=== PATIENT | female | born 1975 | race African-American/Black ===

== ENCOUNTER 2020-07-03 05:45 | Emergency (ER) | payer SELFPAY ==
[2020-07-03] MEDS ORDERED: NA CHLORIDE 0.9% 1,000 ML ONE (06:39)
[2020-07-03] MEDS ORDERED: ONDANSETRON 4 MG/2 ML VIAL ONE (06:39)
[2020-07-03] MEDS ORDERED: MORPHINE 4 MG/ML SYR ONE (06:39)
[2020-07-03] MEDS ORDERED: FAMOTIDINE 20 MG/2 ML VIAL IV ONE (06:39)
[2020-07-03 06:41] LABS: Absolute Lymphocytes (CBC) 1.5 K/uL (0.7-4.9); Basophils % 0.5 % (0-1.3); Hematocrit 40.9 % (36.0-45.0); Lymphocytes % 9.9 % (15.3-44.8); MPV 9.3 fL (7.6-11.3); RBC Red Blood Cell Count 4.63 M/uL (3.86-4.86)
[2020-07-03 06:56] LABS: Albumin 4.8 g/dL (3.4-5.0); Bilirubin Direct 0.2 mg/dL (0-0.2); Bilirubin Total 0.7 mg/dL (0.2-1.0); Protein, Total 9.6 g/dL (6.4-8.2)
[2020-07-03 06:58] LABS: Potassium 2.7 mmol/L (3.5-5.1)
[2020-07-03] MEDS ORDERED: POTASSIUM 25 MEQ EFFERV TAB ONE (07:27)
--- NOTE | 2020-07-03 09:02 | RAD REPORT ---
EXAM DESCRIPTION: CT - Abdomen Pelvis W Contrast - 07/03/2020 7:58 am CLINICAL HISTORY: ABD PAIN COMPARISON: <Comparisons> TECHNIQUE: Biphasic, helical CT imaging of the abdomen and pelvis was performed following 100 ml non -ionic IV contrast. No oral contrast administered. All CT scans are performed using dose optimization technique as appropriate and may include automated exposure control or mA/KV adjustment according to patient size. FINDINGS: No acute pleural or parenchymal lung base abnormality. No pericardial effusion. Trevino of t he distal esophagus are mildly prominent. There is motion which limits assessment. The liver, spleen, and pancreas show no suspicious findings. Small cysts are present in the liver. No gallbladder or biliary tree abnormality. Symmetric renal function is seen with no hydronephrosis or suspicious renal mass. No pyelonephritis o r acute parenchymal process. No bladder abnormalities. No adrenal abnormalities. Enlarged multi fibro id uterus is present some of which are calcified. Largest fibroid is along the right lower uterine se gment cervix region measuring 4 cm in size. No ovarian abnormality. No gastric dilatation or wall thickening. Multiple prominent small bowel loops are present in the lef t-side of the abdomen. Appendix is normal. No acute colon finding. No free air, free fluid or inflam matory stranding. No mass or bulky lymphadenopathy. Small fat only umbilical hernia present. No suspicious bony findings. IMPRESSION: No bowel obstruction, free air or surgically emergent finding. Multiple nonspecific prominent small bowel loops. Findings would be consistent with enteritis. Additional nonacute findings detailed in the body of the report.
--- NOTE | 2020-07-03 09:26 | EDPHYS ---
Physician Documentation [facility] Name: Sangita Sorenson Age: 44 yrs Sex: Female : 1975 Arrival Date: 07/03/2020 Time: 05:48 Bed 4 Private MD: ED Physician Amado Everett HPI: 07/03 06:45 This 44 yrs old Black Female presents to ER via Ambulatory with complaints of mh7 Nausea/Vomiting, General Weakness. 06:45 The patient presents with abdominal pain that is diffuse. Onset: The symptoms/episode mh7 began/occurred 2 day(s) ago. The symptoms radiate to the right flank. Associated signs and symptoms: Pertinent positives: nausea, vomiting, Pertinent negatives: anorexia, blood in stools, chest pain, constipation, diarrhea, dysuria, fever, headache, hematuria, palpitations, shortness of breath, vaginal discharge, vomiting blood. The symptoms are described as intermittent, vague, waxing/waning. Modifying factors: The symptoms are alleviated by nothing, the symptoms are aggravated by nothing. Severity of pain: At its worst the pain was moderate yesterday, in the emergency department the pain is unchanged. 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 - Social history:: Smoking status: Patient reports the use of cigarette tobacco products, smokes one-half pack cigarettes per day. ROS: 06:45 Constitutional: Negative for fever, chills, and weight loss, Eyes: Negative for injury, mh7 pain, redness, and discharge, ENT: Negative for injury, pain, and discharge, Neck: Negative for injury, pain, and swelling, Cardiovascular: Negative for chest pain, palpitations, and edema, Respiratory: Negative for shortness of breath, cough, wheezing, and pleuritic chest pain, : Negative for injury, bleeding, discharge, and swelling, MS/Extremity: Negative for injury and deformity, Skin: Negative for injury, rash, and discoloration, Neuro: Negative for headache, weakness, numbness, tingling, and seizure, Psych: Negative for depression, anxiety, suicide ideation, homicidal ideation, and hallucinations, Allergy/Immunology: Negative for hives, rash, and allergies, Endocrine: Negative for neck swelling, polydipsia, polyuria, polyphagia, and marked weight changes, Hematologic/Lymphatic: Negative for swollen nodes, abnormal bleeding, and unusual bruising. Exam: 06:45 Head/Face: Normocephalic, atraumatic. Eyes: Pupils equal round and reactive to light, mh7 extra-ocular motions intact. Lids and lashes normal. Conjunctiva and sclera are non-icteric and not injected. Cornea within normal limits. Periorbital areas with no swelling, redness, or edema. ENT: Nares patent. No nasal discharge, no septal abnormalities noted. Tympanic membranes are normal and external auditory canals are clear. Oropharynx with no redness, swelling, or masses, exudates, or evidence of obstruction, uvula midline. Mucous membranes moist. Neck: Trachea midline, no thyromegaly or masses palpated, and no cervical lymphadenopathy. Supple, full range of motion without nuchal rigidity, or vertebral point tenderness. No Meningismus. Chest/axilla: Normal chest wall appearance and motion. Nontender with no deformity. No lesions are appreciated. Cardiovascular: Regular rate and rhythm with a normal S1 and S2. No gallops, murmurs, or rubs. Normal PMI, no JVD. No pulse deficits. Respiratory: Lungs have equal breath sounds bilaterally, clear to auscultation and percussion. No rales, rhonchi or wheezes noted. No increased work of breathing, no retractions or nasal flaring. 06:45 Skin: Warm, dry with normal turgor. Normal color with no rashes, no lesions, and no evidence of cellulitis. MS/ Extremity: Pulses equal, no cyanosis. Neurovascular intact. Full, normal range of motion. Neuro: Awake and alert, GCS 15, oriented to person, place, time, and situation. Cranial nerves II-XII grossly intact. Motor strength 5/5 in all extremities. Sensory grossly intact. Cerebellar exam normal. Normal gait. Psych: Awake, alert, with orientation to person, place and time. Behavior, mood, and affect are within normal limits. 06:45 Constitutional: The patient appears in no acute distress, alert, awake, uncomfortable. 06:45 Abdomen/GI: Inspection: abdomen appears normal, Bowel sounds: normal, in all quadrants, Palpation: mild abdominal tenderness, in all quadrants, Rectal exam: the exam is deferred, because of patient request, Indicators: McBurney's point is not tender, Waters's sign is negative, Rovsing's sign is negative, Obturator sign is negative, Psoas sign is negative, Liver: no appreciated palpable abnormalities, Hernia: not appreciated. 06:45 Back: CVA tenderness, that is mild, is noted on the right. Vital Signs: 06:02 BP 132 / 82; Pulse 56; Resp 18; Temp 97.8; Pulse Ox 97% ; Weight 61.23 kg; Height 4 ft. ea 11 in. (149.86 cm); 07:30 BP 101 / 63; Pulse 52; Resp 17; Pulse Ox 97% ; jl7 08:29 BP 103 / 58; Pulse 54; Resp 18; Pulse Ox 96% on R/A; tw2 09:40 BP 100 / 60; Pulse 65; Resp 17; Pulse Ox 96% on R/A; tw2 06:02 Body Mass Index 27.27 (61.23 kg, 149.86 cm) ea MDM: 07:24 Transition of care: After a detail discussion of the patient's case, care is 7 transferred to Amado Everett MD. 09:19 Patient medically screened. rn 09:24 Differential diagnosis: diverticulitis, gastritis, non-specific abd pain, pancreatitis, rn enteritis, colitis. Data reviewed: vital signs, nurses notes, lab test result(s), radiologic studies, CT scan, and as a result, I will discharge patient. Counseling: I had a detailed discussion with the patient and/or guardian regarding: the historical points, exam findings, and any diagnostic results supporting the discharge/admit diagnosis, lab results, radiology results, the need for outpatient follow up, to return to the emergency department if symptoms worsen or persist or if there are any questions or concerns that arise at home. Response to treatment: the patient's symptoms have markedly improved after treatment, patient is well hydrated. and as a result, I will discharge patient. Special discussion: Based on the patient's Hx, exam, and Dx evaluation, there is no indication for emergent surgery or inpatient Tx. It is understood by the patient/guardian that if the Sx's persist or worsen they need to return immediately for re-evaluation. I discussed with the patient/guardian in detail that at this point there is no indication for admission to the hospital. It is understood, however, that if the symptoms persist or worsen the patient needs to return immediately for re-evaluation. ED course: CT shows enteritis, is consistent with symptoms, stable vitals, potassium replaced, fluids given, feels better, will dc home as viral enteritis with prn zofran and return precautions. . 07/03 06:15 Order name: Basic Metabolic Panel; Complete Time: 07:04 [facility] 07/03 06:15 Order name: CBC with Diff; Complete Time: 06:58 [facility] 07/03 06:15 Order name: Hepatic Function; Complete Time: 07:04 [facility] 07/03 06:15 Order name: Lipase; Complete Time: 07:04 [facility] 07/03 06:22 Order name: CT Abd/Pelvis - IV Contrast Only; Complete Time: 09:19 [facility] 07/03 07:05 Order name: Magnesium; Complete Time: 09:19 [facility] 07/03 06:15 Order name: IV Saline Lock; Complete Time: 06:35 [facility] 07/03 06:15 Order name: Labs collected and sent; Complete Time: 06:35 [facility] 07/03 06:22 Order name: EKG - Nurse/Tech; Complete Time: 07:17 mh7 Administered Medications: 06:30 Drug: Zofran (Ondansetron) 4 mg Route: IVP; Site: right forearm; ea 07:20 Follow up: Response: No adverse reaction rr5 06:32 Drug: NS 0.9% 1000 ml Route: IV; Rate: 1000 ml; Site: right forearm; ea 09:41 Follow up: Response: No adverse reaction; IV Status: Completed infusion; IV Intake: tw2 1000ml 06:33 Drug: morphine 4 mg {Note: rass 1.} Route: IVP; Site: right forearm; ea 07:20 Follow up: Response: No adverse reaction; Pain is decreased; RASS: Alert and Calm (0) rr5 06:34 Drug: Pepcid 20 mg Route: IVP; Site: right forearm; ea 07:20 Follow up: Response: No adverse reaction rr5 07:25 Drug: Potassium Effervescent Tablet 50 mEq Route: PO; jl7 09:41 Follow up: Response: No adverse reaction tw2 Disposition: 07/03/20 09:25 Discharged to Home. Impression: Enteritis, Vomiting, unspecified. - Condition is Stable. - Discharge Instructions: Nausea and Vomiting, Adult, Viral Gastroenteritis, Adult. - Prescriptions for Zofran ODT 4 mg Oral tablet,disintegrating - place 1 tablet by TRANSLINGUAL route every 8 hours; 20 tablet. - Medication Reconciliation Form, Thank You Letter, Antibiotic Education, Prescription Opioid Use form. - Follow up: Private Physician; When: As needed; Reason: Recheck today's complaints, Re-evaluation by your physician. - Problem is new. - Symptoms have improved. Signatures: Dispatcher [employer] EDMS Amado Everett MD MD rn Wise, Tara RN RN tw2 Peg Grey RN RN jl7 Sarai Dumont RN RN Jordan Sepulveda RN RN rr5 Dani Freire MD MD mh7 Corrections: (The following items were deleted from the chart) 09:45 09:25 07/03/2020 09:25 Discharged to Home. Impression: Enteritis; Vomiting, tw2 unspecified. Condition is Stable. Forms are Medication Reconciliation Form, Thank You Letter, Antibiotic Education, Prescription Opioid Use. Follow up: Private Physician; When: As needed; Reason: Recheck today's complaints, Re-evaluation by your physician. Problem is new. Symptoms have improved. rn
--- NOTE | 2020-07-03 09:26 | ER ---
Nurse's Notes [facility] Name: Sangita Sorenson Age: 44 yrs Sex: Female : 1975 Arrival Date: 07/03/2020 Time: 05:48 Bed 4 Private MD: Diagnosis: Enteritis;Vomiting, unspecified Presentation: 07/03 05:52 Care prior to arrival: None. Transition of care: patient was not received from another setting of care. 05:52 Acuity: IBRAHIMA 3 sg 06:02 Chief complaint: Patient states: Reports abdominal pain and vomiting that started ea Saturday, pt reports the cramping has worsened and she has not been able to keep anything down. Coronavirus screen: At this time, the client does not indicate any symptoms associated with coronavirus-19. Ebola Screen: No symptoms or risks identified at this time. Initial Sepsis Screen: Does the patient meet any 2 criteria? No. Patient's initial sepsis screen is negative. Does the patient have a suspected source of infection? No. Patient's initial sepsis screen is negative. Risk Assessment: Do you want to hurt yourself or someone else? Patient reports no desire to harm self or others. Onset of symptoms was July 03, 2020. 06:02 Method Of Arrival: Ambulatory ea Triage Assessment: 06:04 General: Appears uncomfortable, Behavior is appropriate for age. Pain: Complains of ea pain in abdomen. Pain: Quality of pain is described as crampy. Neuro: Level of Consciousness is awake, alert, obeys commands, Oriented to person, place, time, situation. Cardiovascular: Patient's skin is warm and dry. Respiratory: Airway is patent Respiratory effort is even, unlabored, Respiratory pattern is regular, symmetrical. GI: Reports nausea, vomiting. Derm: Skin is pink, warm \T\ dry. [place]: 06:05 LMP 06/26/2020 ea Historical: - Allergies: 06:04 No Known Allergies; rr5 - PMHx: 06:04 None; rr5 - PSHx: 06:04 ; rr5 - Immunization history:: Adult Immunizations up to date. - Social history:: Smoking status: Patient reports the use of cigarette tobacco products, smokes one-half pack cigarettes per day. Screenin:03 Abuse screen: Denies threats or abuse. Nutritional screening: No deficits noted. ea Tuberculosis screening: No symptoms or risk factors identified. Fall Risk None identified. Assessment: 06:00 General: Appears in no apparent distress. uncomfortable, Behavior is calm, cooperative, rr5 appropriate for age, Reports feeling ill for. 06:00 Pain: Complains of pain in abdomen. Neuro: Level of Consciousness is awake, alert, rr5 obeys commands, Oriented to person, place, time, situation, Reports weakness. Cardiovascular: Capillary refill < 3 seconds Patient's skin is warm and dry. Respiratory: Airway is patent Respiratory effort is even, unlabored, Respiratory pattern is regular, symmetrical. GI: Abdomen is round non-distended, Reports lower abdominal pain, upper abdominal pain, nausea, vomiting. : No signs and/or symptoms were reported regarding the genitourinary system. EENT: No signs and/or symptoms were reported regarding the EENT system. Derm: Skin is intact, is healthy with good turgor, Skin temperature is warm. Musculoskeletal: Capillary refill < 3 seconds. 06:40 Reassessment: Patient appears in no apparent distress at this time. Patient is alert, rr5 oriented x 3, equal unlabored respirations, skin warm/dry/pink. Patient states symptoms have improved. 08:29 Reassessment: Patient appears in no apparent distress at this time. Patient and/or tw2 family updated on plan of care and expected duration. Pain level reassessed. Patient is alert, oriented x 3, equal unlabored respirations, skin warm/dry/pink. 09:40 Reassessment: Patient appears in no apparent distress at this time. Patient and/or tw2 family updated on plan of care and expected duration. Pain level reassessed. Patient is alert, oriented x 3, equal unlabored respirations, skin warm/dry/pink. Vital Signs: 06:02 BP 132 / 82; Pulse 56; Resp 18; Temp 97.8; Pulse Ox 97% ; Weight 61.23 kg; Height 4 ft. ea 11 in. (149.86 cm); 07:30 BP 101 / 63; Pulse 52; Resp 17; Pulse Ox 97% ; jl7 08:29 BP 103 / 58; Pulse 54; Resp 18; Pulse Ox 96% on R/A; tw2 09:40 BP 100 / 60; Pulse 65; Resp 17; Pulse Ox 96% on R/A; tw2 06:02 Body Mass Index 27.27 (61.23 kg, 149.86 cm) ea ED Course: 05:48 Patient arrived in ED. am2 05:52 Triage completed. sg 05:52 Arm band placed on. sg 05:53 Dani Freire MD is Attending Physician. 7 06:04 Patient has correct armband on for positive identification. Placed in gown. Bed in low ea position. Call light in reach. Side rails up X 1. Pulse ox on. NIBP on. 06:15 Jordan Solis, RN is Primary Nurse. rr5 06:15 Inserted saline lock: 20 gauge in right forearm, using aseptic technique. Blood rr5 collected. 07:07 Primary Nurse role handed off by Jordan Solis RN jl7 07:07 Peg Grey RN is Primary Nurse. jl7 07:16 EKG done, by ED staff, reviewed by Dani Freire MD. rr5 07:23 No provider procedures requiring assistance completed. rr5 07:30 sent to lab. mag. jl7 07:58 CT Abd/Pelvis - IV Contrast Only In Process Unspecified. EDMS 09:19 Attending Physician role handed off by Dani Freire MD rn 09:19 Amado Everett MD is Attending Physician. rn 09:44 IV discontinued, intact, bleeding controlled, No redness/swelling at site. Pressure tw2 dressing applied. Administered Medications: 06:30 Drug: Zofran (Ondansetron) 4 mg Route: IVP; Site: right forearm; ea 07:20 Follow up: Response: No adverse reaction rr5 06:32 Drug: NS 0.9% 1000 ml Route: IV; Rate: 1000 ml; Site: right forearm; ea 09:41 Follow up: Response: No adverse reaction; IV Status: Completed infusion; IV Intake: tw2 1000ml 06:33 Drug: morphine 4 mg {Note: rass 1.} Route: IVP; Site: right forearm; ea 07:20 Follow up: Response: No adverse reaction; Pain is decreased; RASS: Alert and Calm (0) rr5 06:34 Drug: Pepcid 20 mg Route: IVP; Site: right forearm; ea 07:20 Follow up: Response: No adverse reaction rr5 07:25 Drug: Potassium Effervescent Tablet 50 mEq Route: PO; jl7 09:41 Follow up: Response: No adverse reaction tw2 Intake: 09:41 IV: 1000ml; Total: 1000ml. tw2 Outcome: :25 Discharge ordered by . rn :44 Discharged to home ambulatory. tw2 :44 Condition: stable :44 Discharge instructions given to patient, Instructed on discharge instructions, follow up and referral plans. medication usage, Demonstrated understanding of instructions, follow-up care, medications, Prescriptions given X 1. 09:45 Patient left the ED. tw2 Signatures: Dispatcher [employer] EDMS Darrius Aj RN RN sg Amado Everett MD MD rn Wise, Tara, RN RN tw2 Peg Grey RN RN jl7 Nettie Leon Elena, RN RN ea Roque, Raymond RN RN rr5 Dani Freire MD MD 7
[2020-07-03 12:13] VITALS: TEMP 97.8
[2020-07-03 12:17] VITALS: O2SAT 96
[2020-07-03 12:18] VITALS: BP 100/60
== END 2020-07-03 09:45 | disposition home or self-care (01) ==
LOC: ER 05:45
DX: K52.9 Noninfective gastroenteritis and colitis, unspecified (principal); F17.210 Nicotine dependence, cigarettes, uncomplicated
CPT/HCPCS: 36415; 74177; 80048; 80076; 83690; 83735; 85025; 93005; 96361; 96374; 96375; 99284; J2405; J7030; Q9967

== ENCOUNTER 2020-11-23 11:34 | Emergency (ER) | payer SELFPAY ==
--- OUTSIDE RECORDS SUMMARY | 2020-11-23 13:32 | XMS REPORT | Continuity of Care Document ---
:1975 Author Organization [facility] t Address [address] [place] [address] Care Team Providers Name Role Phone Pcp Primary Care Physician Unavailable Zheng Bradshaw Attending Clinician JAMES FRANKLIN Attending Clinician Unavailable LANDON HILL Attending Clinician Unavailable ERVIN LAO Attending Clinician Unavailable RAFAEL TURPIN Attending Clinician Unavailable Problems This patient has no known problems. Allergies, Adverse Reactions, Alerts This patient has no known allergies or adverse reactions. Social History Social Habit Start Date Stop Date Quantity Comments Source History [facility] Std Drinks [facility] - Alcohol Binge Medical Sage ter Sex Assigned At [facility] Tobacco use and 2019-09-17 2019-09-17 Never used [facility] - exposure 00:00:00 00:00:00 [facility] Alcohol intake 2019-09-17 2019-09-17 Current [facility] es - 00:00:00 00:00:00 non-drinker of Medical Ce nter alcohol (finding) History [facility] 2019-06-27 2019-06-27 [address] [facility] - Alcohol Frequency 00:00:00 00:00:00 [facility] Smoking Status Start Date Stop Date Source Never smoker [facility] Medications Ordered Filled Start Stop Current Ordering Indication Dosage Frequency Signature Comments Components Source Medication Medication Date Date Medication? Clinician (SIG) Name Name ondansetron Yes 4mg Take [address] [facility] [address] (ZOFRAN-ODT 2-13 tablet (4 [facility] - ) 4 MG 00:00: mg total) Medica l disintegrat 00 by mouth Cent er ing tablet every 8 (eight) hours as needed. Procedures This patient has no known procedures. Plan of Care Planned Activity Planned Date Details Comments Source Future Scheduled 2020-10-[address] [facility] [facility] - Test 00:00:00 malignant neoplasm Medical C enter of cervix (procedure) [code = 293759338] Future Scheduled 2020-04-[address] [facility] - Test 00:00:00 (#1) [code = Medical Center INFLUENZA VACCINE (#1)] Encounters Start End Encounter Admission Attending Care Care Encounter Source Date/Time Date/Time Type Type Clinicians Facility Department ID 2020-10-04 2020-10-04 [facility] [id number] 13:39:10 23:59:00 Encounter Oksana C SPECIALTY [id number] [facility] [id number] CENTER AT [id number] [address] 2020-10-04 2020-10-04 [facility] [id number] 13:37:38 13:38:00 Encounter Oksana C SPECIALTY [id number] [facility] [id number] CENTER AT [id number] [address] 2020-09-01 2020-09-01 [facility] [id number] 00:00:00 00:00:00 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 [id number] [facility] [id number] MATERNAL [id number] & CHILD [address] [place] [address] Results Test Description Test Time Test Comments Results Result [facility] e Comments CT, ABDOMEN 2019-09-17 Reason for FINAL REPORT PATIENT 14:16:00 exam:->NAUSEARe ID: [id number] CT ason for ABDOMEN AND PELVIS exam:->EMESISRe WITH IV CONTRAST ason for Comparison exam: exam:->ABDOMINA 08/16/2019 History L PAINIs the provided: Nausea, patient vomiting, abdominal ?->NoWh pain TECHNIQUE: at is the Spiral CT cuts were patient's performed through the sedation abdomen and pelvis requirement?->N with IV contrast o Sedation administered. FINDINGS: Lung bases unremarkable. Normal-appearing liver, spleen, and pancreas. Gallbladder normal in size. Normal appearing adrenals and kidneys. Normal caliber abdominal aorta. No dilated bowel loops. Normal-appearing appendix. No signs of diverticular disease. Calcified uterine fibroids. No pelvic fluid or pelvic inflammation. Regional osseous structures unremarkable. IMPRESSION: No acute findings evident. COMMENT: This exam was performed according to our departmental dose-optimization program, which includes automated exposure control, adjustment of the mA and/or kV according to patient size and/or use of iterative reconstruction technique. Signed: Beatris Cohen MDReport Verified Date/Time: 09/17/2019 14:16:48 Reading Location: [facility] Radiology Reading Room SE 2019-09-17 13:00:00 Test Item Value Reference Range Interpretation Comme nts LIPASE (BEAKER) (test code = 749) 4 U/L 6-51 L Automotive Refinisher ID - [id number] FUNCTION [id number] 12:56:00 Test Item Value Reference Range Interpretation Comments TOTAL PROTEIN (BEAKER) 7.5 gm/dL 6.0-8.5 Speci men slightly (test code = 770) hemolyzed ALBUMIN (BEAKER) (test 4.4 g/dL 3.5-5.0 Speci men slightly code = 1145) hemolyzed BILIRUBIN TOTAL 0.2 mg/dL 0.1-1.2 Specimen sli ghtly (BEAKER) (test code = hemoly zed 377) BILIRUBIN DIRECT 0.1 mg/dL 0.0-0.4 Specimen sl ightly (BEAKER) (test code = hemoly zed 706) ALKALINE PHOSPHATASE 60 U/L 30-115 (BEAKER) (test code = 346) AST (SGOT) (BEAKER) 13 U/L 5-40 Specimen slightly (test code = 353) hemolyzed ALT (SGPT) (BEAKER) 9 U/L 5-50 Specimen slightly (test code = 347) hemolyzed Automotive Refinisher ID - [id number] DRUG SCREEN, [id number] 12:54:00 Test Item Value Reference Range Interpretation Comments BARBITURATE URINE (BEAKER) (test Negative Negative code = 725) BENZODIAZEPINE SCREEN URINE (BEAKER) Negative Negative (test code = 726) COCAINE (METAB.) SCREEN (BEAKER) Negative Negative (test code = 1164) METHADONE SCREEN (BEAKER) (test code Negative Negative = 1436) OPIATE SCREEN URINE (BEAKER) (test Positive Negative A code = 734) CANNABINOID SCREEN URINE (BEAKER) Positive Negative A (test code = 727) AMPH/METHAMPH SCREEN (BEAKER) (test Negative Negative code = 1438) PHENCYCLIDINE SCREEN URINE (BEAKER) Negative Negative (test code = 608) PH UA (BEAKER) (test code = 467) 7.5 5.0-8.0 DRUG CUTOFF CONC.Cocaine 300 ng/mL Cannabinoid 50 ng/mLBenzodiazepine 200 ng/mLBarbiturate 200 ng/mLPhencyclidine 25 ng/mLOpiate 300 ng/mLMethadone 300 ng/mLAmphetamine/ 1000 ng/mL MethamphetamineThis assay provides an unconfirmed qualitative test result for the clinical management of patients in emergency situations. Chain of custody not maintained. Some wtjt-jjn-thocvgn medications, as well as adulterants, may cause inaccurate results. Clinical correlation should be applied. A more comprehensivedrug screen or confirmation of a detected drug may be performed upon request.Automotive Refinisher ID - [id number] ID - [id number] ID - [id number] ID - [id number] ID - [id number] ID - [id number] ID - [id number] ID - [id number] METABOLIC [id number] 12:54:00 Test Item Value Reference Range Interpretation Comments SODIUM (BEAKER) 140 meq/L 135-148 (test code = 381) POTASSIUM (BEAKER) 3.5 meq/L 3.6-5.5 L Specimen slightly (test code = 379) hemolyzed CHLORIDE (BEAKER) 106 meq/L 98-106 (test code = 382) CO2 (BEAKER) (test 22 meq/L 20-29 code = 355) BLOOD UREA NITROGEN 7 mg/dL 10-26 L (BEAKER) (test code = 354) CREATININE (BEAKER) 0.68 mg/dL 0.50-1.20 Specimen slightly (test code = 358) hemolyzed GLUCOSE RANDOM 119 mg/dL 70-110 H (BEAKER) (test code = 652) CALCIUM (BEAKER) 8.9 mg/dL 8.5-10.5 (test code = 697) EGFR (BEAKER) (test 116 mL/min/1.73 ESTIM ATED GFR IS code = 1092) sq m NOT ACCURATE CREATININE CLEARANCE IN PREDICTING GLOMERULAR FILTRATION RATE . ESTIMATED GFR I S NOT APPLICABLE FOR DIALYSIS PATIEN TS. Automotive Refinisher ID - [id number] W/ [id number] 12:47:00 Test Item Value Reference Range Interpretation Comments COLOR (BEAKER) (test code = Yellow 470) CLARITY (BEAKER) (test code = Cloudy 469) SPECIFIC GRAVITY UA (BEAKER) 1.020 1.001-1.035 (test code = 468) PH UA (BEAKER) (test code = 7.5 5.0-8.0 467) PROTEIN UA (BEAKER) (test code Negative Negative = 464) GLUCOSE UA (BEAKER) (test code Negative Negative = 365) KETONES UA (BEAKER) (test code 15 mg/dL Negative A = 371) BILIRUBIN UA (BEAKER) (test Negative Negative code = 462) BLOOD UA (BEAKER) (test code = Negative Negative 461) NITRITE UA (BEAKER) (test code Negative Negative = 465) LEUKOCYTE ESTERASE UA (BEAKER) Negative Negative (test code = 466) UROBILINOGEN UA (BEAKER) (test 1.0 mg/dL 0.2-1.0 code = 463) BACTERIA (BEAKER) (test code = Few 517) AMORPHOUS CRYSTALS (BEAKER) Many (test code = 1584) RBC UA-MANUAL (BEAKER) (test None Seen /HPF code = 1659) WBC UA-MANUAL (BEAKER) (test <5 /HPF code = 1661) SQUAMOUS EPITHELIAL MANUAL 5-10 /HPF (BEAKER) (test code = 1663) SOURCE(BEAKER) (test code = 4725) SCREEN, [id number] 12:40:00 Test Item Value Reference Range Interpretation Comments TEST URINE (BEAKER) (test Negative code = 583) CBC W/PLT COUNT & AUTO [id number] 12:38:00 Test Item Value Reference Range Interpretation Comments WHITE BLOOD CELL COUNT (BEAKER) 13.4 K/ L 4.0-10.0 H (test code = 775) RED BLOOD CELL COUNT (BEAKER) 3.81 M/ L 4.00-5.00 L (test code = 761) HEMOGLOBIN (BEAKER) (test code = 11.8 GM/DL 12.0-15.5 L 410) HEMATOCRIT (BEAKER) (test code = 35.0 % 36.0-46.0 L 411) MEAN CORPUSCULAR VOLUME (BEAKER) 91.9 fL 82.0-99.0 (test code = 753) MEAN CORPUSCULAR HEMOGLOBIN 31.0 pg 27.0-33.0 (BEAKER) (test code = 751) MEAN CORPUSCULAR HEMOGLOBIN CONC 33.7 GM/DL 32.0-36.0 (BEAKER) (test code = 752) RED CELL DISTRIBUTION WIDTH 14.5 % 12.0-15.0 (BEAKER) (test code = 412) PLATELET COUNT (BEAKER) (test 368 K/CU MM 150-430 code = 756) MEAN PLATELET VOLUME (BEAKER) 10.1 fL 6.0-11.5 (test code = 754) NUCLEATED RED BLOOD CELLS 0 /100 WBC 0-0 (BEAKER) (test code = 413) NEUTROPHILS RELATIVE PERCENT 77 % (BEAKER) (test code = 429) LYMPHOCYTES RELATIVE PERCENT 16 % (BEAKER) (test code = 430) MONOCYTES RELATIVE PERCENT 6 % (BEAKER) (test code = 431) EOSINOPHILS RELATIVE PERCENT 0 % (BEAKER) (test code = 432) BASOPHILS RELATIVE PERCENT 0 % (BEAKER) (test code = 437) NEUTROPHILS ABSOLUTE COUNT 10.31 K/ L 1.80-8.00 H (BEAKER) (test code = 670) LYMPHOCYTES ABSOLUTE COUNT 2.18 K/ L 1.48-4.50 (BEAKER) (test code = 414) MONOCYTES ABSOLUTE COUNT (BEAKER) 0.78 K/ L 0.00-1.30 (test code = 415) EOSINOPHILS ABSOLUTE COUNT 0.01 K/ L 0.00-0.50 (BEAKER) (test code = 416) BASOPHILS ABSOLUTE COUNT (BEAKER) 0.02 K/ L 0.00-0.20 (test code = 417) IMMATURE GRANULOCYTES-RELATIVE 0 % 0-0 PERCENT (BEAKER) (test code = 2801) POCT-GLUCOSE [id number] 12:28:00 Test Item Value Reference Range Interpretation Comments POC-GLUCOSE METER 117 mg/dL 70-110 H : TESTED A T [address] 1317 (BEAKER) (test code [address], = 1538) [facility] 77 478: Automotive Refinisher/Techni brayden ID = [id number] for Tolo , Chisa CT, [id number] 16:50:00Reason for exam:->EMESISIs the patient ?->NoWhat is the patient's sedation requirement?->No SedationFINAL REPORT CT scan of the abdomen and pelvis. MEDICAL HISTORY: Epigastric pain, emesis. COMPARISON STUDY: July 07, 2019. TECHNIQUE: Contiguous helical slices were acquired through the abdomen and pelvis post administration of intravenous contrast. No oral contrast was administered. This exam was performed according to our department dose optimization program which includesautomated exposure control, adjustment of the mA and/or kV according to the patient's size and/or use of iterative reconstruction technique. FINDINGS: The lung bases are clear. The liver demonstrates scattered tiny low-attenuation lesions, too small to characterize. The gallbladder and biliary tree are unremarkable. The spleen, pancreas, adrenal glands and kidneys are unremarkable. No dilated loops of bowel are seen suggest obstruction. A portion of what is likely a normal appendix is seen. The gastric antrum appears collapsed but there is questionable thickening with adjacent fluid. There is no significant free fluid or free air. Some calcified uterine fibroids are seen measuring up to 1.6 x 1.5 cm in size. The aorta is normal in caliber. No suspicious adenopathy is seen. Bone windows are unremarkable. IMPRESSION:1. Uterine fibroids.2. Tiny low- attenuation hepatic lesions, too small to characterize but statistically most likely cysts.3. Normal partially visualized appendix seen.4. Collapsed gastric antrum but questionable thickening of this region. A gastritis cannot be excluded. Signed: Troy Galarza MDReport Verified Date/Time: 08/16/2019 16:50:10 Reading Location: [place] [id number] Ortho Consult Reading Room LIPASE 2019-08-16 14:40:00 Test Item Value Reference Range Interpretation Comments LIPASE (BEAKER) (test code = 749) 5 U/L 6-51 L Automotive Refinisher ID - KARINABASIC METABOLIC [id number] 14:38:00 Test Item Value Reference Range Interpretation Comments SODIUM (BEAKER) 142 meq/L 135-148 (test code = 381) POTASSIUM (BEAKER) 3.2 meq/L 3.6-5.5 L Specimen slightly (test code = 379) hemolyzed CHLORIDE (BEAKER) 108 meq/L 98-106 H (test code = 382) CO2 (BEAKER) (test 23 meq/L 20-29 code = 355) BLOOD UREA NITROGEN 11 mg/dL 10-26 (BEAKER) (test code = 354) CREATININE (BEAKER) 0.76 mg/dL 0.50-1.20 Specimen slightly (test code = 358) hemolyzed GLUCOSE RANDOM 124 mg/dL 70-110 H (BEAKER) (test code = 652) CALCIUM (BEAKER) 9.7 mg/dL 8.5-10.5 (test code = 697) EGFR (BEAKER) (test 102 mL/min/1.73 ESTIM ATED GFR IS code = 1092) sq m NOT ACCURATE CREATININE CLEARANCE IN PREDICTING GLOMERULAR FILTRATION RATE . ESTIMATED GFR I S NOT APPLICABLE FOR DIALYSIS PATIEN TS. Automotive Refinisher ID - KARINAHEPATIC FUNCTION [id number] 14:38:00 Test Item Value Reference Range Interpretation Comments TOTAL PROTEIN (BEAKER) 7.5 gm/dL 6.0-8.5 Speci men slightly (test code = 770) hemolyzed ALBUMIN (BEAKER) (test 4.3 g/dL 3.5-5.0 Speci men slightly code = 1145) hemolyzed BILIRUBIN TOTAL 0.3 mg/dL 0.1-1.2 Specimen sli ghtly (BEAKER) (test code = hemoly zed 377) BILIRUBIN DIRECT 0.1 mg/dL 0.0-0.4 Specimen sl ightly (BEAKER) (test code = hemoly zed 706) ALKALINE PHOSPHATASE 57 U/L 30-115 (BEAKER) (test code = 346) AST (SGOT) (BEAKER) 16 U/L 5-40 Specimen slightly (test code = 353) hemolyzed ALT (SGPT) (BEAKER) 10 U/L 5-50 Specimen slightly (test code = 347) hemolyzed Automotive Refinisher ID - KARADIHCG, SERUM, [id number] 14:34:00 Test Item Value Reference Range Interpretation Comments TEST SERUM (BEAKER) (test Negative code = 584) RAPID INFLUENZA A&B [id number] 14:34:00 Test Item Value Reference Range Interpretation Comments RAPID INFLUENZA A AG (BEAKER) Negative Negative, Inconclusive (test code = 1622) RAPID INFLUENZA B AG (BEAKER) Negative Negative, Inconclusive (test code = 1623) CBC W/PLT COUNT & AUTO [id number] 14:20:00 Test Item Value Reference Range Interpretation Comments WHITE BLOOD CELL COUNT (BEAKER) 19.8 K/ L 4.0-10.0 H (test code = 775) RED BLOOD CELL COUNT (BEAKER) 3.92 M/ L 4.00-5.00 L (test code = 761) HEMOGLOBIN (BEAKER) (test code = 12.1 GM/DL 12.0-15.5 410) HEMATOCRIT (BEAKER) (test code = 36.0 % 36.0-46.0 411) MEAN CORPUSCULAR VOLUME (BEAKER) 91.8 fL 82.0-99.0 (test code = 753) MEAN CORPUSCULAR HEMOGLOBIN 30.9 pg 27.0-33.0 (BEAKER) (test code = 751) MEAN CORPUSCULAR HEMOGLOBIN CONC 33.6 GM/DL 32.0-36.0 (BEAKER) (test code = 752) RED CELL DISTRIBUTION WIDTH 14.5 % 12.0-15.0 (BEAKER) (test code = 412) PLATELET COUNT (BEAKER) (test 318 K/CU MM 150-430 code = 756) MEAN PLATELET VOLUME (BEAKER) 10.8 fL 6.0-11.5 (test code = 754) NUCLEATED RED BLOOD CELLS 0 /100 WBC 0-0 (BEAKER) (test code = 413) NEUTROPHILS RELATIVE PERCENT 78 % (BEAKER) (test code = 429) LYMPHOCYTES RELATIVE PERCENT 14 % (BEAKER) (test code = 430) MONOCYTES RELATIVE PERCENT 7 % (BEAKER) (test code = 431) EOSINOPHILS RELATIVE PERCENT 0 % (BEAKER) (test code = 432) BASOPHILS RELATIVE PERCENT 0 % (BEAKER) (test code = 437) NEUTROPHILS ABSOLUTE COUNT 15.53 K/ L 1.80-8.00 H (BEAKER) (test code = 670) LYMPHOCYTES ABSOLUTE COUNT 2.80 K/ L 1.48-4.50 (BEAKER) (test code = 414) MONOCYTES ABSOLUTE COUNT (BEAKER) 1.39 K/ L 0.00-1.30 H (test code = 415) EOSINOPHILS ABSOLUTE COUNT 0.00 K/ L 0.00-0.50 (BEAKER) (test code = 416) BASOPHILS ABSOLUTE COUNT (BEAKER) 0.03 K/ L 0.00-0.20 (test code = 417) IMMATURE GRANULOCYTES-RELATIVE 1 % 0-0 H PERCENT (BEAKER) (test code = 2801) COMPREHENSIVE METABOLIC [id number] 12:48:00 Test Item Value Reference Range Interpretation Comments TOTAL PROTEIN 8.7 gm/dL 6.0-8.5 H (BEAKER) (test code = 770) ALBUMIN (BEAKER) 4.8 g/dL 3.5-5.0 (test code = 1145) ALKALINE PHOSPHATASE 68 U/L 30-115 (BEAKER) (test code = 346) BILIRUBIN TOTAL 0.4 mg/dL 0.1-1.2 (BEAKER) (test code = 377) SODIUM (BEAKER) (test 134 meq/L 135-148 L code = 381) POTASSIUM (BEAKER) 2.9 meq/L 3.6-5.5 L (test code = 379) CHLORIDE (BEAKER) 94 meq/L 98-106 L (test code = 382) CO2 (BEAKER) (test 27 meq/L 20-29 code = 355) BLOOD UREA NITROGEN 14 mg/dL 10-26 (BEAKER) (test code = 354) CREATININE (BEAKER) 0.76 mg/dL 0.50-1.20 (test code = 358) GLUCOSE RANDOM 92 mg/dL 70-110 (BEAKER) (test code = 652) CALCIUM (BEAKER) 10.8 mg/dL 8.5-10.5 H (test code = 697) AST (SGOT) (BEAKER) 15 U/L 5-40 (test code = 353) ALT (SGPT) (BEAKER) 16 U/L 5-50 (test code = 347) EGFR (BEAKER) (test 102 ESTIMATE D GFR IS code = 1092) mL/min/1.73 sq NOT ACCURA TE m CREATININE CLEARANCE IN PREDICTING GLOMERULAR FILTRATION RATE . ESTIMATED GFR I S NOT APPLICABLE FOR DIALYSIS PATIEN TS. [id number] 12:48:00 Test Item Value Reference Range Interpretation Comments LIPASE (BEAKER) (test code = 749) 9 U/L 6-51 HCG, SERUM, [id number] 12:27:00 Test Item Value Reference Range Interpretation Comments TEST SERUM (BEAKER) (test Negative code = 584) CBC W/PLT COUNT & AUTO [id number] 12:21:00 Test Item Value Reference Range Interpretation Comments WHITE BLOOD CELL COUNT (BEAKER) 14.7 K/ L 4.0-10.0 H (test code = 775) RED BLOOD CELL COUNT (BEAKER) 4.53 M/ L 4.00-5.00 (test code = 761) HEMOGLOBIN (BEAKER) (test code = 14.0 GM/DL 12.0-15.5 410) HEMATOCRIT (BEAKER) (test code = 40.6 % 36.0-46.0 411) MEAN CORPUSCULAR VOLUME (BEAKER) 89.6 fL 82.0-99.0 (test code = 753) MEAN CORPUSCULAR HEMOGLOBIN 30.9 pg 27.0-33.0 (BEAKER) (test code = 751) MEAN CORPUSCULAR HEMOGLOBIN CONC 34.5 GM/DL 32.0-36.0 (BEAKER) (test code = 752) RED CELL DISTRIBUTION WIDTH 14.2 % 12.0-15.0 (BEAKER) (test code = 412) PLATELET COUNT (BEAKER) (test 418 K/CU MM 150-430 code = 756) MEAN PLATELET VOLUME (BEAKER) 10.1 fL 6.0-11.5 (test code = 754) NEUTROPHILS RELATIVE PERCENT 76 % (BEAKER) (test code = 429) LYMPHOCYTES RELATIVE PERCENT 15 % (BEAKER) (test code = 430) MONOCYTES RELATIVE PERCENT 9 % (BEAKER) (test code = 431) EOSINOPHILS RELATIVE PERCENT 0 % (BEAKER) (test code = 432) BASOPHILS RELATIVE PERCENT 0 % (BEAKER) (test code = 437) NEUTROPHILS ABSOLUTE COUNT 11.14 K/ L 1.80-8.00 H (BEAKER) (test code = 670) LYMPHOCYTES ABSOLUTE COUNT 2.18 K/ L 1.48-4.50 (BEAKER) (test code = 414) MONOCYTES ABSOLUTE COUNT (BEAKER) 1.27 K/ L 0.00-1.30 (test code = 415) EOSINOPHILS ABSOLUTE COUNT 0.02 K/ L 0.00-0.50 (BEAKER) (test code = 416) BASOPHILS ABSOLUTE COUNT (BEAKER) 0.03 K/ L 0.00-0.20 (test code = 417) CT, [id number] 11:01:00Reason for exam:->EMESISIs the patient ?->NoWhat is the patient's sedation requirement?->No SedationFINAL REPORT ABDOMINAL AND PELVIS CT DATED 07/07/2019 CLINICAL INFORMATION: EMESISvomiting and abdominal pain TECHNIQUE: Axial images of the abdomen and pelvis were obtained from diaphragm to the pubic symphysis without GI or intravenous contrast. This exam was performed according to our departmental dose-optimization program, which includes automated exposure control, adjustment of the mA and/or kV according to patient size and/or use of interactive reconstruction technique. COMMENT: Liver and spleen are normal in size. A 6 x 11 mm cyst is seen in the segment 3 of the liver. A 6 mm cyst is seen in the segment 4 of the liver. Gallbladder is contracted. No gallstone or biliary dilatation is noted. Pancreas and adrenals are unremarkable. Both kidneys are normal in size. No hydronephrosis, hydroureter, urolithiasis is seen. The small and large bowel are suboptimally evaluated secondary to lack of GI and intravenous contrast. No small or large bowel dilatation is seen.Appendix is normal in caliber. Uterus is enlarged. Several calcified degenerating uterine fibroids are seen. Both ovaries are not visualized. The urinary bladder is distended. No mass, adenopathy or ascites is present. IMPRESSION: 1. Limited examination secondary to lack of GI and intravenous contrast.2. No small or large dilatation to suggest mechanical obstruction or ileus.3. Enlarged uterus with degenerating calcified uterine leiomyomata. Signed: Hugo Aragon MDReport Verified Date/Time: 07/07/2019 11:01:48 Reading Location: [facility] B1 [id number] CT Body Reading Room COMPREHENSIVE METABOLIC [id number] 10:26:00 Test Item Value Reference Range Interpretation Comments TOTAL PROTEIN 8.1 gm/dL 6.0-8.5 Specimen sligh tly (BEAKER) (test code = hemoly zed 770) ALBUMIN (BEAKER) 4.5 g/dL 3.5-5.0 Specimen sl ightly (test code = 1145) hemolyzed ALKALINE PHOSPHATASE 58 U/L 30-115 (BEAKER) (test code = 346) BILIRUBIN TOTAL 0.2 mg/dL 0.1-1.2 Specimen sli ghtly (BEAKER) (test code = hemoly zed 377) SODIUM (BEAKER) (test 139 meq/L 135-148 code = 381) POTASSIUM (BEAKER) 4.0 meq/L 3.6-5.5 Specimen slightly (test code = 379) hemolyzed CHLORIDE (BEAKER) 108 meq/L 98-106 H (test code = 382) CO2 (BEAKER) (test 21 meq/L 20-29 code = 355) BLOOD UREA NITROGEN 8 mg/dL 10-26 L (BEAKER) (test code = 354) CREATININE (BEAKER) 0.78 mg/dL 0.50-1.20 Specimen slightly (test code = 358) hemolyzed GLUCOSE RANDOM 110 mg/dL 70-110 (BEAKER) (test code = 652) CALCIUM (BEAKER) 10.0 mg/dL 8.5-10.5 (test code = 697) AST (SGOT) (BEAKER) 21 U/L 5-40 Specimen slightly (test code = 353) hemolyzed ALT (SGPT) (BEAKER) 16 U/L 5-50 Specimen slightly (test code = 347) hemolyzed EGFR (BEAKER) (test 99 mL/min/1.73 ESTIMA JASMIN GFR IS code = 1092) sq m NOT ACCURATE CREATININE CLEARANCE IN PREDICTING GLOMERULAR FILTRATION RATE . ESTIMATED GFR I S NOT APPLICABLE FOR DIALYSIS PATIEN TS. [id number] 10:26:00 Test Item Value Reference Range Interpretation Comments LIPASE (BEAKER) (test code = 749) 8 U/L 6-51 HCG, SERUM, [id number] 10:21:00 Test Item Value Reference Range Interpretation Comments TEST SERUM (BEAKER) (test Negative code = 584) CBC W/PLT COUNT & AUTO [id number] 10:08:00 Test Item Value Reference Range Interpretation Comments WHITE BLOOD CELL COUNT (BEAKER) 13.9 K/ L 4.0-10.0 H (test code = 775) RED BLOOD CELL COUNT (BEAKER) 4.36 M/ L 4.00-5.00 (test code = 761) HEMOGLOBIN (BEAKER) (test code = 13.5 GM/DL 12.0-15.5 410) HEMATOCRIT (BEAKER) (test code = 40.6 % 36.0-46.0 411) MEAN CORPUSCULAR VOLUME (BEAKER) 93.1 fL 82.0-99.0 (test code = 753) MEAN CORPUSCULAR HEMOGLOBIN 31.0 pg 27.0-33.0 (BEAKER) (test code = 751) MEAN CORPUSCULAR HEMOGLOBIN CONC 33.3 GM/DL 32.0-36.0 (BEAKER) (test code = 752) RED CELL DISTRIBUTION WIDTH 14.5 % 12.0-15.0 (BEAKER) (test code = 412) PLATELET COUNT (BEAKER) (test 381 K/CU MM 150-430 code = 756) MEAN PLATELET VOLUME (BEAKER) 10.6 fL 6.0-11.5 (test code = 754) NUCLEATED RED BLOOD CELLS 0 /100 WBC 0-0 (BEAKER) (test code = 413) NEUTROPHILS RELATIVE PERCENT 79 % (BEAKER) (test code = 429) LYMPHOCYTES RELATIVE PERCENT 16 % (BEAKER) (test code = 430) MONOCYTES RELATIVE PERCENT 4 % (BEAKER) (test code = 431) EOSINOPHILS RELATIVE PERCENT 0 % (BEAKER) (test code = 432) BASOPHILS RELATIVE PERCENT 0 % (BEAKER) (test code = 437) NEUTROPHILS ABSOLUTE COUNT 10.99 K/ L 1.80-8.00 H (BEAKER) (test code = 670) LYMPHOCYTES ABSOLUTE COUNT 2.17 K/ L 1.48-4.50 (BEAKER) (test code = 414) MONOCYTES ABSOLUTE COUNT (BEAKER) 0.55 K/ L 0.00-1.30 (test code = 415) EOSINOPHILS ABSOLUTE COUNT 0.05 K/ L 0.00-0.50 (BEAKER) (test code = 416) BASOPHILS ABSOLUTE COUNT (BEAKER) 0.03 K/ L 0.00-0.20 (test code = 417) IMMATURE GRANULOCYTES-RELATIVE 0 % 0-0 PERCENT (BEAKER) (test code = 2801)
[2020-11-23] MEDS ORDERED: ONDANSETRON 4 MG/2 ML VIAL ONE ×2 (13:50→15:16)
[2020-11-23] MEDS ORDERED: NA CHLORIDE 0.9% 1,000 ML ONE (13:50)
[2020-11-23 14:11] LABS: ALT/SGPT 19 U/L (12-78); AST/SGOT 15 U/L (15-37); Albumin 4.9 g/dL (3.4-5.0); Alkaline Phosphatase 82 U/L (45-117); BUN Blood Urea Nitrogen 16 mg/dL (7-18); Bicarbonate 27 mmol/L (21-32); Bilirubin Direct 0.1 mg/dL (0-0.2); Bilirubin Total 0.6 mg/dL (0.2-1.0); Glucose Level 105 mg/dL (74-106); Lipase 76 U/L (73-393); Protein, Total 9.5 g/dL (6.4-8.2); Sodium Level 137 mmol/L (136-145)
[2020-11-23 14:15] LABS: Absolute Lymphocytes (CBC) 1.4 K/uL (0.7-4.9); Basophils % 0.4 % (0-1.3); Hematocrit 41.3 % (36.0-45.0); Lymphocytes % 8.9 % (15.3-44.8); MPV 9.8 fL (7.6-11.3)
[2020-11-23] MEDS ORDERED: POTASSIUM 25 MEQ EFFERV TAB ONE (14:50)
[2020-11-23] MEDS ORDERED: KETOROLAC 30 MG/ML INJ ONE (15:16)
--- NOTE | 2020-11-23 15:35 | RAD REPORT ---
EXAM DESCRIPTION: CT - Abdomen Pelvis W Contrast - 11/23/2020 3:22 pm CLINICAL HISTORY: ABD PAIN COMPARISON: Abdomen Pelvis W Contrast dated 07/03/2020 TECHNIQUE: Biphasic, helical CT imaging of the abdomen and pelvis was performed following 100 ml non -ionic IV contrast. No oral contrast given. All CT scans are performed using dose optimization technique as appropriate and may include automated exposure control or mA/KV adjustment according to patient size. FINDINGS: No suspicious findings in the lung bases. The liver, spleen, and pancreas show no suspicious findings. Small cysts in the liver have not change d from prior imaging. No gallbladder or biliary tree abnormality identifiable. Symmetric renal function is seen with no hydronephrosis or suspicious renal mass. No pyelonephritis o r acute parenchymal process. No bladder abnormalities. No adrenal abnormalities. No ovarian or adnexal abnormality seen. Patient has a large lobulated multi fibroid uterus. Largest u terus mass is 4 cm. Overall uterine findings are not clearly different since June 2020 but could be a source for pain. Fluid filled, nondilated stomach present. No gastric wall thickening or edema. No dilated large or sm all bowel. The appendix is normal. No active bowel process identified. No free air, free fluid or inflammatory stranding. No mass or bulky lymphadenopathy. Patient has a small fat only umbilical hernia with no active component. No suspicious bony findings. IMPRESSION: Contrast enhanced CT abdomen and pelvis showing no acute or emergent finding. Patient has a large lobulated multi fibroid uterus. This is not clearly different from June 2020 but could be a source for chronic pain.
--- NOTE | 2020-11-23 16:06 | ER ---
Nurse's Notes [facility] Name: Sangita Sorenson Age: 45 yrs Sex: Female : 1975 Arrival Date: 11/23/2020 Time: 11:41 Bed 14 Private MD: Diagnosis: Nausea and vomiting;Hypokalemia Presentation: 11/23 11:49 Chief complaint: Patient states: abd pain, N/V that began 2 days ago. Pt reports this ss has been off and on for years, but has never been able to see a specialist. Coronavirus screen: Client denies travel out of the [place] in the last 14 days. Ebola Screen: Patient denies exposure to infectious person. Patient denies travel to an Ebola-affected area in the 21 days before illness onset. Initial Sepsis Screen: Does the patient meet any 2 criteria? No. Patient's initial sepsis screen is negative. Does the patient have a suspected source of infection? No. Patient's initial sepsis screen is negative. Risk Assessment: Do you want to hurt yourself or someone else? Patient reports no desire to harm self or others. Onset of symptoms was November 21, 2020. 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 - Social history:: Smoking status: Patient reports the use of cigarette tobacco products, smokes one-half pack cigarettes per day. Screenin:44 Abuse screen: Denies threats or abuse. Denies injuries from another. Nutritional zb screening: No deficits noted. Tuberculosis screening: No symptoms or risk factors identified. Fall Risk None identified. Assessment: 13:45 General: Appears in no apparent distress. comfortable, Behavior is calm, cooperative, zb appropriate for age, Reports feeling ill for > 3 days. Pain: Complains of pain in abdomen Pain currently is 5 out of 10 on a pain scale. Quality of pain is described as crampy. Neuro: Level of Consciousness is awake, alert, obeys commands, Oriented to person, place, time. Cardiovascular: No deficits noted. Respiratory: No deficits noted. GI: Abdomen is flat, Reports cramping, nausea, vomiting, Patient currently denies diarrhea. : No deficits noted. Derm: Skin is intact, is healthy with good turgor, Skin is dry, Skin is pink, warm \T\ dry. normal. Musculoskeletal: Range of motion: intact in all extremities. 14:30 Reassessment: ecp at bedside. zb 15:00 Reassessment: Patient appears in no apparent distress at this time. Patient and/or zb family updated on plan of care and expected duration. Pain level reassessed. Patient is alert, oriented x 3, equal unlabored respirations, skin warm/dry/pink. iv infusing noted ECP about patient n/v and abd pain. 16:00 Reassessment: patient states she is feeling better. zb 16:30 Reassessment: Patient appears in no apparent distress at this time. Patient and/or zb family updated on plan of care and expected duration. Pain level reassessed. Patient is alert, oriented x 3, equal unlabored respirations, skin warm/dry/pink. d/c instructions given. patient ambulated out. no issues at this time. Vital Signs: 11:49 BP 120 / 90; Pulse 62; Resp 18; Temp 97.2(TE); Pulse Ox 99% on R/A; Weight 63.5 kg; ss Height 4 ft. 11 in. (149.86 cm); Pain 8/10; 13:52 BP 112 / 80; Pulse 53; Resp 16; Pulse Ox 99% ; zb 15:00 BP 104 / 76; Pulse 62; Resp 16; Pulse Ox 98% on R/A; zb 16:31 BP 138 / 82; Pulse 58; Resp 16; Pulse Ox 100% on R/A; zb 11:49 Body Mass Index 28.28 (63.50 kg, 149.86 cm) ED Course: 11:41 Patient arrived in ED. am2 11:50 Triage completed. ss 11:50 Arm band placed on right wrist. ss 13:20 Jessica Vaughn FNP-C is [facility]. kb 13:20 Amado Everett MD is Attending Physician. kb 13:30 Brown, Shonda, RN is Primary Nurse. zb 13:44 Inserted saline lock: 20 gauge in right antecubital area, using aseptic technique. zb Blood collected. 15:00 Patient has correct armband on for positive identification. Bed in low position. Call zb light in reach. Side rails up X 1. Pulse ox on. NIBP on. Door closed. Noise minimized. 15:22 CT Abd/Pelvis - IV Contrast Only In Process Unspecified. EDMS 16:30 No provider procedures requiring assistance completed. IV discontinued, intact, zb bleeding controlled, No redness/swelling at site. Pressure dressing applied. Administered Medications: 13:43 Drug: NS 0.9% 1000 ml Route: IV; Rate: 1000 ml; Site: right antecubital; zb 13:43 Drug: Zofran (Ondansetron) 4 mg Route: IVP; Site: right antecubital; zb 14:36 Follow up: Response: No adverse reaction; Marked relief of symptoms; Nausea is decreasedzb 14:35 Drug: Potassium Effervescent Tablet 50 mEq Route: PO; zb 15:40 Follow up: Response: No adverse reaction zb 14:57 CANCELLED (Physician Discretion): fentaNYL (PF) 25 mcg IVP once; RASS on ADMIN: kb Combtv4, Very Agttd3, Agttd2, Rstlss1, AlertClm0, Drwsy-1, Lt Sdtn-2, Mod Sdtn-3, Dp Sdtn-4, UnArsble-5 15:04 Drug: Zofran (Ondansetron) 4 mg Route: IVP; Site: right antecubital; zb 15:57 Follow up: Response: No adverse reaction; Marked relief of symptoms; Nausea is decreasedzb 15:04 Drug: TORadol (ketorolac) 30 mg Route: IVP; Site: right antecubital; zb 15:57 Follow up: Response: No adverse reaction; Pain is decreased zb 16:31 Drug: Bentyl (dicyclomine) 20 mg Route: PO; zb 16:31 Follow up: Response: Medication administered at discharge. zb Outcome: 16:05 Discharge ordered by . kvng 16:34 Discharged to home ambulatory. zb 16:34 Condition: stable 16:34 Discharge instructions given to patient, Instructed on discharge instructions, follow up and referral plans. medication usage, Demonstrated understanding of instructions, follow-up care, medications, Prescriptions given X 2. 16:36 Patient left the ED. kadie Signatures: Dispatcher [employer] EDJessica Foote, ТАТЬЯНА BONILLA-Quita Peterson, RN Nettie Banks Zipporah, RN RN zb
--- NOTE | 2020-11-23 16:06 | EDPHYS ---
Physician Documentation [facility] Name: Sangita Sorenson Age: 45 yrs Sex: Female : 1975 Arrival Date: 11/23/2020 Time: 11:41 Bed 14 Private MD: ED Physician Amado Everett HPI: 11/23 13:35 This 45 yrs old Black Female presents to ER via Wheelchair with complaints of Vomiting, kb General Weakness. 13:35 The patient presents to the emergency department with nausea, vomiting. Onset: The kb symptoms/episode began/occurred 2 day(s) ago. Possible causes: unknown. The symptoms are aggravated by ingestion of anything The symptoms are alleviated by nothing. Associated signs and symptoms: Pertinent positives: nausea, vomiting, abd cramps. Severity of symptoms: At their worst the symptoms were moderate in the emergency department the symptoms are unchanged. The patient has not experienced similar symptoms in the past. The patient has not recently seen a physician. Pt reports nausea and vomiting for 2 days that has caused abd cramps. Denies abd pain, fever, diarrhea, constipation. States she believes it is food poisoning. Came in today because she cannot hold anything down, including water. 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 - Social history:: Smoking status: Patient reports the use of cigarette tobacco products, smokes one-half pack cigarettes per day. ROS: 13:35 Constitutional: Negative for fever, chills, and weight loss, Respiratory: Negative for kb shortness of breath, cough, wheezing, and pleuritic chest pain, : Negative for injury, bleeding, discharge, and swelling, MS/Extremity: Negative for injury and deformity, Skin: Negative for injury, rash, and discoloration, Neuro: Negative for headache, weakness, numbness, tingling, and seizure. 13:35 Abdomen/GI: Positive for nausea and vomiting, abdominal cramps. Exam: 13:35 Constitutional: This is a well developed, well nourished patient who is awake, alert, kb and in no acute distress. Head/Face: Normocephalic, atraumatic. Respiratory: Respirations even and unlabored. No increased work of breathing, no retractions or nasal flaring. Abdomen/GI: Soft, non-tender. No distention Skin: Warm, dry with normal turgor. Normal color. MS/ Extremity: Pulses equal, no cyanosis. Neurovascular intact. Full, normal range of motion. Neuro: Awake and alert, GCS 15, oriented to person, place, time, and situation. Moves all extremities. Normal gait. Vital Signs: 11:49 BP 120 / 90; Pulse 62; Resp 18; Temp 97.2(TE); Pulse Ox 99% on R/A; Weight 63.5 kg; ss Height 4 ft. 11 in. (149.86 cm); Pain 8/10; 13:52 BP 112 / 80; Pulse 53; Resp 16; Pulse Ox 99% ; zb 15:00 BP 104 / 76; Pulse 62; Resp 16; Pulse Ox 98% on R/A; zb 16:31 BP 138 / 82; Pulse 58; Resp 16; Pulse Ox 100% on R/A; zb 11:49 Body Mass Index 28.28 (63.50 kg, 149.86 cm) ss MDM: 13:20 Patient medically screened. kb 13:35 Data reviewed: vital signs, nurses notes. Data interpreted: Pulse oximetry: on room air kb is 99 %. Interpretation: normal. 15:53 Counseling: I had a detailed discussion with the patient and/or guardian regarding: the kb historical points, exam findings, and any diagnostic results supporting the discharge/admit diagnosis, lab results, radiology results, the need for outpatient follow up, a family practitioner, to return to the emergency department if symptoms worsen or persist or if there are any questions or concerns that arise at home. 11/23 13:22 Order name: Basic Metabolic Panel; Complete Time: 14:26 kb 11/23 13:22 Order name: CBC with Diff; Complete Time: 14:29 kb 11/23 13:22 Order name: Hepatic Function; Complete Time: 14:26 kb 11/23 13:22 Order name: Lipase; Complete Time: 14:26 kb 11/23 14:29 Order name: CT Abd/Pelvis - IV Contrast Only; Complete Time: 15:53 kb 11/23 13:22 Order name: IV Saline Lock; Complete Time: 13:43 kb 11/23 13:22 Order name: Labs collected and sent; Complete Time: 13:43 kb Administered Medications: 13:43 Drug: NS 0.9% 1000 ml Route: IV; Rate: 1000 ml; Site: right antecubital; zb 13:43 Drug: Zofran (Ondansetron) 4 mg Route: IVP; Site: right antecubital; zb 14:36 Follow up: Response: No adverse reaction; Marked relief of symptoms; Nausea is decreasedzb 14:35 Drug: Potassium Effervescent Tablet 50 mEq Route: PO; zb 15:40 Follow up: Response: No adverse reaction zb 14:57 CANCELLED (Physician Discretion): fentaNYL (PF) 25 mcg IVP once; RASS on ADMIN: kb Combtv4, Very Agttd3, Agttd2, Rstlss1, AlertClm0, Drwsy-1, Lt Sdtn-2, Mod Sdtn-3, Dp Sdtn-4, UnArsble-5 15:04 Drug: Zofran (Ondansetron) 4 mg Route: IVP; Site: right antecubital; zb 15:57 Follow up: Response: No adverse reaction; Marked relief of symptoms; Nausea is decreasedzb 15:04 Drug: TORadol (ketorolac) 30 mg Route: IVP; Site: right antecubital; zb 15:57 Follow up: Response: No adverse reaction; Pain is decreased zb 16:31 Drug: Bentyl (dicyclomine) 20 mg Route: PO; zb 16:31 Follow up: Response: Medication administered at discharge. zb Disposition: 19:05 Co-signature as Attending Physician, Amado Everett MD. rn Disposition: 11/23/20 16:05 Discharged to Home. Impression: Nausea and vomiting, Hypokalemia. - Condition is Stable. - Discharge Instructions: Nausea and Vomiting, Adult, [id number]. - Prescriptions for Bentyl 20 mg Oral Tablet - take 1 tablet by ORAL route every 6 hours As needed; 20 tablet. Zofran 4 mg Oral Tablet - take 1 tablet by ORAL route every 6 hours As needed; 20 tablet. - Medication Reconciliation Form, Thank You Letter, Antibiotic Education, Prescription Opioid Use form. - Follow up: Emergency Department; When: As needed; Reason: Worsening of condition. Follow up: Private Physician; When: 2 - 3 days; Reason: Recheck today's complaints, Continuance of care, Re-evaluation by your physician. Signatures: Dispatcher [employer] EDJessica Foote, IRENE-C VISOR INSTALLER-Amado Conrad MD MD rn Smirch, Shelby, RN RN ss Brown, Zipporah, RN RN zb Corrections: (The following items were deleted from the chart) 14:57 14:57 fentaNYL (PF) 25 mcg IVP once; RASS on ADMIN: Combtv4, Very Agttd3, Agttd2, kb Rstlss1, AlertClm0, Drwsy-1, Lt Sdtn-2, Mod Sdtn-3, Dp Sdtn-4, UnArsble-5 ordered. kb 16:36 16:05 11/23/2020 16:05 Discharged to Home. Impression: Nausea and vomiting; zb Hypokalemia. Condition is Stable. Forms are Medication Reconciliation Form, Thank You Letter, Antibiotic Education, Prescription Opioid Use. Follow up: Emergency Department; When: As needed; Reason: Worsening of condition. Follow up: Private Physician; When: 2 - 3 days; Reason: Recheck today's complaints, Continuance of care, Re-evaluation by your physician. kb
[2020-11-23] MEDS ORDERED: DICYCLOMINE HCL 10 MG CAP ONE (16:39)
[2020-11-23 16:52] VITALS: TEMP 97.2
[2020-11-23 17:22] VITALS: BP 138/82; O2SAT 100
== END 2020-11-23 16:36 | disposition home or self-care (01) ==
LOC: ER 11:34
DX: E87.6 Hypokalemia (principal); F17.210 Nicotine dependence, cigarettes, uncomplicated
CPT/HCPCS: 36415; 74177; 80048; 80076; 83690; 85025; 96374; 96375; 99284; J2405; J7030; Q9967

== ENCOUNTER 2021-02-01 09:20 | Emergency (ER) | payer SELFPAY ==
--- OUTSIDE RECORDS SUMMARY | 2021-02-01 09:23 | XMS REPORT | Continuity of Care Document ---
:1975 Author Organization [facility] t Address [address] [place] [address] Care Team Providers Name Role Phone Pcp [...] Date Stop Date Quantity Comments Source History [facility]d [facility] - Alcohol Binge [facility] Sex Assigned At [facility] Tobacco use and 2019-09-17 2019-09-17 Never used [facility] - exposure 00:00:00 00:00:00 [facility] Alcohol intake 2019-09-17 2019-09-17 Current [facility] es - 00:00:00 00:00:00 non-drinker of Medical Ce nter alcohol (finding) History [facility] 2019-06-27 2019-06-27 [address] [facility] - Alcohol Frequency 00:00:00 00:00:00 [facility] Smoking Status Start Date Stop Date Source Never smoker [facility] Medications Ordered Filled Start Stop Current [...] C enter of cervix (procedure) [code = 122251902] Future Scheduled 2020-04-[address] [facility] - Test 00:00:00 (#1) [code = Medical Center INFLUENZA VACCINE (#1)] Encounters Start End Encounter Admission Attending Care Care Encounter Source Date/Time Date/Time Type Type Clinicians Facility Department ID 2020-10-04 2020-10-04 [facility] [id number] 13:39:10 23:59:00 Encounter Oksana C SPECIALTY [id number] [facility] [id number] CENTER AT [id number] [address] 2020-10-04 2020-10-04 [facility] [id number] 13:37:38 13:38:00 Encounter Oksana C SPECIALTY [id number] [facility] [id number] CENTER AT [id number] [address] 2020-09-01 2020-09-01 [facility] [id number] 00:00:00 00:00:00 Oksana C SUPERINTENDENT TRANSMISSION [id number] [facility] [id number] MATERNAL [id number] & CHILD [address] [place] [address] Results Test Description Test Time Test Comments Results Result [facility] e Comments CT, ABDOMEN 2019-09-17 Reason for FINAL REPORT PATIENT 14:16:00 exam:->NAUSEARe ID: [id number] CT ason for ABDOMEN AND PELVIS exam:->EMESISRe [...] MDReport Verified Date/Time: 09/17/2019 14:16:48 Reading Location: [facility] Radiology Reading Room SE 2019-09-17 13:00:00 Test Item Value Reference Range Interpretation Comme nts LIPASE (BEAKER) (test code = 749) 4 U/L 6-51 L Pals Nurse ID - [id number] FUNCTION [id number] 12:56:00 Test Item Value Reference Range Interpretation [...] Specimen slightly (test code = 347) hemolyzed Pals Nurse ID - [id number] DRUG SCREEN, [id number] 12:54:00 Test Item Value Reference Range Interpretation [...] situations. Chain of custody not maintained. Some lejh-pky-hvvqsng medications, as well as adulterants, may cause inaccurate results. Clinical correlation should be applied. A more comprehensivedrug screen or confirmation of a detected drug may be performed upon request.Pals Nurse ID - [id number] ID - [id number] ID - [id number] ID - [id number] ID - [id number] ID - [id number] ID - [id number] ID - [id number] METABOLIC [id number] 12:54:00 Test Item Value Reference Range Interpretation [...] S NOT APPLICABLE FOR DIALYSIS PATIEN TS. Pals Nurse ID - [id number] W/ [id number] 12:47:00 Test Item Value Reference Range Interpretation [...] code = 1663) SOURCE(BEAKER) (test code = 0015) SCREEN, [id number] 12:40:00 Test Item Value Reference Range Interpretation Comments TEST URINE (BEAKER) (test Negative code = 583) CBC W/PLT COUNT & AUTO [id number] 12:38:00 Test Item Value Reference Range Interpretation [...] PERCENT (BEAKER) (test code = 2801) POCT-GLUCOSE [id number] 12:28:00 Test Item Value Reference Range Interpretation Comments POC-GLUCOSE METER 117 mg/dL 70-110 H : TESTED A T SLSL 1317 (BEAKER) (test code [address], = 1538) [facility] 77 478: Pals Nurse/Techni brayden ID = [id number] for Tolo , Chisa CT, [id number] 16:50:00Reason for exam:->EMESISIs the patient ?->NoWhat is [...] MDReport Verified Date/Time: 08/16/2019 16:50:10 Reading Location: [place] [id number] Ortho Consult Reading Room LIPASE 2019-08-16 14:40:00 Test Item Value Reference Range Interpretation Comments LIPASE (BEAKER) (test code = 749) 5 U/L 6-51 L Pals Nurse ID - KARINABASIC METABOLIC [id number] 14:38:00 Test Item Value Reference Range Interpretation [...] S NOT APPLICABLE FOR DIALYSIS PATIEN TS. Pals Nurse ID - KARINAHEPATIC FUNCTION [id number] 14:38:00 Test Item Value Reference Range Interpretation [...] Specimen slightly (test code = 347) hemolyzed Pals Nurse ID - KARADIHCG, SERUM, [id number] 14:34:00 Test Item Value Reference Range Interpretation Comments TEST SERUM (BEAKER) (test Negative code = 584) RAPID INFLUENZA A&B [id number] 14:34:00 Test Item Value Reference Range Interpretation Comments RAPID INFLUENZA A AG (BEAKER) Negative Negative, Inconclusive (test code = 1622) RAPID INFLUENZA B AG (BEAKER) Negative Negative, Inconclusive (test code = 1623) CBC W/PLT COUNT & AUTO [id number] 14:20:00 Test Item Value Reference Range Interpretation [...] (BEAKER) (test code = 2801) COMPREHENSIVE METABOLIC [id number] 12:48:00 Test Item Value Reference Range Interpretation [...] S NOT APPLICABLE FOR DIALYSIS PATIEN TS. [id number] 12:48:00 Test Item Value Reference Range Interpretation Comments LIPASE (BEAKER) (test code = 749) 9 U/L 6-51 HCG, SERUM, [id number] 12:27:00 Test Item Value Reference Range Interpretation Comments TEST SERUM (BEAKER) (test Negative code = 584) CBC W/PLT COUNT & AUTO [id number] 12:21:00 Test Item Value Reference Range Interpretation [...] L 0.00-0.20 (test code = 417) CT, [id number] 11:01:00Reason for exam:->EMESISIs the patient ?->NoWhat is [...] MDReport Verified Date/Time: 07/07/2019 11:01:48 Reading Location: [facility] B1 C013Y CT Body Reading Room COMPREHENSIVE METABOLIC [id number] 10:26:00 Test Item Value Reference Range Interpretation [...] S NOT APPLICABLE FOR DIALYSIS PATIEN TS. [id number] 10:26:00 Test Item Value Reference Range Interpretation Comments LIPASE (BEAKER) (test code = 749) 8 U/L 6-51 HCG, SERUM, [id number] 10:21:00 Test Item Value Reference Range Interpretation Comments TEST SERUM (BEAKER) (test Negative code = 584) CBC W/PLT COUNT & AUTO [id number] 10:08:00 Test Item Value Reference Range Interpretation [...]
[2021-02-01 10:01] LABS: Absolute Lymphocytes (CBC) 1.1 K/uL (0.7-4.9); Basophils % 0.3 % (0-1.3); Hematocrit 35.2 % (36.0-45.0); Lymphocytes % 7.4 % (15.3-44.8); MPV 8.4 fL (7.6-11.3); RBC Red Blood Cell Count 3.91 M/uL (3.86-4.86)
[2021-02-01] MEDS ORDERED: ONDANSETRON 4 MG/2 ML VIAL ONE (10:18)
[2021-02-01] MEDS ORDERED: NA CHLORIDE 0.9% 1,000 ML ONE (10:18)
[2021-02-01] MEDS ORDERED: MORPHINE 2 MG/ML SYR ONE ×2 (10:18→12:36)
[2021-02-01 10:39] LABS: ALT/SGPT 17 U/L (12-78); AST/SGOT 11 U/L (15-37); Albumin 4.3 g/dL (3.4-5.0); Alkaline Phosphatase 77 U/L (45-117); BUN Blood Urea Nitrogen 8 mg/dL (7-18); Bicarbonate 27 mmol/L (21-32); Bilirubin Direct < 0.1 mg/dL (0-0.2); Bilirubin Total 0.3 mg/dL (0.2-1.0); Glucose Level 125 mg/dL (74-106); Lipase 27 U/L (73-393); Protein, Total 8.4 g/dL (6.4-8.2); Sodium Level 140 mmol/L (136-145)
[2021-02-01 12:12] LABS: Urine Blood Negative (Negative); Urine Glucose Negative (Negative); Urine Protein Negative (Negative); Urine Specific Gravity 1.015 (1.005-1.030); Urine pH 8.5 (5.0-7.0)
--- NOTE | 2021-02-01 12:20 | RAD REPORT ---
EXAM DESCRIPTION: CT - Abdomen Pelvis W Contrast - 02/01/2021 11:30 am CLINICAL HISTORY: Abdominal pain COMPARISON: November 2020 TECHNIQUE: Computed axial tomography of the abdomen pelvis was obtained. 100 cc Isovue-300 was admin istered intravenously. Oral contrast was given All CT scans are performed using dose optimization technique as appropriate and may include automated exposure control or mA/KV adjustment according to patient size. FINDINGS: Several small hepatic cysts. The spleen, pancreas, adrenals and kidneys unremarkable Multiple uterine masses are present. Since the prior exam a 3.9 centimeter right uterine subserosal m ass has developed more low-density areas compatible with degeneration. An additional 3 centimeter sub serosal mass extends off of the anterior aspect of the uterus also containing low-density areas consi stent with degeneration. Additional calcified uterine and noncalcified uterine masses are present. The appendix is normal. The wall of the transverse colon appears mildly thickened. No evidence of diverticulitis 12 millimeter irregularly-shaped left ovarian follicle likely has recently ruptured. Significant amou nt of free fluid is not present. Small umbilical hernia IMPRESSION: The wall of the transverse colon appears mildly thickened. This may represent a mild col itis or be secondary to incomplete distention. Multiple uterine fibroids. Several contain degeneration. As a leiomyosarcoma can have a similar appea alex close followup is recommended.
[2021-02-01 12:46] LABS: Urine Bacteria <20 /HPF (<20); Urine Mucus LIGHT /HPF (NONE SEEN); Urine RBC <5 /HPF (NONE SEEN)
--- NOTE | 2021-02-01 13:03 | ER ---
Nurse's Notes [facility] Name: Sangita Sorenson Age: 45 yrs Sex: Female : 1975 Arrival Date: 02/01/2021 Time: 09:21 Bed 19 Private MD: Diagnosis: Colitis;Leiomyoma of uterus, unspecified Presentation: 02/01 09:39 Chief complaint: Patient states: abd pain and vomiting that began last night night/ ss early this morning. PT reports that this has happened before and was unable to follow up with specialist. Coronavirus screen: Client denies travel out of the [place] in the last 14 days. Ebola Screen: Patient denies exposure to infectious person. Patient denies travel to an Ebola-affected area in the 21 days before illness onset. Initial Sepsis Screen: Does the patient meet any 2 criteria? No. Patient's initial sepsis screen is negative. Does the patient have a suspected source of infection? No. Patient's initial sepsis screen is negative. Risk Assessment: Do you want to hurt yourself or someone else? Patient reports no desire to harm self or others. Onset of symptoms was February 01, 2021. 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 - Social history:: Smoking status: Patient reports the use of cigarette tobacco products, smokes one-half pack cigarettes per day. Screenin:40 Abuse screen: Denies threats or abuse. Denies injuries from another. Nutritional jl7 screening: No deficits noted. Tuberculosis screening: No symptoms or risk factors identified. Fall Risk IV access (20 points). Total Gonzales Fall Scale indicates No Risk (0-24 pts). Assessment: 09:50 General: Appears in no apparent distress. uncomfortable, ill, Behavior is cooperative, jl7 crying, restless. Pain: Complains of pain in abdomen diffusely Pain currently is 10 out of 10 on a pain scale. Pain began 1 day ago. Is continuous, Noted to be crying, grimacing, guarding, moaning, resistant to movement. Neuro: Level of Consciousness is awake, alert, obeys commands, Oriented to person, place, time, situation. Cardiovascular: Patient's skin is warm and dry. Respiratory: Airway is patent Respiratory effort is even, unlabored, Respiratory pattern is regular, symmetrical. GI: Abdomen is non-distended, Stools are reported to be constipated. Last BM was January 31, 2021. Last meal was January 31, 2021. Derm: Skin is dry, Skin is normal, Skin temperature is warm. 11:00 Reassessment: Patient appears in no apparent distress at this time. Patient and/or jl7 family updated on plan of care and expected duration. Pain level reassessed. Pt laying in bed no longer crying and moaning, respirations even and unlabored no signs of distress noted. 11:25 Reassessment: Pt returned from CT. jl7 12:30 GI: Bowel sounds present X 4 quads. Abd is soft Abdomen is tender to palpation X 4 ld1 quads. 12:55 Reassessment: Patient appears in no apparent distress at this time. Patient and/or ld1 family updated on plan of care and expected duration. Pain level reassessed. Vital Signs: 09:39 BP 143 / 89; Pulse 66; Resp 24; Temp 98.0(O); Pulse Ox 100% ; Weight 58.51 kg; Height 4 ss ft. 11 in. (149.86 cm); Pain 10/10; 10:00 BP 126 / 76; Pulse 58; Resp 15 S; Pulse Ox 100% on R/A; jl7 11:30 BP 139 / 85; Pulse 57; Resp 15; Pulse Ox 100% ; jl7 12:55 BP 139 / 99; Pulse 56; Resp 18; Pulse Ox 99% on R/A; ld1 09:39 Body Mass Index 26.05 (58.51 kg, 149.86 cm) ED Course: 09:21 Patient arrived in ED. am2 09:26 Jessica Vaughn FNP-C [facility] kb 09:26 Krzysztof Boo MD is Attending Physician. kb 09:41 Triage completed. ss 09:42 Arm band placed on right wrist. ss 09:45 Patient has correct armband on for positive identification. Bed in low position. Call jl7 light in reach. Side rails up X 1. Pulse ox on. NIBP on. Warm blanket given. 09:48 Peg Grey, RN is Primary Nurse. jl7 09:55 Initial lab(s) drawn, by or, sent to lab. Inserted saline lock: 20 gauge in right jl7 antecubital area, using aseptic technique. Blood collected. 10:21 Basic Metabolic Panel Sent. jl7 10:21 Hepatic Function Sent. jl7 11:30 CT Abd/Pelvis - PO and IV Contrast In Process Unspecified. EDMS 12:05 Report given to Natalie Mortensen RN. jl7 13:07 No provider procedures requiring assistance completed. ld1 13:19 IV discontinued, intact, bleeding controlled, No redness/swelling at site. ld1 Administered Medications: 10:00 Drug: NS 0.9% 1000 ml Route: IV; Rate: 1000 ml; Site: right antecubital; jl7 11:00 Follow up: Response: No adverse reaction; IV Status: Completed infusion; IV Intake: jl7 1000ml 10:00 Drug: Zofran (Ondansetron) 4 mg Route: IVP; Site: right antecubital; jl7 10:30 Follow up: Response: No adverse reaction; Nausea is decreased jl7 10:02 Drug: morphine 2 mg Route: IVP; Site: right antecubital; jl7 10:30 Follow up: Response: No adverse reaction; Pain is decreased jl7 12:16 Drug: morphine 2 mg Route: IVP; Site: left antecubital; ld1 13:18 Drug: Cipro (ciprofloxacin) 500 mg Route: PO; ld1 13:19 Follow up: Response: No adverse reaction ld1 13:18 Drug: metroNIDAZOLE 500 mg Route: PO; ld1 13:19 Follow up: Response: No adverse reaction ld1 Intake: 11:00 IV: 1000ml; Total: 1000ml. jl7 Outcome: 13:03 Discharge ordered by . kvng 13:19 Discharged to home ambulatory, with family. ld1 13:19 Condition: stable 13:19 Discharge instructions given to patient, Instructed on discharge instructions, follow up and referral plans. medication usage, Demonstrated understanding of instructions, follow-up care, medications. 13:19 Patient left the ED. ld1 Signatures: Dispatcher [employer] EDMS Jessica Vaughn, SASKIAC TURNER OFF-Qiuta Peterson RN RN ss Peg Grey RN RN jl7 Nettie Leon Lauren, RN RN ld1
--- NOTE | 2021-02-01 13:04 | EDPHYS ---
Physician Documentation [facility] Name: Sangita Sorenson Age: 45 yrs Sex: Female : 1975 Arrival Date: 02/01/2021 Time: 09:21 Bed 19 Private MD: ED Physician Krzysztof Boo HPI: 02/01 09:49 This 45 yrs old Black Female presents to ER via Wheelchair with complaints of Abdominal kb Pain, Nausea/Vomiting. 09:49 The patient presents with abdominal pain. Onset: The symptoms/episode began/occurred kb this morning, at 01:00. The symptoms do not radiate. Associated signs and symptoms: Pertinent positives: nausea and vomiting, Pertinent negatives: diarrhea, fever. The symptoms are described as constant. Modifying factors: The symptoms are alleviated by nothing, the symptoms are aggravated by nothing. Severity of pain: At its worst the pain was moderate in the emergency department the pain is unchanged. The patient has not experienced similar symptoms in the past. The patient has not recently seen a physician. Pt reports abd pain, nausea and vomiting that started at 0100 this morning. Denies fever, diarrhea or any other symptoms.. 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 - Social history:: Smoking status: Patient reports the use of cigarette tobacco products, smokes one-half pack cigarettes per day. ROS: 09:49 Constitutional: Negative for fever, chills, and weight loss. kb 09:49 Abdomen/GI: Positive for abdominal pain, nausea and vomiting, Negative for diarrhea. 09:49 All other systems are negative. Exam: 12:47 Constitutional: This is a well developed, well nourished patient who is awake, alert, kb and in no acute distress. Head/Face: Normocephalic, atraumatic. ENT: Moist Mucous membranes Cardiovascular: Regular rate and rhythm with a normal S1 and S2. No gallops, murmurs, or rubs. No pulse deficits. Respiratory: Respirations even and unlabored. No increased work of breathing, no retractions or nasal flaring. Skin: Warm, dry with normal turgor. Normal color. MS/ Extremity: Pulses equal, no cyanosis. Neurovascular intact. Full, normal range of motion. Neuro: Awake and alert, GCS 15, oriented to person, place, time, and situation. Moves all extremities. Normal gait. Psych: Awake, alert, with orientation to person, place and time. Behavior, mood, and affect are within normal limits. 12:47 Abdomen/GI: Inspection: abdomen appears normal, Bowel sounds: normal, in all quadrants, Palpation: soft, in all quadrants, mild abdominal tenderness, moderate abdominal tenderness, in the right lower quadrant and left lower quadrant. Vital Signs: 09:39 BP 143 / 89; Pulse 66; Resp 24; Temp 98.0(O); Pulse Ox 100% ; Weight 58.51 kg; Height 4 ss ft. 11 in. (149.86 cm); Pain 10/10; 10:00 BP 126 / 76; Pulse 58; Resp 15 S; Pulse Ox 100% on R/A; jl7 11:30 BP 139 / 85; Pulse 57; Resp 15; Pulse Ox 100% ; jl7 12:55 BP 139 / 99; Pulse 56; Resp 18; Pulse Ox 99% on R/A; ld1 09:39 Body Mass Index 26.05 (58.51 kg, 149.86 cm) ss MDM: 09:43 Patient medically screened. 09:49 Data reviewed: vital signs, nurses notes. Data interpreted: Pulse oximetry: on room air kb is 100 %. Interpretation: normal. 12:48 Counseling: I had a detailed discussion with the patient and/or guardian regarding: the kb historical points, exam findings, and any diagnostic results supporting the discharge/admit diagnosis, lab results, radiology results, the need for outpatient follow up, a family practitioner, to return to the emergency department if symptoms worsen or persist or if there are any questions or concerns that arise at home. 02/01 09:49 Order name: Basic Metabolic Panel 02/01 09:49 Order name: CBC with Diff; Complete Time: 10:05 kb 02/01 09:49 Order name: Hepatic Function kb 02/01 09:49 Order name: Lipase; Complete Time: 10:39 kb 02/01 09:49 Order name: Basic Metabolic Panel; Complete Time: 10:39 EDMS 02/01 09:49 Order name: Liver (Hepatic) Function; Complete Time: 10:39 EDMS 02/01 10:40 Order name: CT Abd/Pelvis - PO and IV Contrast; Complete Time: 12:21 kb 02/01 10:41 Order name: Urine Microscopic Only; Complete Time: 12:47 kb 02/01 12:12 Order name: Urine Dipstick-Ancillary; Complete Time: 12:17 EDMS 02/01 12:18 Order name: Urine --Ancillary (enter results) ss 02/01 09:49 Order name: IV Saline Lock; Complete Time: 09:56 kb 02/01 09:49 Order name: Labs collected and sent; Complete Time: 09:56 kb 02/01 10:41 Order name: Urine Dipstick-Ancillary (obtain specimen); Complete Time: 12:17 kb 02/01 10:41 Order name: Urine Test (obtain specimen); Complete Time: 12:17 kb Administered Medications: 10:00 Drug: NS 0.9% 1000 ml Route: IV; Rate: 1000 ml; Site: right antecubital; jl7 11:00 Follow up: Response: No adverse reaction; IV Status: Completed infusion; IV Intake: jl7 1000ml 10:00 Drug: Zofran (Ondansetron) 4 mg Route: IVP; Site: right antecubital; jl7 10:30 Follow up: Response: No adverse reaction; Nausea is decreased jl7 10:02 Drug: morphine 2 mg Route: IVP; Site: right antecubital; jl7 10:30 Follow up: Response: No adverse reaction; Pain is decreased jl7 12:16 Drug: morphine 2 mg Route: IVP; Site: left antecubital; ld1 13:18 Drug: Cipro (ciprofloxacin) 500 mg Route: PO; ld1 13:19 Follow up: Response: No adverse reaction ld1 13:18 Drug: metroNIDAZOLE 500 mg Route: PO; ld1 13:19 Follow up: Response: No adverse reaction ld1 Disposition: 02/02 08:40 Co-signature as Attending Physician, Krzysztof Boo MD I agree with the assessment and kdr plan of care. Disposition Summary: 02/01/21 13:03 Discharge Ordered Location: Home kb Condition: Stable kb Diagnosis - Colitis kb - Leiomyoma of uterus, unspecified kb Followup: kb - With: Emergency Department - When: As needed - Reason: Worsening of condition Followup: kb - With: Private Physician - When: 2 - 3 days - Reason: Recheck today's complaints, Continuance of care, Re-evaluation by your physician Discharge Instructions: - Discharge Summary Sheet kb - Uterine Fibroids kb - Colitis kb Forms: - Medication Reconciliation Form kb - Thank You Letter kb - Antibiotic Education kb - Prescription Opioid Use kb Prescriptions: - dicyclomine 20 mg Oral tablet - take 1 tablet by ORAL route 3 times per day As needed; 20 tablet; Refills: 0, kb Product Selection Permitted - Cipro 500 mg Oral Tablet - take 1 tablet by ORAL route every 12 hours for 10 days; 20 tablet; Refills: 0, kb Product Selection Permitted - ondansetron 4 mg Oral tablet,disintegrating - place 1 tablet by TRANSLINGUAL route every 6 hours As needed; 20 tablet; kb Refills: 0, Product Selection Permitted - Flagyl 500 mg Oral Tablet - take 1 tablet by ORAL route every 8 hours for 10 days; 30 tablet; Refills: 0, kb Product Selection Permitted Signatures: Dispatcher [employer] EDMS Jessica Vaughn, RIVER PILOT-C RIVER PILOT-Ckb Krzysztof Boo MD MD kdr Quita Ragsdale RN RN ss Peg Grey RN RN jl7 Natalie Mortensen RN RN ld1
[2021-02-01] MEDS ORDERED: metroNIDAZOLE 500 MG TABLET ONE (13:32)
[2021-02-01] MEDS ORDERED: CIPROFLOXACIN HCL 500 MG TAB ONE (13:33)
[2021-02-01 13:34] VITALS: TEMP 98
[2021-02-01 13:49] VITALS: BP 139/99; O2SAT 99
[2021-02-01 14:23] LABS: Urine Specific Gravity/Preg 1.015 (1.005-1.030)
== END 2021-02-01 13:19 | disposition home or self-care (01) ==
LOC: ER 09:20
DX: K52.9 Noninfective gastroenteritis and colitis, unspecified (principal); D25.9 Leiomyoma of uterus, unspecified; F17.210 Nicotine dependence, cigarettes, uncomplicated
CPT/HCPCS: 36415; 74177; 80048; 80076; 81003; 81015; 81025; 83690; 85025; J2270; J2405; J7030; Q9967

== ENCOUNTER 2021-04-16 09:47 | Emergency (ER) | payer SELFPAY ==
--- OUTSIDE RECORDS SUMMARY | 2021-04-16 09:49 | XMS REPORT | Continuity of Care Document ---
:1975 Author Organization [facility] t Address [address] [place] [address] Care Team Providers Name Role Phone Pcp [...] Date Stop Date Quantity Comments Source History [facility] - Alcohol Std Drinks Medica l Center History [facility] - Alcohol Binge Medical Sage ter History [facility] - Alcohol Comment Medical C enter Alcohol intake 2019-09-17 2019-09-[address] [facility] - 00:00:00 00:00:00 non-drinker of Medical Ce nter alcohol (finding) Tobacco use and 2019-06-27 2019-06-[address] [facility] - exposure 00:00:00 00:00:00 Medical Center History [facility] 2019-06-27 2019-06-[address] [facility] - Alcohol Frequency 00:00:00 00:00:00 Medical Center Sex Assigned At [address] [facility] - 00[facility]00[facility]00 [facility]:00 Medical Center Smoking Status Start Date Stop Date Source Never smoker [facility] edical Center Medications Ordered Filled Start Stop Current [...] Comments Source Future Scheduled 2020-10-[address] [facility] - Test 00:00:00 malignant neoplasm Medical C enter of cervix (procedure) [code = 142753639] Future Scheduled 2020-04-05 INFLUENZA VACCINE [facility] - Test 00:00:00 (#1) [code = [facility] INFLUENZA VACCINE (#1)] Encounters Start End Encounter Admission Attending Care Care Encounter Source Date/Time Date/Time Type Type Clinicians Facility Department ID 2020-10-04 2020-10-04 [facility] [id number] 13:39:10 23:59:00 Encounter Oksana C SPECIALTY [id number] [facility] [id number] CENTER AT [id number] [address] 2020-10-04 2020-10-04 [facility] [id number] 13:37:38 13:38:00 Encounter Oksana C SPECIALTY [id number] [facility] [id number] CENTER AT [id number] [address] 2020-09-01 2020-09-01 [facility] [id number] 00:00:00 00:00:00 Oksana C 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 [id number] [facility] [id number] MATERNAL [id number] & CHILD [address] [place] [address] Results Test Description Test Time Test Comments Results Result [facility] e Comments CT, ABDOMEN 2019-09-17 Reason for FINAL REPORT PATIENT 14:16:00 exam:->NAUSEARe ID: [id number] CT ason for ABDOMEN AND PELVIS exam:->EMESISRe [...] MDReport Verified Date/Time: 09/17/2019 14:16:48 Reading Location: [facility] Radiology Reading Room SE 2019-09-17 13:00:00 Test Item Value Reference Range Interpretation Comme nts LIPASE (BEAKER) (test code = 749) 4 U/L 6-51 L Lithograph Operator ID - [id number] FUNCTION [id number] 12:56:00 Test Item Value Reference Range Interpretation [...] Specimen slightly (test code = 347) hemolyzed Lithograph Operator ID - [id number] DRUG SCREEN, [id number] 12:54:00 Test Item Value Reference Range Interpretation [...] situations. Chain of custody not maintained. Some orur-fhn-awsjvfa medications, as well as adulterants, may cause inaccurate results. Clinical correlation should be applied. A more comprehensivedrug screen or confirmation of a detected drug may be performed upon request.Lithograph Operator ID - [id number] ID - [id number] ID - [id number] ID - [id number] ID - [id number] ID - [id number] ID - [id number] ID - [id number] METABOLIC [id number] 12:54:00 Test Item Value Reference Range Interpretation [...] S NOT APPLICABLE FOR DIALYSIS PATIEN TS. Lithograph Operator ID - [id number] W/ [id number] 12:47:00 Test Item Value Reference Range Interpretation [...] code = 1663) SOURCE(BEAKER) (test code = 7111) SCREEN, [id number] 12:40:00 Test Item Value Reference Range Interpretation Comments TEST URINE (BEAKER) (test Negative code = 583) CBC W/PLT COUNT & AUTO [id number] 12:38:00 Test Item Value Reference Range Interpretation [...] PERCENT (BEAKER) (test code = 2801) POCT-GLUCOSE [id number] 12:28:00 Test Item Value Reference Range Interpretation Comments POC-GLUCOSE METER 117 mg/dL 70-110 H : TESTED A T SLSL 1317 (BEAKER) (test code [address], = 1538) [facility] 77 478: Lithograph Operator/Techni brayden ID = [id number] for Carla Mathis CT, [id number] 16:50:00Reason for exam:->EMESISIs the patient ?->NoWhat is [...] MDReport Verified Date/Time: 08/16/2019 16:50:10 Reading Location: [facility] C013X Ortho Consult Reading Room LIPASE 2019-08-16 14:40:00 Test Item Value Reference Range Interpretation Comments LIPASE (BEAKER) (test code = 749) 5 U/L 6-51 L Lithograph Operator ID - KARINABASIC METABOLIC [id number] 14:38:00 Test Item Value Reference Range Interpretation [...] S NOT APPLICABLE FOR DIALYSIS PATIEN TS. Lithograph Operator ID - KARINAHEPATIC FUNCTION [id number] 14:38:00 Test Item Value Reference Range Interpretation [...] Specimen slightly (test code = 347) hemolyzed Lithograph Operator ID - KARINAHCG, SERUM, [id number] 14:34:00 Test Item Value Reference Range Interpretation Comments TEST SERUM (BEAKER) (test Negative code = 584) RAPID INFLUENZA A&B [id number] 14:34:00 Test Item Value Reference Range Interpretation Comments RAPID INFLUENZA A AG (BEAKER) Negative Negative, Inconclusive (test code = 1622) RAPID INFLUENZA B AG (BEAKER) Negative Negative, Inconclusive (test code = 1623) CBC W/PLT COUNT & AUTO [id number] 14:20:00 Test Item Value Reference Range Interpretation [...] (BEAKER) (test code = 2801) COMPREHENSIVE METABOLIC [id number] 12:48:00 Test Item Value Reference Range Interpretation [...] S NOT APPLICABLE FOR DIALYSIS PATIEN TS. [id number] 12:48:00 Test Item Value Reference Range Interpretation Comments LIPASE (BEAKER) (test code = 749) 9 U/L 6-51 HCG, SERUM, [id number] 12:27:00 Test Item Value Reference Range Interpretation Comments TEST SERUM (BEAKER) (test Negative code = 584) CBC W/PLT COUNT & AUTO [id number] 12:21:00 Test Item Value Reference Range Interpretation [...] L 0.00-0.20 (test code = 417) CT, [id number] 11:01:00Reason for exam:->EMESISIs the patient ?->NoWhat is [...] with degenerating calcified uterine leiomyomata. Signed: Hugo Aragonort Verified Date/Time: 07/07/2019 11:01:48 Reading Location: [facility] C013Y CT Body Reading Room COMPREHENSIVE METABOLIC [id number] 10:26:00 Test Item Value Reference Range Interpretation [...] S NOT APPLICABLE FOR DIALYSIS PATIEN TS. [id number] 10:26:00 Test Item Value Reference Range Interpretation Comments LIPASE (BEAKER) (test code = 749) 8 U/L 6-51 HCG, SERUM, [id number] 10:21:00 Test Item Value Reference Range Interpretation Comments TEST SERUM (BEAKER) (test Negative code = 584) CBC W/PLT COUNT & AUTO [id number] 10:08:00 Test Item Value Reference Range Interpretation [...]
[2021-04-16 10:30] LABS: Urine Blood Trace-intact (Negative); Urine Glucose Negative (Negative); Urine Protein 3+ (Negative); Urine Specific Gravity 1.025 (1.005-1.030)
[2021-04-16 10:35] LABS: Urine Bacteria <20 /HPF (<20); Urine RBC <5 /HPF (NONE SEEN)
[2021-04-16 10:37] LABS: Urine Mucus 2+ /HPF (NONE SEEN)
[2021-04-16] MEDS ORDERED: ONDANSETRON 4 MG/2 ML VIAL ONE (10:51)
[2021-04-16] MEDS ORDERED: NA CHLORIDE 0.9% 1,000 ML ONE (10:51)
[2021-04-16 11:09] LABS: Albumin 4.6 g/dL (3.4-5.0); Bilirubin Direct 0.2 mg/dL (0-0.2); Bilirubin Total 0.6 mg/dL (0.2-1.0); Protein, Total 9.4 g/dL (6.4-8.2)
--- NOTE | 2021-04-16 11:23 | RAD REPORT ---
EXAM DESCRIPTION: CTAbdomen Pelvis W Contrast - 04/16/2021 10:45 am CLINICAL HISTORY: Abdominal pain. vomiting, abd pain COMPARISON: Abdomen Pelvis W Contrast dated 02/01/2021; Abdomen Pelvis W Contrast dated 11/23/2020 ; Abdomen Pelvis W Contrast dated 07/03/2020 TECHNIQUE: Biphasic CT imaging of the abdomen and pelvis was performed with 100 ml non-ionic IV cont rast. All CT scans are performed using dose optimization technique as appropriate and may include automated exposure control or mA/KV adjustment according to patient size. FINDINGS: The lung bases are clear.Small hiatal hernia. Small liver cysts are present. No aggressive liver lesion or biliary dilatation. The spleen, pancreas , adrenal glands and kidneys are within normal limits. No bowel obstruction, free air, free fluid or abscess. The appendix is normal. No evidence of signi ficant lymphadenopathy. Significant abnormal appearance to the uterus with multiple masses evident. No suspicious bony findings. IMPRESSION: Significantly abnormal uterus with multiple masses present. These may represent multiple fibroids. A leiomyosarcoma cannot be ruled out. Elsewhere, no acute abnormality seen.
[2021-04-16 11:43] LABS: Potassium 2.2 mmol/L (3.5-5.1)
[2021-04-16 12:06] LABS: Absolute Lymphocytes (CBC) 1.7 K/uL (0.7-4.9); Basophils % 0.3 % (0-1.3); Hematocrit 38.6 % (36.0-45.0); Lymphocytes % 14.2 % (15.3-44.8); MPV 8.9 fL (7.6-11.3)
--- NOTE | 2021-04-16 12:07 | EDPHYS ---
Physician Documentation [facility] Name: Sangita Sorenson Age: 45 yrs Sex: Female : 1975 Arrival Date: 04/16/2021 Time: 09:47 Bed 19 Private MD: ED Physician Amado Everett HPI: 04/16 10:25 This 45 yrs old Black Female presents to ER via Ambulatory with complaints of Vomiting. rn 10:25 The patient presents to the emergency department with nausea, vomiting. Onset: The rn symptoms/episode began/occurred 3 day(s) ago. Possible causes: unknown. The symptoms are aggravated by nothing. The symptoms are alleviated by nothing. Associated signs and symptoms: Pertinent positives: nausea, vomiting, Pertinent negatives: diarrhea, fever, GI bleeding. Severity of symptoms: At their worst the symptoms were moderate in the emergency department the symptoms are unchanged. The patient has experienced similar episodes in the past. The patient has not recently seen a physician. Patient reports nausea and vomiting for 3 days. No fever. Reports abdominal cramping but not focal pain. States has happened multiple times in the past without clear diagnosis. Does smoke marijuana frequently. States this has been going on and off for about a year now. No blood in emesis. Denies diarrhea or fever.. 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 - Social history:: Smoking status: Patient reports the use of cigarette tobacco products, smokes one-half pack cigarettes per day. - Family history:: not pertinent. - Hospitalizations: : No recent hospitalization is reported. ROS: 10:25 Constitutional: Negative for fever, chills, and weight loss, Eyes: Negative for injury, rn pain, redness, and discharge, Neck: Negative for injury, pain, and swelling, Cardiovascular: Negative for chest pain, palpitations, and edema, Respiratory: Negative for shortness of breath, cough, wheezing, and pleuritic chest pain, Abdomen/GI: Positive for nausea/vomiting. Back: Negative for injury and pain, : Negative for injury, bleeding, discharge, and swelling, MS/Extremity: Negative for injury and deformity, Skin: Negative for injury, rash, and discoloration, Neuro: Negative for headache, numbness, tingling, and seizure. 10:25 All other systems are negative. Exam: 10:25 Constitutional: This is a well developed, well nourished patient who is awake, alert, rn and in no acute distress. Head/Face: Normocephalic, atraumatic. Eyes: Periorbital areas with no swelling, redness, or edema. ENT: Dry mucous membranes Cardiovascular: Regular rate and rhythm. No pulse deficits. Respiratory: No increased work of breathing, no retractions or nasal flaring. Abdomen/GI: Soft, non-tender Skin: Warm, dry MS/ Extremity: Pulses equal, no cyanosis. Neuro: Awake and alert, GCS 15 Vital Signs: 11:00 BP 100 / 81; Pulse 57; Resp 15; Temp 98.7; Pulse Ox 100% on R/A; mh5 13:29 BP 98 / 62; Pulse 60; Resp 16; Temp 97.2; Pulse Ox 98% ; Pain 0/10; ll1 MDM: 09:58 Patient medically screened. rn 12:01 Differential diagnosis: Nonspecific abd pain, gastritis, cholecystitis, pancreatitis, rn appendicitis, diverticulitis, viral gastroenteritis, gastroenteritis, Cyclical vomiting syndrome. Data reviewed: vital signs, nurses notes, lab test result(s), radiologic studies, CT scan, and as a result, I will discharge patient. 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 Interpretation: normal. Counseling: I had a detailed discussion with the patient and/or guardian regarding: the historical points, exam findings, and any diagnostic results supporting the discharge/admit diagnosis, lab results, radiology results, the need for outpatient follow up, to return to the emergency department if symptoms worsen or persist or if there are any questions or concerns that arise at home. Response to treatment: the patient's symptoms have markedly improved after treatment, and as a result, I will discharge patient. Special discussion: I discussed with the patient/guardian in detail that at this point there is no indication for admission to the hospital. It is understood, however, that if the symptoms persist or worsen the patient needs to return immediately for re-evaluation. ED course: Patient improved. Patient sleeping and no longer vomiting. Potassium repleted IV and p.o. CT abdomen and pelvis negative for acute pathology. Will DC home with as needed Zofran. Recommend cessation of marijuana due to possible cyclical vomiting syndrome. 04/16 10:09 Order name: Basic Metabolic Panel; Complete Time: 11:51 rn 04/16 10:09 Order name: CBC with Diff rn 04/16 10:09 Order name: Hepatic Function; Complete Time: 11:51 rn 04/16 10:09 Order name: Lipase; Complete Time: 11:51 rn 04/16 10:09 Order name: Urine Microscopic Only; Complete Time: 11:27 rn 04/16 10:30 Order name: Urine Dipstick-Ancillary; Complete Time: 11:27 EDMS 04/16 10:09 Order name: IV Saline Lock; Complete Time: 10: rn 04/16 10:09 Order name: CT Abd/Pelvis - IV Contrast Only; Complete Time: 11:27 rn 04/16 10:34 Order name: Urine --Ancillary (enter results) eb 04/16 10:35 Order name: Urine --Ancillary EDND 04/16 10:09 Order name: Labs collected and sent; Complete Time: 10: rn 04/16 10:09 Order name: Urine Dipstick-Ancillary (obtain specimen); Complete Time: 10: rn 04/16 10:09 Order name: Urine Test (obtain specimen); Complete Time: 10:09 rn Administered Medications: 10:15 Drug: NS 0.9% 1000 ml Route: IV; Rate: 1000 ml; Site: right antecubital; ll1 12:14 Follow up: Response: No adverse reaction; IV Status: Completed infusion; IV Intake: ll1 1000ml 10:15 Drug: Zofran (Ondansetron) 4 mg Route: IVP; Site: right antecubital; ll1 12:13 Follow up: Response: No adverse reaction ll1 12:13 Drug: Potassium Chloride 10 mEq Route: IV; Rate: calculated rate; Site: right ll1 antecubital; 13:18 Follow up: Response: No adverse reaction; IV Status: Completed infusion; IV Intake: [id number] 12:13 Drug: Potassium Chloride 40 mEq Route: PO; ll1 13:34 Follow up: Response: No adverse reaction ll1 Disposition Summary: 04/16/21 12:07 Discharge Ordered Location: Home rn Problem: new rn Symptoms: have improved rn Condition: Stable rn Diagnosis - Vomiting rn - Cyclical vomiting, not intractable rn - Dehydration rn - Hypokalemia rn Followup: rn - With: Private Physician - When: As needed - Reason: Recheck today's complaints, Re-evaluation by your physician Discharge Instructions: - Discharge Summary Sheet rn - Dehydration, Adult rn - Nausea and Vomiting, Adult rn - Hypokalemia rn - Cyclic Vomiting Syndrome, Adult rn Forms: - Medication Reconciliation Form rn - Thank You Letter rn - Antibiotic manager internet - Prescription Opioid Use rn - Work release form ll1 Prescriptions: - ondansetron 4 mg Oral tablet,disintegrating - place 1 tablet by TRANSLINGUAL route every 8 hours As needed; 15 tablet; rn Refills: 0, Product Selection Permitted Signatures: Dispatcher [employer] Amado Queen MD MD rn Smirch, Shelby RN RN James Nichols, RN RN 1
--- NOTE | 2021-04-16 12:07 | ER ---
Nurse's Notes [facility] Name: Sangita Sorenson Age: 45 yrs Sex: Female : 1975 Arrival Date: 04/16/2021 Time: 09:47 Bed 19 Private MD: Diagnosis: Vomiting;Cyclical vomiting, not intractable;Dehydration;Hypokalemia Presentation: 04/16 09:57 Ebola Screen: Patient denies travel to an Ebola-affected area in the 21 days before ll1 illness onset. Risk Assessment: Do you want to hurt yourself or someone else? Patient reports no desire to harm self or others. 09:57 Acuity: IBRAHIMA 3 ll1 10:01 Chief complaint: Patient states: vomiting x 3 days. Pt reports that this happens often, ss she just does not have the resources to see a specialist yet. Previous diagnosis was gastritis. Coronavirus screen: Client denies travel out of the [place] in the last 14 days. Initial Sepsis Screen: Does the patient meet any 2 criteria? No. Patient's initial sepsis screen is negative. Does the patient have a suspected source of infection? No. Patient's initial sepsis screen is negative. 10:01 Method Of Arrival: Ambulatory ss 13:34 Onset of symptoms is unknown. 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 - Social history:: Smoking status: Patient reports the use of cigarette tobacco products, smokes one-half pack cigarettes per day. - Family history:: not pertinent. - Hospitalizations: : No recent hospitalization is reported. Screenin:38 Abuse screen: Denies threats or abuse. Nutritional screening: No deficits noted. ll1 Tuberculosis screening: No symptoms or risk factors identified. Fall Risk IV access (20 points). Total Gonzales Fall Scale indicates No Risk (0-24 pts). Assessment: 10:10 General: Appears ill, Behavior is calm, cooperative, appropriate for age. Pain: Denies ll1 pain. Neuro: No deficits noted. Cardiovascular: No deficits noted. Respiratory: No deficits noted. GI: Abdomen is flat, Bowel sounds present X 4 quads. Abd is soft and non tender X 4 quads. Reports nausea, vomiting. 11:10 Reassessment: No changes from previously documented assessment. Patient and/or family ll1 updated on plan of care and expected duration. Pain level reassessed. Patient is alert, oriented x 3, equal unlabored respirations, skin warm/dry/pink. 12:10 Reassessment: No changes from previously documented assessment. Patient and/or family ll1 updated on plan of care and expected duration. Pain level reassessed. Patient is alert, oriented x 3, equal unlabored respirations, skin warm/dry/pink. 13:10 Reassessment: No changes from previously documented assessment. Patient and/or family ll1 updated on plan of care and expected duration. Pain level reassessed. Patient is alert, oriented x 3, equal unlabored respirations, skin warm/dry/pink. Patient states feeling better. Patient states symptoms have improved. Vital Signs: 11:00 BP 100 / 81; Pulse 57; Resp 15; Temp 98.7; Pulse Ox 100% on R/A; mh5 13:29 BP 98 / 62; Pulse 60; Resp 16; Temp 97.2; Pulse Ox 98% ; Pain 0/10; ll1 ED Course: 09:47 Patient arrived in ED. ds1 09:56 James Reese, RN is Primary Nurse. ll1 09:56 Arm band placed on Patient placed in an exam room, on a stretcher. ll1 09:57 Triage completed. ll1 09:58 Amado Everett MD is Attending Physician. rn 10:05 Inserted saline lock: 22 gauge in right forearm, using aseptic technique. Blood ll1 collected. 10:30 Patient has correct armband on for positive identification. Bed in low position. Side 5 rails up X 1. Warm blanket given. Pillow given. Pulse ox on. NIBP on. 10:30 Urine Microscopic Only Sent. 5 10:30 Urine collected: clean catch specimen, cloudy. 5 10:45 CT Abd/Pelvis - IV Contrast Only In Process Unspecified. EDMS 11:02 Urine --Ancillary (enter results) Sent. 5 13:30 No provider procedures requiring assistance completed. IV discontinued, intact, ll1 bleeding controlled, No redness/swelling at site. Pressure dressing applied. Administered Medications: 10:15 Drug: NS 0.9% 1000 ml Route: IV; Rate: 1000 ml; Site: right antecubital; ll1 12:14 Follow up: Response: No adverse reaction; IV Status: Completed infusion; IV Intake: ll1 1000ml 10:15 Drug: Zofran (Ondansetron) 4 mg Route: IVP; Site: right antecubital; ll1 12:13 Follow up: Response: No adverse reaction ll1 12:13 Drug: Potassium Chloride 10 mEq Route: IV; Rate: calculated rate; Site: right ll1 antecubital; 13:18 Follow up: Response: No adverse reaction; IV Status: Completed infusion; IV Intake: 50vmhi2 12:13 Drug: Potassium Chloride 40 mEq Route: PO; ll1 13:34 Follow up: Response: No adverse reaction ll1 Intake: 12:14 IV: 1000ml; Total: 1000ml. ll1 13:18 IV: 50ml; Total: 1050ml. ll1 Outcome: 12:07 Discharge ordered by . rn 13:30 Discharged to home via wheelchair. ll1 13:30 Condition: stable 13:30 Discharge instructions given to patient, Instructed on discharge instructions, follow up and referral plans. medication usage, Demonstrated understanding of instructions, follow-up care, medications, Prescriptions given X 1. 13:35 Patient left the ED. 1 Signatures: Dispatcher [employer] EDGA Marily Boyd ds1 Amado Everett MD MD rn Smirch, Shelby, RN RN ss Martinez, [facility] James Reese RN RN 1
[2021-04-16] MEDS ORDERED: POTASSIUM CL SA 10 MEQ TAB PO ONE (12:25)
[2021-04-16] MEDS ORDERED: KCL 20 MEQ/100 mL IVPB 20 MEQ/100 ML BAG IV ONE (12:25)
[2021-04-16] MEDS ORDERED: NA CHLORIDE 0.9% 500 ML ONE (13:13)
[2021-04-16 13:39] LABS: Urine Specific Gravity/Preg 1.025 (1.005-1.030)
[2021-04-16 13:51] VITALS: BP 98/62; TEMP 97.2; O2SAT 98
== END 2021-04-16 13:35 | disposition home or self-care (01) ==
LOC: ER 09:47
DX: E86.0 Dehydration (principal); E87.6 Hypokalemia; F17.210 Nicotine dependence, cigarettes, uncomplicated
CPT/HCPCS: 36415; 74177; 80048; 80076; 81003; 81015; 81025; 82565; 83690; 85025; 96361; 96365; 96375; 99284; J2405; J3480; J7030; J7040; Q9967

== ENCOUNTER 2021-06-08 03:23 | Emergency (ER) | payer SELFPAY ==
[2021-06-08] MEDS ORDERED: ONDANSETRON 4 MG/2 ML VIAL ONE (04:07)
[2021-06-08] MEDS ORDERED: MORPHINE 4 MG/ML SYR ONE (04:07)
[2021-06-08] MEDS ORDERED: NA CHLORIDE 0.9% 1,000 ML ONE (04:07)
[2021-06-08 04:38] LABS: Urine Blood Negative (Negative); Urine Glucose Negative (Negative); Urine Protein Negative (Negative); Urine Specific Gravity 1.025 (1.005-1.030)
[2021-06-08 04:48] LABS: Absolute Lymphocytes (CBC) 1.6 K/uL (0.7-4.9); Basophils % 0.3 % (0-1.3); Hematocrit 33.2 % (36.0-45.0); Lymphocytes % 8.4 % (15.3-44.8); MPV 9.2 fL (7.6-11.3); RBC Red Blood Cell Count 3.73 M/uL (3.86-4.86)
[2021-06-08 05:21] LABS: ALT/SGPT 12 U/L (12-78); AST/SGOT 7 U/L (15-37); Albumin 3.5 g/dL (3.4-5.0); Alkaline Phosphatase 63 U/L (45-117); BUN Blood Urea Nitrogen 6 mg/dL (7-18); Bicarbonate 25 mmol/L (21-32); Bilirubin Direct < 0.1 mg/dL (0-0.2); Bilirubin Total 0.2 mg/dL (0.2-1.0); Glucose Level 131 mg/dL (74-106); Lipase 64 U/L (73-393); Protein, Total 7.4 g/dL (6.4-8.2); Sodium Level 141 mmol/L (136-145)
[2021-06-08 05:28] LABS: Potassium 2.9 mmol/L (3.5-5.1)
[2021-06-08] MEDS ORDERED: POTASSIUM 25 MEQ EFFERV TAB ONE (05:31)
[2021-06-08] MEDS ORDERED: KCL 20 MEQ/100 mL IVPB 20 MEQ/100 ML BAG IV ONE (05:32)
[2021-06-08] MEDS ORDERED: CIPROFLOXACIN 400mg IV 400 MG/200 ML BAG IV ONE (05:37)
[2021-06-08 05:38] LABS: Blood Morphology Comment NOT SEEN (NOT SEEN); Platelet Estimate ADEQ; Toxic Granulation 1+
--- NOTE | 2021-06-08 05:43 | EDPHYS ---
Physician Documentation [facility] Name: Sangita Sorenson Age: 45 yrs Sex: Female : 1975 Arrival Date: 06/08/2021 Time: 03:25 Bed 3 Private MD: ED Physician Piotr Perez HPI: 06/08 05:24 This 45 yrs old Black Female presents to ER via Ambulatory with complaints of Vomiting. pkl 05:24 The patient presents with abdominal pain that is diffuse. Onset: The symptoms/episode pkl began/occurred just prior to arrival, 3 hour(s) ago. The symptoms do not radiate. Associated signs and symptoms: Pertinent positives: nausea, vomiting, and diarrhea. The patient has experienced similar episodes in the past, a few times. 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 Flu vaccine is not up to date. - Social history:: Smoking status: Patient denies any tobacco usage or history of. ROS: 05:24 Eyes: Negative for injury, pain, redness, and discharge, ENT: Negative for injury, pkl pain, and discharge, Neck: Negative for injury, pain, and swelling, Cardiovascular: Negative for chest pain, palpitations, and edema, Respiratory: Negative for shortness of breath, cough, wheezing, and pleuritic chest pain. 05:24 Abdomen/GI: Positive for abdominal pain, nausea, vomiting, and diarrhea, of the right upper quadrant, left upper quadrant, right lower quadrant and left lower quadrant. 05:24 Back: Negative for acute changes. 05:24 : Negative for urinary symptoms. 05:24 MS/extremity: Negative for acute changes. 05:24 Skin: Negative for rash. 05:24 Neuro: Negative for altered mental status, loss of consciousness. Exam: 05:24 Head/Face: Normocephalic, atraumatic. Eyes: Pupils equal round and reactive to light, pkl extra-ocular motions intact. Lids and lashes normal. Conjunctiva and sclera are non-icteric and not injected. Cornea within normal limits. Periorbital areas with no swelling, redness, or edema. ENT: Nares patent. No nasal discharge, no septal abnormalities noted. Tympanic membranes are normal and external auditory canals are clear. Oropharynx with no redness, swelling, or masses, exudates, or evidence of obstruction, uvula midline. Mucous membranes moist. Neck: Trachea midline, no thyromegaly or masses palpated, and no cervical lymphadenopathy. Supple, full range of motion without nuchal rigidity, or vertebral point tenderness. No Meningismus. Chest/axilla: Normal chest wall appearance and motion. Nontender with no deformity. No lesions are appreciated. Cardiovascular: Regular rate and rhythm with a normal S1 and S2. No gallops, murmurs, or rubs. Normal PMI, no JVD. No pulse deficits. Respiratory: Lungs have equal breath sounds bilaterally, clear to auscultation and percussion. No rales, rhonchi or wheezes noted. No increased work of breathing, no retractions or nasal flaring. 05:24 Abdomen/GI: Bowel sounds: active, Palpation: soft, mild abdominal tenderness, in all quadrants. 05:24 Back: Exam negative for acute changes. 05:24 : Exam negative for acute changes. 05:24 Musculoskeletal/extremity: Exam is negative for acute changes. 05:24 Skin: Exam negative for rash. 05:24 Neuro: Orientation: is normal, Mentation: is normal, Cranial nerves: grossly normal, Motor: is normal. Vital Signs: 04:14 BP 150 / 112; Pulse 58; Resp 18; Pulse Ox 100% on R/A; df1 05:24 BP 148 / 85; Pulse 58; Resp 18; Pulse Ox 100% on R/A; df1 06:15 BP 145 / 99; Pulse 57; Resp 16; Pulse Ox 100% on R/A; lc1 07:05 BP 146 / 99; Pulse 65; Resp 22; Pulse Ox 100% ; bp 07:44 BP 148 / 94; Pulse 64; Resp 22; Pulse Ox 100% on R/A; ll1 07:46 Temp 97.2; ll1 MDM: 03:49 Patient medically screened. pkl 05:38 Data reviewed: vital signs, nurses notes, lab test result(s), radiologic studies, CT pkl scan. ED course: Patient feeling better. Discussed lab and CT Scan result with patient. Advised to follow up with PCP in 2 to 3 days. To return if necessary. Patient understood instructions. 08:09 ED course: Received report from Dr. Perez. Plan of care in the ER is completion of IV pm1 fluids and potassium, then discharge home . 06/08 04:12 Order name: Basic Metabolic Panel; Complete Time: 05:30 pkl 06/08 04:12 Order name: CBC with Diff; Complete Time: 05:43 pkl 06/08 04:12 Order name: Hepatic Function; Complete Time: 05:30 pkl 06/08 04:12 Order name: Lipase; Complete Time: 05:30 pkl 06/08 04:24 Order name: Urine Microscopic Only df1 06/08 04:13 Order name: CT Abd/Pelvis - IV Contrast Only; Complete Time: 19:03 pkl 06/08 04:25 Order name: Urine Microscopic Only; Complete Time: 06:06 EDMS 06/08 04:38 Order name: Urine Dipstick-Ancillary; Complete Time: 05:07 EDMS 06/08 04:48 Order name: Urine --Ancillary (enter results); Complete Time: 06:06 ds4 06/08 04:58 Order name: Manual Differential; Complete Time: 05:43 EDMS 06/08 06:42 Order name: CREATININE WHOLE BLOOD; Complete Time: 19:03 EDMS 06/08 04:12 Order name: IV Saline Lock; Complete Time: 04:18 pkl 06/08 04:12 Order name: Labs collected and sent; Complete Time: 04:18 pkl 06/08 04:24 Order name: Urine Test (obtain specimen); Complete Time: 04:47 df1 06/08 04:24 Order name: Urine Dipstick-Ancillary (obtain specimen); Complete Time: 04:47 df1 Administered Medications: 04:17 Drug: Zofran (Ondansetron) 4 mg Route: IVP; Site: left antecubital; df1 06:52 Follow up: Response: No adverse reaction lc1 04:18 Drug: NS 0.9% 1000 ml Route: IV; Rate: 1000 ml; Site: left antecubital; df1 07:28 Follow up: Response: No adverse reaction; IV Status: Completed infusion; IV Intake: ll1 1000ml 04:18 Drug: morphine 4 mg Route: IVP; Site: left antecubital; df1 06:53 Follow up: Response: No adverse reaction lc1 05:55 Drug: Potassium Chloride 10 mEq Route: IV; Rate: calculated rate; Site: left df1 antecubital; 07:28 Follow up: Response: No adverse reaction; IV Status: Completed infusion; IV Intake: ll1 100ml 05:55 Drug: K-Lyte (potassium) Effervescent Tablet 50 mEq Route: PO; df1 07:29 Follow up: Response: No adverse reaction ll1 05:56 Drug: Cipro (ciprofloxacin) 400 mg Volume: 200 ml; Route: IVPB; Infused Over: 60 mins; df1 Site: right antecubital; 06:51 Follow up: IV Status: Completed infusion lc1 06:23 Drug: Phenergan (promethazine) 25 mg Route: IVP; Site: left antecubital; lc1 06:52 Follow up: Response: Nausea is decreased lc1 07:29 Not Given (Duplicate Order): NS 0.9% 1000 ml IV at 125 ml/hr continuous ll1 Disposition Summary: 06/08/21 08:14 Discharge Ordered Location: Home(06/08/21 08:14) pm1 Problem: new(06/08/21 08:14) pm1 Symptoms: have improved(06/08/21 08:14) pm1 Condition: Stable(06/08/21 08:14) pm1 Diagnosis - Abdominal pain, unspecified pm1 - Gastroenteritis pm1 - Leukocytosis pm1 - Hypokalemia pm1 Followup: pm1 - With: Emergency Department - When: As needed - Reason: Worsening of condition Followup: pm1 - With: Private Physician - When: 2 - 3 days - Reason: Recheck today's complaints, Continuance of care, Re-evaluation by your physician Discharge Instructions: - Abdominal Pain, Adult pm1 - Potassium Content of Foods pm1 - Discharge Summary Sheet ll1 - Nausea and Vomiting, Adult pm1 - Hypokalemia pm1 Forms: - Medication Reconciliation Form pm1 - Thank You Letter pm1 - Work release form ll1 - Antibiotic Education pm1 - Prescription Opioid Use pm1 Prescriptions: - Zofran 4 mg Oral Tablet - take 1 tablet by ORAL route every 12 hours As needed; 10 tablet; Refills: 0, pm1 Product Selection Permitted - Cipro 500 mg Oral Tablet - take 1 tablet by ORAL route every 12 hours for 7 days; 14 tablet; Refills: 0, pm1 Product Selection Permitted Addendum: 06/10/2021 19:03 Co-signature as Attending Physician, Piotr Perez MD. omid laguerre Signatures: Dispatcher [employer] EDMS Piotr Perez MD MD pkl [place] lc1 Wesley Avalos, PLASTER MOLD MAKER PLASTER MOLD MAKER pm1 Edy Sheridan RN RN mr2 Barbara Vyas df1 James Reese RN ll1 Corrections: (The following items were deleted from the chart) 06/08 04:05 04:04 PSHx: tubal ligation; mr2 mr2 04:14 04:13 CREATININE, SERUM+C.LAB.BRZ ordered. EDMS EDMS 04:49 04:49 URINE --ANCILLARY+UC.LAB.BRZ ordered. EDMS EDMS 06:07 05:42 Home pkl pkl 06:07 05:42 new pkl pkl 06:07 05:42 have improved pkl pkl 06:07 05:42 Stable pkl pkl 06:07 05:42 Abdominal pain. Gastroenteritis. Leukocytosis pkl pkl 06:07 05:45 Abdominal pain. Gastroenteritis. Leukocytosis. Hypokalemia pkl pkl
--- NOTE | 2021-06-08 05:43 | ER ---
Nurse's Notes [facility] Name: Sangita Sorenson Age: 45 yrs Sex: Female : 1975 Arrival Date: 06/08/2021 Time: 03:25 Bed 3 Private MD: Diagnosis: Abdominal pain, unspecified;Gastroenteritis;Leukocytosis;Hypokalemia Presentation: 06/08 03:59 Chief complaint: Patient states: pt states she went to bed feeling normal and woke up w mr2 abdominal pain nausea and vomiting denies sick contacts. Coronavirus screen: Vaccine status: Patient reports being unvaccinated. Ebola Screen: Patient negative for fever greater than or equal to 101.5 degrees Fahrenheit, and additional compatible Ebola Virus Disease symptoms Patient denies exposure to infectious person. Patient denies travel to an Ebola-affected area in the 21 days before illness onset. Initial Sepsis Screen: Does the patient meet any 2 criteria? No. Patient's initial sepsis screen is negative. Does the patient have a suspected source of infection? No. Patient's initial sepsis screen is negative. Risk Assessment: Do you want to hurt yourself or someone else? Patient reports no desire to harm self or others. Onset of symptoms was June 08, 2021 at 03:00. 03:59 Method Of Arrival: Ambulatory mr2 03:59 Acuity: IBRAHIMA 3 mr2 Triage Assessment: 04:05 General: Appears distressed, uncomfortable, Behavior is anxious, inappropriate for age, mr2 restless, uncooperative. Pain: Complains of pain in abdomen. GI: Reports lower abdominal pain, diarrhea, vomiting. 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 Flu vaccine is not up to date. - Social history:: Smoking status: Patient denies any tobacco usage or history of. Screenin:16 Abuse screen: Denies threats or abuse. Nutritional screening: No deficits noted. df1 Tuberculosis screening: No symptoms or risk factors identified. Fall Risk None identified. Assessment: 04:17 GI: Abdomen is flat, non-distended, Bowel sounds present X 4 quads. df1 06:24 Reassessment: No changes from previously documented assessment. Patient and/or family lc1 updated on plan of care and expected duration. Pain level reassessed. Patient is alert, oriented x 3, equal unlabored respirations, skin warm/dry/pink. patient requesting ice chips, currently nauseated and vomiting, vomited about 50 ml of green bile, informed that she couldn't have any at this time, order received for Phenergan. . 07:05 Reassessment: RECD REPORT FROM FAM FORD. 45YO BF P/W VOMITING. PT TBDC AFTER ABX AND bp POTASSIUM REPLETION. 07:33 Reassessment: No changes from previously documented assessment. Patient and/or family ll1 updated on plan of care and expected duration. Pain level reassessed. Vital Signs: 04:14 BP 150 / 112; Pulse 58; Resp 18; Pulse Ox 100% on R/A; df1 05:24 BP 148 / 85; Pulse 58; Resp 18; Pulse Ox 100% on R/A; df1 06:15 BP 145 / 99; Pulse 57; Resp 16; Pulse Ox 100% on R/A; lc1 07:05 BP 146 / 99; Pulse 65; Resp 22; Pulse Ox 100% ; bp 07:44 BP 148 / 94; Pulse 64; Resp 22; Pulse Ox 100% on R/A; ll1 07:46 Temp 97.2; ll1 ED Course: 03:25 Patient arrived in ED. bp1 03:49 Piotr Perez MD is Attending Physician. pkl 03:55 Lilia Lake is Primary Nurse. lc1 04:04 Triage completed. mr2 04:05 Arm band placed on. mr2 04:16 No provider procedures requiring assistance completed. Inserted saline lock: 20 gauge df1 in left antecubital area, using aseptic technique. 04:17 Patient has correct armband on for positive identification. Placed in gown. Bed in low df1 position. Call light in reach. Side rails up X 1. 04:18 Basic Metabolic Panel Sent. df1 04:18 CBC with Diff Sent. df1 04:18 Hepatic Function Sent. df1 04:18 Lipase Sent. df1 04:47 Urine Microscopic Only Sent. df1 04:47 Urine Microscopic Only Sent. df1 05:08 CT Abd/Pelvis - IV Contrast Only In Process Unspecified. EDMS 05:23 Manual Differential Sent. df1 05:56 Inserted saline lock: 20 gauge in left antecubital area, using aseptic technique. df1 08:31 IV discontinued, intact, bleeding controlled, No redness/swelling at site. Pressure iw dressing applied. Administered Medications: 04:17 Drug: Zofran (Ondansetron) 4 mg Route: IVP; Site: left antecubital; df1 06:52 Follow up: Response: No adverse reaction lc1 04:18 Drug: NS 0.9% 1000 ml Route: IV; Rate: 1000 ml; Site: left antecubital; df1 07:28 Follow up: Response: No adverse reaction; IV Status: Completed infusion; IV Intake: ll1 1000ml 04:18 Drug: morphine 4 mg Route: IVP; Site: left antecubital; df1 06:53 Follow up: Response: No adverse reaction lc1 05:55 Drug: Potassium Chloride 10 mEq Route: IV; Rate: calculated rate; Site: left df1 antecubital; 07:28 Follow up: Response: No adverse reaction; IV Status: Completed infusion; IV Intake: ll1 100ml 05:55 Drug: K-Lyte (potassium) Effervescent Tablet 50 mEq Route: PO; df1 07:29 Follow up: Response: No adverse reaction ll1 05:56 Drug: Cipro (ciprofloxacin) 400 mg Volume: 200 ml; Route: IVPB; Infused Over: 60 mins; df1 Site: right antecubital; 06:51 Follow up: IV Status: Completed infusion lc1 06:23 Drug: Phenergan (promethazine) 25 mg Route: IVP; Site: left antecubital; lc1 06:52 Follow up: Response: Nausea is decreased lc1 07:29 Not Given (Duplicate Order): NS 0.9% 1000 ml IV at 125 ml/hr continuous ll1 Intake: 07:28 IV: 100ml; Total: 100ml. ll1 07:28 IV: 1000ml; Total: 1100ml. ll1 Outcome: 05:42 Discharge ordered by . pkl 08:14 Discharge ordered by MD. pm1 08:31 Discharged to home via wheelchair, with family. iw 08:31 Condition: good 08:31 Discharge instructions given to patient, Instructed on discharge instructions, follow up and referral plans. medication usage, Demonstrated understanding of instructions, follow-up care, medications, Prescriptions given X 2. 08:31 Patient left the ED. iw Signatures: Dispatcher [employer] EDMS Piotr Perez MD MD pkErica Bernal, RN RN iw Lilia Lake lc1 Wesley Avalos, KENO ATTENDANT KENO ATTENDANT pm1 Jules Holley RN RN bp James Reese RN RN ll1 Trini Jiménez [facility] Edy Sheridan RN RN mr2 AsaelBarbara df1 Corrections: (The following items were deleted from the chart) 04:05 04:04 PSHx: tubal ligation; mr2 mr2 04:26 03:59 BP 153 / 99; Pulse 62bpm; Resp 100bpm; Pulse Ox 100%; Temp 98.4F; 68.04 kg; mr2 Height 5 ft. 0 in.; BMI: 29.2; Pain 10/10; mr2 06:28 06:24 Reassessment: No changes from previously documented assessment. Patient and/or lc1 family updated on plan of care and expected duration. Pain level reassessed. Patient is alert, oriented x 3, equal unlabored respirations, skin warm/dry/pink. patient requesting ice chips, currently nauseated and dry heaving, informed that she couldn't have any at this time, order received for phenergan. . lc1
[2021-06-08 05:50] LABS: Urine Bacteria <20 /HPF (<20); Urine RBC <5 /HPF (NONE SEEN)
[2021-06-08 05:57] LABS: Urine Specific Gravity/Preg 1.025 (1.005-1.030)
[2021-06-08] MEDS ORDERED: PROMETHAZINE INJ 25 MG/ML AMP ONE (06:13)
[2021-06-08 08:48] VITALS: O2SAT 100
[2021-06-08 09:01] VITALS: BP 148/94
[2021-06-08 09:02] VITALS: TEMP 97.2
--- NOTE | 2021-06-08 11:48 | RAD REPORT ---
EXAM DESCRIPTION: CT - Abdomen Pelvis W Contrast - 06/08/2021 6:51 am CLINICAL HISTORY: The patient is 45 years old and is Female; Abd pain;Nausea / vomiting TECHNIQUE: Axial computed tomography images of the abdomen and pelvis with intravenous contrast. S agittal and coronal reformatted images were created and reviewed. This CT exam was performed using one or more of the following dose reduction techniques: automated exposure control, adjustment of t he mA and/or kV according to patient size, and/or use of iterative reconstruction technique. COMPARISON: CT abdomen pelvis May 25, 2021. FINDINGS: Lung bases: Unremarkable. No mass. No consolidation. ABDOMEN: Liver: Hepatic cysts, largest measuring 11 mm. No follow-up imaging recommended. Gallbladder and bile ducts: Unremarkable. No calcified stones. No ductal dilation. Pancreas: No findings to suggest acute pancreatitis. No mass visualized. No ductal dilation. Spleen: Unremarkable. No splenomegaly. Adrenals: Unremarkable. No mass. Kidneys and ureters: Unremarkable. No solid mass. No hydronephrosis. Stomach and bowel: No bowel dilatation or obstruction. No bowel wall thickening. PELVIS: Appendix: The visualized appendix is normal. No pericecal inflammation to suggest acute appendici tis. Bladder: Unremarkable. No mass. Reproductive: Lobulated multi fibroid uterus. No definite adnexal mass. ABDOMEN and PELVIS: Intraperitoneal space: Small amount of free fluid in the cul-de-sac, likely physiologic. No free air. Bones/joints: No acute fracture visualized. No dislocation. Soft tissues: Unremarkable. Vasculature: Unremarkable. No abdominal aortic aneurysm. Lymph nodes: No pathologically enlarged lymph nodes. IMPRESSION: 1. No acute obstructive or inflammatory process identified. Normal appendix. 2. Lobulated multi-fibroid uterus. Electronically signed by: Amarilys De Anda MD 06/08/2021 5:25 AM CDT Due to temporary technical issues with the PACS/Fluency reporting system, reports are being signed by the in house radiologists without review as a courtesy to insure prompt reporting. The interpreting radiologist is fully responsible for the content of the report.
== END 2021-06-08 08:31 | disposition home or self-care (01) ==
LOC: ER 03:23
DX: K52.9 Noninfective gastroenteritis and colitis, unspecified (principal); E87.6 Hypokalemia; D72.829 Elevated white blood cell count, unspecified
CPT/HCPCS: 36415; 74177; 80048; 80076; 81003; 81015; 81025; 82565; 83690; 85025; 99284; J0744; J2405; J2550; J3480; J7030; Q9967

== ENCOUNTER 2021-10-19 04:59 | Inpatient (IN) | payer SELFPAY ==
--- OUTSIDE RECORDS SUMMARY | 2021-10-19 05:03 | XMS REPORT | Continuity of Care Document ---
:1975 Author Organization [facility] t Address [address] [place] [address] Care Team Providers Name Role Phone Zheng REYNA Primary Care Physician Unavailable Zheng REYNA Attending Clinician Unavailable Zheng Bradshaw Attending Clinician JAMES FRANKLIN Attending Clinician Unavailable LANDON HILL Attending Clinician Unavailable ERVIN LAO Attending Clinician Unavailable RAFAEL TURPIN Attending Clinician Unavailable Payers Payer Name Policy Type Policy Number Effective Date Expiration Date S ource [employer] [place] [id number] 2021 00:00:00 WOMEN Problems Condition Condition Condition Status Onset Resolution Last Treating Co mments Source Name Details Category Date Date Treatment Clinician Date Situationa Situationa Disease Active 2021-0 U nivers l l 2-02 [place] [facility] Amenorrhea Amenorrhea Disease Active 2020-0 U nivers 1-27 ity of 00:00: [place] 00 [facility] Other Other Disease Active 2019-1 Univers general general 2-04 ity of counseling [place] and advice and advice 00 Me dical for for Branch contracept contracept lenny lenny management management Over Over Disease Active 2019-08 Univers weight weight 2-04 ity of 00:00: [place] 00 [facility] History of History of Disease Active 2019-08 U nivers bilateral bilateral 2-04 ity of tubal tubal 00:00: [place] ligation ligation 00 Medica l Branch Warts, Warts, Disease Active 2019-08 Univers genital genital 2-04 ity of 00:00: [place] 00 [facility] Allergies, Adverse Reactions, Alerts Allergy Allergy Status Severity Reaction(s) Onset Inactive Treating Comm ents Source Name Type Date Date Clinician NO KNOWN Drug Active Univers ALLERGIE Class ity of S [facility] Social History Social Habit Start Date Stop Date Quantity Comments Source History SDOH [facility] SDWA University o f Alcohol Std Drinks [facility] History SDWA University o f Alcohol Binge [facility] Branch History of tobacco Smoker Univer sity of use [facility] Exposure to Not sure University of SARS-CoV-2 (event) [facility] Alcohol intake 2021-10-02 2021-10-02 Current drinker Unive rsity of 00:00:00 00:00:[address] [facility] (finding) Jerome Cigarettes smoked 2021-09-06 2021-09-06 Univers ity of current (pack per 00:00:00 00:00:00 [facility] ) - Reported Branch Tobacco Comment 2021-09-06 2021-09-06 Smokes 5 ciggs a Uni versity of 00:00:00 00:00:00 day [facility] Tobacco use and 2021-09-06 2021-09-06 Never used Universit y of exposure 00:00:00 00:00:00 [facility] Alcohol Comment 2020-07-08 2020-07-08 special Universit y of 00:00:00 00:00:00 occasions [facility] Sex Assigned At [birth year] Universit y of 00:00:00 00:00:00 [facility] Smoking Status Start Date Stop Date Source Current every day smoker 2021-09-06 00:00:00 Uni versity of [facility] Never smoker [facility] Medications Ordered Filled Start Stop Current Ordering Indication Dosage Frequency Signature Comments Components Source Medication Medication Date Date Medication? Clinician (SIG) Name Name No known No Univers medications - ity of 09:34: [address] No known No Univers medications - ity of 09:34: [address] ondansetron Yes 4mg Take [address] (ZOFRAN-ODT 2-13 tablet (4 Eriberto es - ) 4 MG 00:00: mg total) Medica l disintegrat 00 by mouth Cent er ing tablet every 8 (eight) hours as needed. Vital Signs Vital Name Observation Time Observation Value Comments Source Systolic blood 2021-10-02 14:44:00 122 mm[facility]Hg[facility] Diastolic blood 2021-10-02 14:44:00 75 mm[Hg] [facility] Heart rate 2021-10-02 14:44:00 67 /min [facility] Body temperature 2021-10-02 14:44:00 35.83 [facility] Respiratory rate 2021-10-02 14:44:00 20 /min [facility] Body height 2021-10-02 14:44:00 149.9 cm [facility] Body weight 2021-10-02 14:44:00 63.163 kg [facility] BMI 2021-10-02 14:44:00 28.13 kg/m2 [facility] Procedures This patient has no known procedures. Plan of Care Planned Activity Planned Date Details Comments Source Future Scheduled 2020-10-[address] [facility] - Test 00:00:00 malignant neoplasm Medical C enter of cervix (procedure) [code = 082974375] Future Scheduled 2020-04-[address] [facility] - Test 00:00:00 (#1) [code = Medical Center INFLUENZA VACCINE (#1)] Encounters Start End Encounter Admission Attending Care Care Encounter Source Date/Time Date/Time Type Type Clinicians Facility Department ID 2021-10-10 2021-10-10 Outpatient R AXEL, [facility] [id number] Univers 00:00:00 00:00:00 [place] [facility] 2021-10-02 2021-10-02 Outpatient R [facility] [id number] Univers 08:45:00 09:13:38 [place] low campbell [facility] 2021-10-02 2021-10-[address] [facility] [id number] Univers 08:45:00 09:13:38 Visit Oksana C INSTRUCTOR [employer] [id number] [facility] [id number] Patrick as MATERNAL [phone] Med ical & CHILD [address] [place] [address] 2020-10-04 2020-10-04 [facility] [id number] 13:39:10 23:59:00 Encounter Oksana C SPECIALTY [id number] [facility] [id number] CENTER AT [id number] HEND[place]Allegra [address] [place] [address] 2020-10-04 2020-10-04 [facility] [id number] 13:37:38 13:38:00 Encounter Oksana C SPECIALTY [id number] [facility] [id number] CENTER AT [id number] [place]legra [address] [place] [address] 2020-09-01 2020-09-01 [facility] [id number] 00:00:00 00:00:00 Oksana C IN[employer]CTOR [employer] [id number] [facility] [id number] MATERNAL [id number] & CHILD [address] [place] [address] Results Test Description Test Time Test Comments Results Result [facility] e Comments CT, ABDOMEN 2019-09-17 Reason for FINAL REPORT PATIENT 14:16:00 exam:->NAUSEARe ID: [id number] CT ason for ABDOMEN AND PELVIS exam:->EMESISRe [...] MDReport Verified Date/Time: 09/17/2019 14:16:48 Reading Location: [facility] Radiology Reading Room SE 2019-09-17 13:00:00 Test Item Value Reference Range Interpretation Comme nts LIPASE (BEAKER) (test code = 749) 4 U/L 6-51 L Raw Material Planner ID - [id number] FUNCTION [id number] 12:56:00 Test Item Value Reference Range Interpretation [...] Specimen slightly (test code = 347) hemolyzed Raw Material Planner ID - [id number] DRUG SCREEN, [id number] 12:54:00 Test Item Value Reference Range Interpretation [...] situations. Chain of custody not maintained. Some bsfw-vmw-xvvhzxl medications, as well as adulterants, may cause inaccurate results. Clinical correlation should be applied. A more comprehensivedrug screen or confirmation of a detected drug may be performed upon request.Raw Material Planner ID - [id number] ID - [id number] ID - [id number] ID - [id number] ID - woak51Zyjdaumb ID - [id number] ID - vnfp98Peoorwhm ID - [id number] METABOLIC [id number] 12:54:00 Test Item Value Reference Range Interpretation [...] S NOT APPLICABLE FOR DIALYSIS PATIEN TS. Raw Material Planner ID - [id number] W/ [id number] 12:47:00 Test Item Value Reference Range Interpretation [...] code = 1663) SOURCE(BEAKER) (test code = 2795) SCREEN, [id number] 12:40:00 Test Item Value Reference Range Interpretation Comments TEST URINE (BEAKER) (test Negative code = 583) CBC W/PLT COUNT & AUTO [id number] 12:38:00 Test Item Value Reference Range Interpretation [...] PERCENT (BEAKER) (test code = 2801) POCT-GLUCOSE [id number] 12:28:00 Test Item Value Reference Range Interpretation Comments POC-GLUCOSE METER 117 mg/dL 70-110 H : TESTED A T SLSL 1317 (BEAKER) (test code [address], = 1538) [facility] 77 478: Raw Material Planner/Techni brayedn ID = [id number] for Tolo , Chisa CT, [id number] 16:50:00Reason for exam:->EMESISIs the patient ?->NoWhat is [...] MDReport Verified Date/Time: 08/16/2019 16:50:10 Reading Location: [facility] C013X [facility] Consult Reading Room LIPASE 2019-08-16 14:40:00 Test Item Value Reference Range Interpretation Comments LIPASE (BEAKER) (test code = 749) 5 U/L 6-51 L Raw Material Planner ID - KARINABASIC METABOLIC [id number] 14:38:00 Test Item Value Reference Range Interpretation [...] S NOT APPLICABLE FOR DIALYSIS PATIEN TS. Raw Material Planner ID - JONATHANHEPATIC FUNCTION [id number] 14:38:00 Test Item Value Reference Range Interpretation [...] Specimen slightly (test code = 347) hemolyzed Raw Material Planner ID - JONATHANHCG, SERUM, [id number] 14:34:00 Test Item Value Reference Range Interpretation Comments TEST SERUM (BEAKER) (test Negative code = 584) RAPID INFLUENZA A&B [id number] 14:34:00 Test Item Value Reference Range Interpretation Comments RAPID INFLUENZA A AG (BEAKER) Negative Negative, Inconclusive (test code = 1622) RAPID INFLUENZA B AG (BEAKER) Negative Negative, Inconclusive (test code = 1623) CBC W/PLT COUNT & AUTO [id number] 14:20:00 Test Item Value Reference Range Interpretation [...] (BEAKER) (test code = 2801) COMPREHENSIVE METABOLIC [id number] 12:48:00 Test Item Value Reference Range Interpretation [...] S NOT APPLICABLE FOR DIALYSIS PATIEN TS. [id number] 12:48:00 Test Item Value Reference Range Interpretation Comments LIPASE (BEAKER) (test code = 749) 9 U/L 6-51 HCG, SERUM, [id number] 12:27:00 Test Item Value Reference Range Interpretation Comments TEST SERUM (BEAKER) (test Negative code = 584) CBC W/PLT COUNT & AUTO [id number] 12:21:00 Test Item Value Reference Range Interpretation [...] L 0.00-0.20 (test code = 417) CT, [id number] 11:01:00Reason for exam:->EMESISIs the patient ?->NoWhat is [...] MDReport Verified Date/Time: 07/07/2019 11:01:48 Reading Location: [facility] B1 C013Y CT Body Reading Room COMPREHENSIVE METABOLIC [id number] 10:26:00 Test Item Value Reference Range Interpretation [...] S NOT APPLICABLE FOR DIALYSIS PATIEN TS. [id number] 10:26:00 Test Item Value Reference Range Interpretation Comments LIPASE (BEAKER) (test code = 749) 8 U/L 6-51 HCG, SERUM, [id number] 10:21:00 Test Item Value Reference Range Interpretation Comments TEST SERUM (BEAKER) (test Negative code = 584) CBC W/PLT COUNT & AUTO [id number] 10:08:00 Test Item Value Reference Range Interpretation [...]
[2021-10-19] MEDS ORDERED: MORPHINE 4 MG/ML SYR ONE (05:52)
[2021-10-19] MEDS ORDERED: ONDANSETRON 4 MG/2 ML VIAL ONE (05:53)
[2021-10-19] MEDS ORDERED: FAMOTIDINE 20 MG/2 ML VIAL IV ONE (06:00)
[2021-10-19] MEDS ORDERED: NA CHLORIDE 0.9% 1,000 ML ONE ×2 (06:01→11:23)
[2021-10-19 06:02] LABS: Absolute Lymphocytes (CBC) 1.4 K/uL (0.7-4.9); Hematocrit 32.2 % (36.0-45.0); Lymphocytes % 12.6 % (15.3-44.8); MPV 8.2 fL (7.6-11.3); RBC Red Blood Cell Count 3.71 M/uL (3.86-4.86)
[2021-10-19 06:44] LABS: ALT/SGPT 27 U/L (12-78); AST/SGOT 25 U/L (15-37); Alkaline Phosphatase 63 U/L (45-117); BUN Blood Urea Nitrogen 10 mg/dL (7-18); Bicarbonate 29 mmol/L (21-32); Bilirubin Total 0.6 mg/dL (0.2-1.0); Glucose Level 129 mg/dL (74-106); Lipase 53 U/L (73-393); Protein, Total 8.2 g/dL (6.4-8.2); Sodium Level 137 mmol/L (136-145)
[2021-10-19 06:54] LABS: Potassium 2.8 mmol/L (3.5-5.1)
[2021-10-19] MEDS ORDERED: KCL 20 MEQ/100 mL IVPB 100 ML IV ONE (07:12)
[2021-10-19] MEDS ORDERED: NA CHLORIDE 0.9% 100 ML IV ONE (07:12)
[2021-10-19 07:48] LABS: Urine Blood Trace-intact (Negative); Urine Glucose Negative (Negative); Urine Protein 2+ (Negative); Urine Specific Gravity 1.015 (1.005-1.030)
--- NOTE | 2021-10-19 07:58 | RAD REPORT ---
EXAM DESCRIPTION: CT - Abdomen Pelvis W Contrast - 10/19/2021 7:20 am CLINICAL HISTORY: Abdominal pain COMPARISON: 2020 TECHNIQUE: Computed axial tomography of the abdomen pelvis was obtained. 100 cc Isovue-300 was admin istered intravenously. Oral contrast was not requested which limits evaluation of bowel. All CT scans are performed using dose optimization technique as appropriate and may include automated exposure control or mA/KV adjustment according to patient size. FINDINGS: Small hepatic cysts. Spleen, pancreas, adrenal and kidneys appear unremarkable. There is no evidence of diverticulitis. Normal appendix. Fibroid uterus IMPRESSION: No acute abnormality is displayed.
--- NOTE | 2021-10-19 08:18 | ER ---
Nurse's Notes [facility] Name: Sangita Sorenson Age: 45 yrs Sex: Female : 1975 Arrival Date: 10/19/2021 Time: 05:03 Bed 13 Private MD: Diagnosis: Abdominal pain, Generalized;Hypotension, unspecified;Hypokalemia Presentation: 10/19 05:22 Chief complaint: Patient states: "I've been throwing up since yesterday around 4 or 5 as6 in the morning. I keep trying to stay hydrated but keep throwing everything up". Coronavirus screen: At this time, the client does not indicate any symptoms associated with coronavirus-19. Ebola Screen: No symptoms or risks identified at this time. Initial Sepsis Screen: Does the patient meet any 2 criteria? No. Patient's initial sepsis screen is negative. Does the patient have a suspected source of infection? No. Patient's initial sepsis screen is negative. Risk Assessment: Do you want to hurt yourself or someone else? Patient reports no desire to harm self or others. Onset of symptoms was October 18, 2021. 05:22 Method Of Arrival: Ambulatory as6 05:22 Acuity: IBRAHIMA 3 as6 Triage Assessment: 05:26 General: Appears uncomfortable, Behavior is cooperative, restless. Pain: Complains of as6 pain in chest and abdomen. GI: Reports lower abdominal pain, upper abdominal pain, diarrhea, nausea, vomiting. 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 - Social history:: Smoking status: Patient reports the use of cigarette tobacco products, smokes one-half pack cigarettes per day. Screenin:14 Abuse screen: Denies threats or abuse. Nutritional screening: No deficits noted. ke1 Tuberculosis screening: No symptoms or risk factors identified. Fall Risk No fall in past 12 months (0 pts). No secondary diagnosis (0 pts). IV access (20 points). Ambulatory Aid- None/Bed Rest/Nurse Assist (0 pts). Gait- Normal/Bed Rest/Wheelchair (0 pts) Mental Status- Oriented to own ability (0 pts). Total Gonzales Fall Scale indicates No Risk (0-24 pts). Assessment: 06:00 General: Appears uncomfortable, Behavior is crying. Pain: Complains of pain in abdomen ke1 Pain currently is 10 out of 10 on a pain scale. Neuro: Level of Consciousness is awake, alert, Oriented to person, place, time, situation. GI: Abdomen is flat, Bowel sounds present X 4 quads. Abd is soft Abdomen is tender to palpation X 4 quads. : No deficits noted. EENT: No deficits noted. Derm: No deficits noted. Musculoskeletal: No deficits noted. 06:37 Reassessment: Patient denies pain at this time. Patient states feeling better. Patient ke1 states symptoms have improved. 07:18 Reassessment: Patient appears in no apparent distress at this time. No changes from jg9 previously documented assessment. 14:30 Reassessment: Report called to Martha Shaw RN. jg9 Vital Signs: 05:22 BP 152 / 82; Pulse 61; Resp 22 S; Temp 98.4(TE); Pulse Ox 100% on R/A; Weight 61.23 kg as6 (R); Height 4 ft. (121.92 cm) (R); Pain 8/10; 06:15 BP 96 / 65; Pulse 51; Resp 17; Pulse Ox 99% on R/A; ke1 06:37 BP 87 / 60; Pulse 50; Resp 16; Pulse Ox 99% on R/A; ke1 07:00 BP 86 / 58; Pulse 57; Resp 17 S; Pulse Ox 99% on R/A; jg9 07:20 BP 128 / 88; Pulse 67; Resp 16 S; Pulse Ox 98% on R/A; jg9 08:18 BP 116 / 83; Pulse 52; Resp 16 S; Pulse Ox 100% on R/A; jg9 09:15 BP 117 / 63; Pulse 55; Resp 17 S; Pulse Ox 100% on R/A; jg9 14:17 BP 96 / 62; Pulse 52; Resp 16 S; Pulse Ox 98% on R/A; jg9 05:22 Body Mass Index 41.20 (61.23 kg, 121.92 cm) as6 ED Course: 05:03 Patient arrived in ED. wm 05:25 Triage completed. as6 05:26 Arm band placed on. as6 05:27 Amy Singletary, LOGAN is Primary Nurse. ke1 05:29 Krzysztof Boo MD is Attending Physician. kdr 05:41 Inserted saline lock: 20 gauge in right antecubital area, using aseptic technique. ke1 06:14 Bed in low position. Call light in reach. Side rails up X 1. ke1 06:55 Notified ED physician of a critical lab result(s). Potassium of 2.8 Dr Boo notified.bb 07:19 Attending Physician role handed off by Krzysztof Boo MD ms3 07:19 Ezra Han DO is Attending Physician. ms3 07:20 CT Abd/Pelvis - IV Contrast Only In Process Unspecified. EDMS 07:50 No apparent distress. Resting quietly. Awaiting radiology results. jg9 08:17 Jordan Everett MD is Hospitalizing Provider. ms3 11:17 No provider procedures requiring assistance completed. jg9 11:17 Patient admitted, IV remains in place. jg9 Administered Medications: 05:54 Drug: morphine 4 mg Route: IVP; Site: right antecubital; ke1 06:11 Follow up: Response: Pain is decreased ke1 05:54 Drug: Zofran (Ondansetron) 4 mg Route: IVP; Site: right antecubital; ke1 06:12 Follow up: Response: Nausea is decreased ke1 06:11 Drug: NS 0.9% 1000 ml Route: IV; Rate: 1 bolus; Site: right antecubital; ke1 07:30 Follow up: IV Status: Completed infusion; IV Intake: 1000ml jg9 06:11 Drug: Pepcid (famotidine) 20 mg Route: IVP; Site: right antecubital; ke1 08:23 Follow up: Response: No adverse reaction jg9 07:33 Drug: Potassium Chloride 20 mEq Route: IV; Rate: calculated rate; Site: right jg9 antecubital; 09:46 Follow up: IV Status: Completed infusion; IV Intake: 100ml jg9 Intake: 07:30 IV: 1000ml; Total: 1000ml. jg9 09:46 IV: 100ml; Total: 1100ml. jg9 Outcome: 08:17 Decision to Hospitalize by Provider. ms3 11:17 Admitted to ER Hold. Please see [facility] for further documentation. jg9 11:17 Condition: stable 14:45 Patient left the ED. jg9 Signatures: Dispatcher [employer] EDMS Krzysztof Boo MD MD kdr Ballard, Brenda, RN RN Ezra Summers DO DO ms3 Adriana Asif García Sterling RN RN as6 Ngozi Lipscomb RN RN jg9 Amy Singletary, RN RN ke1
--- NOTE | 2021-10-19 08:18 | EDPHYS ---
Physician Documentation [facility] Name: Sangita Sorenson Age: 45 yrs Sex: Female : 1975 Arrival Date: 10/19/2021 Time: 05:03 Bed 13 Private MD: ED Physician Ezra Han HPI: 10/19 06:26 This 45 yrs old Black Female presents to ER via Ambulatory with complaints of Vomiting. kdr 06:26 The patient presents to the emergency department with nausea, that is mild, vomiting, kdr that is intermittent, diarrhea, that is intermittent, abdominal pain, of the abdomen diffusely, described as achy, crampy, intermittent, vague,\E\ waxing and waning. Onset: The symptoms/episode began/occurred gradually, 24 hour(s) ago. Possible causes: unknown, Patient states that she has this issue periodically. She believes that the last time was about 2 months ago. The symptoms are aggravated by food , The symptoms are alleviated by nothing. Associated signs and symptoms: Pertinent positives: abdominal pain, diarrhea, nausea, vomiting. Severity of symptoms: At their worst the symptoms were mild moderate just prior to arrival, in the emergency department the symptoms are unchanged. The patient has experienced similar episodes in the past, multiple times. The patient has not recently seen a physician. 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 - Social history:: Smoking status: Patient reports the use of cigarette tobacco products, smokes one-half pack cigarettes per day. ROS: 06:26 Constitutional: Negative for fever, chills, and weight loss, Eyes: Negative for injury, kdr pain, redness, and discharge, ENT: Negative for injury, pain, and discharge, Neck: Negative for injury, pain, and swelling, Cardiovascular: Negative for chest pain, palpitations, and edema, Respiratory: Negative for shortness of breath, cough, wheezing, and pleuritic chest pain, Back: Negative for injury and pain, : Negative for injury, bleeding, discharge, and swelling, MS/Extremity: Negative for injury and deformity, Skin: Negative for injury, rash, and discoloration, Neuro: Negative for headache, weakness, numbness, tingling, and seizure activity. Psych: Negative for depression, anxiety, suicide ideation, homicidal ideation, and hallucinations, Allergy/Immunology: Negative for hives, rash, and allergies, Endocrine: Negative for neck swelling, polydipsia, polyuria, polyphagia, and marked weight changes, Hematologic/Lymphatic: Negative for swollen nodes, abnormal bleeding, and unusual bruising. 06:26 Abdomen/GI: Positive for abdominal pain, nausea, vomiting, and diarrhea, Negative for abdominal distension, anorexia, black/tarry stool, rectal pain, rectal bleeding, bowel incontinence. Exam: 06:26 Constitutional: This is a well developed, well nourished patient who is awake, alert, kdr and in no acute distress. Head/Face: Normocephalic, atraumatic. Eyes: Pupils equal round and reactive to light, extra-ocular motions intact. Lids and lashes normal. Conjunctiva and sclera are non-icteric and not injected. Cornea within normal limits. Periorbital areas with no swelling, redness, or edema. Neck: Trachea midline, no thyromegaly or masses palpated, and no cervical lymphadenopathy. Supple, full range of motion without nuchal rigidity, or vertebral point tenderness. No Meningismus. Chest/axilla: Normal chest wall appearance and motion. Nontender with no deformity. No lesions are appreciated. Cardiovascular: Regular rate and rhythm with a normal S1 and S2. No gallops, murmurs, or rubs. Normal PMI, no JVD. No pulse deficits. Respiratory: Lungs have equal breath sounds bilaterally, clear to auscultation and percussion. No rales, rhonchi or wheezes noted. No increased work of breathing, no retractions or nasal flaring. Back: No spinal tenderness. No costovertebral tenderness. Full range of motion. Skin: Warm, dry with normal turgor. Normal color with no rashes, no lesions, and no evidence of cellulitis. MS/ Extremity: Pulses equal, no cyanosis. Neurovascular intact. Full, normal range of motion. Neuro: Awake and alert, GCS 15, oriented to person, place, time, and situation. Cranial nerves II-XII grossly intact. Motor strength 5/5 in all extremities. Sensory grossly intact. Cerebellar exam normal. Normal gait. Psych: Awake, alert, with orientation to person, place and time. Behavior, mood, and affect are within normal limits. 06:26 Abdomen/GI: Inspection: abdomen appears normal, Bowel sounds: diminished, Palpation: soft, mild abdominal tenderness, in all quadrants. Vital Signs: 05:22 BP 152 / 82; Pulse 61; Resp 22 S; Temp 98.4(TE); Pulse Ox 100% on R/A; Weight 61.23 kg as6 (R); Height 4 ft. (121.92 cm) (R); Pain 8/10; 06:15 BP 96 / 65; Pulse 51; Resp 17; Pulse Ox 99% on R/A; ke1 06:37 BP 87 / 60; Pulse 50; Resp 16; Pulse Ox 99% on R/A; ke1 07:00 BP 86 / 58; Pulse 57; Resp 17 S; Pulse Ox 99% on R/A; jg9 07:20 BP 128 / 88; Pulse 67; Resp 16 S; Pulse Ox 98% on R/A; jg9 08:18 BP 116 / 83; Pulse 52; Resp 16 S; Pulse Ox 100% on R/A; jg9 09:15 BP 117 / 63; Pulse 55; Resp 17 S; Pulse Ox 100% on R/A; jg9 14:17 BP 96 / 62; Pulse 52; Resp 16 S; Pulse Ox 98% on R/A; jg9 05:22 Body Mass Index 41.20 (61.23 kg, 121.92 cm) as6 MDM: 06:26 Data reviewed: vital signs, nurses notes, lab test result(s), radiologic studies. kdr Counseling: I had a detailed discussion with the patient and/or guardian regarding: the historical points, exam findings, and any diagnostic results supporting the discharge/admit diagnosis, lab results, radiology results. 07:19 Transition of care: Care assumed from Krzysztof Boo MD. ms3 07:19 Patient medically screened. ms3 08:15 Differential diagnosis: Nonspecific abd pain, pancreatitis, appendicitis, ms3 diverticulitis. ED course: Discussed case with Dr. Everett and accepts patient as observation. All questions were answered. Discussed plan with patient patient understands agrees with plan. Patient's blood pressure is improved at this time to 128/88.. 10/19 05:29 Order name: CBC with Diff; Complete Time: 07:19 kdr 10/19 05:29 Order name: CMP; Complete Time: 07:19 kdr 10/19 05:29 Order name: Lipase; Complete Time: 07:19 kdr 10/19 07:48 Order name: Urine Dipstick-Ancillary EDMS 10/19 07:55 Order name: Urine --Ancillary (enter results) bd 10/19 05:50 Order name: CT Abd/Pelvis - IV Contrast Only; Complete Time: 08:07 kdr 10/19 08:27 Order name: C-Reactive Protein EDMS 10/19 08:27 Order name: Magnesium EDMS 10/19 08:27 Order name: Procalcitonin EDMT 10/19 09:43 Order name: SARS-COV-2 RT PCR EDMS 10/19 09:51 Order name: Basic Metabolic Panel EDMT 10/19 09:52 Order name: Magnesium EDMT 10/19 05:29 Order name: IV Saline Lock; Complete Time: 05:40 kdr 10/19 05:29 Order name: Labs collected and sent; Complete Time: 05:54 kdr 10/19 05:50 Order name: Urine Test (obtain specimen); Complete Time: 07:50 kdr 10/19 05:58 Order name: Labs - recollect needed: chemistry; Complete Time: 06:07 mw2 10/19 09:51 Order name: Regular EDMS Administered Medications: 05:54 Drug: morphine 4 mg Route: IVP; Site: right antecubital; ke1 06:11 Follow up: Response: Pain is decreased ke1 05:54 Drug: Zofran (Ondansetron) 4 mg Route: IVP; Site: right antecubital; ke1 06:12 Follow up: Response: Nausea is decreased ke1 06:11 Drug: NS 0.9% 1000 ml Route: IV; Rate: 1 bolus; Site: right antecubital; ke1 07:30 Follow up: IV Status: Completed infusion; IV Intake: 1000ml jg9 06:11 Drug: Pepcid (famotidine) 20 mg Route: IVP; Site: right antecubital; ke1 08:23 Follow up: Response: No adverse reaction jg9 07:33 Drug: Potassium Chloride 20 mEq Route: IV; Rate: calculated rate; Site: right jg9 antecubital; 09:46 Follow up: IV Status: Completed infusion; IV Intake: 100ml jg9 Disposition Summary: 10/19/21 08:17 Hospitalization Ordered Hospitalization Status: Observation ms3 Provider: Jordan Everett ms3 Location: Telemetry/MedSurg (observation) ms3 Condition: Stable ms3 Problem: new ms3 Symptoms: have improved ms3 Bed/Room Type: Standard ms3 Room Assignment: 431(10/19/21 14:37) ds1 Diagnosis - Abdominal pain, Generalized ms3 - Hypotension, unspecified ms3 - Hypokalemia ms3 Forms: - Medication Reconciliation Form ms3 - SBAR form ms3 Signatures: Dispatcher [employer] EDMarizol Hoff Kevin, MD MD kdr Sanford, Demi ds1 Eddy, Malika mw2 Ezra Han, DO ms3 García Sterling RN RN as6 Ngozi Lipscomb RN RN jg9 Amy Singletary RN RN ke1 Corrections: (The following items were deleted from the chart) 09:43 08:19 COVID 19 CPL+[id number] ordered. EDMS EDMS 14:18 08:17 ms3 bd 14:37 14:18 409 bd ds1
[2021-10-19 08:23] LABS: Urine Specific Gravity/Preg 1.015 (1.005-1.030)
[2021-10-19 09:37] LABS: C-Reactive Protein < 2.90 mg/L (<3.00)
[2021-10-19] MEDS ORDERED: ACETAMINOPHEN 500 MG TAB PO PRN (09:49)
[2021-10-19] MEDS ORDERED: ONDANSETRON 4 MG/2 ML VIAL IV PRN (09:49)
[2021-10-19] MEDS: POTASSIUM 25 MEQ EFFERV TAB PO ONE ×2 (09:51→10:55)
--- NOTE | 2021-10-19 09:53 | P.HP ---
Patient History Date of Service: 10/19/21 Physical Examination - Studies Laboratory Data (last 24 hrs) 10/19/21 06:08: Magnesium 2.0 10/19/21 06:08: Sodium 137, Potassium 2.8 L*, BUN 10, Creatinine 0.63, Glucose 129 H, Total Bilirubin 0.6, AST 25, ALT 27, Alkaline Phosphatase 63, Lipase 53 L 10/19/21 05:43: WBC 11.50 H, Hgb 11.0 L, Hct 32.2 L, Plt Count 392 Assessment and Plan - Advance Directives Does patient have a Living Will: No Does patient have a Durable POA for Healthcare: No
[2021-10-19] MEDS ORDERED: NA CHLORIDE 0.9% 1,000 ML IV SCH (10:00)
[2021-10-19 10:44] VITALS: BMI 27.2
[2021-10-19] MEDS ORDERED: POTASSIUM 25 MEQ EFFERV TAB ONE (11:23)
[2021-10-19] MEDS ORDERED: INFLUENZA VACCINE (for 6+ mo) 0.5 ML DOSE IMVAC ONE (12:00)
[2021-10-19 12:38] LABS: Magnesium 2.1 mg/dL (1.8-2.4); Potassium 3.8 mmol/L (3.5-5.1)
[2021-10-19 15:12] VITALS: O2SAT 98
[2021-10-19] MEDS ORDERED: POTASSIUM CL SA 10 MEQ TAB PO ONE (16:00)
[2021-10-19 16:30] VITALS: BP 128/89; TEMP 98.2
--- NOTE | 2021-10-19 16:47 | P.SSS ---
Patient History Date of Service: 10/19/21 Reason for admission: Hypotension, hypokalemia, intractable vomiting History of Present Illness: 45-year-old female, PMH: Intermittent intractable nausea/vomiting Presented to the ED due to 1 day of persistent nausea and vomiting, reported unable to keep anything down. Denied fever/chills, associated with some slight abdominal soreness/discomfort from vomiting. One episode of loose stool. Reported emesis was nonbloody, nonbilious. States she gets these episodes every other month, last anywhere from 1 to a few days. This has been ongoing for over a decade. Does not take any medications, but does smoke marijuana on a daily basis to help with her appetite. In the ED, noted to have mild leukocytosis, hypokalemia. She was given morphine, and later noted to have hypotension. She denied any dizziness/lightheadedness. She was given nausea medication and IV fluids. ER physician requested to bring patient in under observation for further management/evaluation. At the time of my evaluation, blood pressure improved, patient reported to be fe eling better and hungry. Allergies No Known Allergies Allergy (Verified 10/19/21 09:54) Home Medications: NK [No Home Meds] 10/19/21 - Past Medical/Surgical History Has patient received pneumonia vaccine in the past: No Past Medical History: Patient denies medical history -: section - Family History Family History: Reviewed- Non-Contributory - Social History Smoking Status: Current every day smoker Alcohol use: Yes CD- Drugs: Yes Place of Residence: Home Review of Systems 10-point ROS is otherwise unremarkable Physical Examination - Vital Signs Temperature: 98.2 F Blood Pressure: 128/89 Pulse: 52 Respirations: 18 Pulse Ox (%): 100 - Physical Exam General: Alert, In no apparent distress, Oriented x3 HEENT: Sclerae nonicteric Neck: Supple, No LAD Cardiovascular: No edema, No murmurs Gastrointestinal: Soft and benign, Non-distended, No tenderness Musculoskeletal: No erythema, No tenderness Integumentary: No rashes, No significant lesion Neurological: Normal speech, Normal strength at 5/5 x4 extr, Normal affect - Studies Laboratory Data (last 24 hrs) 10/19/21 12:06: Sodium 139, Potassium 3.8, BUN 9, Creatinine 0.86, Glucose 113 H, Magnesium 2.1 10/19/21 12:04: Potassium Cancelled 10/19/21 06:08: Magnesium 2.0 10/19/21 06:08: Sodium 137, Potassium 2.8 L*, BUN 10, Creatinine 0.63, Glucose 129 H, Total Bilirubin 0.6, AST 25, ALT 27, Alkaline Phosphatase 63, Lipase 53 L 10/19/21 05:43: WBC 11.50 H, Hgb 11.0 L, Hct 32.2 L, Plt Count 392 Treatment Summary: Patient was treated with IV fluids and antiemetics. Her diet was advanced, and she tolerated lunch and dinner without any further nausea/vomiting. No further diarrhea. She was given potassium replacement and repeat levels were within normal limits. Her blood pressure improved and stable in the [id number]. She reported feeling much better to be discharged home. Given her improvement of her blood pressure, and able to tolerate diet, patient was deemed stable for discharge home. CT abdomen/pelvis without any acute findings. Possible acute gastroenteritis. Discussed with the patient that given the chronicity of the symptoms, she may be experiencing cannabinoid hyperemesis syndrome Advised to follow-up with her PCP - Disposition Condition: GOOD Diet: Regular Activity: Ad maria luisa Time Spent Managing Pts Care (In Minutes): 60
== END 2021-10-19 18:05 | disposition home or self-care (01) | DRG 392 ==
LOC: ER 04:59 → ERHOLD 09:55 → OBSVTOIN 13:53 → 4TH 14:37
PROVIDERS: ADMIT Hospitalist; ATTEND Hospitalist
DX: K52.9 Noninfective gastroenteritis and colitis, unspecified (principal); E87.6 Hypokalemia; I95.9 Hypotension, unspecified; F12.90 Cannabis use, unspecified, uncomplicated; F17.210 Nicotine dependence, cigarettes, uncomplicated; Z20.822 Contact with and (suspected) exposure to COVID-19
CPT/HCPCS: 36415; 74177; 80048; 80053; 81003; 81025; 83690; 83735; 84145; 85025; 86140; 96361; 96365; 96366; 96375; 99285; J2405; J3480; J7030; Q9967; U0003

== ENCOUNTER 2022-01-11 06:01 | Emergency (ER) | payer BC, SELFPAY ==
--- OUTSIDE RECORDS SUMMARY | 2022-01-11 06:05 | XMS REPORT | Continuity of Care Document ---
:1975 Author Organization [facility] t Address [address] [place] [address] Care Team Providers Name Role Phone Zheng REYNA Primary Care Physician Unavailable Zheng REYNA Attending Clinician Unavailable Zheng Bradshaw Attending Clinician JAMES FRANKLIN Attending Clinician Unavailable LANDON HILL Attending Clinician Unavailable ERVIN LAO Attending Clinician Unavailable RAFAEL TURPIN Attending Clinician Unavailable Payers Payer Name Policy Type Policy Number Effective Date Expiration Date S [place] [place] [id number] 2021 00:00:00 WOMEN Problems Condition Condition Condition Status Onset Resolution Last Treating Co mments Source Name Details Category Date Date Treatment Clinician Date Situationa Situationa Disease Active 2021-0 U nivers l l 2-02 [place] [facility] Amenorrhea Amenorrhea Disease Active 2020-0 U nivers 1-27 ity of 00:00: [place] 00 [facility] Other Other Disease Active 2019- Univers general general 2-04 it[place] of counseling [place] advice and advice 00 Me dical for for Branch contracept contracept lenny lenny management management Over Over Disease Active 2019-08 Univers weight weight 2-04 ity of 00:00: [place] 00 [facility] History of History of Disease Active 2019-08 U nivers bilateral bilateral 2-04 ity of tubal tubal 00:00: [place] ligation ligation 00 Medica l Branch Warts, Warts, Disease Active 2019-08 Univers genital genital 2-04 ity of 00:00: [place] 00 [facility] Allergies, Adverse Reactions, Alerts Allergy Allergy Status Severity Reaction(s) Onset Inactive Treating Comm ents Source Name Type Date Date Clinician NO KNOWN Drug Active Univers ALLERGIE Class ity of S [facility] Social History Social Habit Start Date Stop Date Quantity Comments Source History SDOH University o f Alcohol Frequency [facility] History SDPA University o f Alcohol Std Drinks [facility] History SDPA University o f Alcohol Binge [facility] Branch History of tobacco Smoker Univer sity of use [facility] Exposure to Not sure University of SARS-CoV-2 (event) [facility] Alcohol intake 2021-10-02 2021-10-02 Current drinker Unive rsity of 00:00:00 00:00:00 of alcohol [facility] (finding) [place] Cigarettes smoked 2021-09-06 2021-09-06 Univers ity of current (pack per 00:00:00 00:00:00 [facility] ) - Reported Branch Tobacco Comment 2021-09-06 2021-09-06 Smokes 5 ciggs a Uni versity of 00:00:00 00:00:00 day [facility] Tobacco use and 2021-09-06 2021-09-06 Never used Universit y of exposure 00:00:00 00:00:00 [facility] Alcohol Comment 2020-07-08 2020-07-08 special Universit y of 00:00:00 00:00:00 occasions [facility] Sex Ass[birth year] At [birth year] Universit y of 00:00:00 00:00:00 [facility] Smoking Status Start Date Stop Date Source Current every day smoker 2021-09-06 00:00:00 Uni versity of [facility] Never smoker [facility] Medications Ordered Filled Start Stop Current Ordering Indication Dosage Frequency Signature Comments Components Source Medication Medication Date Date Medication? Clinician (SIG) Name Name No known No Univers medications - ity of 09:34: [address] No known No Univers medications - ity of 09:34: [address] ondansetron Yes 4mg Take [address] [facility] (ZOFRAN-ODT 2-13 tablet (4 Eriberto es ) 4 MG 00:00: mg total) Medica l disintegrat 00 by mouth Cent er ing tablet every 8 (eight) hours as needed. Vital Signs Vital Name Observation Time Observation Value Comments Source Systolic blood 2021-10-02 14:44:00 122 mm[Hg] [facility] Diastolic blood 2021-10-02 14:44:00 75 mm[Hg] [facility] Heart rate 2021-10-02 14:44:00 67 /min [facility] Body temperature 2021-10-02 14:44:00 35.83 [facility] Respiratory rate 2021-10-02 14:44:00 20 /min [facility] Body height 2021-10-02 14:44:00 149.9 cm [facility] Body weight 2021-10-02 14:44:00 63.163 kg [facility] BMI 2021-10-02 14:44:00 28.13 kg/m2 [facility] Procedures This patient has no known procedures. Plan of Care Planned Activity Planned Date Details Comments Source Future Scheduled 2020-10-[address] [facility] Test 00:00:00 malignant neoplasm Medical C enter of cervix (procedure) [code = 924458751] Future Scheduled 2020-04-[address] [facility] Test 00:00:00 (#1) [code = [facility] INFLUENZA VACCINE (#1)] Encounters Start End Encounter Admission Attending Care Care Encounter Source Date/Time Date/Time Type Type Clinicians Facility Department ID 2021-10-10 2021-10-10 Outpatient R AXEL, [facility] [id number] Univers 00:00:00 00:00:00 [place] o f [facility] 2021-10-02 2021-10-02 Office [facility] [id number] Univers 08:45:00 09:13:38 Visit Oksana Calzada 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 [id number] [facility] [id number] Patrick as MATERNAL [id number] Med [facility] & CHILD [address] [place] [address] 2021-10-02 2021-10-02 Outpatient R [facility] [id number] [facility] 08:45:00 09:13:38 [place] ity o f [facility] 2020-10-04 2020-10-04 [facility] [id number] 13:39:10 23:59:00 Encounter Oksana C SPECIALTY [id number] [facility] [id number] CENTER AT [id number] LARRY Ryan [facility] 2020-10-04 2020-10-04 [facility] [id number] 13:37:38 13:38:00 Encounter Oksana C SPECIALTY [id number] [facility] [id number] CENTER AT [id number] LARRY Ryan [facility] 2020-09-01 2020-09-01 Telephone [facility] [id number] 00:00:00 00:00:00 Oksana Calzada 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 [id number] [facility] [id number] MATERNAL [id number] & CHILD [address] [place] [address] Results Test Description Test Time Test Comments Results Result [facility] e Comments CT, ABDOMEN 2019-09-17 Reason for FINAL REPORT PATIENT 14:16:00 exam:->NAUSEARe ID: [id number] CT ason for ABDOMEN AND PELVIS exam:->EMESISRe [...] MDReport Verified Date/Time: 09/17/2019 14:16:48 Reading Location: [facility] Radiology Reading Room SE 2019-09-17 13:00:00 Test Item Value Reference Range Interpretation Comme nts LIPASE (BEAKER) (test code = 749) 4 U/L 6-51 L [employer] Machine Operator ID - [id number] FUNCTION [id number] 12:56:00 Test Item Value Reference Range Interpretation [...] Specimen slightly (test code = 347) hemolyzed [employer] Operator ID - [id number] DRUG SCREEN, [id number] 12:54:00 Test Item Value Reference Range Interpretation [...] situations. Chain of custody not maintained. Some qgua-brz-lhfvwfg medications, as well as adulterants, may cause inaccurate results. Clinical correlation should be applied. A more comprehensivedrug screen or confirmation of a detected drug may be performed upon request.[employer] Hole Dig[employer] Machine Operator ID - [id number] ID - [id number] ID - [id number] ID - [id number] ID - [id number] ID - [id number] ID - [id number] ID - [id number] METABOLIC [id number] 12:54:00 Test Item Value Reference Range Interpretation [...] S NOT APPLICABLE FOR DIALYSIS PATIEN TS. [employer] Dig[employer] Machine Operator ID - [id number] W/ [id number] 12:47:00 Test Item Value Reference Range Interpretation [...] code = 1663) SOURCE(BEAKER) (test code = 4671) SCREEN, [id number] 12:40:00 Test Item Value Reference Range Interpretation Comments TEST URINE (BEAKER) (test Negative code = 583) CBC W/PLT COUNT & AUTO [id number] 12:38:00 Test Item Value Reference Range Interpretation [...] PERCENT (BEAKER) (test code = 2801) POCT-GLUCOSE [id number] 12:28:00 Test Item Value Reference Range Interpretation Comments POC-GLUCOSE METER 117 mg/dL 70-110 H : TESTED A T SLSL 1317 (BEAKER) (test code [address], = 1538) [facility] 77 478: Post Hole Digging Machine Operator/Techni brayden ID = [id number] for Tolo , Chisa CT, [id number] 16:50:00Reason for exam:->EMESISIs the patient ?->NoWhat is [...] MDReport Verified Date/Time: 08/16/2019 16:50:10 Reading Location: [facility] C013X [facility] Consult Reading Room LIPASE 2019-08-16 14:40:00 Test Item Value Reference Range Interpretation Comments LIPASE (BEAKER) (test code = 749) 5 U/L 6-51 L [employer] Machine Operator ID - KARINABASIC METABOLIC [id number] 14:38:00 Test Item Value Reference Range Interpretation [...] S NOT APPLICABLE FOR DIALYSIS PATIEN TS. [employer] Digging Machine Operator ID - KARINAHEPATIC FUNCTION [id number] 14:38:00 Test Item Value Reference Range Interpretation [...] Specimen slightly (test code = 347) hemolyzed [employer] Machine Operator ID - KARADIHCG, SERUM, [id number] 14:34:00 Test Item Value Reference Range Interpretation Comments TEST SERUM (BEAKER) (test Negative code = 584) RAPID INFLUENZA A&B [id number] 14:34:00 Test Item Value Reference Range Interpretation Comments RAPID INFLUENZA A AG (BEAKER) Negative Negative, Inconclusive (test code = 1622) RAPID INFLUENZA B AG (BEAKER) Negative Negative, Inconclusive (test code = 1623) CBC W/PLT COUNT & AUTO [id number] 14:20:00 Test Item Value Reference Range Interpretation [...] (BEAKER) (test code = 2801) COMPREHENSIVE METABOLIC [id number] 12:48:00 Test Item Value Reference Range Interpretation [...] S NOT APPLICABLE FOR DIALYSIS PATIEN TS. [id number] 12:48:00 Test Item Value Reference Range Interpretation Comments LIPASE (BEAKER) (test code = 749) 9 U/L 6-51 HCG, SERUM, [id number] 12:27:00 Test Item Value Reference Range Interpretation Comments TEST SERUM (BEAKER) (test Negative code = 584) CBC W/PLT COUNT & AUTO [id number] 12:21:00 Test Item Value Reference Range Interpretation [...] L 0.00-0.20 (test code = 417) CT, [id number] 11:01:00Reason for exam:->EMESISIs the patient ?->NoWhat is [...] MDReport Verified Date/Time: 07/07/2019 11:01:48 Reading Location: [facility] C013Y CT Body Reading Room COMPREHENSIVE METABOLIC [id number] 10:26:00 Test Item Value Reference Range Interpretation [...] S NOT APPLICABLE FOR DIALYSIS PATIEN TS. [id number] 10:26:00 Test Item Value Reference Range Interpretation Comments LIPASE (BEAKER) (test code = 749) 8 U/L 6-51 HCG, SERUM, [id number] 10:21:00 Test Item Value Reference Range Interpretation Comments TEST SERUM (BEAKER) (test Negative code = 584) CBC W/PLT COUNT & AUTO [id number] 10:08:00 Test Item Value Reference Range Interpretation [...]
[2022-01-11] MEDS ORDERED: NA CHLORIDE 0.9% 1,000 ML ONE (06:21)
[2022-01-11] MEDS ORDERED: ONDANSETRON 4 MG/2 ML VIAL ONE (06:21)
[2022-01-11] MEDS ORDERED: PANTOPRAZOLE 40 MG INJ ONE (06:22)
[2022-01-11] MEDS ORDERED: PROMETHAZINE INJ 25 MG/ML AMP ONE (06:30)
[2022-01-11 06:38] LABS: Absolute Lymphocytes (CBC) 3.1 K/uL (0.7-4.9); Hematocrit 33.8 % (36.0-45.0); MPV 8.1 fL (7.6-11.3); RBC Red Blood Cell Count 3.91 M/uL (3.86-4.86)
[2022-01-11 06:52] LABS: Albumin 3.8 g/dL (3.4-5.0); Bilirubin Total 0.3 mg/dL (0.2-1.0); Potassium 3.4 mmol/L (3.5-5.1); Protein, Total 7.8 g/dL (6.4-8.2)
[2022-01-11] MEDS ORDERED: HALOPERIDOL LACT 5 MG/ML INJ ONE (07:54)
--- NOTE | 2022-01-11 09:22 | RAD REPORT ---
EXAM DESCRIPTION: CT - Abdomen Pelvis W Contrast - 01/11/2022 8:37 am CLINICAL HISTORY: Abdominal pain, acute, nonlocalized COMPARISON: Abdomen Pelvis W Contrast dated 10/19/2021 TECHNIQUE: Biphasic, helical CT imaging of the abdomen and pelvis was performed following 100 ml non -ionic IV contrast. No oral contrast administered. All CT scans are performed using dose optimization technique as appropriate and may include automated exposure control or mA/KV adjustment according to patient size. FINDINGS: No suspicious findings in the lung bases. The liver, spleen, and pancreas show no suspicious findings. Several small liver cysts are present si milar to the October study. Gallbladder is contracted. Gallstones can be occult on CT imaging. No acute gallbladder or biliary tree finding suspected. Symmetric renal function is seen with no hydronephrosis or suspicious renal mass. No pyelonephritis o r acute parenchymal process. No bladder abnormalities. No adrenal abnormalities. An enlarged multi fibroid uterus is again identified. Uterus is not clearly different from the October examination. A 2.4 centimeter left adnexal cyst is present. This is believed to be incidental ovarian cyst. Right ovary is not clearly distinguishable probably abutting the lateral margin of the fibroid uterus. No gastric dilatation or gastric wall thickening. Minimal hiatal hernia present. Moderate stool volum e is seen in the nondilated colon. The appendix is normal. No acute small bowel finding identifiable. No free air, free fluid or inflammatory stranding. No hernia, mass or bulky lymphadenopathy. No suspicious bony findings. IMPRESSION: Contrast enhanced CT abdomen and pelvis showing no acute or emergent finding. Nonacute findings detailed in the body of the report.
--- NOTE | 2022-01-11 09:31 | EDPHYS ---
Physician Documentation [facility] [place] Name: Sangita Sorenson Age: 46 yrs Sex: Female : 1975 Arrival Date: 01/11/2022 Time: 06:03 Bed 4 Private MD: ED Physician Chandrakant Smiley HPI: 01/11 06:13 This 46 yrs old Black Female presents to ER via Unassigned with complaints of Vomiting. rn 06:13 The patient presents to the emergency department with nausea, vomiting, abdominal pain, rn of the suprapubic area. Onset: The symptoms/episode began/occurred this morning. Possible causes: unknown, flare up of bowel problem. The symptoms are aggravated by nothing. The symptoms are alleviated by nothing. Associated signs and symptoms: Pertinent positives: abdominal pain, nausea, vomiting, Pertinent negatives: diarrhea, fever, GI bleeding. Severity of symptoms: At their worst the symptoms were moderate in the emergency department the symptoms are unchanged. The patient has experienced similar episodes in the past. The patient has not recently seen a physician. Pt reports began throwing up this morning, woke up throwing up, no fever, hasn't felt ill recently, no diarrhea, no blood in stool or emesis. Patient reports also having lower abd pain. . 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 - Family history:: not pertinent. - Social history:: Smoking status: unknown. - Hospitalizations: : No recent hospitalization is reported. ROS: 06:13 Constitutional: Negative for fever, chills, and weight loss, Eyes: Negative for injury, rn pain, redness, and discharge, Cardiovascular: Negative for chest pain, palpitations, and edema, Respiratory: Negative for shortness of breath, cough, wheezing, and pleuritic chest pain, Abdomen/GI: + lower abd pain and vomiting. : Negative for injury, bleeding, discharge, and swelling, MS/Extremity: Negative for injury and deformity, Skin: Negative for injury, rash, and discoloration, Neuro: Negative for headache, numbness, tingling, and seizure. Exam: 06:13 Constitutional: This is a well developed, well nourished patient who is awake, alert, rn holding emesis bag with emesis in it, approx 100cc. Head/Face: Normocephalic, atraumatic. Eyes: Periorbital areas with no swelling, redness, or edema. Cardiovascular: Regular rate and rhythm. No pulse deficits. Respiratory: Mild tachypnea, no retractions, crying Abdomen/GI: soft, mild lower abd tenderness without peritoneal signs. Skin: Warm, dry MS/ Extremity: Pulses equal, no cyanosis Neuro: Awake and alert, GCS 15 Vital Signs: 06:20 BP 110 / 82; Pulse 65; Resp 15; Temp 98.2(O); Pulse Ox 100% on R/A; Weight 61.23 kg; vc1 Height 4 ft. 11 in. (149.86 cm); 06:50 BP 140 / 96; Pulse 76; Resp 18 S; Pulse Ox 98% on R/A; as6 07:00 BP 135 / 85; Pulse 80; Resp 12 S; Pulse Ox 97% ; jg9 08:55 BP 131 / 83; Pulse 56; Resp 12 S; Temp 97.7(TE); Pulse Ox 100% on R/A; jg9 09:30 BP 129 / 86; Pulse 60; Resp 10 S; Pulse Ox 95% on R/A; jg9 06:20 Body Mass Index 27.27 (61.23 kg, 149.86 cm) vc1 MDM: 06:04 Patient medically screened. rn 09:29 Differential diagnosis: Nonspecific abd pain, cyclic vomiting. Data reviewed: vital jr11 signs, nurses notes. ED course: pt reassessed, abd soft, non tender, ct normal, pt resting comfortably, comfortable going home. ER warnings givem. 01/11 06:08 Order name: CBC with Diff; Complete Time: 06:58 rn 01/11 06:08 Order name: CMP; Complete Time: 06:58 rn 01/11 06:08 Order name: Lipase; Complete Time: 06:58 rn 01/11 07:00 Order name: CT Abd/Pelvis - IV Contrast Only; Complete Time: 09:28 rn 01/11 06:08 Order name: IV Saline Lock; Complete Time: 06:19 rn 01/11 06:08 Order name: Labs collected and sent; Complete Time: 06:19 rn Administered Medications: 06:21 Drug: NS 0.9% 1000 ml Route: IV; Rate: 1 bolus; Site: right antecubital; as6 10:00 Follow up: IV Status: Completed infusion; IV Intake: 1000ml jg9 06:22 Not Given (Other Intervention Used): Pepcid (famotidine) 20 mg IVP once; dilute with 10 as6 mL 0.9% NaCl; give over 2 minutes 06:22 Drug: Zofran (Ondansetron) 4 mg Route: IVP; Site: right antecubital; as6 07:42 Follow up: Response: No adverse reaction; Nausea unchanged jg9 06:22 Drug: ProTONIX (pantoprazole) 40 mg Route: IVP; Site: right antecubital; as6 07:42 Follow up: Response: No adverse reaction jg9 06:28 Drug: Phenergan (promethazine) 12.5 mg Route: IVP; Site: right antecubital; as6 07:42 Follow up: Response: No adverse reaction; Nausea unchanged jg9 07:50 Drug: HALdol (as decanoate) 5 mg Route: IM; Site: right deltoid; jg9 09:47 Follow up: Response: No adverse reaction; Marked relief of symptoms jg9 Disposition Summary: 01/11/22 09:31 Discharge Ordered Location: Home [facility] Condition: Stable jr11 Diagnosis - Cyclical vomiting, not intractable jr11 - Abdominal pain, Generalized jr11 Discharge Instructions: - Discharge Summary Sheet jr11 - Abdominal Pain, Adult jr11 - Cyclic Vomiting Syndrome, Adult jr11 Forms: - Medication Reconciliation Form jr11 - Thank You Letter jr11 - Antibiotic Education jr11 - Prescription Opioid Use jr11 Prescriptions: - Zofran 4 mg Oral Tablet - take 1 tablet by ORAL route every 12 hours As needed; 20 tablet; Refills: 0, jr11 Product Selection Permitted Signatures: Dispatcher [employer] EDAmado Patrick MD MD rn Slawson, Ashby, RN RN as6 Ngozi Lipscomb RN RN jg9 Jasmine Hammond RN RN vc1 Chandrakant Smiley MD MD jr11 Corrections: (The following items were deleted from the chart) 09:48 06:08 Urine Dipstick-Ancillary ordered. rn jg9
--- NOTE | 2022-01-11 09:31 | ER ---
Nurse's Notes [facility] Name: Sangita Sorenson Age: 46 yrs Sex: Female : 1975 Arrival Date: 01/11/2022 Time: 06:03 Bed 4 Private MD: Diagnosis: Cyclical vomiting, not intractable;Abdominal pain, Generalized Presentation: 01/11 06:20 Chief complaint: Patient states: "I woke up vomiting and I have the chills and I am vc1 just so cold.". Coronavirus screen: chills, shaking with chills, vomiting. Client presents with at least one sign or symptom that may indicate coronavirus-19. Standard/surgical mask placed on the client. Provider contacted for isolation considerations. Ebola Screen: No symptoms or risks identified at this time. Initial Sepsis Screen: Does the patient meet any 2 criteria? No. Patient's initial sepsis screen is negative. Does the patient have a suspected source of infection? No. Patient's initial sepsis screen is negative. Risk Assessment: Do you want to hurt yourself or someone else? Patient reports no desire to harm self or others. Onset of symptoms was January 11, 2022. 06:20 Method Of Arrival: Wheelchair vc1 06:20 Acuity: IBRAHIMA 3 vc1 Triage Assessment: 06:23 General: Appears uncomfortable, ill, Behavior is restless. Pain: Complains of pain in vc1 suprapubic area EENT: No deficits noted. Neuro: Level of Consciousness is awake, lethargic, Oriented to person, place, time, situation, Appropriate for age. Cardiovascular: Reports diaphoresis. Respiratory: Airway is patent Respiratory effort is even, unlabored, Respiratory pattern is regular, symmetrical. GI: Abdomen is flat, non-distended, Pt is actively vomiting Reports lower abdominal pain, intolerance of fluids, intolerance of food, vomiting. : No deficits noted. Derm: Skin is diaphoretic, Skin temperature is warm. Musculoskeletal: No deficits noted. 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 - Family history:: not pertinent. - Social history:: Smoking status: unknown. - Hospitalizations: : No recent hospitalization is reported. Screenin:22 Abuse screen: Denies threats or abuse. Nutritional screening: No deficits noted. vc1 Tuberculosis screening: No symptoms or risk factors identified. Fall Risk None identified. Assessment: 06:28 General: Appears uncomfortable, ill, Behavior is restless. Pain: Complains of pain in as6 suprapubic area. Neuro: Lan Agitation-Sedation Scale (RASS): +1 Restless Level of Consciousness is awake, alert, obeys commands, Oriented to person, place, time, situation. Cardiovascular: JVD is absent Patient's skin is warm and dry. Respiratory: Respiratory effort is even, unlabored, Respiratory pattern is regular, symmetrical. GI: Pt is actively vomiting bile, Reports lower abdominal pain, nausea, vomiting. Derm: Skin is diaphoretic. 06:49 General: pt dry heaving . as6 07:18 Reassessment: Patient and/or family updated on plan of care and expected duration. Pain jg9 level reassessed. Patient is alert, oriented x 3, equal unlabored respirations, skin warm/dry/pink. Patient in bed, head under covers, when asked if her stomach has settled pt moaned "NO', no active dry heaves or vomiting noted, patient resting at this time. 08:55 Reassessment: Patient and/or family updated on plan of care and expected duration. Pain jg9 level reassessed. Patient is alert, oriented x 3, equal unlabored respirations, skin warm/dry/pink. Patient remains in bed with head under covers, when removed to place patient back on IV fluids and monitoring equipment patient is complaing that she is cold, patient bed is soaked with perspiration . 09:46 Reassessment: patient will be discharged once fluids are complete. jg9 Vital Signs: 06:20 BP 110 / 82; Pulse 65; Resp 15; Temp 98.2(O); Pulse Ox 100% on R/A; Weight 61.23 kg; vc1 Height 4 ft. 11 in. (149.86 cm); 06:50 BP 140 / 96; Pulse 76; Resp 18 S; Pulse Ox 98% on R/A; as6 07:00 BP 135 / 85; Pulse 80; Resp 12 S; Pulse Ox 97% ; jg9 08:55 BP 131 / 83; Pulse 56; Resp 12 S; Temp 97.7(TE); Pulse Ox 100% on R/A; jg9 09:30 BP 129 / 86; Pulse 60; Resp 10 S; Pulse Ox 95% on R/A; jg9 06:20 Body Mass Index 27.27 (61.23 kg, 149.86 cm) vc1 ED Course: 06:03 Patient arrived in ED. ja2 06:04 Amado Everett MD is Attending Physician. rn 06:12 García Sterling RN is Primary Nurse. as6 06:18 Inserted saline lock: 20 gauge in right antecubital area, using aseptic technique. lp1 Blood collected. 06:22 Triage completed. vc1 06:22 Arm band placed on right wrist. vc1 06:25 Patient has correct armband on for positive identification. Bed in low position. Client vc1 placed on continuous cardiac and pulse oximetry monitoring. NIBP monitoring applied. 07:06 Attending Physician role handed off by Amado Everett MD jr11 07:06 Chandrakant Smiley MD is Attending Physician. jr11 08:25 Inserted saline lock: 22 gauge in right antecubital area, using aseptic technique. dh3 08:38 CT Abd/Pelvis - IV Contrast Only In Process Unspecified. EDMS 09:47 No provider procedures requiring assistance completed. jg9 10:10 IV discontinued. jg9 Administered Medications: 06:21 Drug: NS 0.9% 1000 ml Route: IV; Rate: 1 bolus; Site: right antecubital; as6 10:00 Follow up: IV Status: Completed infusion; IV Intake: 1000ml jg9 06:22 Not Given (Other Intervention Used): Pepcid (famotidine) 20 mg IVP once; dilute with 10 as6 mL 0.9% NaCl; give over 2 minutes 06:22 Drug: Zofran (Ondansetron) 4 mg Route: IVP; Site: right antecubital; as6 07:42 Follow up: Response: No adverse reaction; Nausea unchanged jg9 06:22 Drug: ProTONIX (pantoprazole) 40 mg Route: IVP; Site: right antecubital; as6 07:42 Follow up: Response: No adverse reaction jg9 06:28 Drug: Phenergan (promethazine) 12.5 mg Route: IVP; Site: right antecubital; as6 07:42 Follow up: Response: No adverse reaction; Nausea unchanged jg9 07:50 Drug: HALdol (as decanoate) 5 mg Route: IM; Site: right deltoid; jg9 09:47 Follow up: Response: No adverse reaction; Marked relief of symptoms jg9 Medication: 07:20 VIS not applicable for this client. jg9 Intake: 10:00 IV: 1000ml; Total: 1000ml. jg9 Outcome: 09:31 Discharge ordered by . jr11 10:10 Discharged to home via ambulance. jg9 10:10 Condition: stable 10:10 Discharge instructions given to patient, Instructed on discharge instructions, follow up and referral plans. Demonstrated understanding of instructions, follow-up care, Prescriptions given X 1. 10:11 Patient left the ED. jg9 Signatures: Dispatcher [employer] EDMS Amado Everett MD MD rn Pena, Laura RN RN lp1 Margaret Norris 3 Tri Mora García Ugalde RN RN as6 Ngozi Lipscomb RN RN jg9 Jasmine Hammond RN RN 1 Chandrakant Smiley MD MD jr11
[2022-01-11 10:30] VITALS: TEMP 97.7
[2022-01-11 10:32] VITALS: BP 129/86; O2SAT 95
== END 2022-01-11 10:11 | disposition home or self-care (01) ==
LOC: ER 06:01
DX: R11.2 Nausea with vomiting, unspecified (principal); R10.84 Generalized abdominal pain
CPT/HCPCS: 96361; 85025; 36415; 83690; 80053; 74177; 96375; 96372; 96374; 99284; Q9967; J1630; J2550; C9113; J7030; J2405

== ENCOUNTER 2022-03-30 08:40 | Emergency (ER) | payer BC, SELFPAY ==
--- OUTSIDE RECORDS SUMMARY | 2022-03-30 08:44 | XMS REPORT | Continuity of Care Document ---
:1975 Author Organization [facility] t Address [address] [place] [address] Care Team Providers Name Role Phone OKSANA REYNA Primary Care Physician Unavailable OKSANA REYNA Attending Clinician Unavailable Oksana Bradshaw Attending Clinician [phone] ALIX FRANKLIN Attending Clinician Unavailable ANKIT HILL Attending Clinician Unavailable RICHARDSON LAO Attending Clinician Unavailable SUSANA TURPIN Attending Clinician Unavailable Payers Payer Name Policy Type Policy Number Effective Date Expiration Date S tania [employer] [place] [id number] 2021 00:00:00 WOMEN Problems Condition Condition Condition Status Onset Resolution Last Treating Co mments Source Name Details Category Date Date Treatment Clinician Date Situationa Situationa Disease Active 2021-0 U n[place] l [place] 2[place] [facility] Amenorrhea Amenorrhea Disease Active 2021-0 U nivers 1-27 ity of 00:00: [place] 00 [facility] Other Other Disease Active 2019-08 Univers general general 2-04 it[place] of [place] and advice and advice 00 Me dical for for Branch contracept contracept lenny lenny management management Over Over Disease Active 2019-08 Univers weight weight 2-04 ity of 00:00: [place] 00 [facility] History of History of Disease Active 2019-08 U nivers bilateral bilateral 2-04 ity of tubal tubal 00:00: [place] ligation ligation 00 Medica l Branch Warts, Warts, Disease Active 2019-08 Univers genital genital 2-04 ity of 00:00: [place] 00 [facility] [place] Allergies, Adverse Reactions, Alerts Allergy Allergy Status Severity Reaction(s) Onset Inactive Treating Comm ents Source Name Type Date Date Clinician NO KNOWN Drug Active [facility] ALLERGIE Class ity of S [facility] Social History Social Habit Start Date Stop Date Quantity Comments Source History of tobacco Smoker Univer sity of use [facility] Exposure to Not sure University of SARS-CoV-2 (event) [facility] History SDOH [facility] Alcohol Std Drinks Medica l Center History SDOH [facility] Alcohol [facility]inge [facility] History SDOH [facility] Alcohol Comment Medical C enter Cigarettes smoked 2021-09-06 2021-09-06 Univers ity of current (pack per 00:00:00 00:00:00 [place] ) - Reported Branch Tobacco Comment 2021-09-06 2021-09-06 Smokes 5 ciggs a Uni versity of 00:00:00 00:00:00 day [facility] Alcohol intake 2019-09-17 2019-09-[address] [facility] 00:[facility]:00 00:00:00 non-drinker of Medical Ce nter alcohol (finding) Tobacco use and 2019-06-27 2019-06-[address] [facility] [facility] exposure 00:00:00 00:00:00 Medical Center History SDOH 2019-06-27 2019-06-[address] [facility] Alcohol Frequency 00:00:00 00:00:00 Medical Center Sex Assigned At [address] [facility] 00:[facility]00 [facility] Smoking Status Start Date Stop Date Source Current every day smoker 2021-09[facility]06 [facility] Center Medications Ordered Filled Start Stop Current Ordering Indication Dosage Frequency Signature Comments Components Source Medication Medication Date Date Medication? Clinician (SIG) Name Name No known No Univers medications 10-02 ity of 09:34: [address] No known No Univers medications 10-02 ity of 09:34: [address] ondansetron Yes 4mg Take [address] [facility] (ZOFRAN-ODT 2-13 tablet (4 [facility] ) 4 MG 00:00: mg total) Medica l disintegrat 00 by mouth Cent er ing tablet every 8 (eight) hours as needed. ondansetron Yes 4mg Take [address] [facility] [facility] (ZOFRAN-ODT 2-13 tablet (4 [facility] ) 4 MG 00:00: mg total) Medica l disintegrat 00 by mouth Cent er ing tablet every 8 (eight) hours as needed. Vital Signs Vital Name Observation Time Observation Value Comments Source Systolic blood 2021-10-02 14:44:00 122 mm[Hg] [facility] Di[facility] 2021-10-02 14:44:00 75 mm[Hg] [facility] Heart rate 2021-10-02 14:44:00 67 /min [facility] Body temperature 2021-10-02 14:44:00 35.83 [facility] Respiratory rate 2021-10-02 14:44:00 20 /min [facility] Body height 2021-10-02 14:44:00 149.9 cm [facility] Body weight 2021-10-02 14:44:00 63.163 kg [facility] BMI 2021-10-02 14:44:00 28.13 kg/m2 [facility] Procedures This patient has no known procedures. Plan of Care Planned Activity Planned Date Details Comments Source Future Scheduled 2022-04-[address] [facility] Test 00:00:00 (#1) [code = [facility] INFLUENZA VACCINE (#1)] Future Scheduled 2021-08-[address] [facility] Test 00:00:00 (12+) [code = Medical Center DEPRESSION SCREENING (12+)] Future Scheduled 2020-10-[address] [facility] Test 00:00:00 malignant neoplasm of Medica l Center cervix (procedure) [code = 131098562] Future Scheduled 2020-10-[address] [facility] Test 00:00:00 [facility] [code = 395525037] Future Scheduled 2020-04-[address] [facility] Test 00:00:00 (#1) [code = Medical Center INFLUENZA VACCINE (#1)] Future Scheduled 1996 DTAP/TDAP/TD VACCINES [facility] Test 00:00:00 (1 - Tdap) [code = Medical C enter DTAP/TDAP/TD VACCINES (1 - Tdap)] Future Scheduled 1995-11-06 HEPATITIS C SCREENING [facility] Test 00:00:00 [code = HEPATITIS C Medical Center SCREENING] Future Scheduled 1982 COVID-19 VACCINE (#1) [facility] Test 00:00:00 [code = COVID-[address] VACCINE (#1)] Encounters Start End Encounter Admission Attending Care Care Encounter Source Date/Time Date/Time Type Type Clinicians Facility Department ID 2021-10-10 2021-10-10 [id number] Univers 00:00:00 00:00:00 OKSANA hightower [facility] 2021-10-02 2021-10-02 Outpatient R [facility] [id number] Univers 08:45:00 09:13:38 OKSANA hightower [facility] 2021-10-02 2021-10-02 [facility] [id number] Univers 08:45:00 09:13:38 Visit Oksana Calzada MEDICAL COORDINATOR PESTICIDE USE [id number] ity [facility] [id number] Patrick as MATERNAL [id number] [facility] & CHILD [address] [place] [address] 2020-10-04 2020-10-04 [facility] [id number] 13:39:10 23:59:00 Encounter Oksana C SPECIALTY [id number] [facility] [id number] CENTER AT [id number] LARRY Ryan [facility] [place] 2020-10-04 2020-10-04 [facility] [id number] 13:37:38 13:38:00 Encounter Oksana C SPECIALTY [id number] CENTER AT [id number] LARRY Ryan [facility] [place] 2020-09-01 2020-09-01 [facility] [id number] 00:00:00 00:00:00 Oksana C MEDICAL COORDINATOR PESTICIDE USE [id number] [facility] [id number] MATERNAL [id number] & CHILD [address] [place] [address] Results Test Description Test Time Test Comments Results Result [facility] e Comments CT, ABDOMEN 2019-09-17 Reason for FINAL REPORT PATIENT 14:16:00 exam:->NAUSEARe ID: [id number] CT ason for ABDOMEN AND PELVIS exam:->EMESISRe [...] MDReport Verified Date/Time: 09/17/2019 14:16:48 Reading Location: [facility] Radiology Reading Room SE 2019-09-17 13:00:00 Test Item Value Reference Range Interpretation Comme nts LIPASE (BEAKER) (test code = 749) 4 U/L 6-51 L Production Machine Operator ID - [id number] FUNCTION [id number] 12:56:00 Test Item Value Reference Range Interpretation [...] Specimen slightly (test code = 347) hemolyzed Production Machine Operator ID - [id number] DRUG SCREEN, [id number] 12:54:00 Test Item Value Reference Range Interpretation [...] ng/mLOpiate 300 ng/mLMethadone 300 ng/mLAmphetamine/ 1000 ng/mL MethamphetamineThisassay provides an unconfirmed qualitative test result for the clinical management of patients in emergency situations. Chain of custody not maintained. Some dquy-fod-jddpnkr medications, as well as adulterants, may cause inaccurate results. Clinical correlation should be applied. A more comprehensive drug screen or confirmation of a detected drug may be performed upon request.Production Machine Operator ID - [id number] ID - [id number] ID - [id number] ID - [id number] ID - [id number] ID - [id number] ID - [id number] ID - [id number] METABOLIC [id number] 12:54:00 Test Item Value Reference Range Interpretation [...] S NOT APPLICABLE FOR DIALYSIS PATIEN TS. Production Machine Operator ID - [id number] W/ [id number] 12:47:00 Test Item Value Reference Range Interpretation [...] 1663) SOURCE(BEAKER) (test code = 2795) SCREEN, [id number] 12:40:00 Test Item Value Reference Range Interpretation Comments TEST URINE (BEAKER) (test Negative code = 583) CBC W/PLT COUNT & AUTO [id number] 12:38:00 Test Item Value Reference Range Interpretation [...] PERCENT (BEAKER) (test code = 2801) POCT-GLUCOSE [id number] 12:28:00 Test Item Value Reference Range Interpretation Comments POC-GLUCOSE METER 117 mg/dL 70-110 H : TESTED A T SLSL 1317 (BEAKER) (test code [facility] [address], = 1538) [facility] 77 478: Production Machine Operator/Techni brayden ID = [id number] for Tolo , Chisa CT, [id number] 16:50:00Reason for exam:->EMESISIs the patient ?->NoWhat is the patient's sedation requirement?->No SedationFINAL REPORT CT scan of the abdomen and pelvis. MEDICAL HISTORY: Epigastric pain, emesis. COMPARISON STUDY: July 07, 2019. TECHNIQUE: Contiguous helical slices were acquired through the abdomen and pelvis post administration of intravenous contrast. No oral contrast was administered. This exam was performed according to our department dose optimization program which includes automated exposure control, adjustment of the mA and/or kV according to the patient's size and/or use of iterative reconstruction technique. FINDINGS: The lung bases are clear. The liver demonstrates scattered tiny low-attenuation lesions, too small to characterize. The gallbladder and biliary tree are u nremarkable. The spleen, pancreas, adrenal glands and kidneys are unremarkable. No dilated loops of bowel are seen suggest obstruction. A portion of what is likely a normal appendix is seen. The gastric antrum appears collapsed but there is questionable thickening with adjacent fluid. There is no significant free fluid or free air. Some calcified uterine fibroids are seen measuring up to 1.6 x 1.5 cmin size. The aorta is normal in caliber. No suspicious adenopathy is seen. Bone windows are unremarkable. IMPRESSION:1. Uterine fibroids.2. Tiny low- attenuation hepatic lesions, too small to characterize but statistically most likely cysts.3. Normal partially visualized appendix seen.4. Collapsed gastric antrum but questionable thickening of this region. A gastritis cannot be excluded. Signed: Troy Galarza MDReport Verified Date/Time: 08/16/2019 16:50:10 Reading Location: [address] Consult Reading Room LIPASE 2019-08-16 14:40:00 Test Item Value Reference Range Interpretation Comments LIPASE (BEAKER) (test code = 749) 5 U/L 6-51 L Production Machine Operator ID - KARINABASIC METABOLIC [id number] 14:38:00 Test Item Value Reference Range Interpretation [...] S NOT APPLICABLE FOR DIALYSIS PATIEN TS. Production Machine Operator ID - JONATHANHEPATIC FUNCTION [id number] 14:38:00 Test Item Value Reference Range Interpretation [...] Specimen slightly (test code = 347) hemolyzed Production Machine Operator ID - FRANCISCOINAHCG, SERUM, [id number] 14:34:00 Test Item Value Reference Range Interpretation Comments TEST SERUM (BEAKER) (test Negative code = 584) RAPID INFLUENZA A&B [id number] 14:34:00 Test Item Value Reference Range Interpretation Comments RAPID INFLUENZA A AG (BEAKER) Negative Negative, Inconclusive (test code = 1622) RAPID INFLUENZA B AG (BEAKER) Negative Negative, Inconclusive (test code = 1623) CBC W/PLT COUNT & AUTO [id number] 14:20:00 Test Item Value Reference Range Interpretation [...] (BEAKER) (test code = 2801) COMPREHENSIVE METABOLIC [id number] 12:48:00 Test Item Value Reference Range Interpretation [...] S NOT APPLICABLE FOR DIALYSIS PATIEN TS. [id number] 12:48:00 Test Item Value Reference Range Interpretation Comments LIPASE (BEAKER) (test code = 749) 9 U/L 6-51 HCG, SERUM, [id number] 12:27:00 Test Item Value Reference Range Interpretation Comments TEST SERUM (BEAKER) (test Negative code = 584) CBC W/PLT COUNT & AUTO [id number] 12:21:00 Test Item Value Reference Range Interpretation [...] L 0.00-0.20 (test code = 417) CT, [id number] 11:01:00Reason for exam:->EMESISIs the patient ?->NoWhat is [...] No small or large bowel dilatation is seen. Appendix is normal in caliber. Uterus is enlarged. Several calcified degenerating uterine fibroids are seen. Both ovaries are not visualized. The urinary bladder is distended. No mass, adenopathy or ascites is present. IMPRESSION: 1. Limited examination secondary to lack of GI and intravenous contrast.2. No small or large dilatation to suggest mechanical obstruction or ileus.3. Enlarged uterus with degenerating calcified uterine leiomyomata. Signed: Guanakito Aragon MDReport Verified Date/Time: 07/07/2019 11:01:48Reading Location: [address] Body Reading Room COMPREHENSIVE METABOLIC [id number] 10:26:00 Test Item Value Reference Range Interpretation [...] S NOT APPLICABLE FOR DIALYSIS PATIEN TS. [id number] 10:26:00 Test Item Value Reference Range Interpretation Comments LIPASE (BEAKER) (test code = 749) 8 U/L 6-51 HCG, SERUM, [id number] 10:21:00 Test Item Value Reference Range Interpretation Comments TEST SERUM (BEAKER) (test Negative code = 584) CBC W/PLT COUNT & AUTO [id number] 10:08:00 Test Item Value Reference Range Interpretation [...] % 0-0 PERCENT (BEAKER) (test code = 7418)
[2022-03-30] MEDS ORDERED: DICYCLOMINE HCL 20 MG/2 ML AMP IM ONE ×2 (09:30→09:32)
[2022-03-30] MEDS ORDERED: NA CHLORIDE 0.9% 1,000 ML ONE (09:30)
[2022-03-30] MEDS ORDERED: ONDANSETRON 4 MG/2 ML VIAL ONE (09:30)
[2022-03-30] MEDS ORDERED: DIPHENHYDRAMINE 12.5MG/5ML LIQ ONE (09:31)
[2022-03-30] MEDS ORDERED: FAMOTIDINE 20 MG/2 ML VIAL IV ONE (09:31)
[2022-03-30] MEDS ORDERED: DIPHENHYDRAMINE 50 MG/ML VIAL ONE (09:33)
[2022-03-30 10:06] LABS: Absolute Lymphocytes (CBC) 1.3 K/uL (0.7-4.9); Hematocrit 31.6 % (36.0-45.0); Lymphocytes % 11.7 % (15.3-44.8); MCV 85.9 fL (80-100); MPV 8.7 fL (7.6-11.3); RBC Red Blood Cell Count 3.68 M/uL (3.86-4.86)
[2022-03-30] MEDS ORDERED: KETOROLAC 30 MG/ML INJ ONE (12:00)
[2022-03-30 12:22] LABS: Bilirubin Total 0.5 mg/dL (0.2-1.0); Potassium 3.1 mmol/L (3.5-5.1); Protein, Total 8.1 g/dL (6.4-8.2)
--- NOTE | 2022-03-30 13:20 | RAD REPORT ---
EXAM DESCRIPTION: CT - Abdomen Pelvis W Contrast - 03/30/2022 1:05 pm CLINICAL HISTORY: lower abdomen pain COMPARISON: Abdomen Pelvis W Contrast dated 01/11/2022; Abdomen Pelvis W Contrast dated 10/19/2021; Abdomen Pelvis W Contrast dated 07/03/2020 TECHNIQUE: Biphasic, helical CT imaging of the abdomen and pelvis was performed following 100 ml non -ionic IV contrast. No oral contrast administered. All CT scans are performed using dose optimization technique as appropriate and may include automated exposure control or mA/KV adjustment according to patient size. FINDINGS: No suspicious findings in the lung bases. The liver, spleen, and pancreas show no suspicious findings. Several small hepatic cysts are stable f rom prior imaging. Gallbladder and biliary tree are also without suspicious finding. Symmetric renal function is seen with no hydronephrosis or suspicious renal mass. No pyelonephritis o r acute parenchymal process. No bladder abnormalities. No adrenal abnormalities. Enlarged lobulated multi fibroid uterus is again noted. Endometrial canal is distorted by the multipl e fibroids. Multiple uterine masses are not clearly different from prior imaging. These are most like ly to be benign leiomyomas. No progressive mass to elevate concern for leiomyosarcoma. No ovarian luis id or cystic mass identified. No dilated bowel loops or bowel wall thickening. Appendix is normal. No acute GI process seen. No cecy e air, free fluid or inflammatory stranding. No hernia, mass or bulky lymphadenopathy. No suspicious bony findings. IMPRESSION: Contrast enhanced CT abdomen and pelvis showing no acute or emergent finding. No cystitis or pyelonephritis findings. No acute finding seen. Enlarged lobulated multi fibroid uterus is present. Several of the fibroids have shown a slight incre ase in size compared to 2020 imaging. No recent size change appreciated. No gross or worrisome change to a mass that would suggest degeneration to a leiomyosarcoma.
--- NOTE | 2022-03-30 14:03 | ER ---
Nurse's Notes [facility] Name: Sangita Sorenson Age: 46 yrs Sex: Female : 1975 Arrival Date: 03/30/2022 Time: 09:01 Bed 20 Private MD: Diagnosis: Nausea with vomiting, unspecified;Lower abdominal pain, unspecified Presentation: 03/30 08:55 Chief complaint: EMS states: "states abdomen pain the pubic area of a crmp like pain. em6 she has stated having episodes similar to this and has Hx of gastritis. N/v no blood and states not being able to keep anything. 20 G left wrist. gave 300 mL of NS, 4 mg of Zofran, and 15 mg of Toradol. NKA. 08:55 Method Of Arrival: EMS: [facility] em6 08:55 Coronavirus screen: Client denies travel out of the [place] in the last 14 days. Ebola em6 Screen: Patient negative for fever greater than or equal to 101.5 degrees Fahrenheit, and additional compatible Ebola Virus Disease symptoms. Initial Sepsis Screen: Does the patient meet any 2 criteria? No. Patient's initial sepsis screen is negative. Does the patient have a suspected source of infection? No. Patient's initial sepsis screen is negative. Risk Assessment: Do you want to hurt yourself or someone else? Patient reports no desire to harm self or others. Onset of symptoms was March 28, 2022. 08:55 Acuity: IBRAHIMA 3 em6 Triage Assessment: 09:07 Pain: Complains of pain in suprapubic area Pain does not radiate. Pain currently is 7 em6 out of 10 on a pain scale. Neuro: Lan Agitation-Sedation Scale (RASS): 0 - Alert and Calm. 09:08 General: Appears comfortable, Behavior is calm, cooperative. 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 - Social history:: Smoking status: unknown. Screenin:06 Abuse screen: Denies threats or abuse. Nutritional screening: No deficits noted. em6 Tuberculosis screening: No symptoms or risk factors identified. 09:08 Fall Risk IV access (20 points). em6 Assessment: 08:55 General: Appears in no apparent distress. comfortable, Behavior is cooperative, em6 appropriate for age. Pain: Complains of pain in suprapubic area Pain does not radiate. Pain currently is 7 out of 10 on a pain scale. Quality of pain is described as crampy, Pain began 2-3 days ago. Is intermittent. Neuro: Lan Agitation-Sedation Scale (RASS): 0 - Alert and Calm Level of Consciousness is awake, alert, obeys commands, Oriented to person, place, time, situation. Cardiovascular: Heart tones present Patient's skin is warm and dry. Rhythm is sinus bradycardia. Respiratory: Airway is patent Respiratory effort is even, unlabored, Respiratory pattern is regular, symmetrical. GI: Abdomen is non-distended, Bowel sounds present X 4 quads. Abd is soft and non tender Reports lower abdominal pain, cramping, nausea, vomiting, Patient currently denies. : No signs and/or symptoms were reported regarding the genitourinary system. EENT: No signs and/or symptoms were reported regarding the EENT system. Derm: No signs and/or symptoms reported regarding the dermatologic system. Musculoskeletal: Circulation, motion, and sensation intact. Range of motion: intact in all extremities. 10:00 Reassessment: No changes from previously documented assessment. Patient is alert, em6 oriented x 3, equal unlabored respirations, skin warm/dry/pink. 11:00 Reassessment: No changes from previously documented assessment. Patient and/or family em6 updated on plan of care and expected duration. Pain level reassessed. Patient is alert, oriented x 3, equal unlabored respirations, skin warm/dry/pink. 12:00 Reassessment: Patient and/or family updated on plan of care and expected duration. Pain em6 level reassessed. Patient is alert, oriented x 3, equal unlabored respirations, skin warm/dry/pink. patient states abdomen/back pain of 5 out of 10. provider notified . 13:00 Reassessment: Patient and/or family updated on plan of care and expected duration. Pain em6 level reassessed. Patient is alert, oriented x 3, equal unlabored respirations, skin warm/dry/pink. 14:00 Reassessment: Patient and/or family updated on plan of care and expected duration. Pain em6 level reassessed. Patient is alert, oriented x 3, equal unlabored respirations, skin warm/dry/pink. Patient states feeling better. Vital Signs: 08:55 BP 116 / 68; Pulse 62; Resp 14; Temp 99.1; Pulse Ox 99% ; em6 10:00 BP 111 / 70; Pulse 50; Resp 16; Pulse Ox 99% on R/A; em6 11:00 BP 134 / 87; Pulse 55; Resp 16; Pulse Ox 100% on R/A; em6 12:19 BP 118 / 70; Pulse 49; Resp 14; Pulse Ox 98% on R/A; em6 14:23 BP 170 / 95; Pulse 57; Resp 18; Pulse Ox 99% on R/A; em6 ED Course: 09:01 Patient arrived in ED. em6 09:05 Kali Hill PA is PHCP. cp 09:05 Krzysztof Boo MD is Attending Physician. cp 09:06 Triage completed. em6 09:07 Arm band placed on. em6 09:09 Patient has correct armband on for positive identification. Bed in low position. Call em6 light in reach. Side rails up X2. residential monitor on. Pulse ox on. NIBP on. Warm blanket given. 10:53 Inserted saline lock: 22 gauge in left forearm, using aseptic technique. zm 13:07 CT Abd/Pelvis - IV Contrast Only In Process Unspecified. EDMS 14:01 Stephenie Deleon MD is Referral Physician. cp 14:35 No provider procedures requiring assistance completed. IV discontinued, intact, em6 bleeding controlled, No redness/swelling at site. Pressure dressing applied. Administered Medications: 09:30 Drug: NS 0.9% 1000 ml Route: IV; Rate: 1 bolus; Site: right wrist; em6 14:22 Follow up: Response: No adverse reaction; IV Status: Completed infusion; IV Intake: em6 1000ml 09:30 Drug: Pepcid (famotidine) 20 mg Route: IVP; Site: right wrist; em6 10:00 Follow up: Response: No adverse reaction em6 09:30 Drug: Zofran (Ondansetron) 4 mg Route: IVP; Site: right wrist; em6 10:00 Follow up: Response: No adverse reaction em6 09:30 Drug: Bentyl (dicyclomine) 20 mg Route: IM; Site: right deltoid; em6 10:00 Follow up: Response: No adverse reaction em6 09:30 Drug: Benadryl (diphenhydrAMINE) 12.5 mg Route: IVP; Site: right wrist; em6 10:00 Follow up: Response: No adverse reaction em6 12:01 Drug: Ketorolac 15 mg Route: IVP; Site: right wrist; em6 12:18 Follow up: Response: No adverse reaction em6 14:15 Drug: Potassium Effervescent Tablet 50 mEq Route: PO; em6 14:22 Follow up: Response: No adverse reaction em6 Medication: 09:07 VIS not applicable for this client. em6 Intake: 14:22 IV: 1000ml; Total: 1000ml. em6 Outcome: 14:02 Discharge ordered by MD. cp 14:36 Discharged to home ambulatory. em6 14:36 Condition: stable 14:36 Discharge instructions given to patient, Instructed on discharge instructions, follow up and referral plans. medication usage, Demonstrated understanding of instructions, follow-up care, medications, Prescriptions given X 3. 14:36 Patient left the ED. em6 Signatures: Dispatcher [employer] EDMS Kali Hill PA PA cp Martinez, Zaina zm Martinez, Erika, RN RN em6 Corrections: (The following items were deleted from the chart) 10:16 09:30 NS 0.9% 1000 ml IV at 1 bolus in right antecubital em6 em6 10:17 09:30 Pepcid (famotidine) 20 mg IVP in right antecubital em6 em6
--- NOTE | 2022-03-30 14:03 | EDPHYS ---
Physician Documentation [facility] Name: Sangita Sorenson Age: 46 yrs Sex: Female : 1975 Arrival Date: 03/30/2022 Time: 09:01 Bed 20 Private MD: ED Physician Krzysztof Boo HPI: 03/30 09:15 This 46 yrs old Black Female presents to ER via EMS with complaints of Abdominal Pain. cp 09:15 The patient presents with abdominal pain in the lower abdomen. Onset: The cp symptoms/episode began/occurred 2 day(s) ago. Associated signs and symptoms: Pertinent positives: nausea and vomiting, Pertinent negatives: blood in stools, chest pain, constipation, diarrhea, fever, vaginal bleeding. 09:15 The symptoms are described as crampy. cp 09:15 Severity of pain: in the emergency department the pain has improved moderately. The cp patient has experienced similar episodes in the past, several times, today's symptoms are similar, to when the patient was apparently diagnosed with gastritis. 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 - Social history:: Smoking status: unknown. ROS: 09:20 Constitutional: Negative for body aches, chills, fever. cp 09:20 Eyes: Negative for injury, pain, redness, and discharge. cp 09:20 ENT: Negative for drainage from ear(s), ear pain, sore throat, difficulty swallowing, difficulty handling secretions. 09:20 Cardiovascular: Negative for chest pain, edema, palpitations. 09:20 Respiratory: Negative for cough, shortness of breath, wheezing. 09:20 Abdomen/GI: Positive for nausea and vomiting, abdominal cramps, Negative for diarrhea, constipation, hematemesis, rectal bleeding. 09:20 : Negative for urinary symptoms, vaginal bleeding. 09:20 Neuro: Negative for altered mental status, dizziness, headache, weakness. 09:20 All other systems are negative. Exam: 09:25 Constitutional: The patient appears in no acute distress, alert, awake, non-toxic, well cp developed, well nourished. 09:25 Head/Face: Normocephalic, atraumatic. cp 09:25 Eyes: Periorbital structures: appear normal, Conjunctiva: normal, no exudate, no injection, Sclera: no appreciated abnormality, Lids and lashes: appear normal, bilaterally. 09:25 ENT: External ear(s): are unremarkable, Nose: is normal, Mouth: Lips: moist, Oral mucosa: pink and intact, moist, Posterior pharynx: Airway: no evidence of obstruction, patent. 09:25 Chest/axilla: Inspection: normal. 09:25 Cardiovascular: Rate: normal, Rhythm: regular. 09:25 Respiratory: the patient does not display signs of respiratory distress, Respirations: normal, no use of accessory muscles, no retractions, labored breathing, is not present, Breath sounds: are clear throughout, no decreased breath sounds, no stridor, no wheezing. 09:25 Abdomen/GI: Inspection: abdomen appears normal, Bowel sounds: active, all quadrants, Palpation: soft, in all quadrants, moderate abdominal tenderness, in the right lower quadrant and left lower quadrant, rebound tenderness, is not appreciated, voluntary guarding, is elicited in the right lower quadrant and left lower quadrant. 09:25 Back: pain, is absent, ROM is normal. 09:25 Neuro: Orientation: to person, place \T\ time. Mentation: is normal, Motor: moves all fours, strength is normal, Sensation: is normal. Vital Signs: 08:55 BP 116 / 68; Pulse 62; Resp 14; Temp 99.1; Pulse Ox 99% ; em6 10:00 BP 111 / 70; Pulse 50; Resp 16; Pulse Ox 99% on R/A; em6 11:00 BP 134 / 87; Pulse 55; Resp 16; Pulse Ox 100% on R/A; em6 12:19 BP 118 / 70; Pulse 49; Resp 14; Pulse Ox 98% on R/A; em6 14:23 BP 170 / 95; Pulse 57; Resp 18; Pulse Ox 99% on R/A; em6 MDM: 09:07 Patient medically screened. cp 10:00 Differential diagnosis: appendicitis, diverticulitis, gastritis, pancreatitis, Peptic cp Ulcer Disease, Perf. Duodenal Ulcer, Perf. Gastric Ulcer, Pyelonephritis, Ureterolithiasis, urinary tract infection. 14:02 Data reviewed: vital signs, nurses notes, lab test result(s), radiologic studies, CT cp scan. 03/30 09:10 Order name: CBC with Diff; Complete Time: 10:23 cp 03/30 10:23 Interpretation: Normal except: RBC 3.68; HGB 11.0; HCT 31.6; RDW 17.1; FRANKLIN% 79.1; LYM% cp 11.7; NEUT A 8.6. 03/30 09:10 Order name: CMP; Complete Time: 13:24 cp 03/30 09:10 Order name: Lipase; Complete Time: 13:24 cp 03/30 09:10 Order name: CT Abd/Pelvis - IV Contrast Only; Complete Time: 13:24 cp 03/30 09:10 Order name: IV Saline Lock; Complete Time: 09:13 cp 03/30 09:10 Order name: Labs collected and sent; Complete Time: 12:49 cp 03/30 10:11 Order name: Labs - recollect needed: recollect green and lavender tubes. hemolyzed; eb Complete Time: 12:27 Administered Medications: 09:30 Drug: NS 0.9% 1000 ml Route: IV; Rate: 1 bolus; Site: right wrist; em6 14:22 Follow up: Response: No adverse reaction; IV Status: Completed infusion; IV Intake: em6 1000ml 09:30 Drug: Pepcid (famotidine) 20 mg Route: IVP; Site: right wrist; em6 10:00 Follow up: Response: No adverse reaction em6 09:30 Drug: Zofran (Ondansetron) 4 mg Route: IVP; Site: right wrist; em6 10:00 Follow up: Response: No adverse reaction em6 09:30 Drug: Bentyl (dicyclomine) 20 mg Route: IM; Site: right deltoid; em6 10:00 Follow up: Response: No adverse reaction em6 09:30 Drug: Benadryl (diphenhydrAMINE) 12.5 mg Route: IVP; Site: right wrist; em6 10:00 Follow up: Response: No adverse reaction em6 12:01 Drug: Ketorolac 15 mg Route: IVP; Site: right wrist; em6 12:18 Follow up: Response: No adverse reaction em6 14:15 Drug: Potassium Effervescent Tablet 50 mEq Route: PO; em6 14:22 Follow up: Response: No adverse reaction em6 Disposition Summary: 03/30/22 14:02 Discharge Ordered Location: Home cp Problem: an acute exacerbation cp Symptoms: have improved cp Condition: Stable cp Diagnosis - Nausea with vomiting, unspecified cp - Lower abdominal pain, unspecified cp Followup: cp - With: Stephenie Deleon MD - When: 2 - 3 days - Reason: Recheck today's complaints Discharge Instructions: - Discharge Summary Sheet cp - Abdominal Pain, Adult cp - Uterine Fibroids cp - Nausea and Vomiting, Adult cp Forms: - Medication Reconciliation Form cp - Thank You Letter cp - Antibiotic Education cp - Prescription Opioid Use cp Prescriptions: - Ibuprofen 800 mg Oral Tablet - take 1 tablet by ORAL route every 8 hours As needed take with food; 30 tablet; cp Refills: 0, Product Selection Permitted - Zofran 4 mg Oral Tablet - take 1 tablet by ORAL route every 12 hours As needed; 20 tablet; Refills: 0, cp Product Selection Permitted - Tramadol 50 mg Oral Tablet - take 1 tablet by ORAL route every 8 hours as needed; 12 tablet; Refills: 0, cp Product Selection Permitted Signatures: Dispatcher [employer] EDMS Kali Hill PA PA cp Botello, Elizabeth eb Martinez, Erika, RN RN em6
[2022-03-30] MEDS ORDERED: POTASSIUM CL SA 10 MEQ TAB PO ONE (14:12)
[2022-03-30] MEDS ORDERED: POTASSIUM 25 MEQ EFFERV TAB ONE (14:13)
[2022-03-30 15:48] VITALS: TEMP 99.1
[2022-03-30 16:18] VITALS: BP 170/95; O2SAT 99
== END 2022-03-30 14:36 | disposition home or self-care (01) ==
LOC: ER 08:40
DX: R10.30 Lower abdominal pain, unspecified (principal); R11.2 Nausea with vomiting, unspecified
CPT/HCPCS: 36415; 74177; 80053; 83690; 85025; 96361; 96372; 96374; 96375; 99284; J0500; J1200; J2405; J7030; Q0163; Q9967

== ENCOUNTER 2022-06-20 08:12 | Emergency (ER) | payer SELFPAY ==
--- OUTSIDE RECORDS SUMMARY | 2022-06-20 08:16 | XMS REPORT | Continuity of Care Document ---
:1975 Author Organization [facility] t Address [address] [place] [address] Care Team Providers Name Role Phone No MD, Pcp [facility] Primary Care Physician Unavailable OKSANA RAMIREZ Attending Clinician Unavailable Ashley Oksana AGUILAR Attending Clinician [phone] Doctor Unassigned, [place] Attending Clinician Unavailable Visit, [facility] Nurse Attending Clinician Unavailable GUILLERMINA DENNY Attending Clinician Unavailable Radiology Attending Clinician Unavailable RADIOLOGY Attending Clinician Unavailable ALIX FRANKLIN Attending Clinician Unavailable ANKIT HILL Attending Clinician Unavailable RICHARDSON LAO Attending Clinician Unavailable SUSANA TURPIN Attending Clinician Unavailable Payers Payer Name Policy Type Policy Number Effective Date Expiration Date Nora marin [facility] [id number] 2020 00:00:00 Problems Condition Condition Condition Status Onset Resolution Last Treating Co mments Source Name Details Category Date Date Treatment Clinician Date Situationa Situationa Disease Active 2021- [place] [facility] Amenorrhea Amenorrhea Disease Active U nivers 1-27 ity of 00[place]: [place] [...] genital 2-04 ity of 00:00: [place] 00 [facility] Allergies, Adverse Reactions, Alerts Allergy Allergy Status Severity Reaction(s) Onset Inactive Treating Comm ents Source Name Type Date Date Clinician NO KNOWN Drug Active Univers ALLERGIE Class ity of S [facility] Social History Social Habit Start Date Stop Date Quantity Comments Source History of tobacco Cigarette Smoker University of use [facility] Exposure to Not sure University of SARS-CoV-2 (event) [facility] History SDOH [facility] Alcohol Std Drinks Medica l Center History SDOH [facility] Alcohol Binge [facility] History SDOH [facility] Alcohol Comment Medical C enter Cigarettes smoked 2021-09-06 2021-09-06 Univers ity of current (pack per 00:00:00 00:00:00 ) - Reported Branch Tobacco Comment 2021-09-06 2021-09-06 Smokes 5 ciggs a Uni versity of 00:00:00 00:00:00 day [facility] Alcohol intake 2019-09-17 2019-09-[address] [facility] [facility] 00:[facility]:00 00:00:00 non-drinker of Medical Ce nter alcohol (finding) Tobacco use and 2019-06-27 2019-06-[address] [facility] exposure 00:00:00 00:00:00 Medical Center History SDOH 2019-06-27 2019-06-[address] [facility] Alcohol Frequency 00:00:00 00:00:00 Medical Center Sex Assigned At [birth year] RACHEL Gilberts 00:00:00 00:00:00 [facility] Center Smoking Status Start Date Stop Date Source Smokes tobacco daily 2021-09-06 00:00:[address] [facility] Never smoker [facility] Medications Ordered Filled Start Stop Current Ordering Indication Dosage Frequency Signature Comments Components Source Medication Medication Date Date Medication? Clinician (SIG) Name Name No known No Univers medications 2- ity of 09:34: [address] No known No Univers medications 2-28 ity of 09:34: [address] No known No No known Unive rs medications 2- medication it y of 09:34: s [address] ondansetron 2020-0 Yes 4mg Take [address] (ZOFRAN-ODT 2-13 tablet (4 Eriberto es ) 4 MG 00:00: mg total) Medica l disintegrat 00 by mouth Cent er ing tablet every 8 (eight) hours as needed. ondansetron 2020-0 Yes 4mg Take [address] (ZOFRAN-ODT 2-13 tablet (4 Eriberto es ) 4 MG 00:00: mg total) Medica l disintegrat 00 by mouth Cent er ing tablet every 8 (eight) hours as needed. ondansetron 2020-0 Yes 4mg Take [address] [facility] (ZOFRAN-ODT 2-13 tablet (4 Eriberto es ) 4 MG 00:00: mg total) Medica l disintegrat 00 by mouth Cent er ing tablet every 8 (eight) hours as needed. Vital Signs Vital Name Observation Time Observation Value Comments Source Systolic blood 2021-10-02 14:44:00 122 mm[Hg] Univer sity of [facility] Diastolic blood 2021-10-02 14:44:00 75 mm[Hg] Unive rsity [facility] Heart rate 2021-10-02 14:44:00 67 /min [facility] Body temperature 2021-10-02 14:44:00 35.83 [facility] Respiratory rate 2021-10-02 14:44:00 20 /min [facility] Body height 2021-10-02 14:44:00 149.9 cm [facility] Body weight 2021-10-02 14:44:00 63.163 kg [facility] BMI 2021-10-02 14:44:00 28.13 kg/m2 [facility] Procedures This patient has no known procedures. Plan of Care Planned Activity Planned Date Details Comments Source Future Scheduled 2022-04-[address] [facility] Test 00:00:00 (#1) [code = [facility] INFLUENZA VACCINE (#1)] Future Scheduled 2022-04-[address] [facility] Test 00:00:00 (#1) [code = [facility] INFLUENZA VACCINE (#1)] Future Scheduled 2021-08-[address] [facility] Test 00:00:00 (12+) [code = [facility] DEPRESSION SCREENING (12+)] Future Scheduled 2021-08-[address] [facility] Test 00:00:00 (12+) [code = [facility] DEPRESSION SCREENING (12+)] Future Scheduled 2020-10-[address] [facility] [facility] Test 00:00:00 malignant neoplasm of Medica l Center cervix (procedure) [code = 714511291] Future Scheduled 2020-10-[address] [facility] Test 00:00:00 malignant neoplasm of Medica l Center cervix (procedure) [code = 427236181] Future Scheduled 2020-10-[address] [facility] Test 00:00:00 malignant neoplasm of Medica l Center cervix (procedure) [code = 609363470] Future Scheduled 2020-04-[address] [facility] Test 00:00:00 (#1) [code = [facility] INFLUENZA VACCINE (#1)] Future Scheduled 1996 DTAP/TDAP/TD VACCINES [facility] Test 00:00:00 (1 - Tdap) [code = Medical C enter DTAP/TDAP/TD VACCINES (1 - Tdap)] Future Scheduled 1996 DTAP/TDAP/TD VACCINES [facility] Test 00:00:00 (1 - Tdap) [code = Medical C enter DTAP/TDAP/TD VACCINES (1 - Tdap)] Future Scheduled 1995-11-06 HEPATITIS C SCREENING [facility] Test 00:00:00 [code = HEPATITIS C Medical Center SCREENING] Future Scheduled 1995-11-06 HEPATITIS C [facility]CREENING [facility] Test 00:00:00 [code = HEPATITIS C Medical Center SCREENING] Future Scheduled 1982 COVID-19 VACCINE (#1) [facility] Test 00:00:00 [code = COVID-[address] VACCINE (#1)] Future Scheduled 1978-05-07 COVID-19 VACCINE (#1) [facility] Test 00:00:00 [code = COVID-[address] VACCINE (#1)] Encounters Start End Encounter Admission Attending Care Care Encounter Source Date/Time Date/Time Type Type Clinicians Facility Department ID 2022-04-26 2022-04-26 Outpatient R ASHLEY, [facility] [id number] Univers 13:45:00 13:45:00 OKSANA alcantary o [facility] 2022-04-18 2022-04-[address] [facility] [id number] Univers 00:00:00 00:00:00 Oksana Calzada COMPUTER SYSTEMS INFORMATION DIRECTOR [id number] ity of [facility] [id number] Patrick as MATERNAL [phone] Med ical & CHILD [address] [place] [address] 2021-10-10 2021-10-10 Outpatient R AKINSIPE, [facility] [id number] Univers 00:00:00 00:00:00 OKSANA kathariney o [facility] 2021-10-10 2021-10-10 Outpatient R AKINSIPE, [facility] [id number] Univers 00:00:00 00:00:00 OKSANA ity o [facility] 2021-10-10 2021-10-10 Outpatient R AKINSIPE, [facility] [id number] Univers 00:00:00 00:00:00 OKSANA ity o [facility] 2021-10-02 2021-10-[address] [facility] [id number] Univers 08:45:00 09:13:38 Visit Oksana Calzada COMPUTER SYSTEMS INFORMATION DIRECTOR [id number] ity of [facility] [id number] Patrick as MATERNAL [id number] Med ical & CHILD [address] [place] [address] 2021-10-02 2021-10-02 Outpatient R AKINSIPE, [facility] [id number] Univers 08:45:00 09:13:38 OKSANA alcantary o [facility] 2021-10-02 2021-10-02 Outpatient R AKINSIPE, [facility] [id number] Univers 08:45:00 08:45:00 OKSANA ity o [facility] 2021-09-21 2021-09-21 Outpatient R AKINSIPE, [facility] [id number] Univers 08:30:00 08:30:00 OKSANA ity o [facility] 2021-09-14 2021-09-14 Outpatient R AKINSIPE, [facility] [id number] Univers 12:45:00 13:45:38 OKSANA ity o [facility] 2021-09-14 2021-09-14 Office Ashley, [facility] [id number] Univers 12:45:00 13:45:38 Visit Oksana Calzada COMPUTER SYSTEMS INFORMATION DIRECTOR [id number] ity of [facility] [id number] Patrick as MATERNAL [phone] [facility] & CHILD [address] [place] [address] 2021-09-14 2021-09-14 Orders Doctor TINO [id number] Univers 00:00:00 00:00:00 Only Unassigned, DAINA [id number] ity of [place] [facility] 4.2.7.2.686 Patrick as [phone] [address] 2021-09-13 2021-09-13 Outpatient R AKINSIPE, [facility] [id number] Univers 10:00:00 10:00:00 OKSANA alcantary o [facility] 2021-09-06 2021-09-06 Outpatient R AKINSIPE, [facility] [id number] Univers 09:45:00 10:57:26 OKSANA alcantary o [facility] 2021-09-06 2021-09-06 Office Ashley [facility] [id number] Univers 09:45:00 10:57:26 Visit Oksana C COMPUTER SYSTEMS INFORMATION DIRECTOR [id number] ity of [facility] [id number] Patrick as MATERNAL [phone] Med ical & CHILD [address] [place] [address] 2021-09-06 2021-09-06 Orders Doctor TINO 1.2.840.114 [id number] Univers 00:00:00 00:00:00 Only Unassigned, DAINA [id number] ity of [place] [facility] 4.2.7.2.686 Patrick as [id number] [address] 2020-12-07 2020-12-[address] [facility] [id number] Univers 09:30:00 09:30:00 OKSANA [facility] 2020-11-29 2020-11-[address] [facility] [id number] Univers 09:30:00 09:30:00 OKSANA groves o [facility] 2020-10-04 2020-10-04 [facility] [id number] 13:39:10 23:59:00 Encounter Oksana C SPECIALTY [id number] CARE 4.2.7.2.686 CENTER AT [id number] [address] 2020-10-04 2020-10-04 [facility] [id number] Univers 13:39:10 23:59:00 Encounter Oksana C SPECIALTY [id number] ity of [facility] 4.2.7.2.686 [place] AT [id number] Pa dical [address] 2020-10-04 2020-10-04 [facility] 1.2.840.114 [id number] 13:37:38 13:38:00 Encounter Oskana C SPECIALTY [id number] CARE 4.2.7.2.686 CENTER AT [id number] [address] 2020-10-04 2020-10-04 [facility] [id number] Univers 13:37:38 13:38:00 Encounter Oksana C SPECIALTY [id number] ity of CARE 4.2.7.2.686 [place] [facility] AT [phone] Pa luc JUAREZ [address] [place] [address] 2020-10-04 2020-10-04 Outpatient R ASHLEY, [facility] [id number] Univers 00:00:00 00:00:00 OKSANA alcantary o f [facility] 2020-09-20 2020-09-20 Outpatient R ASHLEY, [facility] [id number] Univers 00:00:00 00:00:00 OKSANA groves o f [facility] 2020-09-01 2020-09-01 [facility] 1.2.840.114 [id number] 00:00:00 00:00:00 Oksana Calzada COMPUTER SYSTEMS INFORMATION DIRECTOR [id number] REGIONAL 4.2.7.2.686 MATERNAL [id number] & CHILD [address] [place] [address] 2020-09-01 2020-09-01 Telephone Ashley [facility] 1.2.840.114 [id number] Univers 00:00:00 00:00:00 Oksana C COMPUTER SYSTEMS INFORMATION DIRECTOR [id number] ity of REGIONAL 4.2.7.2.686 Patrick as MATERNAL [phone] [facility] & [address] 2020-08-31 2020-08-31 Office Ashley [facility] [id number] Univers 10:11:31 11:17:14 Visit Oksana C COMPUTER SYSTEMS INFORMATION DIRECTOR [id number] ity of REGIONAL 4.2.7.2.686 Patrick as MATERNAL [id number] [facility] & CHILD [address] [place] [address] 2020-08-31 2020-08-31 Outpatient R ASHLEY [facility] [id number] Univers 10:15:00 10:15:00 OKSANA alcantary o f [facility] 2020-08-29 2020-08-29 Nurse Visit, [facility] Nurse [facility] 1.2 .840.114 [id number] Univers 09:44:02 10:27:17 Visit Bria Ramirezerickson Calzada COMPUTER SYSTEMS INFORMATION DIRECTOR 350.1.13. 10 ity of [facility] 4.2.7.2.686 Patrick as MATERNAL [id number] [facility] & [address] 2020-08-29 2020-08-29 Outpatient R AKINEYAD, [facility] [id number] Univers 10:00:00 10:00:00 OKSANA ity o f [facility] 2020-08-29 2020-08-29 Outpatient R AKINSHUNPE, [facility] [id number] Univers 09:00:00 09:00:00 OKSANA ity o [facility] 2020-08-29 2020-08-29 Orders Doctor TINO 1.2.840.114 [id number] Univers 00:00:00 00:00:00 Only Unassigned, DAINA 350.1.13.10 ity of [place] [facility] 4.2.7.2.686 Patrick as [id number] [address] 2020-07-11 2020-07-11 Outpatient R [facility] [id number] Univers 12:45:00 12:45:[address] [facility] 2020-07-08 2020-07-08 [facility] [id number] Univers 13:59:41 15:25:43 Visit Oksana Calzada COMPUTER SYSTEMS INFORMATION DIRECTOR [id number] ity of [facility] 4.2.7.2.686 Patrick as MATERNAL [id number] [facility] & [address] 2020-07-08 2020-07-08 Outpatient R AKINSIPE, [facility] [id number] Univers 13:30:00 13:30:00 OKSANA ity o f [facility] 2020-07-06 2020-07-06 [facility] [id number] Univers 09:00:00 09:00:00 TRACENDA ity o f [facility] 2020-06-08 2020-06-08 Outpatient R [facility] [id number] Univers 09:15:00 09:15:[address] [facility] 2020-05-26 2020-05-26 Hospital Radiology [facility] 1.2.840.114 [id number] Univers 12:40:00 23:59:00 Encounter Duane 350.1.13.10 ity of [place] 4.2.7.2.686 [facility] [id number] [facility] [address] 2020-05-26 2020-05-26 Outpatient R RADIOLOGY [facility] [id number] Univers 00:00:00 00:00:00 ity of [facility] 2020-05-26 2020-05-26 Letter Doctor TINO 1.2.840.114 [id number] Univers 00:00:00 00:00:00 (Out) Unassigned, DAINA 350.1.13.10 ity of [place] [facility] 4.2.7.2.686 [facility] [id number] [facility] [address] Results Test Description Test Time Test Comments Results Result [facility] e Comments CT, ABDOMEN 2019-09-17 Reason for FINAL REPORT PATIENT 14:16:00 exam:->NAUSEARe ID: [id number] CT ason for ABDOMEN AND PELVIS exam:->EMESISRe [...] MDReport Verified Date/Time: 09/17/2019 14:16:48 Reading Location: [facility] Radiology Reading Room SE 2019-09-17 13:00:00 Test Item Value Reference Range Interpretation Comme nts LIPASE (BEAKER) (test code = 749) 4 U/L 6-51 L Induction Furnace Operator ID - [id number] FUNCTION [id number] 12:56:00 Test Item Value Reference Range Interpretation [...] Specimen slightly (test code = 347) hemolyzed Induction Furnace Operator ID - [id number] DRUG SCREEN, [id number] 12:54:00 Test Item Value Reference Range Interpretation [...] situations. Chain of custody not maintained. Some hyiz-iyf-wfkgdrn medications, as well as adulterants, may cause inaccurate results. Clinical correlation should be applied. A more comprehensive drug screen or confirmation of a detected drug may be performed upon request.Induction Furnace Operator ID - [id number] ID - [id number] ID - fmva14Xaulasrh ID - uykf55Lnnhdxvd ID - [id number] ID - yqkq35Xizfeeyf ID - nocp65Vueiwqlb ID - [id number] METABOLIC [id number] 12:54:00 Test Item Value Reference Range Interpretation [...] S NOT APPLICABLE FOR DIALYSIS PATIEN TS. Induction Furnace Operator ID - [id number] W/ [id number] 12:47:00 Test Item Value Reference Range Interpretation [...] 1663) SOURCE(BEAKER) (test code = 2795) SCREEN, [id number] 12:40:00 Test Item Value Reference Range Interpretation Comments TEST URINE (BEAKER) (test Negative code = 583) CBC W/PLT COUNT & AUTO [id number] 12:38:00 Test Item Value Reference Range Interpretation [...] PERCENT (BEAKER) (test code = 2801) POCT-GLUCOSE [id number] 12:28:00 Test Item Value Reference Range Interpretation Comments POC-GLUCOSE METER 117 mg/dL 70-110 H : TESTED A T [facility] 1317 (BEAKER) (test code [facility] [address], = 1538) [facility] 77 478: Induction Furnace Operator/Techni brayden ID = [id number] for Tolo , Chisa CT, [id number] 16:50:00Reason for exam:->EMESISIs the patient ?->NoWhat is [...] Verified Date/Time: 08/16/2019 16:50:10 Reading Location: [address] Consult Reading Room LIPASE 2019-08-16 14:40:00 Test Item Value Reference Range Interpretation Comments LIPASE (BEAKER) (test code = 749) 5 U/L 6-51 L Induction Furnace Operator ID - KARINABASIC METABOLIC [id number] 14:38:00 Test Item Value Reference Range Interpretation [...] S NOT APPLICABLE FOR DIALYSIS PATIEN TS. Induction Furnace Operator ID - FRANCISCOINAHEPATIC FUNCTION [id number] 14:38:00 Test Item Value Reference Range Interpretation [...] Specimen slightly (test code = 347) hemolyzed Induction Furnace Operator ID - FRANCISCOINAHCG, SERUM, [id number] 14:34:00 Test Item Value Reference Range Interpretation Comments TEST SERUM (BEAKER) (test Negative code = 584) RAPID INFLUENZA A&B [id number] 14:34:00 Test Item Value Reference Range Interpretation Comments RAPID INFLUENZA A AG (BEAKER) Negative Negative, Inconclusive (test code = 1622) RAPID INFLUENZA B AG (BEAKER) Negative Negative, Inconclusive (test code = 1623) CBC W/PLT COUNT & AUTO [id number] 14:20:00 Test Item Value Reference Range Interpretation [...] (BEAKER) (test code = 2801) COMPREHENSIVE METABOLIC [id number] 12:48:00 Test Item Value Reference Range Interpretation [...] S NOT APPLICABLE FOR DIALYSIS PATIEN TS. [id number] 12:48:00 Test Item Value Reference Range Interpretation Comments LIPASE (BEAKER) (test code = 749) 9 U/L 6-51 HCG, SERUM, [id number] 12:27:00 Test Item Value Reference Range Interpretation Comments TEST SERUM (BEAKER) (test Negative code = 584) CBC W/PLT COUNT & AUTO [id number] 12:21:00 Test Item Value Reference Range Interpretation [...] L 0.00-0.20 (test code = 417) CT, [id number] 11:01:00Reason for exam:->EMESISIs the patient ?->NoWhat is [...] Aragon MDReport Verified Date/Time: 07/07/2019 11:01:48Reading Location: [facility] C013Y CT Body Reading Room COMPREHENSIVE METABOLIC [id number] 10:26:00 Test Item Value Reference Range Interpretation [...] S NOT APPLICABLE FOR DIALYSIS PATIEN TS. [id number] 10:26:00 Test Item Value Reference Range Interpretation Comments LIPASE (BEAKER) (test code = 749) 8 U/L 6-51 HCG, SERUM, [id number] 10:21:00 Test Item Value Reference Range Interpretation Comments TEST SERUM (BEAKER) (test Negative code = 584) CBC W/PLT COUNT & AUTO [id number] 10:08:00 Test Item Value Reference Range Interpretation [...] % 0-0 PERCENT (BEAKER) (test code = 3971)
[2022-06-20] MEDS ORDERED: PROMETHAZINE INJ 25 MG/ML AMP ONE (09:43)
[2022-06-20] MEDS ORDERED: ONDANSETRON 4 MG/2 ML VIAL ONE (09:44)
[2022-06-20] MEDS ORDERED: FAMOTIDINE 20 MG/2 ML VIAL IV ONE (09:44)
[2022-06-20] MEDS ORDERED: NA CHLORIDE 0.9% 1,000 ML ONE (09:44)
[2022-06-20] MEDS ORDERED: MORPHINE 2 MG/ML SYR ONE (09:44)
--- NOTE | 2022-06-20 09:45 | RAD REPORT ---
EXAM DESCRIPTION: US - Abdomen Exam Limited - 06/20/2022 9:29 am CLINICAL HISTORY: Abdominal pain. COMPARISON: None. FINDINGS: The gallbladder wall is not thickened. A gallstone is not seen. The biliary tree is normal caliber. IMPRESSION: Unremarkable gallbladder ultrasound.
[2022-06-20 09:52] LABS: Absolute Lymphocytes (CBC) 1.6 K/uL (0.7-4.9); Lymphocytes % 11.7 % (15.3-44.8); MPV 8.2 fL (7.6-11.3)
[2022-06-20 10:09] LABS: Albumin 3.8 g/dL (3.4-5.0); Bilirubin Total 0.5 mg/dL (0.2-1.0); Potassium 3.2 mmol/L (3.5-5.1); Protein, Total 7.7 g/dL (6.4-8.2)
[2022-06-20 10:41] LABS: SARS-COV-2 RT PCR NEGATIVE (NEGATIVE)
[2022-06-20 13:23] LABS: Urine Blood Negative (Negative); Urine Glucose Negative (Negative); Urine Protein 1+ (Negative); Urine pH >=9.0 (5.0-7.0)
[2022-06-20 13:35] LABS: Urine Bacteria <20 /HPF (<20); Urine Mucus Slight /HPF (None Seen); Urine RBC <5 /HPF (None Seen)
[2022-06-20] MEDS ORDERED: LORazepam 2 MG/ML VIAL ONE (13:48)
[2022-06-20 14:05] LABS: Barbiturates NEGATIVE (NEGATIVE); Benzodiazepines NEGATIVE (NEGATIVE); Cocaine NEGATIVE (NEGATIVE); METHAMPHETAM NEGATIVE (NEGATIVE); Methadone NEGATIVE (NEGATIVE); Opiates POSITIVE (NEGATIVE); Phencyclidine NEGATIVE (NEGATIVE); THC Cannibis POSITIVE (NEGATIVE)
--- NOTE | 2022-06-20 15:42 | EDPHYS ---
Physician Documentation [facility] Name: Sangita Sorenson Age: 46 yrs Sex: Female : 1975 Arrival Date: 06/20/2022 Time: 08:13 Bed 24 Private MD: ED Physician Kali Mauro HPI: 06/20 09:15 This 46 yrs old Black Female presents to ER via Ambulatory with complaints of Vomiting. cp 09:15 The patient presents to the emergency department with nausea, that is severe, vomiting, cp abdominal pain. 09:15 Onset: The symptoms/episode began/occurred this morning. cp 09:15 Possible causes: flare up of bowel problem. Associated signs and symptoms: Pertinent cp positives: abdominal pain, anorexia, Pertinent negatives: constipation, diarrhea, fever, GI bleeding. Severity of symptoms: in the emergency department the symptoms are unchanged despite home interventions. 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 - Social history:: Smoking status: Patient reports the use of cigarette tobacco products, Patient uses street drugs, marijuana. ROS: 09:20 Constitutional: Positive for poor PO intake, Negative for body aches, chills, fever. cp 09:20 Eyes: Negative for injury, pain, redness, and discharge. cp 09:20 ENT: Negative for drainage from ear(s), ear pain. 09:20 Cardiovascular: Negative for chest pain, edema, palpitations. 09:20 Respiratory: Negative for cough, shortness of breath, wheezing. 09:20 Abdomen/GI: Positive for abdominal pain, nausea and vomiting, anorexia, Negative for diarrhea, constipation, hematemesis. 09:20 : Negative for urinary symptoms. 09:20 Neuro: Negative for altered mental status. 09:20 All other systems are negative. Exam: 09:25 Constitutional: The patient appears in no acute distress, alert, awake, cp non-diaphoretic, non-toxic, well developed, well nourished, uncomfortable. 09:25 Head/Face: Normocephalic, atraumatic. cp 09:25 Eyes: Periorbital structures: appear normal, Conjunctiva: normal, no exudate, no injection, Sclera: no appreciated abnormality, Lids and lashes: appear normal, bilaterally. 09:25 ENT: External ear(s): are unremarkable, Nose: is normal, Mouth: Lips: moist, Oral mucosa: pink and intact, moist, Posterior pharynx: Airway: no evidence of obstruction, patent. 09:25 Neck: ROM/movement: is normal, is supple, without pain, no range of motions limitations, no meningismus. 09:25 Chest/axilla: Inspection: normal. 09:25 Cardiovascular: Rate: bradycardic, Rhythm: regular. 09:25 Respiratory: the patient does not display signs of respiratory distress, Respirations: normal, no use of accessory muscles, no retractions, labored breathing, is not present, Breath sounds: are clear throughout, no decreased breath sounds, no stridor, no wheezing. 09:25 Abdomen/GI: Inspection: abdomen appears normal, Bowel sounds: active, all quadrants, Palpation: soft, in all quadrants, severe abdominal tenderness, in all quadrants, rebound tenderness, is not appreciated, voluntary guarding, is elicited in all quadrants. 09:25 Back: CVA tenderness, is absent. 09:25 Neuro: Orientation: to person, place \T\ time. Mentation: is normal. Vital Signs: 09:04 BP 97 / 84; Pulse 52; Resp 19; Temp 97.7; Pulse Ox 100% ; Weight 61.23 kg; Height 4 ft. jl7 11 in. (149.86 cm); Pain 10/10; 11:10 BP 113 / 68; Pulse 51; Resp 16; Pulse Ox 100% ; jl7 17:00 BP 111 / 65; Pulse 71; Resp 18; Pulse Ox 100% ; kb3 09:04 Body Mass Index 27.27 (61.23 kg, 149.86 cm) jl7 Procedures: 09:45 Peripheral line: by aseptic technique a peripheral line was placed in the left external cp jugular vein. MDM: 08:57 Patient medically screened. silas 15:30 Refusal of service: The patient/guardian displays adequate decision making capability and despite a detailed discussion of alternatives, benefits, risks, and consequences refuses: CT Scan. 15:40 Data reviewed: vital signs, nurses notes, lab test result(s), radiologic studies, CT cp scan. 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 Response to treatment: the patient's symptoms have markedly improved after treatment, VSS. Nausea and pain improved. Vomiting resolved.Will discharge to home for continued monitoring. 06/20 08:58 Order name: CBC with Diff; Complete Time: 10:01 [facility] 06/20 10:01 Interpretation: Normal except: WBC 13.90; RBC 3.70; HGB 11.1; HCT 33.0; RDW 18.0; FRANKLIN% cp 81.9; LYM% 11.7; NEUT A 11.4. 06/20 08:58 Order name: CMP; Complete Time: 11:47 [facility] 06/20 11:47 Interpretation: Normal except: K 3.2; CL 109; GLUC 141; AST 11; GLOB 3.9; A/G 1.0. 06/20 08:58 Order name: Lipase; Complete Time: 11:47 [facility] 06/20 11:47 Interpretation: LIP 62; Reviewed. 06/20 08:58 Order name: Urine Microscopic Only; Complete Time: 15:24 [facility] 06/20 09:01 Order name: UDS; Complete Time: 15:24 06/20 15:24 Interpretation: Normal except: THC POSITIVE; OPI POSITIVE. 06/20 09:05 Order name: Magnesium; Complete Time: 11:47 06/20 11:47 Interpretation: Abnormal: MG 1.7. 06/20 08:58 Order name: US Abdomen Limited; Complete Time: 09:50 [facility] 06/20 09:50 Interpretation: Report reviewed. 06/20 09:05 Order name: COVID-19/FLU A+B; Complete Time: 11:47 06/20 13:23 Order name: Urine Dipstick-Ancillary; Complete Time: 15:24 EDMS 06/20 15:25 Interpretation: Normal except: UKET 3+; UPROT 1+. 06/20 13:54 Order name: Urine --Ancillary (enter results) bd 06/20 13:57 Order name: Urine --Ancillary; Complete Time: 15:24 EDMS 06/20 08:58 Order name: IV Saline Lock; Complete Time: 09:47 silas 06/20 08:58 Order name: Labs collected and sent; Complete Time: 09:47 silas Administered Medications: 09:56 Drug: morphine 2 mg Route: IVP; Infused Over: 4 mins; Site: left jugular; ap3 12:00 Follow up: Response: No adverse reaction; Pain is decreased kb3 10:01 Drug: NS 0.9% 1000 ml Route: IV; Rate: 1 bolus; Site: left jugular; ap3 16:30 Follow up: Response: No adverse reaction; IV Status: Completed infusion; IV Intake: kb3 1000ml 10:01 Drug: Pepcid (famotidine) 20 mg Route: IVP; Site: left jugular; ap3 12:00 Follow up: Response: No adverse reaction kb3 10:01 Drug: Zofran (Ondansetron) 4 mg Route: IVP; Site: left jugular; ap3 12:00 Follow up: Response: No adverse reaction kb3 10:02 Drug: Phenergan (promethazine) 25 mg Route: IM; Site: right gluteus; ap3 13:50 Drug: Ativan (LORazepam) 0.5 mg Route: IVP; Site: right forearm; kb3 14:30 Follow up: Response: No adverse reaction; Nausea is decreased kb3 16:09 Drug: Potassium Effervescent Tablet 50 mEq Route: PO; em6 17:00 Follow up: Response: No adverse reaction kb3 16:09 Drug: Magnesium 400 mg Route: PO; em6 17:00 Follow up: Response: No adverse reaction kb3 16:09 Drug: Magnesium 400 mg Route: PO; em6 17:00 Follow up: Response: No adverse reaction kb3 17:00 Drug: Phenergan (promethazine) 25 mg Route: PO; kb3 Disposition: 06/21 09:32 Co-signature as Attending Physician, Kali Mauro MD I agree with the assessment and [facility] plan of care. Disposition Summary: 06/20/22 15:41 Discharge Ordered Location: Home cp Problem: an acute exacerbation cp Symptoms: have improved cp Condition: Stable cp Diagnosis - Cyclical vomiting, not intractable cp - Abdominal pain, unspecified cp Followup: cp - With: Private Physician - When: 1 - 2 days - Reason: Recheck today's complaints Discharge Instructions: - Discharge Summary Sheet cp - Abdominal Pain, Adult cp - Cyclic Vomiting Syndrome, Adult cp Forms: - Medication Reconciliation Form cp - Thank You Letter cp - Antibiotic Education cp - Prescription Opioid Use cp Prescriptions: - promethazine 25 mg Rectal suppository - insert 1 suppository by RECTAL route every 6 hours; 12 suppository; Refills: 0, cp Product Selection Permitted - promethazine 25 mg Oral Tablet - take 1 tablet by ORAL route every 6 hours As needed; 20 tablet; Refills: 0, cp Product Selection Permitted Signatures: Dispatcher [employer] EDMS Kali Mauro MD MD cha Page, Corey, PA PA cp Peg Grey RN RN jl7 Nettie Rebolledo RN RN ap3 Eulalia Cid RN RN em6 Poly Cueto RN RN kb3 Corrections: (The following items were deleted from the chart) 06/20 10:21 10:20 Peripheral line: by aseptic technique a peripheral line was placed in the left cp external jugular vein, cp 13:46 10:03 Abdomen Pelvis W Con+CT.RAD.BRZ ordered. EDMS EDMS
--- NOTE | 2022-06-20 15:42 | ER ---
Nurse's Notes [facility] Name: Sangita Sorenson Age: 46 yrs Sex: Female : 1975 Arrival Date: 06/20/2022 Time: 08:13 Bed 24 Private MD: Diagnosis: Cyclical vomiting, not intractable;Abdominal pain, unspecified Presentation: 06/20 09:04 Chief complaint: Patient states: N/V abd pain. Coronavirus screen: Vaccine status: jl7 Patient reports receiving the 2nd dose of the covid vaccine. At this time, the client does not indicate any symptoms associated with coronavirus-19. Ebola Screen: No symptoms or risks identified at this time. Initial Sepsis Screen: Does the patient meet any 2 criteria? No. Patient's initial sepsis screen is negative. Does the patient have a suspected source of infection? No. Patient's initial sepsis screen is negative. Risk Assessment: Do you want to hurt yourself or someone else? Patient reports no desire to harm self or others. Onset of symptoms is unknown. 09:04 Method Of Arrival: Ambulatory [facility] 09:04 Acuity: IBRAHIMA 3 jl7 Triage Assessment: 09:05 General: Appears in no apparent distress. uncomfortable, Behavior is calm, cooperative, jl7 appropriate for age. Pain: Complains of pain in abdomen Pain currently is 10 out of 10 on a pain scale. GI: Reports nausea, vomiting. 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 - Social history:: Smoking status: Patient reports the use of cigarette tobacco products, Patient uses street drugs, marijuana. Screenin:59 Abuse screen: Denies threats or abuse. Nutritional screening: No deficits noted. ap3 Tuberculosis screening: No symptoms or risk factors identified. 17:00 Fall Risk None identified. kb3 Assessment: 09:40 GI: Abdomen is flat, Pt is actively vomiting. ap3 12:00 General: Appears distressed, uncomfortable, Behavior is cooperative, anxious, restless, kb3 Received care of pt with no IV access. Per off-going RN, pt had accidentally pulled EJ IV out and she was unable to place another IV. Awaiting PA to place new IV. 12:00 GI: Abdomen is flat, Bowel sounds present X 4 quads. Abd is soft and non tender Reports kb3 lower abdominal pain, upper abdominal pain, cramping, nausea, vomiting. 13:41 General: Pt refusing CT at this time. States she gets one every time she comes to ED kb3 and it never shows anything. Kali LANGSTON notified. 16:00 General: Pt resting comfortably. . kb3 Vital Signs: 09:04 BP 97 / 84; Pulse 52; Resp 19; Temp 97.7; Pulse Ox 100% ; Weight 61.23 kg; Height 4 ft. jl7 11 in. (149.86 cm); Pain 10/10; 11:10 BP 113 / 68; Pulse 51; Resp 16; Pulse Ox 100% ; jl7 17:00 BP 111 / 65; Pulse 71; Resp 18; Pulse Ox 100% ; kb3 09:04 Body Mass Index 27.27 (61.23 kg, 149.86 cm) jl7 ED Course: 08:13 Patient arrived in ED. am2 08:57 Kali Mauro MD is Attending Physician. silas 09:00 Kali Hill [facility]. cp 09:05 Triage completed. jl7 09:05 Arm band placed on right wrist. jl7 09:31 US Abdomen Limited In Process Unspecified. EDMS 09:36 Nettie Rebolledo, RN is Primary Nurse. ap3 09:45 Patient has correct armband on for positive identification. Placed in gown. Bed in low ap3 position. Call light in reach. Side rails up X2. vehicle monitor technician on. Pulse ox on. NIBP on. 09:47 Magnesium Sent. em1 09:47 CBC with Diff Sent. em1 09:47 CMP Sent. em1 09:47 Lipase Sent. em1 10:00 COVID-19/FLU A+B Sent. em1 11:00 No provider procedures requiring assistance completed. patient removed IV, bleeding ap3 controlled. provider notified. 13:38 Inserted saline lock: 22 gauge in right forearm, using aseptic technique. kb3 Administered Medications: 09:56 Drug: morphine 2 mg Route: IVP; Infused Over: 4 mins; Site: left jugular; ap3 12:00 Follow up: Response: No adverse reaction; Pain is decreased kb3 10:01 Drug: NS 0.9% 1000 ml Route: IV; Rate: 1 bolus; Site: left jugular; ap3 16:30 Follow up: Response: No adverse reaction; IV Status: Completed infusion; IV Intake: kb3 1000ml 10:01 Drug: Pepcid (famotidine) 20 mg Route: IVP; Site: left jugular; ap3 12:00 Follow up: Response: No adverse reaction kb3 10:01 Drug: Zofran (Ondansetron) 4 mg Route: IVP; Site: left jugular; ap3 12:00 Follow up: Response: No adverse reaction kb3 10:02 Drug: Phenergan (promethazine) 25 mg Route: IM; Site: right gluteus; ap3 13:50 Drug: Ativan (LORazepam) 0.5 mg Route: IVP; Site: right forearm; kb3 14:30 Follow up: Response: No adverse reaction; Nausea is decreased kb3 16:09 Drug: Potassium Effervescent Tablet 50 mEq Route: PO; em6 17:00 Follow up: Response: No adverse reaction kb3 16:09 Drug: Magnesium 400 mg Route: PO; em6 17:00 Follow up: Response: No adverse reaction kb3 16:09 Drug: Magnesium 400 mg Route: PO; em6 17:00 Follow up: Response: No adverse reaction kb3 17:00 Drug: Phenergan (promethazine) 25 mg Route: PO; kb3 Medication: 11:01 VIS not applicable for this client. ap3 Intake: 16:30 IV: 1000ml; Total: 1000ml. kb3 Outcome: 15:41 Discharge ordered by . talha 17:29 Discharged to home ambulatory, with family. kb3 17:29 Condition: stable 17:29 Discharge instructions given to patient, Instructed on discharge instructions, follow up and referral plans. medication usage, Demonstrated understanding of instructions, follow-up care, medications, Prescriptions given X 2. 17:29 Patient left the ED. kb3 Signatures: Dispatcher [employer] EDMS Kali Mauro MD MD cha Martinez, Eric em1 Kali Hill PA PA Peg Hays RN RN jl7 Nettie Leon am2 Nettie Rebolledo RN RN ap3 Eulalia Cid RN RN em6 Poly Cueto RN RN kb3 Corrections: (The following items were deleted from the chart) 17:28 17:27 General: kb3 kb3
[2022-06-20] MEDS ORDERED: MAGNESIUM OXIDE 400 MG TAB ONE (16:03)
[2022-06-20] MEDS ORDERED: POTASSIUM 25 MEQ EFFERV TAB ONE (16:04)
[2022-06-20] MEDS ORDERED: PROMETHAZINE 25 MG TABLET ONE (16:54)
[2022-06-20 17:46] VITALS: TEMP 97.7; O2SAT 100
[2022-06-20 17:57] VITALS: BP 113/68
[2022-06-20] MEDS ORDERED: IBUPROFEN 400 MG TAB ONE (19:00)
[2022-06-20] MEDS ORDERED: HYDROCODONE/APAP 10/325 TAB ONE (19:01)
[2022-06-20] MEDS ORDERED: IBUPROFEN 200 MG TAB PO ONE (19:01)
== END 2022-06-20 17:29 | disposition home or self-care (01) ==
LOC: ER 08:12
DX: R11.15 Cyclical vomiting syndrome unrelated to migraine (principal); R10.9 Unspecified abdominal pain; Z72.0 Tobacco use; Z20.822 Contact with and (suspected) exposure to COVID-19
CPT/HCPCS: 0240U; 36415; 76705; 80053; 80307; 81003; 81015; 81025; 83690; 83735; 85025; 96372; 99284; J2270; J2405; J2550; J7030; Q0169

== ENCOUNTER 2022-06-22 13:21 | Emergency (ER) | payer SELFPAY ==
--- OUTSIDE RECORDS SUMMARY | 2022-06-22 13:25 | XMS REPORT | Continuity of Care Document ---
:[address] [facility] t Address [address] [place] [address] Care Team Providers Name Role Phone OKSANA RAMIREZ Primary Care Physician Unavailable OKSANA RAMIREZ Attending Clinician Unavailable Ashley Oksana AGUILAR Attending Clinician [phone] Doctor Unassigned, [place] Attending Clinician Unavailable Visit, [facility] Nurse Attending Clinician Unavailable GUILLERMINA DENNY Attending Clinician Unavailable Radiology Attending Clinician Unavailable RADIOLOGY Attending Clinician Unavailable ALIX FRANKLIN Attending Clinician Unavailable ANKIT HILL Attending Clinician Unavailable RICHARDSON LAO Attending Clinician Unavailable SUSANA TURPIN Attending Clinician Unavailable Payers Payer Name Policy Type Policy Number Effective Date Expiration Date S [facility] [id number] 2020 00:00:00 Problems Condition Condition Condition Status [...] genital 2-04 ity of 00:00: [place] 00 [facility] Allergies, Adverse Reactions, Alerts Allergy Allergy Status Severity Reaction(s) Onset Inactive Treating Comm ents Source Name Type Date Date Clinician NO KNOWN Drug Active Univers ALLERGIE Class ity of S [facility] Social History Social Habit Start Date Stop Date Quantity Comments Source History of tobacco Cigarette Smoker University of use [facility] Exposure to Not sure University SARS-CoV-2 (event) [facility] History SDOH [facility] Alcohol Std Drinks [facility] History SDOH [facility] Alcohol Binge Medical S[facility] History SDOH [facility] Alcohol Comment Medical C enter Cigarettes smoked 2021-09-06 2021-09-06 Univers ity of current (pack per 00:00:00 00:00:00 ) - Reported Branch Tobacco Comment 2021-09-06 2021-09-06 Smokes 5 ciggs a Uni versity of 00:00:00 00:00:00 day [facility] Alcohol intake 2019-09-17 2019-09-[address] [...] Date Source Smokes tobacco daily 2021-09-06 00:00:00 [facility] Medications Ordered Filled Start Stop Current Ordering Indication Dosage Frequency Signature Comments Components Source Medication Medication Date Date Medication? Clinician (SIG) Name Name No known No Univers medications 2-28 ity of 09:34: [address] No known No Univers medications 2-28 ity of 09:34: [address] No known No No known Unive rs medications 2- medication it y of 09:34: s [address] ondansetron 2020-0 Yes 4mg Take 1 [...] blood 2021-10-02 14:44:00 122 mm[Hg] Univer sity [facility] Diastolic blood 2021-10-02 14:44:00 75 mm[Hg] Unive rsity [facility] Heart rate 2021-10-02 14:44:00 67 /min Universi ty [facility] Body temperature 2021-10-02 14:44:00 35.83 Jeane [facility] Respiratory rate 2021-10-02 14:44:00 20 /min [facility] Body height 2021-10-02 14:44:00 149.9 cm [facility] Body weight 2021-10-02 14:44:00 63.163 kg [facility] BMI 2021-10-02 14:44:00 28.13 kg/m2 [facility] Procedures This patient has no known procedures. Plan of Care Planned Activity Planned Date Details Comments Source Future Scheduled 2022-04-[address] [facility] Test 00:00:00 (#1) [code = [facility] INFLUENZA VACCINE (#1)] Future Scheduled 2022-04-[address] [facility] Test 00:00:00 (#1) [code = [facility] INFLUENZA VACCINE (#1)] Future Scheduled 2022-04-[address] [facility] Test 00:00:00 (#1) [code = [facility] INFLUENZA VACCINE (#1)] Future Scheduled 2021-08-[address] [facility] Test 00:00:00 (12+) [code = Medical Center DEPRESSION SCREENING (12+)] Future Scheduled 2021-08-[address] [facility] Test 00:00:00 (12+) [code = Medical Center DEPRESSION SCREENING (12+)] Future Scheduled 2021-08-[address] [facility] Test 00:00:00 (12+) [code = Medical Center DEPRESSION SCREENING (12+)] Future Scheduled 2020-10-[address] [facility] 00[facility]:00 malignant neoplasm of [facility] cervix (procedure) [code = 119823809] Future Scheduled 2020-10-[address] [facility] Test 00:00:00 malignant ne[facility] cervix (procedure) [code = 064737435] Future Scheduled 2020-10-[address] [facility] Test 00:00:00 malignant neoplasm of [facility] cervix (procedure) [code = 942288864] Future Scheduled 2020-10-[address] [facility] Test 00[facility]00:00 malignant neoplasm of [facility] cervix (procedure) [code = 702042355] Future Scheduled 2020-04-[address] [...] Facility Department ID 2022-04-26 2022-04-26 Outpatient R ASHLEY [facility] [id number] Univers 13:45:00 13:45:00 OKSANA hightower [facility] 2022-04-18 2022-04-18 [facility] [id number] Univers 00:00:00 00:00:00 Oksana C BASKET FILLER [id number] ity General acute hospital [id number] Patrick as MATERNAL [phone] [facility] & [address] 2021-10-10 2021-10-10 Outpatient R AKINSIPE, [facility] [id number] Univers 00:00:00 00:00:00 OKSANA ity o f [facility] 2021-10-10 2021-10-10 Outpatient R AKINSIPE, [facility] [id number] Univers 00:00:00 00:00:00 OKSANA ity o f [facility] 2021-10-10 2021-10-10 Outpatient R AKINSIPE, [facility] [id number] Univers 00:00:00 00:00:00 OKSANA ity o [facility] 2021-10-02 2021-10-02 [facility] [id number] Univers 08:45:00 09:13:38 Visit [facility] Zheng BASKET FILLER [id number] ity General acute hospital [id number] Patrick as MATERNAL [phone] [facility] & [address] 2021-10-02 2021-10-02 Outpatient R AKINSIPE, [facility] [id number] Univers 08:45:00 09:13:38 OKSANA ity o f [facility] 2021-10-02 2021-10-02 Outpatient R AKINSIPE, [facility] [id number] Univers 08:45:00 08:45:00 OKSANA ity o f [facility] 2021-09-21 2021-09-21 Outpatient R AKINSIPE, [facility] [id number] Univers 08:30:00 08:30:00 OKSANA ity o f [facility] 2021-09-14 2021-09-14 Outpatient R AKINSIPE, [facility] [id number] Univers 12:45:00 13:45:38 OKSANA ity o f [facility] 2021-09-14 2021-09-14 Office Akinsipe, [facility] [id number] Univers 12:45:00 13:45:38 Visit Oksana Calzada BASKET FILLER [id number] [facility] [id number] Patrick as MATERNAL [phone] [facility] & CHILD [address] [place] [address] 2021-09-14 2021-09-14 Orders Doctor TINO [id number] Univers 00:00:00 00:00:00 Only Unassigned, DAINA [id number] ity of [place] [facility] 4.2.7.2.686 Patrick as [phone] [address] 2021-09-13 2021-09-13 Outpatient R AKINSIPE, [facility] [id number] Univers 10:00:00 10:00:00 OKSANA low [facility] 2021-09-06 2021-09-06 Outpatient R AKINSIPE, [facility] [id number] Univers 09:45:00 10:57:26 OKSANA low [facility] 2021-09-06 2021-09-06 Office [facility] [id number] Univers 09:45:00 10:57:26 Visit Oksana Calzada BASKET FILLER [id number] [facility] [id number] Patrick as MATERNAL [phone] [facility] & [address] 2021-09-06 2021-09-06 Orders Doctor TINO 1.2.840.114 [id number] Univers 00:00:00 00:00:00 Only Unassigned, DAINA [id number] [place] [facility] 4.2.7.2.686 Patrick as [phone] [address] 2020-12-07 2020-12-07 Outpatient R AKINSIPE, [facility] [id number] Univers 09:30:00 09:30:00 OKSANA low [facility] 2020-11-29 2020-11-29 Outpatient R AKINSIPE, [facility] [id number] Univers 09:30:00 09:30:00 OKSANA ity o f [facility] 2020-10-04 2020-10-04 [facility] [id number] 13:39:10 23:59:00 Encounter Oksana C SPECIALTY [id number] CARE 4.2.7.2.686 CENTER AT [phone] [address] 2020-10-04 2020-10-04 [facility] 1.2.840.114 [id number] Univers 13:39:10 23:59:00 Encounter Oksana C SPECIALTY [id number] ity of [place] [phone] [address] 2020-10-04 2020-10-04 [facility] 1.2.840.114 [id number] 13:37:38 13:38:00 Encounter Oksana C SPECIALTY [id number] CARE 4.2.7.2.686 CENTER AT [phone] [address] 2020-10-04 2020-10-04 [facility] 1.2.840.114 [id number] [facility] 13:37:38 13:38:00 Encounter Oksana C SPECIALTY [id number] ity [place] [phone] [address] 2020-10-04 2020-10-04 Outpatient R [facility] [id number] Univers 00:00:00 00:00:00 OKSANA ity o f [facility] 2020-09-20 2020-09-20 Outpatient R [facility] [id number] Univers 00:00:00 00:00:00 OKSANA ity o f [facility] 2020-09-01 2020-09-[address] [facility] 1.2.840.114 [id number] 00:00:00 00:00:00 Oksana C BASKET FILLER 350.1.13.10 REGIONAL 4.2.7.2.686 MATERNAL [phone] & [address] 2020-09-01 2020-09-01 [facility] 1.2.840.114 [id number] Univers 00:00:00 00:00:00 Oksana C BASKET FILLER 350.1.13.[address] [facility] 4.2.7.2.686 Patrick as MATERNAL [phone] [address] 2020-08-31 2020-08-31 Office [facility] [id number] Univers 10:11:31 11:17:14 Visit Oksana Calzada BASKET FILLER [id number] ity of REGIONAL 4.2.7.2.686 [place] as MATERNAL [phone] [address] 2020-08-31 2020-08-31 [facility] [id number] Univers 10:15:00 10:15:00 OKSANA hightower [facility] 2020-08-29 2020-08-29 Nurse Visit, [facility] Nurse [facility] 1.2 .840.114 [id number] Univers 09:44:02 10:27:17 Visit Jace Ramirezilola Zheng BASKET FILLER 350.1.13. [address] [facility] 4.2.7.2.686 Patrick as MATERNAL [phone] [address] 2020-08-29 2020-08-29 [facility] [id number] Univers 10:00:00 10:00:00 OKSANA ity o [facility] 2020-08-29 2020-08-29 [facility] [id number] Univers 09:00:00 09:00:00 OKSANA [place] o f [facility] 2020-08-29 2020-08-29 Orders Doctor JIMÉNEZ 1.2.840.114 [id number] Univers 00:00:00 00:00:00 Only Unassigned, DAINA 350.1.13.10 ity of [place] [facility] 4.2.7.2.686 Patrick as [phone] [facility] [address] 2020-07-11 2020-07-11 Outpatient R [facility] [id number] Univers 12:45:00 12:45:00 ity of [facility] 2020-07-08 2020-07-08 Office [facility] [id number] Univers 13:59:41 15:25:43 Visit Oksana Calzada BASKET FILLER 350.1.13.[address] [facility] 4.2.7.2.686 Patrick as MATERNAL [phone] Med ical & CHILD [address] [place] [address] 2020-07-08 2020-07-08 [facility] [id number] Univers 13:30:00 13:30:00 OKSANA [place] o f [facility] 2020-07-06 2020-07-06 Outpatient R EDUIN [facility] [id number] Univers 09:00:00 09:00:00 TRACENDA ity o f [facility] 2020-06-08 2020-06-08 Outpatient R [facility] [id number] Univers 09:15:00 09:15:00 ity of [facility] 2020-05-26 2020-05-26 [facility] Radiology [facility] 1.2.840.114 [id number] Univers 12:40:00 23:59:00 Encounter [place] 350.1.13.10 ity of [place] [facility] 4.2.7.2.686 [facility] [phone] [facility] [address] 2020-05-26 2020-05-26 Outpatient R RADIOLOGY [facility] [id number] Univers 00:00:00 00:00:00 ity of [facility] 2020-05-26 2020-05-26 Letter Doctor JIMÉNEZ 1.2.840.114 [id number] Univers 00:00:00 00:00:00 (Out) Unassigned, DAINA 350.1.13.[address] [place] [facility] 4.2.7.2.686 Patrick as [phone] [place] [address] Branch Results Test Description Test Time Test Comments Results Result [facility] e Comments CT, ABDOMEN 2019-09-17 Reason for FINAL REPORT PATIENT 14:16:00 exam:->NAUSEARe ID: [id number] CT ason for ABDOMEN AND PELVIS exam:->EMESISRe [...] of iterative reconstruction technique. Signed: Beatris Cohen [facility] Verified Date/Time: 09/17/2019 14:16:48 Reading Location: [facility] Radiology Reading Room SE 2019-09-17 13:00:00 Test Item Value Reference Range Interpretation Comme nts LIPASE (BEAKER) (test code = 749) 4 U/L 6-51 L Ocean Forwarder ID - [id number] FUNCTION [id number] 12:56:00 Test Item Value Reference Range Interpretation [...] Specimen slightly (test code = 347) hemolyzed Ocean Forwarder ID - [id number] DRUG SCREEN, [id number] 12:54:00 Test Item Value Reference Range Interpretation [...] situations. Chain of custody not maintained. Some zumc-gfs-roscjtx medications, as well as adulterants, may cause inaccurate results. Clinical correlation should be applied. A more comprehensive drug screen or confirmation of a detected drug may be performed upon request.Ocean Forwarder ID - [id number] ID - [id number] ID - [id number] ID - [id number] ID - [id number] ID - [id number] ID - [id number] ID - [id number] METABOLIC [id number] 12:54:00 Test Item Value Reference Range Interpretation [...] S NOT APPLICABLE FOR DIALYSIS PATIEN TS. Ocean Forwarder ID - [id number] W/ [id number] 12:47:00 Test Item Value Reference Range Interpretation [...] 1663) SOURCE(BEAKER) (test code = 2795) SCREEN, [id number] 12:40:00 Test Item Value Reference Range Interpretation Comments TEST URINE (BEAKER) (test Negative code = 583) CBC W/PLT COUNT & AUTO [id number] 12:38:00 Test Item Value Reference Range Interpretation [...] PERCENT (BEAKER) (test code = 2801) POCT-GLUCOSE [id number] 12:28:00 Test Item Value Reference Range Interpretation Comments POC-GLUCOSE METER 117 mg/dL 70-110 H : TESTED A T SLSL 1317 (BEAKER) (test code [address], = 1538) [facility] 77 478: Ocean Forwarder/Techni brayden ID = [id number] for Tolo Chisa CT, [id number] 16:50:00Reason for exam:->EMESISIs the patient ?->NoWhat is [...] A gastritis cannot be excluded. Signed: Troy Galarzaeport Verified Date/Time: 08/16/2019 16:50:10 Reading Location: [facility] C013X Ortho Consult Reading Room LIPASE 2019-08-16 14:40:00 Test Item Value Reference Range Interpretation Comments LIPASE (BEAKER) (test code = 749) 5 U/L 6-51 L Ocean Forwarder ID - KARINABASIC METABOLIC [id number] 14:38:00 Test Item Value Reference Range Interpretation [...] S NOT APPLICABLE FOR DIALYSIS PATIEN TS. Ocean Forwarder ID - KARINAHEPATIC FUNCTION [id number] 14:38:00 Test Item Value Reference Range Interpretation [...] Specimen slightly (test code = 347) hemolyzed Ocean Forwarder ID - KARINAHCG, SERUM, [id number] 14:34:00 Test Item Value Reference Range Interpretation Comments TEST SERUM (BEAKER) (test Negative code = 584) RAPID INFLUENZA A&B [id number] 14:34:00 Test Item Value Reference Range Interpretation Comments RAPID INFLUENZA A AG (BEAKER) Negative Negative, Inconclusive (test code = 1622) RAPID INFLUENZA B AG (BEAKER) Negative Negative, Inconclusive (test code = 1623) CBC W/PLT COUNT & AUTO [id number] 14:20:00 Test Item Value Reference Range Interpretation [...] (BEAKER) (test code = 2801) COMPREHENSIVE METABOLIC [id number] 12:48:00 Test Item Value Reference Range Interpretation [...] S NOT APPLICABLE FOR DIALYSIS PATIEN TS. [id number] 12:48:00 Test Item Value Reference Range Interpretation Comments LIPASE (BEAKER) (test code = 749) 9 U/L 6-51 HCG, SERUM, [id number] 12:27:00 Test Item Value Reference Range Interpretation Comments TEST SERUM (BEAKER) (test Negative code = 584) CBC W/PLT COUNT & AUTO [id number] 12:21:00 Test Item Value Reference Range Interpretation [...] L 0.00-0.20 (test code = 417) CT, [id number] 11:01:00Reason for exam:->EMESISIs the patient ?->NoWhat is [...] Aragon MDReport Verified Date/Time: 07/07/2019 11:01:48Reading Location: [facility] C013Y CT Body Reading Room COMPREHENSIVE METABOLIC [id number] 10:26:00 Test Item Value Reference Range Interpretation [...] S NOT APPLICABLE FOR DIALYSIS PATIEN TS. [id number] 10:26:00 Test Item Value Reference Range Interpretation Comments LIPASE (BEAKER) (test code = 749) 8 U/L 6-51 HCG, SERUM, [id number] 10:21:00 Test Item Value Reference Range Interpretation Comments TEST SERUM (BEAKER) (test Negative code = 584) CBC W/PLT COUNT & AUTO [id number] 10:08:00 Test Item Value Reference Range Interpretation [...]
[2022-06-22] MEDS ORDERED: NA CHLORIDE 0.9% 1,000 ML ONE (13:45)
[2022-06-22] MEDS ORDERED: ONDANSETRON 4 MG/2 ML VIAL ONE (13:45)
[2022-06-22] MEDS ORDERED: FAMOTIDINE 20 MG/2 ML VIAL IV ONE (13:45)
[2022-06-22 14:12] LABS: Absolute Lymphocytes (CBC) 1.9 K/uL (0.7-4.9); Hematocrit 40.4 % (36.0-45.0); Lymphocytes % 13.2 % (15.3-44.8); MPV 8.7 fL (7.6-11.3)
[2022-06-22 14:20] LABS: Albumin 4.4 g/dL (3.4-5.0); Bilirubin Total 0.6 mg/dL (0.2-1.0); Magnesium 2.3 mg/dL (1.8-2.4); Protein, Total 9.2 g/dL (6.4-8.2)
[2022-06-22 14:21] LABS: Potassium 2.4 mmol/L (3.5-5.1)
[2022-06-22] MEDS ORDERED: POTASSIUM 25 MEQ EFFERV TAB ONE (14:59)
[2022-06-22] MEDS ORDERED: KCL 20 MEQ/100 mL IVPB 100 ML IV ONE (15:00)
[2022-06-22] MEDS ORDERED: PROMETHAZINE INJ 25 MG/ML AMP ONE (16:28)
[2022-06-22] MEDS ORDERED: MORPHINE 2 MG/ML SYR ONE (16:29)
[2022-06-22 16:50] LABS: Urine Blood Negative (Negative); Urine Glucose Negative (Negative); Urine Protein 3+ (Negative); Urine pH 8.5 (5.0-7.0)
--- NOTE | 2022-06-22 16:54 | EDPHYS ---
Physician Documentation [facility] Name: Sangita Sorenson Age: 46 yrs Sex: Female : 1975 Arrival Date: 06/22/2022 Time: 13:21 Bed 15 Private MD: ED Physician Kali Mauro HPI: 06/22 13:54 This 46 yrs old Black Female presents to ER via EMS with complaints of vomiting x2 jl9 days. Patient seen here a few days ago and discharged but patient has not had her phenergan filled. . 13:54 Onset: The symptoms/episode began/occurred 2 day(s) ago. The patient has experienced a jl9 previous episode. Historical: - Allergies: 13:40 No Known Allergies; kr3 - PSHx: 13:40 section; Ligation of fallopian tube; kr3 - Immunization history:: Adult Immunizations not up to date. - Social history:: Smoking status: Patient reports the use of cigarette tobacco products, smokes one-half pack cigarettes per day. ROS: 13:55 Constitutional: Negative for fever, chills, and weight loss, Eyes: Negative for injury, jl9 pain, redness, and discharge, ENT: Negative for injury, pain, and discharge, Neck: Negative for injury, pain, and swelling, Cardiovascular: Negative for chest pain, palpitations, and edema, Respiratory: Negative for shortness of breath, cough, wheezing, and pleuritic chest pain. 13:55 Back: Negative for injury and pain, : Negative for injury, bleeding, discharge, and swelling, MS/Extremity: Negative for injury and deformity, Skin: Negative for injury, rash, and discoloration, Neuro: Negative for headache, weakness, numbness, tingling, and seizure, Psych: Negative for depression, anxiety, suicide ideation, homicidal ideation, and hallucinations, Allergy/Immunology: Negative for hives, rash, and allergies, Endocrine: Negative for neck swelling, polydipsia, polyuria, polyphagia, and marked weight changes, Hematologic/Lymphatic: Negative for swollen nodes, abnormal bleeding, and unusual bruising. 13:55 Abdomen/GI: Positive for nausea, vomiting. Exam: 13:55 Constitutional: This is a well developed, well nourished patient who is awake, alert, jl9 and in no acute distress. Head/Face: Normocephalic, atraumatic. Eyes: Pupils equal round and reactive to light, extra-ocular motions intact. Lids and lashes normal. Conjunctiva and sclera are non-icteric and not injected. Cornea within normal limits. Periorbital areas with no swelling, redness, or edema. ENT: Mucous membranes moist. Neck: Trachea midline, no thyromegaly or masses palpated, and no cervical lymphadenopathy. Supple, full range of motion without nuchal rigidity, or vertebral point tenderness. No Meningismus. Chest/axilla: Normal chest wall appearance and motion. Nontender with no deformity. No lesions are appreciated. Cardiovascular: Regular rate and rhythm with a normal S1 and S2. No gallops, murmurs, or rubs. Normal PMI, no JVD. No pulse deficits. Respiratory: Lungs have equal breath sounds bilaterally, clear to auscultation and percussion. No rales, rhonchi or wheezes noted. No increased work of breathing, no retractions or nasal flaring. 13:55 Back: No spinal tenderness. No costovertebral tenderness. Full range of motion. Skin: Warm, dry with normal turgor. Normal color with no rashes, no lesions, and no evidence of cellulitis. MS/ Extremity: Pulses equal, no cyanosis. Neurovascular intact. Full, normal range of motion. Neuro: Awake and alert, GCS 15, oriented to person, place, time, and situation. Cranial nerves II-XII grossly intact. Motor strength 5/5 in all extremities. Sensory grossly intact. Cerebellar exam normal. Normal gait. Psych: Awake, alert, with orientation to person, place and time. Behavior, mood, and affect are within normal limits. 13:55 Abdomen/GI: Inspection: abdomen appears normal, Bowel sounds: normal, Palpation: mild abdominal tenderness. Vital Signs: 13:35 BP 136 / 94; Pulse 51; Resp 16; Temp 98.1; Pulse Ox 96% on R/A; Weight 61.23 kg; Height kr3 4 ft. 11 in. (149.86 cm); 13:35 Body Mass Index 27.27 (61.23 kg, 149.86 cm) kr3 MDM: 13:22 Patient medically screened. jl9 13:56 Data reviewed: vital signs, nurses notes. 9 16:39 Differential Diagnosis. Counseling: I had a detailed discussion with the patient and/or jl9 guardian regarding: the historical points, exam findings, and any diagnostic results supporting the discharge/admit diagnosis, lab results, the need for outpatient follow up, to return to the emergency department if symptoms worsen or persist or if there are any questions or concerns that arise at home. Response to treatment: the patient's symptoms have markedly improved after treatment. 16:52 ED course: Patient declines imaging or further workup. States she feels better and jl9 states that she will get her Phenergan filled. . 06/22 13:27 Order name: CBC with Diff; Complete Time: 14:22 9 06/22 13:27 Order name: CMP; Complete Time: 14:22 [facility] 06/22 13:27 Order name: Lipase; Complete Time: 14:22 [facility] 06/22 13:28 Order name: Magnesium; Complete Time: 14:22 [facility] 06/22 16:50 Order name: Urine Dipstick-Ancillary; Complete Time: 16:51 EDMS 06/22 13:27 Order name: IV Saline Lock; Complete Time: 13:45 [facility] 06/22 13:27 Order name: Labs collected and sent; Complete Time: 13:45 [facility] Administered Medications: 14:26 Drug: NS 0.9% 1000 ml Route: IV; Rate: 1 bolus; Site: right antecubital; kr3 14:26 Drug: Pepcid (famotidine) 20 mg Route: IVP; Site: right antecubital; kr3 14:26 Drug: Zofran (Ondansetron) 4 mg Route: IVP; Site: right antecubital; kr3 15:21 Drug: Potassium Effervescent Tablet 50 mEq Route: PO; kr3 15:21 Drug: Potassium Chloride 20 mEq Route: IV; Rate: calculated rate; Site: right kr3 antecubital; 16:35 Drug: Phenergan (promethazine) 12.5 mg Route: IVP; Site: right antecubital; kr3 16:40 Drug: morphine 2 mg Route: IVP; Infused Over: 4 mins; Site: right antecubital; kr3 16:51 Drug: NS 0.9% 1000 ml Route: IV; Rate: 125 ml/hr; Site: right antecubital; kr3 Disposition Summary: 06/22/22 16:53 Discharge Ordered Location: Home jl9 Condition: Stable jl9 Diagnosis - Vomiting jl9 Followup: jl9 - With: Private Physician - When: 1 - 2 days - Reason: Recheck today's complaints, Continuance of care, Re-evaluation by your physician Forms: - Medication Reconciliation Form jl9 - Thank You Letter jl9 - Antibiotic Education jl9 - Prescription Opioid Use jl9 Addendum: 06/24/2022 13:37 Co-signature as Attending Physician, Kali Mauro MD I agree with the assessment and c nowak plan of care. Signatures: Dispatcher [employer] Kali Boone MD MD cha Linares, John jl9 Ana Moore RN RN kr3 Corrections: (The following items were deleted from the chart) 06/22 15:31 13:28 Abdomen Pelvis W Con+CT.RAD.BRZ ordered. [facility]
--- NOTE | 2022-06-22 16:54 | ER ---
Nurse's Notes [facility] Name: Sangita Sorenson Age: 46 yrs Sex: Female : 1975 Arrival Date: 06/22/2022 Time: 13:21 Bed 15 Private MD: Diagnosis: Vomiting Presentation: 06/22 13:35 Chief complaint: EMS states: vomiting and not able to keep anything down. Patient was kr3 here on the 16 for the same thing. Patient has not been able to get her prescriptions filled from previous visit. Had 4 mg zofran in route. Coronavirus screen: Vaccine status: Patient reports being unvaccinated. Client denies travel out of the [place] in the last 14 days. Ebola Screen: Patient denies travel to an Ebola-affected area in the 21 days before illness onset. Initial Sepsis Screen: Does the patient meet any 2 criteria? No. Patient's initial sepsis screen is negative. Does the patient have a suspected source of infection? No. Patient's initial sepsis screen is negative. Risk Assessment: Do you want to hurt yourself or someone else? Patient reports no desire to harm self or others. Onset of symptoms is unknown. 13:35 Method Of Arrival: EMS kr3 13:35 Acuity: IBRAHIMA 3 kr3 Triage Assessment: 13:40 General: Appears in no apparent distress. uncomfortable, Behavior is calm, cooperative, kr3 appropriate for age. Pain: Complains of pain in abdomen. Historical: - Allergies: 13:40 No Known Allergies; kr3 - PSHx: 13:40 section; Ligation of fallopian tube; kr3 - Immunization history:: Adult Immunizations not up to date. - Social history:: Smoking status: Patient reports the use of cigarette tobacco products, smokes one-half pack cigarettes per day. Vital Signs: 13:35 BP 136 / 94; Pulse 51; Resp 16; Temp 98.1; Pulse Ox 96% on R/A; Weight 61.23 kg; Height kr3 4 ft. 11 in. (149.86 cm); 13:35 Body Mass Index 27.27 (61.23 kg, 149.86 cm) kr3 ED Course: 13:21 Patient arrived in ED. niki 13:22 Elijah Kyle is [facility]. jl9 13:22 Kali Mauro MD is Attending Physician. jl9 13:34 Ana Moore, RN is Primary Nurse. kr3 13:40 Triage completed. kr3 13:40 Arm band placed on right wrist. Patient placed in an exam room, on a stretcher. kr3 13:44 Initial lab(s) drawn, by me, sent to lab. jw7 15:22 Radiology exam delayed due to pt is refusing cat scan, provider notified. sj Administered Medications: 14:26 Drug: NS 0.9% 1000 ml Route: IV; Rate: 1 bolus; Site: right antecubital; kr3 14:26 Drug: Pepcid (famotidine) 20 mg Route: IVP; Site: right antecubital; kr3 14:26 Drug: Zofran (Ondansetron) 4 mg Route: IVP; Site: right antecubital; kr3 15:21 Drug: Potassium Effervescent Tablet 50 mEq Route: PO; kr3 15:21 Drug: Potassium Chloride 20 mEq Route: IV; Rate: calculated rate; Site: right kr3 antecubital; 16:35 Drug: Phenergan (promethazine) 12.5 mg Route: IVP; Site: right antecubital; kr3 16:40 Drug: morphine 2 mg Route: IVP; Infused Over: 4 mins; Site: right antecubital; kr3 16:51 Drug: NS 0.9% 1000 ml Route: IV; Rate: 125 ml/hr; Site: right antecubital; kr3 Outcome: 16:53 Discharge ordered by . jl9 18:12 Patient left the ED. kr3 Signatures: Cammie Wilson Elizabeth eb Waits, Jodi jw7 Linares, John Ana Butts, RN RN kr3
[2022-06-22 18:19] VITALS: BP 136/94; TEMP 98.1; O2SAT 96
== END 2022-06-22 18:12 | disposition home or self-care (01) ==
LOC: ER 13:21
DX: R11.10 Vomiting, unspecified (principal); F17.210 Nicotine dependence, cigarettes, uncomplicated
CPT/HCPCS: 36415; 80053; 81003; 83690; 83735; 85025; 96374; 96375; 99283; J2270; J2405; J2550; J3480; J7030

== ENCOUNTER 2023-01-16 16:37 | Emergency (ER) | payer SELFPAY ==
--- OUTSIDE RECORDS SUMMARY | 2023-01-16 16:40 | XMS REPORT | Continuity of Care Document ---
:1975 Author Organization [facility] t Address [address] [place] [address] Care Team Providers Name Role Phone OKSANA RAMIREZ Primary Care Physician Unavailable OKSANA RAMIREZ Attending Clinician Unavailable Ashley Oksana AGUILAR Attending Clinician [phone] Doctor Unassigned, Ensign Attending Clinician Unavailable Visit, [facility] Nurse Attending Clinician Unavailable GUILLERMINA DENNY Attending Clinician Unavailable Radiology Attending Clinician Unavailable RADIOLOGY Attending Clinician Unavailable ALIX FRANKLIN Attending Clinician Unavailable ANKIT HILL Attending Clinician Unavailable RICHARDSON LAO Attending Clinician Unavailable SUSANA TURPIN Attending Clinician Unavailable Payers Payer Name Policy Type Policy Number Effective Date Expiration Date S tania [facility] [id number] 2020 00:00:00 Problems Condition Condition Condition Status [...] [place] advice and advice 00 Or dical for for Branch contracept contracept lenny [...] genital 2-04 ity of 00:00: [place] 00 [facility] Allergies, Adverse Reactions, Alerts Allergy Allergy Status Severity Reaction(s) Onset Inactive Treating Comm ents Source Name Type Date Date Clinician NO KNOWN Drug Active Univers ALLERGIE Class ity of S [facility] Social History Social Habit Start Date Stop Date Quantity Comments Source History of tobacco Cigarette Smoker University of use [facility] Exposure to Not sure [facility] SARS-CoV-2 (event) [facility] History SDOH [facility] Alcohol Std Drinks [facility] History SDOH [facility] Alcohol Binge [facility] Cigarettes smoked 2021-09-06 2021-09-06 Univers ity of current (pack per 00:00:00 00:00:00 ) - Reported Branch Tobacco Comment 2021-09-06 2021-09-06 Smokes 5 ciggs a Uni versity of 00:00:00 00:00:00 day [facility] Tobacco use and 2021-09-06 2021-09-06 Smokeless Universit y of exposure 00:00:00 00:00:00 tobacco non-user [facility] dical Branch Alcohol Comment 2020-07-08 2020-07-08 special Universit y of 00:00:00 00:00:00 occasions [facility] Alcohol intake 2019-09-17 2019-09-[address] [facility] 00:00:00 00:00:00 non-drinker of Medical Ce nter alcohol (finding) History SDOH 2019-06-27 2019-06-27 1 RACHEL Velez Alcohol Frequency 00:00:00 00:00:00 [facility] Center Sex Assigned At [birth year] RACHEL Gilberts 00:00:00 00:00:00 [facility] Center Smoking Status Start Date Stop Date Source Smokes tobacco daily 2021-09-06 00:00:00 Univers ity of [facility] Never smoked tobacco [facility] Medications Ordered Filled Start Stop Current Ordering Indication Dosage Frequency Signature Comments Components Source Medication Medication Date Date Medication? Clinician (SIG) Name Name No known No Univers medications 2-28 ity of 09:34: [address] No known No Univers medications 2-28 ity of 09:34: [address] No known No No known Unive rs medications 2-28 medication it y of 09:34: s [address] ondansetron 2020-0 Yes 4mg Take 1 [...] every 8 (eight) hours as needed. ondansetron 2019-0 Yes 4mg Take [address] (ZOFRAN-ODT 2-13 tablet (4 Eriberto es ) 4 MG 00:00: mg total) Medica l disintegrat 00 by mouth Cent er ing tablet every 8 (eight) hours as needed. Vital Signs Vital Name Observation Time Observation Value Comments Source Systolic blood 2021-10-02 14:44:00 122 mm[Hg] Univer sity [facility] Diastolic blood 2021-10-02 14:44:00 75 mm[facility]Hg[facility] 2021-10-02 14:44:00 67 /min [facility] Body temperature 2021-10-02 14:44:00 35.83 Jeane [facility] Respiratory rate 2021-10-02 14:44:00 20 /min [facility] Body height 2021-10-02 14:44:00 149.9 cm [facility] Body weight 2021-10-02 14:44:00 63.163 kg [facility] BMI 2021-10-02 14:44:00 28.13 kg/m2 [facility] Procedures This patient has no known procedures. Plan of Care Planned Activity Planned Date Details Comments Source Future Scheduled 2022-04-[address] [facility] Test 00:00:00 (#1) [code = [facility] INFLUENZA VACCINE (#1)] Future Scheduled 2022-04-[address] [facility] Test 00:00:00 (#1) [code = [facility] INFLUENZA VACCINE (#1)] Future Scheduled 2022-04-[address] [facility] Test 00:00:00 (#1) [code = [facility] INFLUENZA VACCINE (#1)] Future Scheduled 2021-08-[address] [facility] Test 00:00:00 (12+) [code = Medical Center DEPRESSION SCREENING (12+)] Future Scheduled 2021-08-[address] [facility] Test 00:00:00 (12+) [code = [facility] Center DEPRESSION SCREENING (12+)] Future Scheduled 2021-08-[address] [facility] Test 00:00:00 (12+) [code = [facility] Center DEPRESSION SCREENING (12+)] Future Scheduled 2020-10-[address] [facility] Test 00:00:[address] [facility] cervix (procedure) [code = 325285245] Future Scheduled 2020-10-[address] [facility] Test 00:00:[address] [facility] cervix (procedure) [code = 995008987] Future Scheduled 2020-10-[address] [facility] [facility] Test 00:00:[address] [facility] cervix (procedure) [code = 011460891] Future Scheduled 2020-10-[address] [facility] Test 00:00:[address] [facility] cervix (procedure) [code = 035820579] Future Scheduled 2020-04-[address] [...] Facility Department ID 2022-04-26 2022-04-26 Outpatient R AKINSIPE, [facility] [id number] Univers 13:45:00 13:45:00 OKSANA ity o f [facility] 2022-04-18 2022-04-18 [facility] [id number] Univers 00:00:00 00:00:00 Oksana Calzada WAFER MACHINE OPERATOR [id number] ity of REGIONAL [id number] Patrick as MATERNAL [phone] [facility] & CHILD [address] [place] [address] 2021-10-10 2021-10-10 Outpatient R AKINSIPE, [facility] [id number] Univers 00:00:00 00:00:00 OKSANA ity o f [facility] 2021-10-10 2021-10-10 Outpatient R AKINSIPE, [facility] [id number] Univers 00:00:00 00:00:00 OKSANA ity o f [facility] 2021-10-10 2021-10-10 Outpatient R AKINSIPE, [facility] [id number] Univers 00:00:00 00:00:00 OKSANA ity o f [facility] 2021-10-02 2021-10-02 Office Akinpe, [facility] [id number] Univers 08:45:00 09:13:38 Visit Oksana Calzada WAFER MACHINE OPERATOR [id number] ity of [facility] [id number] Patrick as MATERNAL [phone] [facility] & CHILD [address] [place] [address] 2021-10-02 2021-10-02 Outpatient R AKINSIPE, [facility] [id number] Univers 08:45:00 09:13:38 OKSANA ity o campbell [facility] 2021-10-02 2021-10-02 Outpatient R AKINSIPE, [facility] [id number] Univers 08:45:00 08:45:00 OKSANA ity o f [facility] 2021-09-21 2021-09-21 Outpatient R AKINSIPE, [facility] [id number] Univers 08:30:00 08:30:00 OKSANA ity o [facility] 2021-09-14 2021-09-14 Outpatient R AKINSIPE, [facility] [id number] Univers 12:45:00 13:45:38 OKSANA ity o [facility] 2021-09-14 2021-09-14 [facility] [id number] Univers 12:45:00 13:45:38 Visit Oksana Zheng WAFER MACHINE OPERATOR [id number] ity [facility] [id number] Aptrick as MATERNAL [phone] [facility] & CHILD [address] [place] [address] 2021-09-14 2021-09-14 Orders Doctor TINO [id number] Univers 00:00:00 00:00:00 Only Unassigned, DAINA [id number] [facility] 4.2.7.2.686 Patrick as [phone] [address] 2021-09-13 2021-09-13 Outpatient R AKINSIPE, [facility] [id number] Univers 10:00:00 10:00:00 OKSANA ity o [facility] 2021-09-06 2021-09-06 Outpatient R AKINSIPE, [facility] [id number] Univers 09:45:00 10:57:26 OKSANA ity o [facility] 2021-09-06 2021-09-06 Office [facility] [id number] Univers 09:45:00 10:57:26 Visit Oksana Zheng WAFER MACHINE OPERATOR [id number] ity [facility] [id number] Patrick as MATERNAL [phone] [facility] & CHILD [address] [place] [address] 2021-09-06 2021-09-06 Orders Doctor TINO [id number] [id number] Univers 00:00:00 00:00:00 Only Unassigned, DAINA [id number] ity of [place] [facility] 4.2.7.2.686 Patrick as [phone] [address] 2020-12-07 2020-12-07 Outpatient R [facility] [id number] Univers 09:30:00 09:30:00 OKSANA ity o f [facility] 2020-11-29 2020-11-29 Outpatient R [facility] [id number] Univers 09:30:00 09:30:00 OKSANA ity o f [facility] 2020-10-04 2020-10-04 [facility] 1.2.840.114 [id number] 13:39:10 23:59:00 Encounter Oksana C SPECIALTY [id number] CARE 4.2.7.2.686 CENTER AT [phone] [address] 2020-10-04 2020-10-04 [facility] 1.2.840.114 [id number] Univers 13:39:10 23:59:00 Encounter Oksana C SPECIALTY [id number] ity of [place] C[place] AT [phone] Or keith[address] 2020-10-04 2020-10-04 [facility] 1.2.840.114 [id number] Univers 13:37:38 13:38:00 Encounter Oksana C SPECIALTY [id number] ity of [place]2.[place] C[place] AT [phone] Or keith[address] 2020-10-04 2020-10-04 [facility] 1.2.840.114 [id number] 13:37:38 13:38:00 Encounter Oksana C SPECIALTY [id number] CARE 4.2.7.2.686 CENTER AT [phone] LARRY ESCALANTE 2020-10-04 2020-10-04 Outpatient R ASHLEY, [facility] [id number] Univers 00:00:00 00:00:00 OKSANA alcantary o campbell [facility] 2020-09-20 2020-09-20 Outpatient R FERMÍNSIPE, [facility] [id number] Univers 00:00:00 00:00:00 OKSANA alcantary o campbell [facility] 2020-09-01 2020-09-01 Telephone Ashley [facility] 1.2.840.114 [id number] Univers 00:00:00 00:00:00 Oksana C WAFER MACHINE OPERATOR [id number] ity of REGIONAL 4.2.7.2.686 Patrick as MATERNAL [phone] [facility] & CHILD [address] [place] [address] 2020-09-01 2020-09-01 Telephone Ashley [facility] 1.2.840.114 [id number] 00:00:00 00:00:00 Oksana C WAFER MACHINE OPERATOR [id number] REGIONAL 4.2.7.2.686 MATERNAL [phone] & CHILD [address] [place] [address] 2020-08-31 2020-08-31 Office Ashley [facility] [id number] Univers 10:11:31 11:17:14 Visit Oksana C WAFER MACHINE OPERATOR [id number] ity of REGIONAL 4.2.7.2.686 Patrick as MATERNAL [phone] [facility] & CHILD [address] [place] [address] 2020-08-31 2020-08-31 Outpatient R ASHLEY, [facility] [id number] Univers 10:15:00 10:15:00 OKSANA alcantary o campbell [facility] 2020-08-29 2020-08-29 Nurse Visit, NicoleRmchp Nurse [facility] 1.2 .840.114 [id number] Univers 09:44:02 10:27:17 Visit Oksana Ramirez C WAFER MACHINE OPERATOR 350.1.13. 10 ity of REGIONAL 4.2.7.2.686 Patrick as MATERNAL [phone] Med ical & CHILD [address] [place] [address] 2020-08-29 2020-08-29 Outpatient R EDPE, [facility] [id number] Univers 10:00:00 10:00:00 OKSANA alcantary o f [facility] 2020-08-29 2020-08-29 Outpatient R ASHLEY, [facility] [id number] Univers 09:00:00 09:00:00 OKSANA alcantary o f [facility] 2020-08-29 2020-08-29 Orders Doctor TINO 1.2.840.114 [id number] Univers 00:00:00 00:00:00 Only Unassigned, DAINA 350.1.13.[address] [facility] 4.2.7.2.686 Patrick as [phone] [address] 2020-07-11 2020-07-11 Outpatient R [facility] [id number] Univers 12:45:00 12:45:00 ity of [facility] 2020-07-08 2020-07-08 Office Ashley, [facility] [id number] Univers 13:59:41 15:25:43 Visit Oksana Calzada WAFER MACHINE OPERATOR 350.1.13.10 ity [facility] 4.2.7.2.686 Patrick as MATERNAL [phone] [facility] ical & CHILD [address] [place] [address] 2020-07-08 2020-07-08 Outpatient R ASHLEY, [facility] [id number] Univers 13:30:00 13:30:00 OKSANA alcantary o f [facility] 2020-07-06 2020-07-06 Outpatient R DENNY, [facility] [id number] Univers 09:00:00 09:00:00 ROSHUNDA ity o f [facility] 2020-06-08 2020-06-08 Outpatient R [facility] [id number] Univers 09:15:00 09:15:00 ity of [facility] 2020-05-26 2020-05-26 Hospital Radiology [facility] 1.2.840.114 [id number] Univers 12:40:00 23:59:00 Encounter [place] 350.1.13.10 ity of [place].7.2.[place] [id number] [facility] [address] 2020-05-26 2020-05-26 Outpatient R RADIOLOGY [facility] [id number] Univers 00:00:00 00:00:00 ity of [facility] 2020-05-26 2020-05-26 Letter Doctor JIMÉNEZ 1.2.840.114 [id number] Univers 00:00:00 00:00:00 (Out) Unassigned, DAINA 350.1.13.10 ity of [place] [facility] 4.2.7.2.686 [facility] [id number] [facility] [address] Results Test Description Test Time Test Comments Results Result Sour e Comments CT, ABDOMEN 2019-09-17 Reason for FINAL REPORT PATIENT 14:16:00 exam:->NAUSEARe ID: [id number] CT ason for ABDOMEN AND PELVIS exam:->EMESISRe [...] MDReport Verified Date/Time: 09/17/2019 14:16:48 Reading Location: [facility] Radiology Reading Room SE 2019-09-17 13:00:00 Test Item Value Reference Range Interpretation Comme nts LIPASE (BEAKER) (test code = 749) 4 U/L 6-51 L Project Management Director ID - [id number] FUNCTION [id number] 12:56:00 Test Item Value Reference Range Interpretation [...] Specimen slightly (test code = 347) hemolyzed Project Management Director ID - [id number] DRUG SCREEN, [id number] 12:54:00 Test Item Value Reference Range Interpretation [...] situations. Chain of custody not maintained. Some ytgk-tsn-xyjjmvz medications, as well as adulterants, may cause inaccurate results. Clinical correlation should be applied. A more comprehensive drug screen or confirmation of a detected drug may be performed upon request.Project Management Director ID - [id number] ID - [id number] ID - [id number] ID - [id number] ID - [id number] ID - [id number] ID - [id number] ID - [id number] METABOLIC [id number] 12:54:00 Test Item Value Reference Range Interpretation [...] S NOT APPLICABLE FOR DIALYSIS PATIEN TS. Project Management Director ID - [id number] W/ [id number] 12:47:00 Test Item Value Reference Range Interpretation [...] 1663) SOURCE(BEAKER) (test code = 2795) SCREEN, [id number] 12:40:00 Test Item Value Reference Range Interpretation Comments TEST URINE (BEAKER) (test Negative code = 583) CBC W/PLT COUNT & AUTO [id number] 12:38:00 Test Item Value Reference Range Interpretation [...] PERCENT (BEAKER) (test code = 2801) POCT-GLUCOSE [id number] 12:28:00 Test Item Value Reference Range Interpretation Comments POC-GLUCOSE METER 117 mg/dL 70-110 H : TESTED A T SLSL 1317 (BEAKER) (test code [address], = 1538) [facility] 77 478: Project Management Director/Techni brayden ID = [id number] for Tolo , Chisa CT, [id number] 16:50:00Reason for exam:->EMESISIs the patient ?->NoWhat is [...] MDReport Verified Date/Time: 08/16/2019 16:50:10 Reading Location: [address] Consult Reading Room LIPASE 2019-08-16 14:40:00 Test Item Value Reference Range Interpretation Comments LIPASE (BEAKER) (test code = 749) 5 U/L 6-51 L Project Management Director ID - KARINAHEPATIC FUNCTION [id number] 14:38:00 Test Item Value Reference Range Interpretation [...] Specimen slightly (test code = 347) hemolyzed Project Management Director ID - KARINABASIC METABOLIC [id number] 14:38:00 Test Item Value Reference Range Interpretation [...] S NOT APPLICABLE FOR DIALYSIS PATIEN TS. Project Management Director ID - KARINAHCG, SERUM, [id number] 14:34:00 Test Item Value Reference Range Interpretation Comments TEST SERUM (BEAKER) (test Negative code = 584) RAPID INFLUENZA A&B [id number] 14:34:00 Test Item Value Reference Range Interpretation Comments RAPID INFLUENZA A AG (BEAKER) Negative Negative, Inconclusive (test code = 1622) RAPID INFLUENZA B AG (BEAKER) Negative Negative, Inconclusive (test code = 1623) CBC W/PLT COUNT & AUTO [id number] 14:20:00 Test Item Value Reference Range Interpretation [...] (BEAKER) (test code = 2801) COMPREHENSIVE METABOLIC [id number] 12:48:00 Test Item Value Reference Range Interpretation [...] S NOT APPLICABLE FOR DIALYSIS PATIEN TS. [id number] 12:48:00 Test Item Value Reference Range Interpretation Comments LIPASE (BEAKER) (test code = 749) 9 U/L 6-51 HCG, SERUM, [id number] 12:27:00 Test Item Value Reference Range Interpretation Comments TEST SERUM (BEAKER) (test Negative code = 584) CBC W/PLT COUNT & AUTO [id number] 12:21:00 Test Item Value Reference Range Interpretation [...] L 0.00-0.20 (test code = 417) CT, [id number] 11:01:00Reason for exam:->EMESISIs the patient ?->NoWhat is [...] Aragon MDReport Verified Date/Time: 07/07/2019 11:01:48Reading Location: [facility] B1 C013Y CT Body Reading Room COMPREHENSIVE METABOLIC [id number] 10:26:00 Test Item Value Reference Range Interpretation [...] S NOT APPLICABLE FOR DIALYSIS PATIEN TS. [id number] 10:26:00 Test Item Value Reference Range Interpretation Comments LIPASE (BEAKER) (test code = 749) 8 U/L 6-51 HCG, SERUM, [id number] 10:21:00 Test Item Value Reference Range Interpretation Comments TEST SERUM (BEAKER) (test Negative code = 584) CBC W/PLT COUNT & AUTO [id number] 10:08:00 Test Item Value Reference Range Interpretation [...] % 0-0 PERCENT (BEAKER) (test code = 6121)
[2023-01-16] MEDS ORDERED: FAMOTIDINE 20 MG/2 ML VIAL IV ONE (17:00)
[2023-01-16] MEDS ORDERED: HALOPERIDOL LACT 5 MG/ML INJ ONE (17:00)
[2023-01-16] MEDS ORDERED: NA CHLORIDE 0.9% 1,000 ML ONE (17:00)
[2023-01-16] MEDS ORDERED: KETOROLAC 30 MG/ML INJ ONE (17:00)
[2023-01-16 17:17] LABS: Absolute Lymphocytes (CBC) 1.3 K/uL (0.7-4.9); Hematocrit 33.1 % (36.0-45.0); Lymphocytes % 9.7 % (15.3-44.8); MCV 84.9 fL (80-100); MPV 8.9 fL (7.6-11.3)
[2023-01-16 17:34] LABS: Albumin 4.3 g/dL (3.4-5.0); Bilirubin Total 0.5 mg/dL (0.2-1.0); Ferritin 6.9 ng/mL (8-388); Phosphorus 2.1 mg/dL (2.5-4.9); Potassium 3.4 mEq/L (3.5-5.1); Protein, Total 8.8 g/dL (6.4-8.2)
--- NOTE | 2023-01-16 17:50 | EDPHYS ---
Physician Documentation [facility] Name: Sangita Sorenson Age: 47 yrs Sex: Female : 1975 Arrival Date: 01/16/2023 Time: 16:37 Bed 6 Private MD: ED Physician Traci Lake HPI: 01/16 16:48 This 47 yrs old Black Female presents to ER via Wheelchair with complaints of snw n/v/abdominal pain. 16:48 The patient presents with abdominal pain that is diffuse. Onset: The symptoms/episode snw began/occurred acutely. The symptoms do not radiate. Associated signs and symptoms: Pertinent positives: nausea and vomiting. The symptoms are described as crampy. Severity of pain: At its worst the pain was moderate. The patient has experienced similar episodes in the past. It is unknown whether or not the patient has recently seen a physician. Historical: - Allergies: 16:46 No Known Allergies; mb9 - Home Meds: 16:46 None [Active]; mb9 - PMHx: 16:46 None; mb9 - PSHx: 16:46 section; Ligation of fallopian tube; mb9 - Immunization history:: Adult Immunizations up to date. - Social history:: Smoking status: Patient reports the use of cigarette tobacco products, denies chronic smoking, but will smoke occasionally, Patient uses marijuana . ROS: 16:47 Eyes: Negative for injury, pain, redness, and discharge, ENT: Negative for injury, snw pain, and discharge, Neck: Negative for injury, pain, and swelling, Cardiovascular: Negative for chest pain, palpitations, and edema, Respiratory: Negative for shortness of breath, cough, wheezing, and pleuritic chest pain. 16:47 Back: Negative for injury and pain, : Negative for injury, bleeding, discharge, and swelling, MS/Extremity: Negative for injury and deformity, Skin: Negative for injury, rash, and discoloration, Neuro: Negative for headache, weakness, numbness, tingling, and seizure, Psych: Negative for depression, anxiety, suicide ideation, homicidal ideation, and hallucinations. 16:47 Constitutional: Positive for body aches, malaise, poor PO intake. 16:47 Abdomen/GI: Positive for abdominal pain, nausea and vomiting. Exam: 16:47 Constitutional: This is a well developed, well nourished patient who is awake, alert, snw and in no acute distress. Head/Face: Normocephalic, atraumatic. Eyes: Pupils equal round and reactive to light, extra-ocular motions intact. Lids and lashes normal. Conjunctiva and sclera are pale, non-icteric, and not injected. Cornea within normal limits. Periorbital areas with no swelling, redness, or edema. ENT: Nares patent. No nasal discharge, no septal abnormalities noted. Tympanic membranes are normal and external auditory canals are clear. Oropharynx with no redness, swelling, or masses, exudates, or evidence of obstruction, uvula midline. Mucous membranes moist. Neck: Trachea midline, no thyromegaly or masses palpated, and no cervical lymphadenopathy. Supple, full range of motion without nuchal rigidity, or vertebral point tenderness. No Meningismus. Chest/axilla: Normal chest wall appearance and motion. Nontender with no deformity. No lesions are appreciated. Cardiovascular: Regular rate and rhythm with a normal S1 and S2. No gallops, murmurs, or rubs. Normal PMI, no JVD. No pulse deficits. Respiratory: Lungs have equal breath sounds bilaterally, clear to auscultation and percussion. No rales, rhonchi or wheezes noted. No increased work of breathing, no retractions or nasal flaring. Abdomen/GI: Soft, non-tender, with normal bowel sounds. No distension or tympany. No guarding or rebound. No evidence of tenderness throughout. Back: No spinal tenderness. No costovertebral tenderness. Full range of motion. Skin: Warm, dry with normal turgor. Normal color with no rashes, no lesions, and no evidence of cellulitis. MS/ Extremity: Pulses equal, no cyanosis. Neurovascular intact. Full, normal range of motion. Neuro: Awake and alert, GCS 15, oriented to person, place, time, and situation. Cranial nerves II-XII grossly intact. Motor strength 5/5 in all extremities. Sensory grossly intact. Cerebellar exam normal. Normal gait. Psych: Awake, alert, with orientation to person, place and time. Behavior, mood, and affect are within normal limits. Vital Signs: 16:43 BP 150 / 85; Pulse 84; Resp 16; Temp 97.9(O); Pulse Ox 100% ; Weight 61.23 kg; Height 4 mb9 ft. 11 in. ; Pain 10/10; 17:00 BP 152 / 83; Pulse 54; Resp 18 S; Pulse Ox 100% on R/A; aa5 18:00 BP 139 / 74; Pulse 57; Resp 15 S; Pulse Ox 98% on R/A; aa5 19:30 BP 144 / 84; Pulse 57; Resp 17 S; Pulse Ox 98% on R/A; aa9 21:00 BP 138 / 77; Pulse 56; Resp 23; Pulse Ox 97% ; vc1 22:14 BP 140 / 72; Pulse 57; Resp 16; Temp 98.5; Pulse Ox 99% on R/A; Pain 0/10; aa9 16:43 Body Mass Index 27.27 (61.23 kg, 149.86 cm) mb9 16:43 Pain Scale: Adult mb9 22:14 Pain Scale: Adult aa9 MDM: 16:48 Patient medically screened. snw 17:41 Differential diagnosis: gastritis, gastroesophageal reflux disease, Irritable bowel snw syndrome, pancreatitis. Data reviewed: vital signs, nurses notes. Counseling: I had a detailed discussion with the patient and/or guardian regarding: the historical points, exam findings, and any diagnostic results supporting the discharge/admit diagnosis, the presence of at least one elevated blood pressure reading (>120/80) during this emergency department visit, lab results, the need for outpatient follow up, for definitive care, to return to the emergency department if symptoms worsen or persist or if there are any questions or concerns that arise at home. Special discussion: Based on the patient's Hx, exam, and Dx evaluation, there is no indication for emergent surgery or inpatient Tx. It is understood by the patient/guardian that if the Sx's persist or worsen they need to return immediately for re-evaluation. I have referred the patient to see his PCP for further evaluation of high blood pressure. Based on the history and exam findings, there is no indication for further emergent testing or inpatient evaluation. I discussed with the patient/guardian the need to see the press clippings cutter and paster for further evaluation of the symptoms. I discussed with the patient/guardian the need to see the primary care provider for further evaluation of the symptoms. 01/16 16:46 Order name: CBC with Diff; Complete Time: 17:31 snw 01/16 16:46 Order name: CMP; Complete Time: 17:38 snw 01/16 16:46 Order name: Lipase; Complete Time: 17:38 snw 01/16 16:46 Order name: Phosphorus; Complete Time: 17:38 snw 01/16 16:47 Order name: Ferritin; Complete Time: 17:38 snw 01/16 16:47 Order name: TS; Complete Time: 11:32 snw 01/16 16:46 Order name: IV Saline Lock; Complete Time: 16:50 snw 01/16 16:46 Order name: Labs collected and sent; Complete Time: 16:50 snw Administered Medications: 17:00 Drug: Haloperidol IVP 2.5 mg/50 mL 2.5 mg Route: IVP; Site: right antecubital; aa5 17:15 Follow up: Response: No adverse reaction; Marked relief of symptoms; Nausea is decreasedaa5 17:00 Drug: NS 0.9% IV 1000 ml Route: IV; Rate: 1 bolus; Site: right antecubital; aa5 18:06 Follow up: IV Status: Completed infusion; IV Intake: 1000ml aa5 17:00 Drug: Famotidine IVP 20 mg Route: IVP; Site: right antecubital; aa5 17:15 Follow up: Response: No adverse reaction aa5 17:00 Drug: TORadol - Ketorolac IVP 15 mg Route: IVP; Site: right antecubital; aa5 17:17 Follow up: Response: No adverse reaction aa5 18:06 Drug: Potassium Phosphate IV 15 mmol Route: IV; Rate: calculated rate; Site: right aa5 antecubital; 22:13 Follow up: Response: No adverse reaction; IV Status: Completed infusion; IV Intake: aa9 250ml Disposition Summary: 01/16/23 17:49 Discharge Ordered Location: Home snw Condition: Stable snw Diagnosis - Abdominal pain, Generalized snw - Cyclical vomiting, not intractable snw - Hypophosphatemia snw Followup: snw - With: Emergency Department - When: As needed - Reason: Worsening of condition Followup: snw - With: Private Physician - When: 2 - 3 days - Reason: Recheck today's complaints, Continuance of care, Re-evaluation by your physician Discharge Instructions: - Discharge Summary Sheet snw - Abdominal Pain, Adult snw - Hypophosphatemia snw - Rehydration, Adult snw - Cyclic Vomiting Syndrome, Adult snw Forms: - Medication Reconciliation Form snw - Thank You Letter snw - Antibiotic Education snw - Prescription Opioid Use snw Prescriptions: - promethazine 25 mg Oral Tablet - take 1 tablet by ORAL route every 6 hours As needed; 20 tablet; Refills: 0, snw Product Selection Permitted - dicyclomine 20 mg Oral Tablet - take 1 tablet by ORAL route 3 times per day; 20 tablet; Refills: 0, Product snw Selection Permitted Signatures: Dispatcher [employer] EDMS Ruby Orozco, SUPERVISOR BLAST FURNACE-C SUPERVISOR BLAST FURNACE-Csnw Ela Meredith RN RN aa5 Maria Guadalupe Duvall RN RN mb9 Shila Salgado RN aa9
--- NOTE | 2023-01-16 17:50 | ER ---
Nurse's Notes [facility] Name: Sangita Sorenson Age: 47 yrs Sex: Female : 1975 Arrival Date: 01/16/2023 Time: 16:37 Bed 6 Private MD: Diagnosis: Abdominal pain, Generalized;Cyclical vomiting, not intractable;Hypophosphatemia Presentation: 01/16 16:43 Chief complaint: Patient states: "N/V since 4am and having severe pain in lower mb9 abdomen. I have Celiac disease but not diagnosed with it. I hurt so bad, please just knock me out". Coronavirus screen: Vaccine status: Patient reports being unvaccinated. Ebola Screen: No symptoms or risks identified at this time. Initial Sepsis Screen: Does the patient meet any 2 criteria? No. Patient's initial sepsis screen is negative. Does the patient have a suspected source of infection? No. Patient's initial sepsis screen is negative. Risk Assessment: Do you want to hurt yourself or someone else? Patient reports no desire to harm self or others. Onset of symptoms was January 16, 2023. 16:43 Method Of Arrival: Wheelchair [facility] 16:43 Acuity: IBRAHIMA 3 9 Triage Assessment: 16:47 General: Appears uncomfortable, Behavior is anxious, crying. Pain: Complains of pain in mb9 abdomen Pain currently is 10 out of 10 on a pain scale. Quality of pain is described as aching, crampy. Neuro: Lan Agitation-Sedation Scale (RASS): 0 - Alert and Calm Level of Consciousness is awake, alert, obeys commands, Oriented to person, place, time, situation, Appropriate for age. Respiratory: Airway is patent. GI: Reports lower abdominal pain, nausea, vomiting. Derm: Skin is pink, warm \\T\\ dry. Historical: - Allergies: 16:46 No Known Allergies; mb9 - Home Meds: 16:46 None [Active]; mb9 - PMHx: 16:46 None; mb9 - PSHx: 16:46 section; Ligation of fallopian tube; mb9 - Immunization history:: Adult Immunizations up to date. - Social history:: Smoking status: Patient reports the use of cigarette tobacco products, denies chronic smoking, but will smoke occasionally, Patient uses marijuana . Screenin:[facility] Fall Risk Assessment (Adult) History of falling in the last 3 months, aa5 including since admission No falls in past 3 months (0 pts) Confusion or Disorientation No (0 pts) Intoxicated or Sedated No (0 pts) Impaired Gait No (0 pts) Mobility Assist Device Used No (0 pt) Altered Elimination No (0 pt) Score/Fall Risk Level 0 - 2 = Low Risk. Abuse screen: Denies threats or abuse. Nutritional screening: No deficits noted. Tuberculosis screening: No symptoms or risk factors identified. Assessment: 16:45 General: Appears uncomfortable, Behavior is restless. Pain: Complains of pain in right aa5 lower quadrant and left lower quadrant Pain currently is 10 out of 10 on a pain scale. Quality of pain is described as sharp, Is continuous. Neuro: Level of Consciousness is awake, alert, obeys commands, Oriented to person, place, time, situation. Cardiovascular: Heart tones S1 S2 present Rhythm is regular. Respiratory: Airway is patent Respiratory effort is even, unlabored, Respiratory pattern is regular, symmetrical. GI: Abdomen is round non-distended, Bowel sounds present X 4 quads. Abd is soft and non tender X 4 quads. Reports nausea, vomiting. : No signs and/or symptoms were reported regarding the genitourinary system. EENT: No signs and/or symptoms were reported regarding the EENT system. Derm: Skin is dry, Skin is normal, Skin temperature is warm. Musculoskeletal: Range of motion: intact in all extremities. 17:15 Reassessment: Patient states feeling better. Patient states symptoms have improved. aa5 General: Appears comfortable, Behavior is calm, cooperative. Neuro: Level of Consciousness is awake, alert, obeys commands, Oriented to person, place, time, situation. Respiratory: Airway is patent Respiratory effort is even, unlabored, Respiratory pattern is regular, symmetrical. Derm: Skin is dry, Skin is normal, Skin temperature is warm. 18:06 Respiratory: Airway is patent Respiratory effort is even, unlabored, Respiratory aa5 pattern is regular, symmetrical. Derm: Skin is dry, Skin is normal, Skin temperature is warm. 18:06 Reassessment: Patient states feeling better. Patient states symptoms have improved. Pt aa5 resting in bed with eyes closed, easy to awaken to verbal stimuli. . 18:06 Cardiovascular: Rhythm is sinus bradycardia. aa5 18:45 Reassessment: Awaiting potassium phosphate infusion to complete before discharge home. .aa5 19:15 Reassessment: Patient and/or family updated on plan of care and expected duration. Pain vc1 level reassessed. Pt sleeping, no complaints at this time. 20:15 Reassessment: No changes from previously documented assessment. Patient and/or family vc1 updated on plan of care and expected duration. Pain level reassessed. 21:15 Reassessment: No changes from previously documented assessment. Patient and/or family vc1 updated on plan of care and expected duration. Pain level reassessed. 22:14 Reassessment: Patient appears in no apparent distress at this time. Patient and/or aa9 family updated on plan of care and expected duration. Pain level reassessed. Patient is alert, oriented x 3, equal unlabored respirations, skin warm/dry/pink. Vital Signs: 16:43 BP 150 / 85; Pulse 84; Resp 16; Temp 97.9(O); Pulse Ox 100% ; Weight 61.23 kg; Height 4 mb9 ft. 11 in. ; Pain 10/10; 17:00 BP 152 / 83; Pulse 54; Resp 18 S; Pulse Ox 100% on R/A; aa5 18:00 BP 139 / 74; Pulse 57; Resp 15 S; Pulse Ox 98% on R/A; aa5 19:30 BP 144 / 84; Pulse 57; Resp 17 S; Pulse Ox 98% on R/A; aa9 21:00 BP 138 / 77; Pulse 56; Resp 23; Pulse Ox 97% ; vc1 22:14 BP 140 / 72; Pulse 57; Resp 16; Temp 98.5; Pulse Ox 99% on R/A; Pain 0/10; aa9 16:43 Body Mass Index 27.27 (61.23 kg, 149.86 cm) mb9 16:43 Pain Scale: Adult mb9 22:14 Pain Scale: Adult aa9 ED Course: 16:43 Patient arrived in ED. mb9 16:43 Arm band placed on. mb9 16:44 Ruby Orozco FNP-C [facility]. snw 16:44 Traci Lake MD is Attending Physician. snw 16:45 Patient has correct armband on for positive identification. Placed in gown. Bed in low aa5 position. Call light in reach. Side rails up X2. 16:46 Triage completed. mb9 16:50 reducing salon attendant on. Pulse ox on. NIBP on. aa5 16:50 Initial lab(s) drawn, by me, sent to lab. Inserted saline lock: 22 gauge in right aa5 antecubital area, using aseptic technique. Blood collected. 16:50 No provider procedures requiring assistance completed. aa5 17:05 Ela Meredith, RN is Primary Nurse. aa5 22:14 IV discontinued, intact, bleeding controlled, No redness/swelling at site. Pressure aa9 dressing applied. Administered Medications: 17:00 Drug: Haloperidol IVP 2.5 mg/50 mL 2.5 mg Route: IVP; Site: right antecubital; aa5 17:15 Follow up: Response: No adverse reaction; Marked relief of symptoms; Nausea is decreasedaa5 17:00 Drug: NS 0.9% IV 1000 ml Route: IV; Rate: 1 bolus; Site: right antecubital; aa5 18:06 Follow up: IV Status: Completed infusion; IV Intake: 1000ml aa5 17:00 Drug: Famotidine IVP 20 mg Route: IVP; Site: right antecubital; aa5 17:15 Follow up: Response: No adverse reaction aa5 17:00 Drug: TORadol - Ketorolac IVP 15 mg Route: IVP; Site: right antecubital; aa5 17:17 Follow up: Response: No adverse reaction aa5 18:06 Drug: Potassium Phosphate IV 15 mmol Route: IV; Rate: calculated rate; Site: right aa5 antecubital; 22:13 Follow up: Response: No adverse reaction; IV Status: Completed infusion; IV Intake: aa9 250ml Medication: 17:06 VIS not applicable for this client. aa5 Intake: 18:06 IV: 1000ml; Total: 1000ml. aa5 22:13 IV: 250ml; Total: 1250ml. aa9 Outcome: 17:49 Discharge ordered by . snw 22:14 Discharged to home ambulatory. aa9 22:14 Condition: stable 22:14 Discharge instructions given to patient, Instructed on discharge instructions, follow up and referral plans. medication usage, Demonstrated understanding of instructions, follow-up care, medications, Prescriptions given X 2. 22:14 Patient left the ED. aa9 Signatures: Ruby Orozco, KENO WRITER / RUNNER-C KENO WRITER / RUNNER-Csnw Ela Meredith, RN RN aa5 Jasmine Hammond RN RN vc1 Shila Salgado RN RN aa9 Maria Guadalupe Duvall RN RN mb9 Corrections: (The following items were deleted from the chart) 18:14 16:45 General: Appears uncomfortable, Behavior is calm, cooperative, aa5 aa5
[2023-01-16] MEDS ORDERED: POTASSIUM PHOS IN 0.9 % NACL 15 MMOL/250 ML BAG IV ONE (18:00)
[2023-01-16 22:33] VITALS: BP 140/72; TEMP 98.5; O2SAT 99
== END 2023-01-16 22:14 | disposition home or self-care (01) ==
LOC: ER 16:37
DX: G43.A0 Cyclical vomiting, in migraine, not intractable (principal); R10.9 Unspecified abdominal pain; E83.39 Other disorders of phosphorus metabolism; F17.210 Nicotine dependence, cigarettes, uncomplicated; F12.90 Cannabis use, unspecified, uncomplicated
CPT/HCPCS: 36415; 80053; 82728; 83690; 84100; 85025; 86850; 86900; 86901; 96361; 96365; 96366; 96375; 99285; J1630; J7030

== ENCOUNTER 2023-03-28 20:35 | Emergency (ER) | payer OTHER ==
--- OUTSIDE RECORDS SUMMARY | 2023-03-28 20:39 | XMS REPORT | Continuity of Care Document ---
:1975 Author Organization [facility] t Address [address] [place] [address] Care Team Providers Name Role Phone OKSANA REYNA Primary Care Physician Unavailable OKSANA REYNA Attending Clinician Unavailable Ashley Oksana AGUILAR Attending Clinician [phone] Doctor Unassigned, [place] Attending Clinician Unavailable Visit, [facility] Nurse Attending Clinician Unavailable GUILLERMINA DENNY Attending Clinician Unavailable Radiology Attending Clinician Unavailable RADIOLOGY Attending Clinician Unavailable ALIX FRANKLIN Attending Clinician Unavailable ANKIT HILL Attending Clinician Unavailable RICHARDSON LAO Attending Clinician Unavailable SUSANA TURPIN Attending Clinician Unavailable Payers Payer Name Policy Type Policy Number Effective Date Expiration Date S tania [facility] [id number] 2020 00:00:00 Problems Condition Condition Condition Status [...] [place] and advice and advice 00 [place] dical for for Branch contracept contracept lenny [...] genital 2-04 ity of 00:00: [place] 00 [facility] Allergies, Adverse Reactions, Alerts Allergy Allergy Status Severity Reaction(s) Onset Inactive Treating Comm ents Source Name Type Date Date Clinician NO KNOWN Drug Active Univers ALLERGIE Class ity of S [facility] Social History Social Habit Start Date Stop Date Quantity Comments Source History of tobacco Cigarette Smoker University of use [facility] Exposure to Not sure [facility] SARS-CoV-2 (event) [facility] History SDOH [facility] Alcohol Std Drinks [facility] History SDOH [facility] Alcohol Binge [facility] Cigarettes smoked 2021-09-06 2021-09-06 Univers ity of current (pack per 00:00:00 00:00:00 ) - Reported Branch Tobacco Comment 2021-09-06 2021-09-06 Smokes 5 ciggs a Uni versity of 00:00:00 00:00:00 day [facility] Tobacco use and 2021-09-06 2021-09-06 Smokeless Universit y of exposure 00:00:00 00:00:00 tobacco non-user [facility] dical Branch Alcohol Comment 2020-07-08 2020-07-08 special Universit y of 00:00:00 00:00:00 occasions [facility] Alcohol intake 2019-09-17 2019-09-[address] [facility] [facility] 00:[facility]:00 00:00:00 non-drinker of Medical Ce nter alcohol (finding) History SDOH 2019-06-27 2019-06-27 1 RACHEL Velez Alcohol Frequency 00:00:00 00:00:00 [facility] Sex Assigned At [birth year] RACHEL Gilberts 00:00:00 00:00:00 [facility] Smoking Status Start Date Stop Date Source Smokes tobacco daily 2021-09-06 00:00:00 Univers ity of [facility] Never smoked tobacco [facility] Medications Ordered Filled Start Stop Current Ordering Indication Dosage Frequency Signature Comments Components Source Medication Medication Date Date Medication? Clinician (SIG) Name Name No known No Univers medications 2-28 ity of 09:34: [address] No known No Univers medications 2-28 ity of 09:34: [address] No known No No known Unive rs medications 2-28 medication it y of 09:34: s [address] ondansetron 2020-0 Yes 4mg Take 1 [...] Name Observation Time Observation Value Comments Source Body temperature 2021-10-02 14:44:00 35.83 Jeane [facility] Respiratory rate 2021-10-02 14:44:00 20 /min [facility] Body height 2021-10-02 14:44:00 149.9 cm [facility] Body weight 2021-10-02 14:44:00 63.163 kg [facility] BMI 2021-10-02 14:44:00 28.13 kg/m2 [facility] Systolic blood 2021-10-02 14:44:00 122 mm[facility]Hg[facility] Diastolic blood 2021-10-02 14:44:00 75 mm[facility]Hg[facility] 2021-10-02 14:44:00 67 /min [facility] Procedures This patient has no known procedures. Plan of Care Planned Activity Planned Date Details Comments Source Future Scheduled 2022-04-[address] [facility] Test 00:00:00 (#1) [code = [facility] INFLUENZA VACCINE (#1)] Future Scheduled 2022-04-[address] [facility] Test 00:00:00 (#1) [code = [facility] INFLUENZA VACCINE (#1)] Future Scheduled 2022-04-[address] [facility] Test 00:00:00 (#1) [code = [facility] INFLUENZA VACCINE (#1)] Future Scheduled 2021-08-[address] [facility] Test 00:00:00 (12+) [code = [facility] DEPRESSION SCREENING (12+)] Future Scheduled 2021-08-[address] [facility] Test 00:00:00 (12+) [code = Medical Center DEPRESSION SCREENING (12+)] Future Scheduled 2021-08-[address] [facility] Test 00:00:00 (12+) [code = Medical Center DEPRESSION SCREENING (12+)] Future Scheduled 2020-10-[address] [facility] Test 00:00:00 [facility] cervix [facility]procedure) [code = 047691778] Future Scheduled 2020-10-[address] [facility] Test 00:00:00 malignant neoplasm of [facility] Center cervix (procedure) [code = 930026402] Future Scheduled 2020-10-[address] [facility] Test 00:00:00 malignant neoplasm of [facility] cervix (procedure) [code = 128841350] Future Scheduled 2020-10-[address] [facility] [facility] Test 00:00:00 [facility] cervix (procedure) [code = 212465525] Future Scheduled 2020-04-[address] [...] Facility Department ID 2022-04-26 2022-04-26 [facility] [id number] Univers 13:45:00 13:45:00 OKSANA groves o [facility] 2022-04-18 2022-04-18 [facility] [id number] Univers 00:00:00 00:00:00 Oksana Calzada SOLUTIONS SALES EXECUTIVE 350.1.13.10 ity of REGIONAL 4.2.7.2.686 Patrick as MATERNAL [phone] Med ical & CHILD [address] [place] [address] 2021-10-10 2021-10-10 [facility] [id number] Univers 00:00:00 00:00:00 OKSANA alcantary o [facility] 2021-10-10 2021-10-10 Outpatient R ASHLEY, [facility] [id number] Univers 00:00:00 00:00:00 OKSANA alcantary o [facility] 2021-10-10 2021-10-10 [facility] [id number] Univers 00:00:00 00:00:00 OKSANA alcantary o [facility] 2021-10-02 2021-10-[address] [facility] [id number] Univers 08:45:00 09:13:38 Visit Oksana Calzada SOLUTIONS SALES EXECUTIVE 350.1.13.10 ity of REGIONAL 4.2.7.2.686 Patrick as MATERNAL [phone] [facility] & CHILD [address] [place] [address] 2021-10-02 2021-10-02 Outpatient R FERMÍNSIPE, [facility] [id number] Univers 08:45:00 09:13:38 OKSANA groves o [facility] 2021-10-02 2021-10-02 Outpatient R AKINSIPE, [facility] [id number] Univers 08:45:00 08:45:00 OKSANA alcantary o [facility] 2021-09-21 2021-09-21 Outpatient R AKINSIPE, [facility] [id number] Univers 08:30:00 08:30:00 OKSANA katharinematthias o [facility] 2021-09-14 2021-09-14 Outpatient R ASHLEY, [facility] [id number] Univers 12:45:00 13:45:38 OKSANA alcantarmatthias o [facility] 2021-09-14 2021-09-14 [facility] [id number] Univers 12:45:00 13:45:38 Visit Oksana Calzada SOLUTIONS SALES EXECUTIVE 350.1.13.10 ity of [facility] 4.2.7.2.686 Patrick as MATERNAL [phone] [facility] & CHILD [address] [place] [address] 2021-09-14 2021-09-14 Orders Doctor JIMÉNEZ 1.2.840.114 [id number] Univers 00:00:00 00:00:00 Only Unassigned, DAINA 350.1.13.10 [facility] 4.2.7.2.686 Patrick as [phone] [address] 2021-09-13 2021-09-13 Outpatient R AKINSIPE, [facility] [id number] Univers 10:00:00 10:00:00 OKSANA alcantarmatthias o [facility] 2021-09-06 2021-09-06 Outpatient R EDPE, [facility] [id number] Univers 09:45:00 10:57:26 OKSANA groves o [facility] 2021-09-06 2021-09-06 Office [facility] [id number] Univers 09:45:00 10:57:26 Visit Oksana C SOLUTIONS SALES EXECUTIVE 350.1.13.10 ity of [facility] 4.2.7.2.686 Patrick as MATERNAL [phone] Med ical & CHILD [address] [place] [address] 2021-09-06 2021-09-06 Orders Doctor TINO 1.2.840.114 [id number] Univers 00:00:00 00:00:00 Only Unassigned, DAINA 350.1.13.10 ity of [place] [facility] 4.2.7.2.686 Patrick as [phone] [address] 2020-12-07 2020-12-07 Outpatient R [facility] [id number] Univers 09:30:00 09:30:00 OKSANA groves o [facility] 2020-11-29 2020-11-29 Outpatient R [facility] [id number] Univers 09:30:00 09:30:00 OKSANA groves o [facility] 2020-10-04 2020-10-04 [facility] 1.2.840.114 [id number] 13:39:10 23:59:00 Encounter Oksana C SPECIALTY 350.1.13.10 CARE 4.2.7.2.686 CENTER AT [phone] [address] 2020-10-04 2020-10-04 [facility] 1.2.840.114 [id number] Univers 13:39:10 23:59:00 Encounter Oksana C SPECIALTY 350.1.13.10 ity of [facility] 4.2.7.2.686 [place] C[place] AT [phone] Ga dical [address] 2020-10-04 2020-10-04 [facility] 1.2.840.114 [id number] 13:37:38 13:38:00 Encounter Oksana C SPECIALTY 350.1.13.10 CARE 4.2.7.2.686 CENTER AT [phone] [address] 2020-10-04 2020-10-04 [facility] 1.2.840.114 [id number] Univers 13:37:38 13:38:00 Encounter Oksana C SPECIALTY 350.1.13.10 ity of [place] 4[place]2.7.2.686 [place] AT [phone] Ga luc JUAREZ [address] [place] [address] 2020-10-04 2020-10-04 Outpatient R ASHLEY [facility] [id number] Univers 00:00:00 00:00:00 OKSANA groves o [facility] 2020-09-20 2020-09-20 [facility] [id number] Univers 00:00:00 00:00:00 OKSANA groves o [facility] 2020-09-01 2020-09-01 Telephone [facility] 1.2.840.114 [id number] Univers 00:00:00 00:00:00 Oksana C SOLUTIONS SALES EXECUTIVE 350.1.13.10 ity of REGIONAL 4.2.7.2.686 Patrick as MATERNAL [phone] Med ical & CHILD [address] [place] [address] 2020-09-01 2020-09-01 Telephone [facility] 1.2.840.114 [id number] 00:00:00 00:00:00 Oksana C SOLUTIONS SALES EXECUTIVE 350.1.13.10 REGIONAL 4.2.7.2.686 MATERNAL [phone] & CHILD [address] [place] [address] 2020-08-31 2020-08-31 [facility] [id number] Univers 10:11:31 11:17:14 Visit Oksana C SOLUTIONS SALES EXECUTIVE 350.1.13.10 ity of REGIONAL 4.2.7.2.686 Patrick as MATERNAL [phone] [facility] & CHILD [address] [place] [address] 2020-08-31 2020-08-31 Outpatient R ASHLEY [facility] [id number] Univers 10:15:00 10:15:00 OKSANA groves o [facility] 2020-08-29 2020-08-29 Nurse Visit, [facility] Nurse [facility] 1.2 .840.114 [id number] Univers 09:44:02 10:27:17 Visit Ashley Oksana Calzada SOLUTIONS SALES EXECUTIVE 350.1.13. 10 ity of [address]686 Patrick as MATERNAL [phone] [facility] & [address] 2020-08-29 2020-08-29 Outpatient R ASHLEY, [facility] [id number] Univers 10:00:00 10:00:00 OKSANA ity o f [facility] 2020-08-29 2020-08-29 [facility] [id number] Univers 09:00:00 09:00:00 OKSANA ity o [facility] 2020-08-29 2020-08-29 Orders Doctor TINO 1.2.840.114 [id number] Univers 00:00:00 00:00:00 Only Unassigned, DAINA 350.1.13.10 ity of [place]2.7.2.686 Patrick as [phone] [address] 2020-07-11 2020-07-11 Outpatient R [facility] [id number] Univers 12:45:00 12:45:00 ity [facility] 2020-07-08 2020-07-08 Office [facility] 1.2.514.096 [id number] Univers 13:59:41 15:25:43 Visit Oksana Calzada SOLUTIONS SALES EXECUTIVE 350.1.13.10 ity of [facility] 4.2.7.2.686 Patrick as MATERNAL [id number] [facility] & [address] 2020-07-08 2020-07-08 [facility] [id number] Univers 13:30:00 13:30:00 OKSANA ity o f [facility] 2020-07-06 2020-07-06 [facility] [id number] Univers 09:00:00 09:00:00 TRACENDA ity o [facility] 2020-06-08 2020-06-08 Outpatient R [facility] [id number] Univers 09:15:00 09:15:00 ity [facility] 2020-05-26 2020-05-26 Hospital Radiology [facility] 1.2.840.114 [id number] Univers 12:40:00 23:59:00 Encounter Duane 350.1.13.10 ity of [place] 4.2.7.2.686 [facility] [phone] [facility] [address] 2020-05-26 2020-05-26 Outpatient R RADIOLOGY [facility] [id number] Univers 00:00:00 00:00:00 ity of [facility] 2020-05-26 2020-05-26 Letter Doctor TINO 1.2.840.114 [id number] Univers 00:00:00 00:00:00 (Out) Unassigned, DAINA 350.1.13.10 ity of [place] [facility] 4.2.7.2.686 [facility] [phone] [address] Results Test Description Test Time Test Comments Results Result Sour e Comments CT, ABDOMEN 2019-09-17 Reason for FINAL REPORT PATIENT 14:16:00 exam:->NAUSEARe ID: [id number] CT ason for ABDOMEN AND PELVIS exam:->EMESISRe [...] MDReport Verified Date/Time: 09/17/2019 14:16:48 Reading Location: [facility] Radiology Reading Room NA [facility] 2019-09-17 13:00:00 Test Item Value Reference Range Interpretation Comme nts LIPASE (BEAKER) (test code = 749) 4 U/L 6-51 L Information Management Officer ID - [id number] FUNCTION [id number] 12:56:00 Test Item Value Reference Range Interpretation [...] Specimen slightly (test code = 347) hemolyzed Information Management Officer ID - [id number] DRUG SCREEN, [id number] 12:54:00 Test Item Value Reference Range Interpretation [...] situations. Chain of custody not maintained. Some wzue-aym-eixnsuv medications, as well as adulterants, may cause inaccurate results. Clinical correlation should be applied. A more comprehensive drug screen or confirmation of a detected drug may be performed upon request.Information Management Officer ID - [id number] ID - [id number] ID - [id number] ID - [id number] ID - [id number] ID - [id number] ID - [id number] ID - [id number] METABOLIC [id number] 12:54:00 Test Item Value Reference Range Interpretation [...] S NOT APPLICABLE FOR DIALYSIS PATIEN TS. Information Management Officer ID - [id number] W/ [id number] 12:47:00 Test Item Value Reference Range Interpretation [...] 1663) SOURCE(BEAKER) (test code = 2795) SCREEN, [id number] 12:40:00 Test Item Value Reference Range Interpretation Comments TEST URINE (BEAKER) (test Negative code = 583) CBC W/PLT COUNT & AUTO [id number] 12:38:00 Test Item Value Reference Range Interpretation [...] PERCENT (BEAKER) (test code = 2801) POCT-GLUCOSE [id number] 12:28:00 Test Item Value Reference Range Interpretation Comments POC-GLUCOSE METER 117 mg/dL 70-110 H : TESTED A T [facility] 1317 (BEAKER) (test code [facility] [address], = 1538) [facility] 77 478: Information Management Officer/Techni brayden ID = [id number] for Tolo , Chisa CT, [id number] 16:50:00Reason for exam:->EMESISIs the patient ?->NoWhat is [...] MDReport Verified Date/Time: 08/16/2019 16:50:10 Reading Location: [address] Consult Reading Room LIPASE 2019-08-16 14:40:00 Test Item Value Reference Range Interpretation Comments LIPASE (BEAKER) (test code = 749) 5 U/L 6-51 L Information Management Officer ID - KARINABASIC METABOLIC [id number] 14:38:00 Test Item Value Reference Range Interpretation [...] S NOT APPLICABLE FOR DIALYSIS PATIEN TS. Information Management Officer ID - JONATHANHEPATIC FUNCTION [id number] 14:38:00 Test Item Value Reference Range Interpretation [...] Specimen slightly (test code = 347) hemolyzed Information Management Officer ID - FRANCISCOINAHCG, SERUM, [id number] 14:34:00 Test Item Value Reference Range Interpretation Comments TEST SERUM (BEAKER) (test Negative code = 584) RAPID INFLUENZA A&B [id number] 14:34:00 Test Item Value Reference Range Interpretation Comments RAPID INFLUENZA A AG (BEAKER) Negative Negative, Inconclusive (test code = 1622) RAPID INFLUENZA B AG (BEAKER) Negative Negative, Inconclusive (test code = 1623) CBC W/PLT COUNT & AUTO [id number] 14:20:00 Test Item Value Reference Range Interpretation [...] (BEAKER) (test code = 2801) COMPREHENSIVE METABOLIC [id number] 12:48:00 Test Item Value Reference Range Interpretation [...] S NOT APPLICABLE FOR DIALYSIS PATIEN TS. [id number] 12:48:00 Test Item Value Reference Range Interpretation Comments LIPASE (BEAKER) (test code = 749) 9 U/L 6-51 HCG, SERUM, [id number] 12:27:00 Test Item Value Reference Range Interpretation Comments TEST SERUM (BEAKER) (test Negative code = 584) CBC W/PLT COUNT & AUTO [id number] 12:21:00 Test Item Value Reference Range Interpretation [...] L 0.00-0.20 (test code = 417) CT, [id number] 11:01:00Reason for exam:->EMESISIs the patient ?->NoWhat is the patient's sedation requirement?->No SedationFINAL REPORT ABDOMINAL AND PELVIS CT DATED 07/07/2019 CLINICAL INFORMATION: EMESISvomiting and abdominal pain TECHNIQUE: Axial images of the abdomen and pelvis were obtained from diaphragm to the pubic symphysis without GI or intravenous contrast. This exam was performed accordingto our departmental dose-optimization program, which includes automated exposure control, adjustmentof the mA and/or kV according to patient size and/or use of interactive reconstruction technique. COMMENT: Liver and spleen are normal in size. A 6 x 11 mm cyst is seen in the segment 3 of the liver. A6 mm cyst is seen in the segment 4 of the liver. Gallbladder is contracted. No gallstone or biliary dilatation is noted. Pancreas and adrenals are unremarkable. Both kidneys are normal in size. No hydronephrosis, hydroureter, urolithiasis is seen. The small and large bowel are suboptimally evaluated secondary to lack of GI and intravenous contrast. No small or large bowel dilatation is seen. Appendixis normal in caliber. Uterus is enlarged. Several calcified degenerating uterine fibroids are seen. Both ovaries are not visualized. The urinary bladder is distended. No mass, adenopathy or ascites is present. IMPRESSION: 1. Limited examination secondary to lack of GI and intravenous contrast.2. No small or large dilatation to suggest mechanical obstruction or ileus.3. Enlarged uterus with degenerating calcified uterine leiomyomata. Signed: Guanakito Ar[facility] Verified Date/Time: 07/07/2019 11:01:48 Reading Location: [facility] B1 C013Y CT Body Reading Room Electronically signed by: GUANAKITO ARAGON M.D. on07/07/2019 11:01 AM COMPREHENSIVE METABOLIC [id number] 10:26:00 Test Item Value Reference Range Interpretation [...] S NOT APPLICABLE FOR DIALYSIS PATIEN TS. [id number] 10:26:00 Test Item Value Reference Range Interpretation Comments LIPASE (BEAKER) (test code = 749) 8 U/L 6-51 HCG, SERUM, [id number] 10:21:00 Test Item Value Reference Range Interpretation Comments TEST SERUM (BEAKER) (test Negative code = 584) CBC W/PLT COUNT & AUTO [id number] 10:08:00 Test Item Value Reference Range Interpretation [...] % 0-0 PERCENT (BEAKER) (test code = 1711)
[2023-03-28] MEDS ORDERED: METOCLOPRAMIDE 10 MG/2mL INJ ONE (21:34)
[2023-03-28] MEDS ORDERED: NA CHLORIDE 0.9% 500 ML ONE (21:37)
[2023-03-28] MEDS ORDERED: KETOROLAC 30 MG/ML INJ ONE (21:37)
[2023-03-28] MEDS ORDERED: ONDANSETRON 4 MG/2 ML VIAL ONE (21:37)
[2023-03-28] MEDS ORDERED: LORazepam 2 MG/ML VIAL ONE (21:37)
[2023-03-28] MEDS ORDERED: MORPHINE 4 MG/ML SYR ONE (21:37)
[2023-03-28 21:53] LABS: Absolute Lymphocytes (CBC) 2.6 K/uL (0.7-4.9); Hematocrit 34.6 % (36.0-45.0); Lymphocytes % 19.8 % (15.3-44.8); MCV 86.2 fL (80-100); MPV 8.7 fL (7.6-11.3); Platelets 413 thou/uL (152-406); RBC Red Blood Cell Count 4.01 M/uL (3.86-4.86)
[2023-03-28] MEDS ORDERED: NA CHLORIDE 0.9% 1,000 ML ONE (21:55)
[2023-03-28 22:04] LABS: Albumin 4.2 g/dL (3.4-5.0); Bilirubin Total 0.5 mg/dL (0.2-1.0); Potassium 3.2 mEq/L (3.5-5.1); Protein, Total 8.7 g/dL (6.4-8.2)
--- NOTE | 2023-03-29 00:12 | ER ---
Nurse's Notes [facility] Name: Sangita Sorenson Age: 47 yrs Sex: Female : 1975 Arrival Date: 03/28/2023 Time: 20:35 Bed 18 Private MD: Diagnosis: Nausea with vomiting, unspecified;Acute gastritis, diffuse abdominal pain, intractable nausea and vomiting, hypokalemia, volume depletion Presentation: 03/28 21:04 Chief complaint: Friend and/or Co-Worker states: abdominal pain and vomiting that as6 started today. Coronavirus screen: At this time, the client does not indicate any symptoms associated with coronavirus-19. Ebola Screen: No symptoms or risks identified at this time. Initial Sepsis Screen: Does the patient meet any 2 criteria? No. Patient's initial sepsis screen is negative. Does the patient have a suspected source of infection? No. Patient's initial sepsis screen is negative. Risk Assessment: Do you want to hurt yourself or someone else? Patient reports no desire to harm self or others. Onset of symptoms was March 28, 2023. 21:04 Acuity: IBRAHIMA 3 as6 21:04 Method Of Arrival: Wheelchair as6 OYSTER FISHERMAN: 21:04 LMP N/A - Hysterectomy as6 Historical: - Allergies: 21:03 No Known Allergies; as6 - Home Meds: 21:03 None [Active]; as6 - PMHx: 21:03 None; as6 - PSHx: 21:03 section; Ligation of fallopian tube; as6 - Immunization history:: Client reports having NOT received the Covid vaccine. - Social history:: Smoking status: Patient reports the use of cigarette tobacco products, smokes one-half pack cigarettes per day. - Family history:: not pertinent. Screenin:05 [facility] ED Fall Risk Assessment (Adult) History of falling in the last 3 months, me1 including since admission No falls in past 3 months (0 pts) Confusion or Disorientation No (0 pts) Intoxicated or Sedated No (0 pts) Impaired Gait No (0 pts) Mobility Assist Device Used No (0 pt) Altered Elimination No (0 pt) Score/Fall Risk Level 0 - 2 = Low Risk. 03/29 00:29 Abuse screen: Denies threats or abuse. Nutritional screening: No deficits noted. ha1 Tuberculosis screening: No symptoms or risk factors identified. Assessment: 03/28 21:05 General: Appears uncomfortable, Behavior is cooperative, appropriate for age, anxious, me1 restless, Reports feeling ill for n/v and abdominal pain since 5 pm today. Pain: Complains of pain in abdomen Pain does not radiate. Pain currently is 10 out of 10 on a pain scale. Quality of pain is described as crampy, gnawing, Pain began 4 hours ago. Is continuous. Neuro: Level of Consciousness is awake, alert, obeys commands, Oriented to person, place, time, situation, Appropriate for age. Cardiovascular: Capillary refill < 3 seconds Patient's skin is warm and dry. Respiratory: Airway is patent Respiratory effort is even, unlabored, Respiratory pattern is regular, symmetrical. GI: Abdomen is non-distended, Reports nausea, vomiting, since 5pm. 23:29 Reassessment: Patient and/or family updated on plan of care and expected duration. Pain me1 level reassessed. Patient is alert, oriented x 3, equal unlabored respirations, skin warm/dry/pink. Patient states symptoms have improved. 23:45 Reassessment: Refused CT scan with technology sales specialist and told her that she just wants to go [facility] home. Dr Pedro informed. . Vital Signs: 21:03 BP 147 / 94; Pulse 76; Resp 22 S; Temp 97.2(TE); Pulse Ox 100% on R/A; Weight 56.7 kg as6 (R); Height 4 ft. 11 in. (R); Pain 10/10; 22:00 BP 144 / 92; Pulse 51; Resp 16; Pulse Ox 96% on R/A; me1 23:00 BP 123 / 89; Pulse 73; Resp 17; Pulse Ox 99% ; me1 21:03 Body Mass Index 25.25 (56.70 kg, 149.86 cm) as6 21:03 Pain Scale: Adult as6 ED Course: 20:38 Patient arrived in ED. jj6 21:01 Acacia Anna, RN is Primary Nurse. me1 21:03 Arm band placed on. as6 21:05 Triage completed. as6 21:05 Patient has correct armband on for positive identification. Bed in low position. Call [facility] light in reach. Side rails up X2. Provided Education on: POC. Verbalized understanding. . 21:05 No provider procedures requiring assistance completed. me1 21:07 Tanvir Pedro MD is Attending Physician. sp4 21:42 Inserted saline lock: 22 gauge in right antecubital area, using aseptic technique. me1 21:43 CBC with Diff Sent. me1 21:43 CMP Sent. me1 21:43 Lipase Sent. me1 03/29 00:29 Report received from LOGAN Anderson. ha1 00:30 IV discontinued, intact, bleeding controlled, No redness/swelling at site. Pressure ha1 dressing applied. Administered Medications: 03/28 21:42 Drug: Ondansetron IVP 8 mg Route: IVP; Site: right antecubital; me1 23:20 Follow up: Response: No adverse reaction; Nausea is decreased me1 21:42 Drug: metoCLOPramide IVP 10 mg Route: IVP; Site: right antecubital; me1 23:20 Follow up: Response: No adverse reaction; Nausea is decreased me1 21:42 Drug: TORadol - Ketorolac IVP 30 mg Route: IVP; Site: right antecubital; me1 22:42 Follow up: Response: No adverse reaction; Pain is decreased me1 21:42 Drug: NS 0.9% IV 500 ml Route: IV; Rate: bolus; Site: right antecubital; me1 23:20 Follow up: IV Status: Completed infusion; IV Intake: 500ml me1 21:43 Drug: morphine IVP or IV 4 mg Route: IVP; Infused Over: 4 mins; Site: right antecubital;me1 22:43 Follow up: Response: No adverse reaction; Pain is decreased me1 21:43 Drug: Ativan IVP 1 mg Route: IVP; Site: right antecubital; me1 23:21 Follow up: Response: No adverse reaction; Anxiety decreased me1 22:10 Drug: NS 0.9% IV 1000 ml Route: IV; Rate: 1 bolus; Site: right antecubital; me1 Medication: 21:05 VIS not applicable for this client. me1 Intake: 23:20 IV: 500ml; Total: 500ml. me1 Outcome: 03/29 00:12 Discharge ordered by . sp4 00:29 Discharged to home via wheelchair. ha1 00:29 Condition: stable 00:29 Discharge instructions given to patient, Instructed on discharge instructions, follow up and referral plans. medication usage, Demonstrated understanding of instructions, follow-up care, medications, Prescriptions given X 1. 00:30 Patient left the ED. ha1 Signatures: Ngozi Dewittj6 García Sterling RN RN as6 Marium Tejeda RN RN ha1 Tanvir Pedro MD MD sp4 Acacia Anna RN RN me1
--- NOTE | 2023-03-29 00:13 | EDPHYS ---
Physician Documentation [facility] Name: Sangita Sorenson Age: 47 yrs Sex: Female : 1975 Arrival Date: 03/28/2023 Time: 20:35 Bed 18 Private MD: ED Physician Tanvir Pedro HPI: 03/28 21:07 This 47 yrs old Black Female presents to ER via Wheelchair with complaints of sp4 Nausea/Vomiting. 21:34 This is a very pleasant black female who presents with a cute onset of nausea vomiting sp4 starting at 4 to 5 PM today.. Patient reports using some cannabis couple of days ago. Patient states she gets recurrent nausea vomiting and reports that she has been here before. History reveals prior admission from 10/19/2021 for hypotension, hypokalemia, and intractable vomiting. Patient has history of prior . Patient was treated with IV fluids and antiemetics. Patient was given potassium replacement during her admission. And then patient was discharged home with possible acute gastroenteritis and also suspicion for cannabis hyperemesis syndrome. Today patient also reports diffuse abdominal pain secondary to persistent vomiting. Appears pale and diaphoretic on presentation.. PRACTICE MANAGERS: 21:04 LMP N/A - Hysterectomy as6 Historical: - Allergies: 21:03 No Known Allergies; as6 - Home Meds: 21:03 None [Active]; as6 - PMHx: 21:03 None; as6 - PSHx: 21:03 section; Ligation of fallopian tube; as6 - Immunization history:: Client reports having NOT received the Covid vaccine. - Social history:: Smoking status: Patient reports the use of cigarette tobacco products, smokes one-half pack cigarettes per day. - Family history:: not pertinent. ROS: 03/29 00:07 Constitutional: Negative for fever, chills, and weight loss, Abdomen/GI: Negative for sp4 diarrhea, and constipation, Positive for nausea vomiting and diffuse abdominal pain All other systems are negative. Exam: 00:07 Constitutional: This is a well developed, well nourished patient who is awake, alert, sp4 active vomiting in the retching, moderate distress on arrival, diaphoretic and pale Head/Face: Normocephalic, atraumatic. Eyes: Pupils equal round and reactive to light, extra-ocular motions intact. Lids and lashes normal. Conjunctiva and sclera are not injected. Cornea within normal limits. Periorbital areas with no swelling, redness, or edema. ENT: Nares patent. No nasal discharge, no septal abnormalities noted. Tympanic membranes are normal and external auditory canals are clear. Oropharynx with no redness, swelling, or masses, exudates, or evidence of obstruction, uvula midline. Mucous membranes moist. Neck: Trachea midline, no thyromegaly or masses palpated, and no cervical lymphadenopathy. Supple, full range of motion without nuchal rigidity, or vertebral point tenderness. Chest/axilla: Normal chest wall appearance and motion. Nontender with no deformity. No lesions are appreciated. Cardiovascular: Regular rate and rhythm with a normal S1 and S2. No gallops, murmurs, or rubs. Normal PMI, no JVD. No pulse deficits. Respiratory: Lungs have equal breath sounds bilaterally, clear to auscultation and percussion. No rales, rhonchi or wheezes noted. No increased work of breathing, no retractions or nasal flaring. Abdomen/GI: Soft, with normal bowel sounds. No distension or tympany. No guarding or or distention, diffuse abdominal tenderness without peritoneal signs. Back: No spinal tenderness. No costovertebral tenderness. Skin: Warm, dry with normal turgor. Normal color with no rashes, no lesions, and no evidence of cellulitis. MS/ Extremity: Pulses equal, no cyanosis. Neurovascular intact. Full, normal range of motion. Neuro: Awake and alert, GCS 15, oriented to person, place, time, and situation. Cranial nerves II-XII grossly intact. Motor strength 5/5 in all extremities. Sensory grossly intact. Psych: Awake, alert, with orientation to person, place and time. Moderate anxiety and emotional upset on presentation Vital Signs: 03/28 21:03 BP 147 / 94; Pulse 76; Resp 22 S; Temp 97.2(TE); Pulse Ox 100% on R/A; Weight 56.7 kg as6 (R); Height 4 ft. 11 in. (R); Pain 10/10; 22:00 BP 144 / 92; Pulse 51; Resp 16; Pulse Ox 96% on R/A; me1 23:00 BP 123 / 89; Pulse 73; Resp 17; Pulse Ox 99% ; me1 21:03 Body Mass Index 25.25 (56.70 kg, 149.86 cm) as6 21:03 Pain Scale: Adult as6 MDM: 21:18 Patient medically screened. [facility] 03/29 00:07 Differential diagnosis: Nonspecific abd pain, gastritis, pancreatitis, viral sp4 gastroenteritis, gastroenteritis. Data reviewed: vital signs, nurses notes, old medical records, lab test result(s), CBC, electrolytes, hepatic panel. Consideration of Admission/Observation Escalation of care including admission/observation considered. ED course: Patient's symptoms have improved significantly after medications in the emergency department and patient has declined CAT scan stating that this is a regular pain that happens to her periodic, and it is associated with nausea and vomiting. Since patient has improved and feels much better is stable for patient to be released home. She was advised to consume clear liquid diet only for the next 24 hours and then supplement her potassium with either green leafy vegetables or bananas.. Advised against use of cannabis. 03/28 21:11 Order name: CBC with Diff; Complete Time: 23:04 [facility] 03/28 21:11 Order name: CMP; Complete Time: 23:04 [facility] 03/28 21:11 Order name: Lipase; Complete Time: 23:04 [facility] 03/28 21:16 Order name: Test, Serum; Complete Time: 23:04 [facility] 03/28 21:37 Order name: CT Chest W/ Con [facility] 03/28 21:11 Order name: IV Saline Lock; Complete Time: 21:43 [facility] 03/28 21:11 Order name: Labs collected and sent; Complete Time: 21:43 4 Administered Medications: 03/28 21:42 Drug: Ondansetron IVP 8 mg Route: IVP; Site: right antecubital; me1 23:20 Follow up: Response: No adverse reaction; Nausea is decreased me1 21:42 Drug: metoCLOPramide IVP 10 mg Route: IVP; Site: right antecubital; me1 23:20 Follow up: Response: No adverse reaction; Nausea is decreased me1 21:42 Drug: TORadol - Ketorolac IVP 30 mg Route: IVP; Site: right antecubital; me1 22:42 Follow up: Response: No adverse reaction; Pain is decreased me1 21:42 Drug: NS 0.9% IV 500 ml Route: IV; Rate: bolus; Site: right antecubital; me1 23:20 Follow up: IV Status: Completed infusion; IV Intake: 500ml me1 21:43 Drug: morphine IVP or IV 4 mg Route: IVP; Infused Over: 4 mins; Site: right antecubital;me1 22:43 Follow up: Response: No adverse reaction; Pain is decreased me1 21:43 Drug: Ativan IVP 1 mg Route: IVP; Site: right antecubital; me1 23:21 Follow up: Response: No adverse reaction; Anxiety decreased me1 22:10 Drug: NS 0.9% IV 1000 ml Route: IV; Rate: 1 bolus; Site: right antecubital; me1 Disposition Summary: 03/29/23 00:12 Discharge Ordered Location: Home sp4 Problem: new sp4 Symptoms: have improved sp4 Condition: Stable sp4 Diagnosis - Nausea with vomiting, unspecified sp4 - Acute gastritis, diffuse abdominal pain, intractable nausea and vomiting, sp4 hypokalemia, volume depletion Followup: sp4 - With: Private Physician - When: 7 - 10 days - Reason: Recheck today's complaints Discharge Instructions: - Discharge Summary Sheet sp4 - Nausea and Vomiting, Adult, [id number] sp4 Forms: - Patient Portal Instructions sp4 Prescriptions: - Reglan 10 mg Oral Tablet - take 1 tablet by ORAL route every 6 hours PRN pain; 30 tablet; Refills: 0, sp4 Product Selection Permitted Signatures: Dispatcher [employer] García Abarca RN RN as6 Tanvir Pedro MD MD sp4 Acacia Anna RN RN me1 Corrections: (The following items were deleted from the chart) 21:40 21:16 Abdomen Pelvis W [id number] ordered. EDMS EDMS 23:48 21:40 Chest Abdomen Pelvis W Cont ordered. EDMS EDMS
[2023-03-29 01:49] VITALS: TEMP 97.2
[2023-03-29 01:52] VITALS: BP 123/89; O2SAT 99
== END 2023-03-29 00:30 | disposition home or self-care (01) ==
LOC: ER 20:35
DX: K29.70 Gastritis, unspecified, without bleeding (principal); E87.6 Hypokalemia; E86.9 Volume depletion, unspecified; R10.9 Unspecified abdominal pain; F17.210 Nicotine dependence, cigarettes, uncomplicated
CPT/HCPCS: 96361; 85025; 36415; 84703; 83690; 80053; 96375; 96374; 99284; J2765; J2405; J7040; J7030

== ENCOUNTER 2023-03-29 06:19 | Emergency (ER) | payer OTHER ==
--- OUTSIDE RECORDS SUMMARY | 2023-03-29 06:24 | XMS REPORT | Continuity of Care Document ---
:1975 Author Organization [facility] t Address [address] [place] [address] Care Team Providers Name Role Phone OKSANA RAMIREZ Primary Care Physician Unavailable OKSANA RAMIREZ Attending Clinician Unavailable Ashley Oksana AGUILAR Attending Clinician [phone] Doctor Unassigned, [place] Attending Clinician Unavailable Visit, [facility] Nurse Attending Clinician Unavailable GUILLERMINA DENNY Attending Clinician Unavailable Radiology Attending Clinician Unavailable RADIOLOGY Attending Clinician Unavailable ALIX FRANKLIN Attending Clinician Unavailable ANKIT HILL Attending Clinician Unavailable RICHARDSON LAO Attending Clinician Unavailable SUSANA TURPIN Attending Clinician Unavailable Payers Payer Name Policy Type Policy Number Effective Date Expiration Date S tania [facility] [id number] 2020 00:00:00 Problems Condition Condition Condition Status [...] [place] and advice 00 [place] for for Branch contracept contracept lenny [...] genital 2-04 ity of 00:00: [place] 00 [facility] Allergies, Adverse Reactions, Alerts Allergy Allergy Status Severity Reaction(s) Onset Inactive Treating Comm ents Source Name Type Date Date Clinician NO KNOWN Drug Active Univers ALLERGIE Class ity of S [facility] Social History Social Habit Start Date Stop Date Quantity Comments Source History of tobacco Cigarette Smoker University of use [facility] Exposure to Not sure [facility] SARS-CoV-2 (event) [facility] History SDOH [facility] Alcohol Std Drinks [facility] History SDOH [facility] Alcohol Binge [facility] Cigarettes smoked 2021-09-06 2021-09-06 Univers ity of current (pack per 00:00:00 00:00:00 ) - Reported Branch Tobacco Comment 2021-09-06 2021-09-06 Smokes 5 ciggs a Uni versity of 00:00:00 00:00:00 day [facility] Tobacco use and 2021-09-06 2021-09-06 Smokeless Universit y of exposure 00:00:00 00:00:00 tobacco non-user [facility] dical Branch Alcohol Comment 2020-07-08 2020-07-08 special Universit y of 00:00:00 00:00:00 occasions [facility] Alcohol intake 2019-09-17 2019-09-[address] [facility] 00:00:00 00:00:00 non-drinker of Medical Ce nter alcohol (finding) History SDOH 2019-06-27 2019-06-27 1 RACHEL Velez Alcohol Frequency 00:00:00 00:00:00 [facility] Center Sex Assigned At [birth year] RACHEL Gilberts 00:00:00 00:00:00 [facility] Center Smoking Status Start Date Stop Date Source Smokes tobacco daily 2021-09-06 00:00:00 Univers ity of [facility] Never smoked tobacco [facility] Medications Ordered Filled Start Stop Current Ordering Indication Dosage Frequency Signature Comments Components Source Medication Medication Date Date Medication? Clinician (SIG) Name Name No known No Univers medications 2-28 ity of 09:34: [address] No known No Univers medications 2-28 ity of 09:34: [address] No known No No known Unive rs medications 2-28 medication it y of 09:34: s [address] ondansetron 2020-0 Yes 4mg Take [...] Source Systolic blood 2021-10-02 14:44:00 122 mm[Hg] [facility] Diastolic blood 2021-10-02 14:44:00 75 mm[Hg] [facility] Heart rate 2021-10-02 14:44:00 67 /min [facility] Body temperature 2021-10-02 14:44:00 35.83 Jeane [facility] Respiratory rate 2021-10-02 14:44:00 20 /min [facility] Body height 2021-10-02 14:44:00 149.9 cm [facility] Body weight 2021-10-02 14:44:00 63.163 kg [facility] BMI 2021-10-02 14:44:00 28.13 kg/m2 [facility] Procedures This patient has no known procedures. Plan of Care Planned Activity Planned Date Details Comments Source Future Scheduled 2022-04-[address] [facility] Test 00:00:00 (#1) [code = [facility] INFLUENZA VACCINE (#1)] Future Scheduled 2022-04-[address] [facility] Test 00:00:00 (#1) [code = [facility] INFLUENZA VACCINE (#1)] Future Scheduled 2022-04-[address] [facility] Test 00:00:00 (#1) [code = [facility] INFLUENZA VACCINE (#1)] Future Scheduled 2021-08-05 [...] [facility] es Test 00:00:00 [facility] [code = 127838373] Future Scheduled 2020-10-[address] [facility] [facility] Test 00:00:00 malignant neoplasm of [facility] cervix (procedure) [code = 515670777] Future Scheduled 2020-10-[address] [facility] [facility] Test 00:00:00 malignant neoplasm of [facility] cervix (procedure) [code = 065840642] Future Scheduled 2020-10-[address] [facility] Test 00:00:00 malignant neoplasm of [facility] Center cervix (procedure) [code = 368507588] Future Scheduled 2020-04-[address] [...] 2022-04-26 Outpatient R ASHLEY, [facility] [id number] Univers 13:45:00 13:45:00 OKSANA low [facility] 2022-04-18 2022-04-18 [facility] [id number] Univers 00:00:00 00:00:00 Oksana Calzada [employer] [id number] [facility] [id number] Patrick as MATERNAL [id number] Med ical & CHILD [address] [place] [address] 2021-10-10 2021-10-10 Outpatient R AKINSIPE, [facility] [id number] Univers 00:00:00 00:00:00 OKSANA hightower [facility] 2021-10-10 2021-10-10 Outpatient R AKINSIMONICA, [facility] [id number] Univers 00:00:00 00:00:00 OKSANA groves o f [facility] 2021-10-10 2021-10-10 Outpatient R AKINSIPE, [facility] [id number] Univers 00:00:00 00:00:00 OKSANA low f [facility] 2021-10-02 2021-10-02 Office Akinsipe, [facility] [id number] Univers 08:45:00 09:13:38 Visit [facility] [employer] [id number] ity of [facility] [id number] Patrick as MATERNAL [id number] [facility] [address] [place] [address] 2021-10-02 2021-10-02 Outpatient R AKINSIPE, [facility] [id number] Univers 08:45:00 09:13:38 OKSANA kathariney o [facility] 2021-10-02 2021-10-02 Outpatient R AKINSIPE, [facility] [id number] Univers 08:45:00 08:45:00 OKSANA kathariney o [facility] 2021-09-21 2021-09-21 Outpatient R AKINSIPE, [facility] [id number] Univers 08:30:00 08:30:00 OKSANA kathariney o [facility] 2021-09-14 2021-09-14 Outpatient R AKINSIPE, [facility] [id number] Univers 12:45:00 13:45:38 OKSANA kathariney o [facility] 2021-09-14 2021-09-14 [facility] [id number] Univers 12:45:00 13:45:38 Visit [facility] [employer] [id number] ity [facility] [id number] Patrick as MATERNAL [id number] [facility] & CHILD [address] [place] [address] 2021-09-14 2021-09-14 Orders Doctor JIMÉNEZ [id number] Univers 00:00:00 00:00:00 Only Unassigned, DAINA [id number] ity of [place] [facility] 4.2.7.2.686 Patrick as [id number] [address] 2021-09-13 2021-09-13 Outpatient R AKINSIPE, [facility] [id number] Univers 10:00:00 10:00:00 OKSANA ity o [facility] 2021-09-06 2021-09-06 [facility] [id number] Univers 09:45:00 10:57:26 OKSANAIHSAN low [facility] 2021-09-06 2021-09-06 Office [facility] [id number] Univers 09:45:00 10:57:26 Visit Oksana Calzada [employer] [id number] ity of [facility] 4.2.7.2.686 Patrick as MATERNAL [id number] Med ical & CHILD [address] [place] [address] 2021-09-06 2021-09-06 Orders Doctor TINO [id number] Univers 00:00:00 00:00:00 Only Unassigned, DAINA [id number] ity of [place] [facility] 4.2.7.2.686 Patrick as [id number] [address] 2020-12-07 2020-12-07 [facility] [id number] Univers 09:30:00 09:30:00 OKSANA katharinematthias low [facility] 2020-11-29 2020-11-29 Outpatient [facility] [id number] Univers 09:30:00 09:30:00 OKSANA germain low [facility] 2020-10-04 2020-10-04 [facility] 1.2.840.114 [id number] 13:39:10 23:59:00 Encounter Oksana C SPECIALTY [id number] CARE 4.2.7.2.686 CENTER AT [phone] [address] 2020-10-04 2020-10-04 [facility] [id number] Univers 13:39:10 23:59:00 Encounter Oksana C SPECIALTY 350.1.13.10 ity of [facility] 4.2.7.2.686 [place] C[place] AT [id number] [place] dical [address] 2020-10-04 2020-10-04 [facility] 1.2.840.114 [id number] 13:37:38 13:38:00 Encounter Oksana C SPECIALTY [id number] CARE 4.2.7.2.686 CENTER AT [id number] LARRY Ryan [facility] 2020-10-04 2020-10-04 [facility] 1.2.840.114 [id number] Univers 13:37:38 13:38:00 Encounter Oksana C SPECIALTY 350.1.13.10 ity of [place]2.[place] AT [id number] [facility] CORI [facility] 2020-10-04 2020-10-04 Outpatient R [facility] [id number] Univers 00:00:00 00:00:00 OKSANA hightower [facility] 2020-09-20 2020-09-20 Outpatient R [facility] [id number] Univers 00:00:00 00:00:00 OKSANA hightower [facility] 2020-09-01 2020-09-01 Telephone [facility] 1.2.840.114 [id number] 00:00:00 00:00:00 Oksana C [employer] [id number] REGIONAL 4.2.7.2.686 MATERNAL [id number] & CHILD [address] [place] [address] 2020-09-01 2020-09-01 Telephone [facility] 1.2.840.114 [id number] Univers 00:00:00 00:00:00 Oksana C [employer] 350.1.13.10 ity of REGIONAL 4.2.7.2.686 Patrick as MATERNAL [id number] [facility] [address] [place] [address] 2020-08-31 2020-08-31 Office [facility] [id number] Univers 10:11:31 11:17:14 Visit Oksana C [employer] 350.1.13.10 ity of REGIONAL 4.2.7.2.686 Patrick as MATERNAL [id number] [facility] [address] [place] [address] 2020-08-31 2020-08-31 Outpatient R [facility] [id number] Univers 10:15:00 10:15:00 OKSANA hightower [facility] 2020-08-29 2020-08-29 Nurse Visit, Cristy Nurse [facility] 1.2 .840.114 [id number] Univers 09:44:02 10:27:17 Visit Oksana Ramirez [employer] 350.1.13. 10 ity of [facility] 4.2.7.2.686 Patrick as MATERNAL [id number] [facility] [address] [place] [address] 2020-08-29 2020-08-29 [facility] [id number] Univers 10:00:00 10:00:00 OKSANA low [facility] 2020-08-29 2020-08-29 [facility] [id number] Univers 09:00:00 09:00:00 OKSANA low [facility] 2020-08-29 2020-08-29 Orders Doctor TINO 1.2.840.114 [id number] Univers 00:00:00 00:00:00 Only Unassigned, DAINA 350.1.13.10 ity of [place] [facility] 4.2.7.2.686 Patrick as [id number] [address] 2020-07-11 2020-07-11 Outpatient R [facility] [id number] Univers 12:45:00 12:45:00 ity of [facility] 2020-07-08 2020-07-08 [facility] [id number] Univers 13:59:41 15:25:43 Visit Oksana Calzada [employer] 350.1.13.10 ity of [facility] 4.2.7.2.686 Patrick as MATERNAL [id number] [facility] & [address] 2020-07-08 2020-07-08 [facility] [id number] Univers 13:30:00 13:30:00 OKSANA katharinematthias low [facility] 2020-07-06 2020-07-06 [facility] [id number] Univers 09:00:00 09:00:00 GUILLERMINA ity o f [facility] 2020-06-08 2020-06-08 Outpatient R [facility] [id number] Univers 09:15:00 09:15:00 ity of [facility] 2020-05-26 2020-05-26 Hospital Radiology [facility] 1.2.840.114 [id number] Univers 12:40:00 23:59:00 Encounter [place] 350.1.13.10 ity [facility] 4.2.7.2.686 [facility] [id number] [facility] [address] 2020-05-26 2020-05-26 Outpatient R RADIOLOGY [facility] [id number] Univers 00:00:00 00:00:00 ity of [facility] 2020-05-26 2020-05-26 Letter Doctor TINO 1.2.840.114 [id number] Univers 00:00:00 00:00:00 (Out) Unassigned, DAINA 350.1.13.10 ity of [place] [facility] 4.2.7.2.686 [facility] [id number] [facility] 044 [place] Results Test Description Test Time Test Comments Results Result Sour e Comments CT, ABDOMEN 2019-09-17 Reason for FINAL REPORT PATIENT 14:16:00 exam:->NAUSEARe ID: [id number] CT ason for ABDOMEN AND PELVIS exam:->EMESISRe [...] use of iterative reconstruction technique. Signed: Beatris Cohenort Verified Date/Time: 09/17/2019 14:16:48 Reading Location: [facility] Radiology Reading Room SE 2019-09-17 13:00:00 Test Item Value Reference Range Interpretation Comme nts LIPASE (BEAKER) (test code = 749) 4 U/L 6-51 L Promotional Marketing Agent ID - [id number] FUNCTION [id number] 12:56:00 Test Item Value Reference Range Interpretation [...] Specimen slightly (test code = 347) hemolyzed Promotional Marketing Agent ID - [id number] DRUG SCREEN, [id number] 12:54:00 Test Item Value Reference Range Interpretation [...] situations. Chain of custody not maintained. Some fsjq-tnv-esowqic medications, as well as adulterants, may cause inaccurate results. Clinical correlation should be applied. A more comprehensive drug screen or confirmation of a detected drug may be performed upon request.Promotional Marketing Agent ID - [id number] ID - [id number] ID - [id number] ID - [id number] ID - zhfu25Gptnrbhe ID - [id number] ID - [id number] ID - [id number] METABOLIC [id number] 12:54:00 Test Item Value Reference Range Interpretation [...] S NOT APPLICABLE FOR DIALYSIS PATIEN TS. Promotional Marketing Agent ID - [id number] W/ [id number] 12:47:00 Test Item Value Reference Range Interpretation [...] 1663) SOURCE(BEAKER) (test code = 2795) SCREEN, [id number] 12:40:00 Test Item Value Reference Range Interpretation Comments TEST URINE (BEAKER) (test Negative code = 583) CBC W/PLT COUNT & AUTO [id number] 12:38:00 Test Item Value Reference Range Interpretation [...] PERCENT (BEAKER) (test code = 2801) POCT-GLUCOSE [id number] 12:28:00 Test Item Value Reference Range Interpretation Comments POC-GLUCOSE METER 117 mg/dL 70-110 H : TESTED A T SLSL 1317 (BEAKER) (test code [address], = 1538) [facility] 77 [id number]: Promotional Marketing Agent/Techni brayden ID = [id number] for Tolo , Chisa CT, [id number] 16:50:00Reason for exam:->EMESISIs the patient ?->NoWhat is [...] MDReport Verified Date/Time: 08/16/2019 16:50:10 Reading Location: [address] Consult Reading Room LIPASE 2019-08-16 14:40:00 Test Item Value Reference Range Interpretation Comments LIPASE (BEAKER) (test code = 749) 5 U/L 6-51 L Promotional Marketing Agent ID - KARINABASIC METABOLIC [id number] 14:38:00 Test Item Value Reference Range Interpretation [...] S NOT APPLICABLE FOR DIALYSIS PATIEN TS. Promotional Marketing Agent ID - JONATHANHEPATIC FUNCTION [id number] 14:38:00 Test Item Value Reference Range Interpretation [...] Specimen slightly (test code = 347) hemolyzed Promotional Marketing Agent ID - JONATHANHCG, SERUM, [id number] 14:34:00 Test Item Value Reference Range Interpretation Comments TEST SERUM (BEAKER) (test Negative code = 584) RAPID INFLUENZA A&B [id number] 14:34:00 Test Item Value Reference Range Interpretation Comments RAPID INFLUENZA A AG (BEAKER) Negative Negative, Inconclusive (test code = 1622) RAPID INFLUENZA B AG (BEAKER) Negative Negative, Inconclusive (test code = 1623) CBC W/PLT COUNT & AUTO [id number] 14:20:00 Test Item Value Reference Range Interpretation [...] (BEAKER) (test code = 2801) COMPREHENSIVE METABOLIC [id number] 12:48:00 Test Item Value Reference Range Interpretation [...] S NOT APPLICABLE FOR DIALYSIS PATIEN TS. [id number] 12:48:00 Test Item Value Reference Range Interpretation Comments LIPASE (BEAKER) (test code = 749) 9 U/L 6-51 HCG, SERUM, [id number] 12:27:00 Test Item Value Reference Range Interpretation Comments TEST SERUM (BEAKER) (test Negative code = 584) CBC W/PLT COUNT & AUTO [id number] 12:21:00 Test Item Value Reference Range Interpretation [...] L 0.00-0.20 (test code = 417) CT, [id number] 11:01:00Reason for exam:->EMESISIs the patient ?->NoWhat is [...] degenerating calcified uterine leiomyomata. Signed: Guanakito Aragon MDRort Verified Date/Time: 07/07/2019 11:01:48Reading Location: [facility] C013Y CT Body Reading Room COMPREHENSIVE METABOLIC [id number] 10:26:00 Test Item Value Reference Range Interpretation [...] S NOT APPLICABLE FOR DIALYSIS PATIEN TS. [id number] 10:26:00 Test Item Value Reference Range Interpretation Comments LIPASE (BEAKER) (test code = 749) 8 U/L 6-51 HCG, SERUM, [id number] 10:21:00 Test Item Value Reference Range Interpretation Comments TEST SERUM (BEAKER) (test Negative code = 584) CBC W/PLT COUNT & AUTO [id number] 10:08:00 Test Item Value Reference Range Interpretation [...]
[2023-03-29] MEDS ORDERED: DIPHENHYDRAMINE 50 MG/ML VIAL ONE (07:35)
[2023-03-29] MEDS ORDERED: METOCLOPRAMIDE 10 MG/2mL INJ ONE (07:35)
[2023-03-29] MEDS ORDERED: NA CHLORIDE 0.9% 1,000 ML ONE (07:36)
[2023-03-29] MEDS ORDERED: NA CHLORIDE 0.9% 50 ML ONE (07:36)
[2023-03-29 07:48] LABS: Hematocrit 33.2 % (36.0-45.0); Lymphocytes % 9.2 % (15.3-44.8); MCV 86.1 fL (80-100); MPV 8.4 fL (7.6-11.3); Platelets 366 thou/uL (152-406); RBC Red Blood Cell Count 3.85 M/uL (3.86-4.86)
[2023-03-29 08:05] LABS: Albumin 4.2 g/dL (3.4-5.0); Bilirubin Total 0.6 mg/dL (0.2-1.0); Magnesium 1.8 mg/dL (1.6-2.4); Potassium 3.7 mEq/L (3.5-5.1); Protein, Total 8.5 g/dL (6.4-8.2)
--- NOTE | 2023-03-29 08:13 | ER ---
Nurse's Notes [facility] Name: Sangita Sorenson Age: 47 yrs Sex: Female : 1975 Arrival Date: 03/29/2023 Time: 06:19 Bed 13 Private MD: Diagnosis: Nausea and vomiting Presentation: 03/29 06:32 Chief complaint: Patient states: abdominal pain and vomiting returned seen here last pm for same symptoms. Coronavirus screen: Vaccine status: Patient reports being unvaccinated. Ebola Screen: Patient negative for fever greater than or equal to 101.5 degrees Fahrenheit, and additional compatible Ebola Virus Disease symptoms. Initial Sepsis Screen: Does the patient meet any 2 criteria? No. Patient's initial sepsis screen is negative. Does the patient have a suspected source of infection? No. Patient's initial sepsis screen is negative. Risk Assessment: Do you want to hurt yourself or someone else? Patient reports no desire to harm self or others. Onset of symptoms was March 29, 2023 at 05:00. 06:32 Method Of Arrival: Wheelchair 06:32 Acuity: IBRAHIMA 3 Triage Assessment: 06:35 General: Appears distressed, uncomfortable, Behavior is anxious, restless. Pain: Complains of pain in abdomen Pain currently is 10 out of 10 on a pain scale. GI: Reports lower abdominal pain, upper abdominal pain, nausea, vomiting. 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 - Social history:: Smoking status: Patient reports the use of cigarette tobacco products, smokes one-half pack cigarettes per day. - Family history:: not pertinent. Screenin:15 [facility] ED Fall Risk Assessment (Adult) History of falling in the last 3 months, db including since admission No falls in past 3 months (0 pts) Confusion or Disorientation No (0 pts) Intoxicated or Sedated No (0 pts) Impaired Gait No (0 pts) Mobility Assist Device Used No (0 pt) Altered Elimination No (0 pt) Score/Fall Risk Level 0 - 2 = Low Risk Oriented to surroundings, Maintained a safe environment. Abuse screen: Denies threats or abuse. Denies injuries from another. Nutritional screening: No deficits noted. Tuberculosis screening: No symptoms or risk factors identified. Assessment: 07:15 Reassessment: Patient appears in no apparent distress at this time. Patient and/or db family updated on plan of care and expected duration. Pain level reassessed. Patient is alert, oriented x 3, equal unlabored respirations, skin warm/dry/pink. nausea states last name came but was not able to get prescription. states has nausea and vomiting. General: Appears in no apparent distress. comfortable, Behavior is calm, cooperative. Neuro: Level of Consciousness is awake, alert, obeys commands, Oriented to person, place, time, situation. GI: Abdomen is flat, Reports nausea, vomiting. 08:00 Reassessment: Patient appears in no apparent distress at this time. Patient and/or db family updated on plan of care and expected duration. Pain level reassessed. Patient is alert, oriented x 3, equal unlabored respirations, skin warm/dry/pink. pt is sleeping Patient states feeling better. Patient states symptoms have improved. Vital Signs: 06:32 BP 138 / 89; Pulse 79; Resp 20; Temp 98(TE); Pulse Ox 100% ; Weight 56.7 kg (R); Height kl 4 ft. 11 in. ; Pain 10/10; 08:00 BP 127 / 77; Pulse 90; Resp 16; Pulse Ox 100% ; db 06:32 Body Mass Index 25.25 (56.70 kg, 149.86 cm) kl 06:32 Pain Scale: Adult ED Course: 06:20 Patient arrived in ED. [id number] 06:34 Triage completed. kl 06:59 Hector Jones MD is Attending Physician. rt 07:19 Yaritza Carias, LOGAN is Primary Nurse. db 07:32 Inserted saline lock: 20 gauge in right antecubital area, using aseptic technique. db Blood collected. 07:35 Initial lab(s) drawn, by me, sent to lab. db 08:16 Patient has correct armband on for positive identification. Bed in low position. Call db light in reach. Side rails up X 1. Pulse ox on. NIBP on. Warm blanket given. 08:32 No provider procedures requiring assistance completed. IV discontinued, intact, db bleeding controlled, No redness/swelling at site. 08:32 Provided Education on: DISCHARGE. db 08:39 Arm band placed on Patient placed in an exam room. db Administered Medications: 07:32 Drug: diphenhydrAMINE IVP 12.5 mg Route: IVP; Site: right antecubital; db 08:16 Follow up: Response: No adverse reaction db 07:32 Drug: NS 0.9% IV 1000 ml Route: IV; Rate: 1 bolus; Site: right antecubital; db 08:39 Follow up: Response: No adverse reaction; IV Status: Completed infusion; IV Intake: db 1000ml 07:35 Drug: metoCLOPramide IVP 10 mg Route: IVP; Site: right antecubital; db 08:16 Follow up: Response: No adverse reaction db Medication: 08:32 VIS not applicable for this client. db Intake: 08:39 IV: 1000ml; Total: 1000ml. db Outcome: 08:13 Discharge ordered by MD. rt 08:32 Discharge instructions given to patient, Instructed on discharge instructions, follow db up and referral plans. 08:37 Discharged to home ambulatory. db 08:37 Condition: stable 08:39 Patient left the ED. db Signatures: Denise Reese, RN RN Ngozi Santana [email or web address] Yaritza Carias RN RN Hector John MD MD rt Corrections: (The following items were deleted from the chart) 08:38 08:32 No provider procedures requiring assistance completed. db db 08:38 08:32 Patient did not have IV access during this emergency room visit. db db
--- NOTE | 2023-03-29 08:13 | EDPHYS ---
Physician Documentation [facility] Name: Sangita Sorenson Age: 47 yrs Sex: Female : 1975 Arrival Date: 03/29/2023 Time: 06:19 Bed 13 Private MD: ED Physician Hector Jones HPI: 03/29 07:43 This 47 yrs old Black Female presents to ER via Wheelchair with complaints of rt Nausea/Vomiting. 07:43 Patient presents to the ED with nausea, vomiting. She was seen in the ED last night, rt received Reglan, subsequently discharged. She was prescribed Reglan, was unable to fill it due to it being nighttime. States that the nausea and vomiting have returned. Denies other new symptoms. Does report generalized abdominal pain with the retching. Symptoms are moderate in severity, no other aggravating or alleviating factors.. 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 - Social history:: Smoking status: Patient reports the use of cigarette tobacco products, smokes one-half pack cigarettes per day. - Family history:: not pertinent. ROS: 07:43 Constitutional: Negative for fever, chills, and weight loss, Cardiovascular: Negative rt for chest pain, palpitations, and edema, Respiratory: Negative for shortness of breath, cough, wheezing, and pleuritic chest pain, MS/Extremity: Negative for injury and deformity, Skin: Negative for injury, rash, and discoloration, Neuro: Negative for headache, weakness, numbness, tingling, and seizure, Psych: Negative for depression, anxiety, suicide ideation, homicidal ideation, and hallucinations. 07:43 Abdomen/GI: Positive for abdominal pain, nausea and vomiting. Exam: 07:43 Constitutional: This is a well developed, well nourished patient who is awake, alert, rt and in no acute distress. Head/Face: Normocephalic, atraumatic. Chest/axilla: Normal chest wall appearance and motion. Nontender with no deformity. No lesions are appreciated. Cardiovascular: Regular rate and rhythm with a normal S1 and S2. No gallops, murmurs, or rubs. Normal PMI, no JVD. No pulse deficits. Respiratory: Lungs have equal breath sounds bilaterally, clear to auscultation and percussion. No rales, rhonchi or wheezes noted. No increased work of breathing, no retractions or nasal flaring. Skin: Warm, dry with normal turgor. Normal color with no rashes, no lesions, and no evidence of cellulitis. MS/ Extremity: Pulses equal, no cyanosis. Neurovascular intact. Full, normal range of motion. Neuro: Awake and alert, GCS 15, oriented to person, place, time, and situation. Cranial nerves II-XII grossly intact. Motor strength 5/5 in all extremities. Sensory grossly intact. Cerebellar exam normal. Normal gait. Psych: Awake, alert, with orientation to person, place and time. Behavior, mood, and affect are within normal limits. 07:43 Abdomen/GI: Mild tenderness diffusely without rebound, guarding, distention. Vital Signs: 06:32 BP 138 / 89; Pulse 79; Resp 20; Temp 98(TE); Pulse Ox 100% ; Weight 56.7 kg (R); Height kl 4 ft. 11 in. ; Pain 10/10; 08:00 BP 127 / 77; Pulse 90; Resp 16; Pulse Ox 100% ; db 06:32 Body Mass Index 25.25 (56.70 kg, 149.86 cm) kl 06:32 Pain Scale: Adult kl MDM: 07:02 Patient medically screened. rt 08:14 Differential diagnosis: Nonspecific abd pain, Cannabinol hyperemesis syndrome, rt electrolyte disturbance. Data reviewed: vital signs, nurses notes. I considered the following discharge prescriptions or medication management in the emergency department Medications were administered in the Emergency Department. See MAR. Test considered but Not performed: CT: Again, offered CT scan to the patient as before. Patient strongly does not wish to have a CAT scan be performed.. Counseling: I had a detailed discussion with the patient and/or guardian regarding the historical points, exam findings, and any diagnostic results supporting the discharge/admit diagnosis, lab results, the need for outpatient follow up. Response to treatment: the patient's symptoms have markedly improved after treatment. 03/29 07:08 Order name: CBC with Diff; Complete Time: 08:10 rt 03/29 07:08 Order name: CMP; Complete Time: 08:10 rt 03/29 07:08 Order name: Magnesium; Complete Time: 08:10 rt 03/29 07:08 Order name: Lipase; Complete Time: 08:10 rt Administered Medications: 07:32 Drug: diphenhydrAMINE IVP 12.5 mg Route: IVP; Site: right antecubital; db 08:16 Follow up: Response: No adverse reaction db 07:32 Drug: NS 0.9% IV 1000 ml Route: IV; Rate: 1 bolus; Site: right antecubital; db 08:39 Follow up: Response: No adverse reaction; IV Status: Completed infusion; IV Intake: db 1000ml 07:35 Drug: metoCLOPramide IVP 10 mg Route: IVP; Site: right antecubital; db 08:16 Follow up: Response: No adverse reaction db Disposition Summary: 03/29/23 08:13 Discharge Ordered Location: Home rt Problem: new rt Symptoms: have improved rt Condition: Stable rt Diagnosis - Nausea and vomiting rt Followup: rt - With: Private Physician - When: 2 - 3 days - Reason: Discharge Instructions: - Discharge Summary Sheet rt - Nausea and Vomiting, Adult rt Forms: - Medication Reconciliation Form rt - Thank You Letter rt - Antibiotic Education rt - Prescription Opioid Use rt - Patient Portal Instructions rt - Leadership Thank You Letter rt Signatures: Dispatcher [employer] Denise Hanks, Yaritza Stiles RN, RN RN db [place], Ryan, MD MD rt
[2023-03-29 09:03] VITALS: TEMP 98; O2SAT 100
[2023-03-29 09:04] VITALS: BP 127/77
== END 2023-03-29 08:39 | disposition home or self-care (01) ==
LOC: ER 06:19
DX: R11.2 Nausea with vomiting, unspecified (principal); F17.210 Nicotine dependence, cigarettes, uncomplicated
CPT/HCPCS: 96361; 85025; 36415; 83735; 83690; 80053; 96375; 96374; 99284; J2765; J1200; J7030

== ENCOUNTER 2023-03-29 23:19 | Observation (INO) | payer OTHER ==
--- OUTSIDE RECORDS SUMMARY | 2023-03-29 23:23 | XMS REPORT | Continuity of Care Document ---
:1975 Author Organization [facility] t Address [address] [place] [address] Care Team Providers Name Role Phone No MD, Pcp [facility] Primary Care Physician Unavailable OKSANA RAMIREZ Attending Clinician Unavailable Ashley Oksana AGUILAR Attending Clinician [phone] Doctor Unassigned, [place] Attending Clinician Unavailable Visit, [facility] Nurse Attending Clinician Unavailable GUILLERMINA DENNY Attending Clinician Unavailable Radiology Attending Clinician Unavailable RADIOLOGY Attending Clinician Unavailable ALIX FRANKLIN Attending Clinician Unavailable ANKIT HILL Attending Clinician Unavailable RICHARDSON LAO Attending Clinician Unavailable SUSANA TURPIN Attending Clinician Unavailable Payers Payer Name Policy Type Policy Number Effective Date Expiration Date Nora marin [facility] [id number] 2020 00:00:00 Problems Condition Condition Condition Status [...] genital 2-04 ity of 00:00: [place] 00 [facility] Allergies, Adverse Reactions, Alerts Allergy Allergy Status Severity Reaction(s) Onset Inactive Treating Comm ents Source Name Type Date Date Clinician NO KNOWN Drug Active Univers ALLERGIE Class ity of S [facility] Social History Social Habit Start Date Stop Date Quantity Comments Source History of tobacco Cigarette Smoker University of use [facility] Exposure to Not sure University of SARS-CoV-2 (event) [facility] History SDOH [facility] Alcohol Std Drinks [facility] History SDOH [facility] Alcohol Binge [facility] Cigarettes smoked 2021-09-06 2021-09-06 Univers ity of current (pack per 00:00:00 00:00:00 ) - Reported Branch Tobacco Comment 2021-09-06 2021-09-06 Smokes 5 ciggs a Uni versity of 00:00:00 00:00:00 day [facility] Tobacco use and 2021-09-06 2021-09-06 Smokeless Universit y of exposure 00:00:00 00:00:00 tobacco non-user [facility] dical Branch Alcohol Comment 2020-07-08 2020-07-08 special Universit y of 00:00:00 00:00:00 occasions [facility] Alcohol intake 2019-09-17 2019-09-[address] [facility] 00:[facility]00 00:00:00 non-drinker of Medical Ce nter alcohol (finding) History SDOH 2019-06-27 2019-06-27 1 RACHEL Velez Alcohol Frequency 00:00:00 00:00:00 [facility] Sex Assigned At [birth year] RACHEL Gilberts 00:00:00 00:00:00 [facility] Smoking Status Start Date Stop Date Source Smokes tobacco daily 2021-09-06 00:00:00 Univers ity of [facility] Never smoked tobacco [facility] Medications Ordered Filled Start Stop Current Ordering Indication Dosage Frequency Signature Comments Components Source Medication Medication Date Date Medication? Clinician (SIG) Name Name No known No Univers medications 2-28 ity of 09:34: [address] No known No Univers medications 2-28 ity of 09:34: [address] No known No No known Unive rs medications 2-28 medication it y of 09:34: s [address] ondansetron 2020-0 Yes 4mg Take 1 [...] Source Systolic blood 2021-10-02 14:44:00 122 mm[Hg] [facility] Diastolic blood 2021-10-02 14:44:00 75 mm[Hg] [facility] Heart rate 2021-10-02 14:44:00 67 /min [facility] Body temperature 2021-10-02 14:44:00 35.83 [facility] Respiratory rate 2021-10-02 14:44:00 20 /min [facility] acute hospital Body height 2021-10-02 14:44:00 149.9 cm [facility] Body weight 2021-10-02 14:44:00 63.163 kg [facility] BMI 2021-10-02 14:44:00 28.13 kg/m2 [facility] Procedures This patient has no known procedures. Plan of Care Planned Activity Planned Date Details Comments Source Future Scheduled 2022-04-[address] [facility] Test 00:00:00 (#1) [code = [facility] INFLUENZA VACCINE (#1)] Future Scheduled 2022-04-[address] [facility] Test 00:00:00 (#1) [code = Medical Center INFLUENZA VACCINE (#1)] Future Scheduled 2022-04-05 INFLUENZA [...] [facility] 00:[facility]:00 (12+) [code = [facility] DEPRESSION SCREENING (12+)] Future Scheduled 2020-10-[address] [facility] 00[facility]00[facility]00 [facility]procedure) [code = 627565918] Future Scheduled 2020-10-[address] [facility] Test 00:00:00 malignant neoplasm of [facility] cervix (procedure) [code = 152339329] Future Scheduled 2020-10-[address] [facility] Test 00:00:00 malignant neoplasm of [facility] cervix (procedure) [code = 647769507] Future Scheduled 2020-10-[address] [facility] Test 00:00:00 malignant neoplasm of [facility] cervix (procedure) [code = 341570878] Future Scheduled 2020-04-[address] [facility] Test 00:00:00 (#1) [code = [facility] INFLUENZA VACCINE (#1)] Future Scheduled 1996 [...] Department ID 2022-04-26 2022-04-26 Outpatient R ASHLEY [facility] [id number] Univers 13:45:00 13:45:00 OKSANA hightower [facility] 2022-04-18 2022-04-18 [place] [facility] [id number] Univers 00:00:00 00:00:00 Oksana Calzada SLOTTER OPERATOR [id number] ity [facility] [id number] Patrick as MATERNAL [phone] Med [facility] & CHILD [address] [place] [address] 2021-10-10 2021-10-10 Outpatient R ASHLEY [facility] [id number] Univers 00:00:00 00:00:00 OKSANA hightower [facility] 2021-10-10 2021-10-10 Outpatient Clarisa RAMIREZ [facility] [id number] Univers 00:00:00 00:00:00 OKSANA hightower [facility] 2021-10-10 2021-10-10 Outpatient R AKINSIPE, [facility] [id number] Univers 00:00:00 00:00:00 OKSANA low [facility] 2021-10-02 2021-10-02 Office Akinsipe, [facility] [id number] Univers 08:45:00 09:13:[address] [facility] SLOTTER OPERATOR [id number] ity of [facility] [id number] Patrick as MATERNAL [id number] [facility] & CHILD [address] [place] [address] 2021-10-02 2021-10-02 Outpatient R AKINSIPE, [facility] [id number] Univers 08:45:00 09:13:38 OKSANA low [facility] 2021-10-02 2021-10-02 Outpatient R AKINSIPE, [facility] [id number] Univers 08:45:00 08:45:00 OKSANA low [facility] 2021-09-21 2021-09-21 Outpatient R AKINSIPE, [facility] [id number] Univers 08:30:00 08:30:00 OKSANAIHSAN low [facility] 2021-09-14 2021-09-14 Outpatient R AKINSIPE, [facility] [id number] Univers 12:45:00 13:45:38 OKSANA low [facility] 2021-09-14 2021-09-14 Office [facility] [id number] Univers 12:45:00 13:45:[address] [facility] SLOTTER OPERATOR [id number] ity of [facility] [id number] Patrick as MATERNAL [phone] [facility] & CHILD [address] [place] [address] 2021-09-14 2021-09-14 Orders Doctor JIMÉNEZ [id number] Univers 00:00:00 00:00:00 Only Unassigned, DAINA [id number] ity of [place] [facility] [id number] Patrick as [id number] [address] 2021-09-13 2021-09-13 Outpatient R [facility] [id number] Univers 10:00:00 10:00:00 OKSANA groves o [facility] 2021-09-06 2021-09-06 Outpatient R [facility] [id number] Univers 09:45:00 10:57:26 OKSANA alcantary o [facility] 2021-09-06 2021-09-06 Office [facility] [id number] Univers 09:45:00 10:57:26 Visit Oksana Calzada SLOTTER OPERATOR [id number] ity of [facility] [id number] Patrick as MATERNAL [id number] [facility] ical & CHILD [address] [place] [address] 2021-09-06 2021-09-06 Orders Doctor TINO 1.2.840.114 [id number] Univers 00:00:00 00:00:00 Only Unassigned, DAINA [id number] ity of [place] [facility] [id number] Patrick as [id number] [address] 2020-12-07 2020-12-07 Outpatient R [facility] [id number] Univers 09:30:00 09:30:00 OKSANA groves o [facility] 2020-11-29 2020-11-29 Outpatient R [facility] [id number] Univers 09:30:00 09:30:00 OKSANA kathariney o [facility] 2020-10-04 2020-10-04 [facility] [id number] 13:39:10 23:59:00 Encounter Oksana C SPECIALTY [id number] CARE 4.2.7.2.686 CENTER AT [id number] LARRY Shelby [facility] 2020-10-04 2020-10-04 [facility] [id number] Univers 13:39:10 23:59:00 Encounter Oksana C SPECIALTY [id number] ity of [facility] 4.2.7.2.[place] [id number] In luc JUAREZ [address] [place] [address] 2020-10-04 2020-10-04 [facility] [id number] 13:37:38 13:38:00 Encounter Oksana C SPECIALTY [id number] CARE [id number] CENTER AT [id number] LARRY Ryan [facility] 2020-10-04 2020-10-04 [facility] [id number] Univers 13:37:38 13:38:00 Encounter Oksana C SPECIALTY [id number] ity of [place]2.[place] C[place] AT [id number] In luc [address] 2020-10-04 2020-10-04 Outpatient R [facility] [id number] Univers 00:00:00 00:00:00 OKSANA alcantary o f [facility] 2020-09-20 2020-09-20 Outpatient R [facility] [id number] Univers 00:00:00 00:00:00 OKSANA kathariney o [facility] 2020-09-01 2020-09-01 Telephone [facility] 1.2.840.114 [id number] 00:00:00 00:00:00 Oksana C SLOTTER OPERATOR [id number] REGIONAL 4.2.7.2.686 MATERNAL [id number] & CHILD [address] [place] [address] 2020-09-01 2020-09-01 Telephone [facility] 1.2.840.114 [id number] Univers 00:00:00 00:00:00 Oksana C SLOTTER OPERATOR [id number] ity of REGIONAL 4.2.7.2.686 Patrick as MATERNAL [id number] Med ical & CHILD [address] [place] [address] 2020-08-31 2020-08-31 Office [facility] [id number] Univers 10:11:31 11:17:14 Visit Oksana C SLOTTER OPERATOR [id number] ity of [facility] 4.2.7.2.686 Patrick as MATERNAL [id number] [facility] & [address] 2020-08-31 2020-08-31 Outpatient R ASHLEY [facility] [id number] Univers 10:15:00 10:15:00 OKSANA hightower [facility] 2020-08-29 2020-08-29 Nurse Visit, [facility] Nurse [facility] 1.2 .840.114 [id number] Univers 09:44:02 10:27:17 Visit Oksana Ramirez SLOTTER OPERATOR 350.1.13. 10 ity of [place] [id number] Patrick as MATERNAL [id number] [address] 2020-08-29 2020-08-29 [facility] [id number] Univers 10:00:00 10:00:00 OKSANA low [facility] 2020-08-29 2020-08-29 [facility] [id number] Univers 09:00:00 09:00:00 OKSANA low [facility] 2020-08-29 2020-08-29 Orders Doctor TINO 1.2.840.114 [id number] Univers 00:00:00 00:00:00 Only Unassigned, DAINA [id number] ity of [place] [facility] 4.2.7.2.686 Patrick as [id number] [address] 2020-07-11 2020-07-11 Outpatient R [facility] [id number] Univers 12:45:00 12:45:00 ity of [facility] 2020-07-08 2020-07-08 [facility] [id number] Univers 13:59:41 15:25:[address] [facility] SLOTTER OPERATOR [id number] ity of [facility] 4.2.7.2.686 Patrick as MATERNAL [id number] [address] 2020-07-08 2020-07-08 Outpatient R ASHLEY [facility] [id number] Univers 13:30:00 13:30:00 OKSANA ity o f [facility] 2020-07-06 2020-07-06 Outpatient R EDUIN [facility] [id number] Univers 09:00:00 09:00:00 GUILLERMINA ity o f [facility] 2020-06-08 2020-06-08 Outpatient R [facility] [id number] Univers 09:15:00 09:15:00 ity of [facility] 2020-05-26 2020-05-26 [facility] Radiology [facility] 1.2.840.114 [id number] Univers 12:40:00 23:59:00 Encounter [place] [id number] ity [facility] 4.2.7.2.686 [facility] [id number] [facility] [address] 2020-05-26 2020-05-26 Outpatient R RADIOLOGY [facility] [id number] Univers 00:00:00 00:00:00 ity of [facility] 2020-05-26 2020-05-26 Letter Doctor TINO 1.2.840.114 [id number] Univers 00:00:00 00:00:00 (Out) Unassigned, DAINA 350.1.13.10 ity of [place] [facility] 4.2.7.2.686 [facility] [id number] [facility] [address] Results Test Description Test Time Test Comments Results Result Sour e Comments CT, ABDOMEN 2019-09-17 Reason for FINAL REPORT PATIENT 14:16:00 exam:->NAUSEARe ID: [id number] CT ason for ABDOMEN AND PELVIS exam:->EMESISRe [...] MDReport Verified Date/Time: 09/17/2019 14:16:48 Reading Location: [facility] Radiology Reading Room SE 2019-09-17 13:00:00 Test Item Value Reference Range Interpretation Comme nts LIPASE (BEAKER) (test code = 749) 4 U/L 6-51 L Poke In ID - [id number] FUNCTION [id number] 12:56:00 Test Item Value Reference Range Interpretation [...] Specimen slightly (test code = 347) hemolyzed Poke In ID - [id number] DRUG SCREEN, [id number] 12:54:00 Test Item Value Reference Range Interpretation [...] situations. Chain of custody not maintained. Some bote-qvn-uhotbty medications, as well as adulterants, may cause inaccurate results. Clinical correlation should be applied. A more comprehensive drug screen or confirmation of a detected drug may be performed upon request.Poke In ID - rarp59Rdulckkl ID - [id number] ID - bbdj42Kddudxen ID - ubks23Mguwhmzs ID - sukm08Hsfozauc ID - ujzq78Izsfjegc ID - [id number] ID - [id number] METABOLIC [id number] 12:54:00 Test Item Value Reference Range Interpretation [...] S NOT APPLICABLE FOR DIALYSIS PATIEN TS. Poke In ID - [id number] W/ [id number] 12:47:00 Test Item Value Reference Range Interpretation [...] 1663) SOURCE(BEAKER) (test code = 2795) SCREEN, [id number] 12:40:00 Test Item Value Reference Range Interpretation Comments TEST URINE (BEAKER) (test Negative code = 583) CBC W/PLT COUNT & AUTO [id number] 12:38:00 Test Item Value Reference Range Interpretation [...] PERCENT (BEAKER) (test code = 2801) POCT-GLUCOSE [id number] 12:28:00 Test Item Value Reference Range Interpretation Comments POC-GLUCOSE METER 117 mg/dL 70-110 H : TESTED A T SLSL 1317 (BEAKER) (test code [facility] [address], = 1538) [facility] 77 478: Poke In/Techni brayden ID = [id number] for Carla Mathis CT, [id number] 16:50:00Reason for exam:->EMESISIs the patient ?->NoWhat is [...] MDReport Verified Date/Time: 08/16/2019 16:50:10 Reading Location: [address] Consult Reading Room LIPASE 2019-08-16 14:40:00 Test Item Value Reference Range Interpretation Comments LIPASE (BEAKER) (test code = 749) 5 U/L 6-51 L Poke In ID - KARINABASIC METABOLIC [id number] 14:38:00 Test Item Value Reference Range Interpretation [...] S NOT APPLICABLE FOR DIALYSIS PATIEN TS. Poke In ID - JONATHANHEPATIC FUNCTION [id number] 14:38:00 Test Item Value Reference Range Interpretation [...] Specimen slightly (test code = 347) hemolyzed Poke In ID - JONATHANHCG, SERUM, [id number] 14:34:00 Test Item Value Reference Range Interpretation Comments TEST SERUM (BEAKER) (test Negative code = 584) RAPID INFLUENZA A&B [id number] 14:34:00 Test Item Value Reference Range Interpretation Comments RAPID INFLUENZA A AG (BEAKER) Negative Negative, Inconclusive (test code = 1622) RAPID INFLUENZA B AG (BEAKER) Negative Negative, Inconclusive (test code = 1623) CBC W/PLT COUNT & AUTO [id number] 14:20:00 Test Item Value Reference Range Interpretation [...] (BEAKER) (test code = 2801) COMPREHENSIVE METABOLIC [id number] 12:48:00 Test Item Value Reference Range Interpretation [...] S NOT APPLICABLE FOR DIALYSIS PATIEN TS. [id number] 12:48:00 Test Item Value Reference Range Interpretation Comments LIPASE (BEAKER) (test code = 749) 9 U/L 6-51 HCG, SERUM, [id number] 12:27:00 Test Item Value Reference Range Interpretation Comments TEST SERUM (BEAKER) (test Negative code = 584) CBC W/PLT COUNT & AUTO [id number] 12:21:00 Test Item Value Reference Range Interpretation [...] L 0.00-0.20 (test code = 417) CT, [id number] 11:01:00Reason for exam:->EMESISIs the patient ?->NoWhat is [...] with degenerating calcified uterine leiomyomata. Signed: Guanakito rAagon MDReport Verified Date/Time: 07/07/2019 11:01:48Reading Location: [facility] C013Y CT Body Reading Room COMPREHENSIVE METABOLIC [id number] 10:26:00 Test Item Value Reference Range Interpretation [...] S NOT APPLICABLE FOR DIALYSIS PATIEN TS. [id number] 10:26:00 Test Item Value Reference Range Interpretation Comments LIPASE (BEAKER) (test code = 749) 8 U/L 6-51 HCG, SERUM, [id number] 10:21:00 Test Item Value Reference Range Interpretation Comments TEST SERUM (BEAKER) (test Negative code = 584) CBC W/PLT COUNT & AUTO [id number] 10:08:00 Test Item Value Reference Range Interpretation [...]
[2023-03-30] MEDS ORDERED: LORazepam 2 MG/ML VIAL ONE (01:01)
[2023-03-30 01:02] LABS: Absolute Lymphocytes (CBC) 1.8 K/uL (0.7-4.9); Hematocrit 31.9 % (36.0-45.0); Lymphocytes % 8.5 % (15.3-44.8); MCV 85.7 fL (80-100); MPV 8.7 fL (7.6-11.3); Platelets 377 thou/uL (152-406); RBC Red Blood Cell Count 3.72 M/uL (3.86-4.86)
[2023-03-30] MEDS ORDERED: MORPHINE 4 MG/ML SYR ONE (01:04)
[2023-03-30] MEDS ORDERED: METOCLOPRAMIDE 10 MG/2mL INJ ONE (01:04)
[2023-03-30] MEDS ORDERED: FAMOTIDINE 20 MG/2 ML VIAL IV ONE (01:05)
[2023-03-30] MEDS ORDERED: NA CHLORIDE 0.9% 1,000 ML ONE (01:05)
[2023-03-30] MEDS ORDERED: KETOROLAC 30 MG/ML INJ ONE (01:05)
[2023-03-30] MEDS ORDERED: NA CHLORIDE 0.9% 50 ML ONE (01:05)
[2023-03-30] MEDS ORDERED: ONDANSETRON 4 MG/2 ML VIAL ONE (01:05)
[2023-03-30 01:43] LABS: Albumin 4.1 g/dL (3.4-5.0); Bilirubin Total 0.6 mg/dL (0.2-1.0); Potassium 2.8 mEq/L (3.5-5.1); Protein, Total 8.3 g/dL (6.4-8.2)
--- NOTE | 2023-03-30 02:26 | EDPHYS ---
Physician Documentation [facility] Name: Sangita Sorenson Age: 47 yrs Sex: Female : 1975 Arrival Date: 03/29/2023 Time: 23:19 Bed 14 Private MD: ED Physician Tanvir Pedro HPI: 03/29 23:22 This 47 yrs old Black Female presents to ER via Unassigned with complaints of vomiting .sp4 03/30 02:20 47-year-old female presents with EMS for acute vomiting diffuse abdominal pain and sp4 nausea. Patient presented for the same thing yesterday and also again this morning. Yesterday patient was given IV fluids medications and potassium replacement and she has improved and went home. This morning patient was treated for the same and she has been released home. Patient has history of marijuana use and hyperemesis cannabis syndrome. Yesterday she did admit to some use of marijuana prior to arrival. . Historical: - Allergies: 03/29 23:25 No Known Allergies; vc1 - Home Meds: 23:25 None [Active]; vc1 - PMHx: 23:25 gastritis; Cyclic vomiting; vc1 - PSHx: 23:25 section; Ligation of fallopian tube; vc1 - Immunization history:: Client reports having NOT received the Covid vaccine. - Social history:: Smoking status: Patient reports the use of cigarette tobacco products, 5 cigs/day. - Family history:: not pertinent. ROS: 03/30 02:20 Constitutional: Negative for fever, chills, and weight loss, Abdomen/GI: Positive for sp4 diffuse abdominal pain, nausea, vomiting, negative for diarrhea All other systems are negative. Exam: 02:20 Constitutional: This is a well developed, well nourished patient who is awake, alert, sp4 patient in moderate distress, dry heaving, rocking back and forth, also emotional upset Head/Face: Normocephalic, atraumatic. Eyes: Pupils equal round and reactive to light, extra-ocular motions intact. Lids and lashes normal. Conjunctiva and sclera are not injected. Cornea within normal limits. Periorbital areas with no swelling, redness, or edema. ENT: Nares patent. No nasal discharge, no septal abnormalities noted. Tympanic membranes are normal and external auditory canals are clear. Oropharynx with no redness, swelling, or masses, exudates, or evidence of obstruction, uvula midline. Mucous membranes moist. Neck: Trachea midline, no thyromegaly or masses palpated, and no cervical lymphadenopathy. Supple, full range of motion without nuchal rigidity, or vertebral point tenderness. Chest/axilla: Normal chest wall appearance and motion. Nontender with no deformity. No lesions are appreciated. Cardiovascular: Regular rate and rhythm with a normal S1 and S2. No gallops, murmurs, or rubs. Normal PMI, no JVD. No pulse deficits. Respiratory: Lungs have equal breath sounds bilaterally, clear to auscultation and percussion. No rales, rhonchi or wheezes noted. No increased work of breathing, no retractions or nasal flaring. Abdomen/GI: Soft, with normal bowel sounds. No distension or tympany. No guarding or rebound. Positive diffuse abdominal tenderness Back: No spinal tenderness. No costovertebral tenderness. Skin: Warm, dry with normal turgor. Normal color with no rashes, no lesions, and no evidence of cellulitis. MS/ Extremity: Pulses equal, no cyanosis. Neurovascular intact. Full, normal range of motion. Neuro: Awake and alert, GCS 15, oriented to person, place, time, and situation. Cranial nerves II-XII grossly intact. Motor strength 5/5 in all extremities. Sensory grossly intact. Psych: Awake, alert, with orientation to person, place and time. Behavior, mood, and affect are within normal limits Vital Signs: 03/29 23:23 BP 119 / 80; Pulse 66; Resp 20; Temp 99; Pulse Ox 100% ; Weight 56.7 kg; Height 4 ft. vc1 11 in. ; Pain 10/10; 03/30 01:00 BP 103 / 84; Pulse 68; Resp 17 S; Pulse Ox 99% on R/A; ha1 01:30 BP 107 / 65; Pulse 64; Resp 17 S; Pulse Ox 99% on R/A; ha1 02:00 BP 98 / 57; Pulse 64; Resp 16 S; Pulse Ox 98% on R/A; ha1 03:00 BP 101 / 62; Pulse 65; Resp 17 S; Pulse Ox 99% on R/A; ha1 03/29 23:23 Body Mass Index 25.25 (56.70 kg, 149.86 cm) vc1 03/29 23:23 Pain Scale: Adult vc1 MDM: 03/29 23:22 Patient medically screened. 4 03/30 02:25 Differential Diagnosis altered mental status, sepsis, flu. Data reviewed: vital signs, sp4 nurses notes, lab test result(s), radiologic studies, CT scan. 03:15 Consideration of Admission/Observation Patient was admitted/placed on observation. sp4 Escalation of care including admission/observation considered. Management of patient was discussed with the following: Hospitalist: Admission team . Six Pack Packer: . ED course: CT today - COMPARISON: CTAbdomen Pelvis dated 10/30/2022 FINDINGS: Lung bases: Unremarkable. No mass. No consolidation. Mediastinum: The distal esophagus appears thickened. ABDOMEN: Liver: Scattered hepatic cysts. No follow-up imaging is necessary. Gallbladder and bile ducts: Unremarkable. No calcified stones. No ductal dilation. Pancreas: Unremarkable. No mass. No ductal dilation. Spleen: Unremarkable. No splenomegaly. Adrenals: Unremarkable. No mass. Kidneys and ureters: Unremarkable. No solid mass. No hydronephrosis. Stomach and bowel: Unremarkable. No obstruction. No mucosal thickening. PELVIS: Appendix: Normal caliber appendix. No findings to suggest acute appendicitis. Bladder: Unremarkable. No mass. Reproductive: Enlarged fibroid uterus. No adnexal mass. ABDOMEN and PELVIS: Intraperitoneal space: Unremarkable. No free air. No significant fluid collection. Bones/joints: No acute fracture. No dislocation. Soft tissues: Unremarkable. Vasculature: Unremarkable. No abdominal aortic aneurysm. Lymph nodes: Unremarkable. No enlarged lymph nodes. IMPRESSION: 1. Findings suggestive of nonspecific esophagitis. 2. Other findings as above. . 03/29 23:26 Order name: CBC with Diff 4 03/29 23:26 Order name: CMP; Complete Time: 01:56 sp4 03/29 23:26 Order name: Lipase; Complete Time: 01:56 sp4 03/29 23:26 Order name: Test, Urine; Complete Time: 03:57 sp4 03/29 23:26 Order name: Urinalysis w/ reflexes; Complete Time: 03:57 sp4 03/29 23:27 Order name: Urine Drug Screen; Complete Time: 03:57 sp4 03/30 02:35 Order name: Basic Metabolic Panel EDMS 03/30 02:35 Order name: Magnesium EDMO 03/30 02:35 Order name: Urinalysis w/ reflexes EDMO 03/30 02:35 Order name: Comprehensive Metabolic Panel [facility] 03/30 02:35 Order name: Comprehensive Metabolic Panel [facility] 03/30 02:35 Order name: Comprehensive Metabolic Panel [facility] 03/29 23:26 Order name: CT Abd/Pelvis - IV Contrast Only sp4 03/30 02:35 Order name: Clear Liquid EDMO 03/29 23:26 Order name: IV Saline Lock; Complete Time: 01:09 sp4 03/29 23:26 Order name: Labs collected and sent; Complete Time: 01: sp4 Administered Medications: 01:05 Drug: NS 0.9% IV 1000 ml Route: IV; Rate: 1 bolus; Site: right antecubital; vc1 01:05 Drug: Famotidine IVP 20 mg Route: IVP; Site: right antecubital; vc1 01:30 Follow up: Response: No adverse reaction ha1 01:05 Drug: TORadol - Ketorolac IVP 15 mg Route: IVP; Site: right antecubital; vc1 01:30 Follow up: Response: No adverse reaction; Pain is decreased ha1 01:05 Drug: Ondansetron IVP 4 mg Route: IVP; Site: right antecubital; vc1 01:30 Follow up: Response: No adverse reaction; Nausea is decreased ha1 01:05 Drug: morphine IVP or IV 4 mg Route: IVP; Infused Over: 4 mins; Site: right antecubital;vc1 01:30 Follow up: Response: No adverse reaction; Pain is decreased; RASS: Alert and Calm (0) ha1 01:05 Drug: Ativan IVP 1 mg Route: IVP; Site: right antecubital; vc1 01:30 Follow up: Response: No adverse reaction; Anxiety decreased; RASS: Alert and Calm (0) ha1 01:05 Drug: metoCLOPramide IVP 10 mg Route: IVP; Site: right antecubital; vc1 01:30 Follow up: Response: No adverse reaction; Nausea is decreased ha1 02:45 Drug: Potassium Chloride IV 20 mEq Route: IV; Rate: calculated rate; Site: right ha1 antecubital; 04:00 Follow up: Response: No adverse reaction; IV Status: Infusion continued; IV Intake: [id number] 02:45 Drug: Potassium Chloride PO 40 mEq Route: PO; ha1 03:00 Follow up: Response: No adverse reaction ha1 02:45 Drug: Promethazine PO 25 mg Route: PO; ha1 03:00 Follow up: Response: No adverse reaction 1 03:50 Drug: D5-1/2 NS with KCl IV 20 mEq/L 1000 ml Route: IV; Rate: 125 ml/hr; Site: left ha1 hand; 04:10 Follow up: Response: No adverse reaction; IV Status: Completed infusion; IV Intake: ha1 100ml Disposition Summary: 03/30/23 02:25 Hospitalization Ordered Hospitalization Status: Observation sp4 Provider: Ru Nelson4 Location: Telemetry/MedSur (observation) sp4 Condition: Stable sp4 Problem: new sp4 Symptoms: have improved sp4 Bed/Room Type: Standard sp4 Room Assignment: 221(03/30/23 03:22) Diagnosis - Cyclical vomiting, intractable sp4 - Volume depletion, hypokalemia, persistent nausea vomiting, history of cannabis use sp4 - Esophagitis, unspecified sp4 - Cannabis abuse and cannabis hyperemesis syndrome sp4 Forms: - Medication Reconciliation Form sp4 - SBAR form sp4 - Leadership Thank You Letter sp4 Signatures: Dispatcher [employer] Kimberly Bansal RN RN Jasmine Hogan RN RN 1 Marium Tejeda RN RN ha1 Tanvir Pedro MD MD sp4 Corrections: (The following items were deleted from the chart) 03:22 02:25 sp4 mw
--- NOTE | 2023-03-30 02:26 | ER ---
Nurse's Notes [facility] Name: Sangita Sorenson Age: 47 yrs Sex: Female : 1975 Arrival Date: 03/29/2023 Time: 23:19 Bed 14 Private MD: Diagnosis: Cyclical vomiting, intractable;Volume depletion, hypokalemia, persistent nausea vomiting, history of cannabis use;Esophagitis, unspecified;Cannabis abuse and cannabis hyperemesis syndrome Presentation: 03/29 23:23 Chief complaint: EMS states: Hasn't eaten since yesterday. Nausea and vomiting for 2 vc1 days. Hyperventilating. Coronavirus screen: Vaccine status: Patient reports being unvaccinated. Client denies travel out of the [place] in the last 14 days. At this time, the client does not indicate any symptoms associated with coronavirus-19. Ebola Screen: Patient negative for fever greater than or equal to 101.5 degrees Fahrenheit, and additional compatible Ebola Virus Disease symptoms Patient denies exposure to infectious person. Patient denies travel to an Ebola-affected area in the 21 days before illness onset. No symptoms or risks identified at this time. Initial Sepsis Screen: Does the patient meet any 2 criteria? No. Patient's initial sepsis screen is negative. Does the patient have a suspected source of infection? No. Patient's initial sepsis screen is negative. Risk Assessment: Do you want to hurt yourself or someone else? Patient reports no desire to harm self or others. Onset of symptoms is unknown. 23:23 Method Of Arrival: EMS: [facility] vc1 23:23 Acuity: IBRAHIMA 3 vc1 23:28 Care prior to arrival: Medication(s) given: Normal saline infusion, 1000 mL, zofran 4 vc1 mg. 23:28 Care prior to arrival: IV initiated. 20 GA, in the left hand. vc1 Triage Assessment: 23:26 General: Appears distressed, uncomfortable, Behavior is anxious. Pain: Complains of vc1 pain in abdomen and esophagus Pain does not radiate. Pain currently is 10 out of 10 on a pain scale. EENT: No deficits noted. No signs and/or symptoms were reported regarding the EENT system. Neuro: No deficits noted. Level of Consciousness is awake, alert, obeys commands, Oriented to person, place, time, situation, Appropriate for age. Cardiovascular: No deficits noted. Respiratory: Airway is patent Respiratory effort is even, unlabored, Respiratory pattern is regular, tachypnea. GI: Reports lower abdominal pain, upper abdominal pain, nausea, vomiting. : No deficits noted. No signs and/or symptoms were reported regarding the genitourinary system. Derm: No deficits noted. No signs and/or symptoms reported regarding the dermatologic system. Musculoskeletal: No deficits noted. No signs and/or symptoms reported regarding the musculoskeletal system. Historical: - Allergies: 23:25 No Known Allergies; vc1 - Home Meds: 23:25 None [Active]; vc1 - PMHx: 23:25 gastritis; Cyclic vomiting; vc1 - PSHx: 23:25 section; Ligation of fallopian tube; vc1 - Immunization history:: Client reports having NOT received the Covid vaccine. - Social history:: Smoking status: Patient reports the use of cigarette tobacco products, 5 cigs/day. - Family history:: not pertinent. Screenin:28 Abuse screen: Denies threats or abuse. Nutritional screening: No deficits noted. vc1 Tuberculosis screening: No symptoms or risk factors identified. Assessment: 03/30 00:40 General: Appears uncomfortable, Behavior is calm, cooperative. Pain: Complains of pain ha1 in abdomen and radiates to esophagus Pain currently is 10 out of 10 on a pain scale. Quality of pain is described as burning, throbbing. Neuro: Level of Consciousness is awake, alert, obeys commands, Oriented to person, place, time, situation. Cardiovascular: Heart tones S1 S2 present Capillary refill < 3 seconds Patient's skin is warm and dry. Respiratory: Airway is patent Respiratory effort is even, unlabored, Respiratory pattern is regular, symmetrical. GI: Abdomen is flat, non-distended, Bowel sounds present X 4 quads. Reports upper abdominal pain, epigastric pain, nausea, vomiting. : No signs and/or symptoms were reported regarding the genitourinary system. Musculoskeletal: Circulation, motion, and sensation intact. Range of motion: intact in all extremities. 01:30 Reassessment: Patient and/or family updated on plan of care and expected duration. Pain ha1 level reassessed. Patient is alert, oriented x 3, equal unlabored respirations, skin warm/dry/pink. Patient denies pain at this time. Patient states feeling better. Patient states symptoms have improved. 02:30 Reassessment: Patient and/or family updated on plan of care and expected duration. Pain ha1 level reassessed. Patient is alert, oriented x 3, equal unlabored respirations, skin warm/dry/pink. Patient denies pain at this time. Patient states feeling better. Patient states symptoms have improved. 03:30 Reassessment: Patient and/or family updated on plan of care and expected duration. Pain ha1 level reassessed. Patient is alert, oriented x 3, equal unlabored respirations, skin warm/dry/pink. Patient denies pain at this time. Patient states feeling better. 03:45 Reassessment: Report given to LOGAN Thomas. ha1 Vital Signs: 03/29 23:23 BP 119 / 80; Pulse 66; Resp 20; Temp 99; Pulse Ox 100% ; Weight 56.7 kg; Height 4 ft. vc1 11 in. ; Pain 10/10; 03/30 01:00 BP 103 / 84; Pulse 68; Resp 17 S; Pulse Ox 99% on R/A; ha1 01:30 BP 107 / 65; Pulse 64; Resp 17 S; Pulse Ox 99% on R/A; ha1 02:00 BP 98 / 57; Pulse 64; Resp 16 S; Pulse Ox 98% on R/A; ha1 03:00 BP 101 / 62; Pulse 65; Resp 17 S; Pulse Ox 99% on R/A; ha1 03/29 23:23 Body Mass Index 25.25 (56.70 kg, 149.86 cm) vc1 03/29 23:23 Pain Scale: Adult 1 ED Course: 03/29 23:21 Patient arrived in ED. vc1 23:22 Tanvir Pedro MD is Attending Physician. sp4 23:25 Triage completed. vc1 23:28 Arm band placed on right wrist. vc1 23:28 Maintain EMS IV. Dressing intact. Gauge \T\ site: 20 g left hand. vc1 03/30 00:20 Inserted saline lock: 22 gauge in right antecubital area, using aseptic technique. ha1 Blood collected. 00:50 Patient has correct armband on for positive identification. Placed in gown. Bed in low ha1 position. Call light in reach. Side rails up X 1. 01:10 Tejeda, Marium, LOGAN is Primary Nurse. ha1 01:38 CT Abd/Pelvis - IV Contrast Only In Process Unspecified. EDMS 02:25 Ru Nelson MD is Hospitalizing Provider. sp4 04:09 No provider procedures requiring assistance completed. Patient admitted, IV remains in ha1 place. 04:10 Provided Education on: need for admit. ha1 Administered Medications: 01:05 Drug: NS 0.9% IV 1000 ml Route: IV; Rate: 1 bolus; Site: right antecubital; vc1 01:05 Drug: Famotidine IVP 20 mg Route: IVP; Site: right antecubital; vc1 01:30 Follow up: Response: No adverse reaction ha1 01:05 Drug: TORadol - Ketorolac IVP 15 mg Route: IVP; Site: right antecubital; vc1 01:30 Follow up: Response: No adverse reaction; Pain is decreased ha1 01:05 Drug: Ondansetron IVP 4 mg Route: IVP; Site: right antecubital; vc1 01:30 Follow up: Response: No adverse reaction; Nausea is decreased ha1 01:05 Drug: morphine IVP or IV 4 mg Route: IVP; Infused Over: 4 mins; Site: right antecubital;vc1 01:30 Follow up: Response: No adverse reaction; Pain is decreased; RASS: Alert and Calm (0) ha1 01:05 Drug: Ativan IVP 1 mg Route: IVP; Site: right antecubital; vc1 01:30 Follow up: Response: No adverse reaction; Anxiety decreased; RASS: Alert and Calm (0) ha1 01:05 Drug: metoCLOPramide IVP 10 mg Route: IVP; Site: right antecubital; vc1 01:30 Follow up: Response: No adverse reaction; Nausea is decreased ha1 02:45 Drug: Potassium Chloride IV 20 mEq Route: IV; Rate: calculated rate; Site: right ha1 antecubital; 04:00 Follow up: Response: No adverse reaction; IV Status: Infusion continued; IV Intake: [id number] 02:45 Drug: Potassium Chloride PO 40 mEq Route: PO; ha1 03:00 Follow up: Response: No adverse reaction ha1 02:45 Drug: Promethazine PO 25 mg Route: PO; ha1 03:00 Follow up: Response: No adverse reaction ha1 03:50 Drug: D5-1/2 NS with KCl IV 20 mEq/L 1000 ml Route: IV; Rate: 125 ml/hr; Site: left [facility] hand; 04:10 Follow up: Response: No adverse reaction; IV Status: Completed infusion; IV Intake: ha1 100ml Medication: 04:10 VIS not applicable for this client. ha1 Intake: 04:00 IV: 75ml; Total: 75ml. ha1 04:10 IV: 100ml; Total: 175ml. ha1 Outcome: 02:25 Decision to Hospitalize by Provider. sp4 04:09 Admitted to Med/surg accompanied by nurse, via wheelchair, room 221, with chart, Report ha1 called to LOGAN Thomas 04:09 Condition: stable 04:09 Discharge instructions given to patient, Instructed on the need for admit, Demonstrated understanding of instructions. 04:11 Patient left the ED. ha1 Signatures: Dispatcher [employer] EDMS Jasmine Hammond RN RN vc1 Marium Tejeda RN RN ha1 Tanvir Pedro MD MD sp4
[2023-03-30] MEDS ORDERED: ACETAMINOPHEN 500 MG TAB PO PRN (02:31)
[2023-03-30] MEDS ORDERED: ZOLPIDEM TARTRATE 5 MG TABLET PO PRN (02:31)
--- NOTE | 2023-03-30 02:37 | P.HP ---
Certification for Inpatient Patient admitted to: Observation Patient will require the following post-hospital care: None Practitioner: I am a practitioner with admitting privileges, knowledge of patient current condition, hospital course, and medical plan of care. Services: Services provided to patient in accordance with Admission requirements found in Title 42 Section 412.3 of the Code of Federal Regulations Patient History Date of Service: 03/30/23 History of Present Illness: 45-year-old -Maced[place] female with a past medical history of marijuana use, gastritis, cyclic vomiting syndrome, presents to the emergency room with nausea vomiting. She reports associated abdominal pain, she reports being treated in the emergency room again given IV fluids, fluid replacement improved and was sent home.Patient has history of marijuana use and hyperemesis cannabis syndrome.Patient has history of marijuana use and hyperemesis cannabis syndrome. She reports smoking marijuana prior to arrival. She reports p.o. intake, and smoking marijuana symptoms symptoms worse. She reports treatment in the emergency room with IV fluids, as needed antiemetics improved symptoms. With as needed analgesics for abdominal pain. ER evaluation blood pressure is 119/80, heart rate 66, respirations 22, temperature 99. 100% on room air. Plan to admit for cyclic vomiting intractable, volume depletion, hypokalemia, persistent nausea vomiting, history of cannabis use. ER course patient was treated with 2 L of normal saline in the emergency room, morphine, Toradol, Pepcid, Reglan. Laboratory evaluation WBCs 21.30, anemia, 10.9, 31.9, left shift 81.8, sodium hyponatremia at 133, hypokalemia 2.8, UA, UDS pending. CT of the abdomen pelvis shows uterine fibroid. Allergies No Known Allergies Allergy (Verified 10/19/21 09:54) Home Medications: NK [No Home Meds] 10/19/21 - Past Medical/Surgical History -: section - Social History Alcohol use: Yes CD- Drugs: Yes Review of Systems 10-point ROS is otherwise unremarkable Physical Examination - Physical Exam General: Alert, In no apparent distress, Oriented x3 HEENT: Atraumatic, Normocephalic, PERRLA Neck: Supple, 2+ carotid pulse no bruit Respiratory: Clear to auscultation bilaterally, Normal air movement Cardiovascular: No edema, Normal pulses, Regular rate/rhythm, Normal S1 S2 Capillary refill: <2 Seconds Gastrointestinal: Normal bowel sounds, Other (Diffuse abdominal tenderness, no rebound tenderness) Musculoskeletal: No clubbing, No swelling Integumentary: No rashes, No breakdown Neurological: Normal speech, Normal strength at 5/5 x4 extr, Cranial nerves 3-12 intact - Studies Laboratory Data (last 24 hrs) 03/30/23 03/30/23 00:53 00:53 WBC 21.30 H Hgb 10.9 L Hct 31.9 L Plt Count 377 Sodium 133 L Potassium 2.8 L D BUN 10 Creatinine 0.81 Glucose 116 H Total Bilirubin 0.6 AST 16 ALT 20 Alkaline Phosphatase 70 Lipase 19 Assessment and Plan - Plan Assessment plan Abdominal pain with uterine fibroid Leukocytosis Cyclic vomiting intractable Volume depletion hypokalemia Hyponatremia Anemia persistent nausea vomiting history of cannabis use DVT prophylaxis Assessment plan Abdominal pain with uterine fibroid Follow-up with [facility] [employer] after discharge. Leukocytosis IV fluid, urine cultures, WBCs 21.30, left shift 81.8, Ceftriaxone Cyclic vomiting intractable persistent nausea vomiting history of cannabis use. Volume depletion IV fluids, as needed antiemetics, as needed analgesics ER course patient was treated with 2 L of normal saline in the emergency room, morphine, Toradol, Pepcid, Reglan. hypokalemia Hyponatremia Trend electrolytes replace as needed sodium hyponatremia at 133, hypokalemia 2.8, Anemia Trend H&H, anemia, 10.9, 31.9 Clear liquid diet Full code DVT Lovenox Discharge Plan: Home Plan to discharge in: 24 Hours - Advance Directives Does patient have a Living Will: No Does patient have a Durable POA for Healthcare: No - Code Status/Comfort Care Code Status: Full Code Physician Review: Patient Assessed, Agree with Above Assessment and Plan Time Spent Managing Pts Care (In Minutes): 50
[2023-03-30] MEDS ORDERED: POTASSIUM CL SA 10 MEQ TAB PO ONE ×2 (02:53→09:00)
[2023-03-30] MEDS ORDERED: NA CHLORIDE 0.9% 500 ML ONE (02:53)
[2023-03-30] MEDS ORDERED: PROMETHAZINE 25 MG TABLET ONE (02:53)
[2023-03-30] MEDS ORDERED: NS KCL 20MEQ 1,000 ML IV ONE (02:53)
[2023-03-30] MEDS ORDERED: KCL 20 MEQ/100 mL IVPB 100 ML IV ONE (02:54)
[2023-03-30] MEDS ORDERED: SODIUM CHLORIDE 0.9% 10ML INJ IV PRN (02:55)
[2023-03-30] MEDS: POTASSIUM CL 40 MEQ in NA CHLORIDE 0.9% 500 ML IV SCH ×2 (03:00→04:57)
[2023-03-30] MEDS: NA CHLORIDE 0.9% 1,000 ML IV SCH ×4 (03:00→23:00)
[2023-03-30 03:17] LABS: Specific Gravity > 1.030 (1.005-1.030)
[2023-03-30 03:19] LABS: Urine Bacteria None Seen /HPF (<20); Urine Bilirubin NEGATIVE (Negative); Urine Blood Negative (Negative); Urine Clarity Clear (Clear); Urine Color Light-Yellow (Yellow); Urine Glucose NEGATIVE (Negative); Urine Protein 1+ (Negative); Urine RBC <5 /HPF (None Seen); Urine Urobilinogen Normal (Normal); Urine pH 8.5 (5.0-7.0)
[2023-03-30 03:20] LABS: Specific Gravity > 1.030 (1.005-1.030)
[2023-03-30 03:26] LABS: Barbiturates NEGATIVE (NEGATIVE); Benzodiazepines NEGATIVE (NEGATIVE); Cocaine NEGATIVE (NEGATIVE); METHAMPHETAM NEGATIVE (NEGATIVE); Methadone NEGATIVE (NEGATIVE); Opiates POSITIVE (NEGATIVE); Phencyclidine NEGATIVE (NEGATIVE); THC Cannibis POSITIVE (NEGATIVE)
[2023-03-30 04:59] LABS: Anisocytosis SLIGHT; Blood Morphology Comment NOTED (NOT SEEN); Hypochromasia 1+; Platelet Estimate ADEQ; White Blood Cell Scan OK (OK)
[2023-03-30 05:00] LABS: Ovalocytes 1+; Poikilocytosis 1+
[2023-03-30] MEDS: CEFTRIAXONE 1,000 MG in NA CHLORIDE 0.9% 50 ML IVPB SCH ×2 (05:03→07:51)
[2023-03-30 05:24] VITALS: BMI 25.2
[2023-03-30 05:50] LABS: Albumin 3.5 g/dL (3.4-5.0); Bilirubin Total 0.5 mg/dL (0.2-1.0); Potassium 3.7 mEq/L (3.5-5.1); Protein, Total 6.9 g/dL (6.4-8.2)
[2023-03-30 05:57] LABS: Magnesium 1.9 mg/dL (1.6-2.4); Potassium 3.7 mEq/L (3.5-5.1)
[2023-03-30] MEDS ORDERED: LORazepam 2 MG/ML VIAL IV PRN (07:00)
[2023-03-30] MEDS ORDERED: ONDANSETRON 4 MG/2 ML VIAL IV PRN (07:00)
[2023-03-30] MEDS ORDERED: PROMETHAZINE INJ 25 MG/ML AMP IV PRN (07:00)
[2023-03-30] MEDS: PANTOPRAZOLE 40 MG INJ IVP SCH ×2 (07:54→20:04)
[2023-03-30] MEDS ORDERED: METOCLOPRAMIDE 10 MG/2mL INJ IV PRN (09:00)
[2023-03-30 10:52] LABS: Urine Bacteria <20 /HPF (<20); Urine Bilirubin NEGATIVE (Negative); Urine Blood Trace (Negative); Urine Clarity Clear (Clear); Urine Color Yellow (Yellow); Urine Glucose NEGATIVE (Negative); Urine Mucus Slight /HPF (None Seen); Urine Protein 1+ (Negative); Urine RBC <5 /HPF (None Seen); Urine Urobilinogen Normal (Normal); Urine pH 6.5 (5.0-7.0)
[2023-03-30 10:55] LABS: Specific Gravity > 1.030 (1.005-1.030)
--- NOTE | 2023-03-30 20:54 | RAD REPORT ---
EXAM DESCRIPTION: CT - Abdomen Pelvis W Contrast - 03/30/2023 6:59 am CLINICAL HISTORY: ABD PAIN TECHNIQUE: Axial computed tomography images of the abdomen and pelvis with intravenous contrast. S agittal and coronal reformatted images were created and reviewed. This CT exam was performed using one or more of the following dose reduction techniques: automated exposure control, adjustment of t he mA and/or kV according to patient size, and/or use of iterative reconstruction technique. COMPARISON: CT Abdomen Pelvis dated 10/30/2022 FINDINGS: Lung bases: Unremarkable. No mass. No consolidation. Mediastinum: The distal esophagus appears thickened. ABDOMEN: Liver: Scattered hepatic cysts. No follow-up imaging is necessary. Gallbladder and bile ducts: Unremarkable. No calcified stones. No ductal dilation. Pancreas: Unremarkable. No mass. No ductal dilation. Spleen: Unremarkable. No splenomegaly. Adrenals: Unremarkable. No mass. Kidneys and ureters: Unremarkable. No solid mass. No hydronephrosis. Stomach and bowel: Unremarkable. No obstruction. No mucosal thickening. PELVIS: Appendix: Normal caliber appendix. No findings to suggest acute appendicitis. Bladder: Unremarkable. No mass. Reproductive: Enlarged fibroid uterus. No adnexal mass. ABDOMEN and PELVIS: Intraperitoneal space: Unremarkable. No free air. No significant fluid collection. Bones/joints: No acute fracture. No dislocation. Soft tissues: Unremarkable. Vasculature: Unremarkable. No abdominal aortic aneurysm. Lymph nodes: Unremarkable. No enlarged lymph nodes. IMPRESSION: 1. Findings suggestive of nonspecific esophagitis. 2. Other findings as above. Electronically signed by: Raegan Otero MD 03/30/2023 2:12 AM CDT Due to temporary technical issues with the PACS/Fluency reporting system, reports are being signed by the in house radiologists without review as a courtesy to insure prompt reporting. The interpreting radiologist is fully responsible for the content of the report.
[2023-03-31 03:12] LABS: Absolute Lymphocytes (CBC) 2.2 K/uL (0.7-4.9); Hematocrit 31.2 % (36.0-45.0); Lymphocytes % 15.9 % (15.3-44.8); MPV 9.2 fL (7.6-11.3); Platelets 325 thou/uL (152-406); RBC Red Blood Cell Count 3.62 M/uL (3.86-4.86)
[2023-03-31 03:54] LABS: Albumin 3.9 g/dL (3.4-5.0); Bilirubin Total 0.5 mg/dL (0.2-1.0); Phosphorus 2.2 mg/dL (2.5-4.9); Protein, Total 7.9 g/dL (6.4-8.2)
[2023-03-31 03:56] LABS: Potassium 3.6 mEq/L (3.5-5.1)
[2023-03-31] MEDS: POTASS/SODIUM PHOSPHATE 1 PKT POWD.PACK PO SCH ×3 (06:00→09:56)
[2023-03-31] MEDS: NA CHLORIDE 0.9% 1,000 ML IV SCH ×2 (06:01→09:00)
[2023-03-31] MEDS: CEFTRIAXONE 1,000 MG in NA CHLORIDE 0.9% 50 ML IVPB SCH (08:30)
[2023-03-31] MEDS: PANTOPRAZOLE 40 MG INJ IVP SCH (08:32)
[2023-03-31] MEDS ORDERED: POTASSIUM CL SA 10 MEQ TAB PO ONE (09:00)
[2023-03-31 09:53] VITALS: BP 101/61; TEMP 98.5
[2023-03-31 10:59] VITALS: O2SAT 98
== END 2023-03-31 10:40 | disposition home or self-care (01) ==
LOC: ER 23:19 → ERHOLD 03-30 02:25 → 2ND 03-30 03:26
PROVIDERS: ADMIT Hospitalist; ATTEND Hospitalist
DX: R11.15 Cyclical vomiting syndrome unrelated to migraine (principal); E86.9 Volume depletion, unspecified; D25.9 Leiomyoma of uterus, unspecified; D72.829 Elevated white blood cell count, unspecified; E87.6 Hypokalemia; E87.1 Hypo-osmolality and hyponatremia; D64.9 Anemia, unspecified; R11.2 Nausea with vomiting, unspecified; F12.90 Cannabis use, unspecified, uncomplicated; R10.9 Unspecified abdominal pain
CPT/HCPCS: 96365; 85025 ×2; 81001 ×2; 80048; 36415 ×2; 83735; 81025; 84100; 83690; 80053 ×3; 80307; 74177; 96375; 99285; Q9967; J2550; Q0169; J3480 ×3; J2765 ×2; C9113 ×3; J2405 ×2; J7040 ×2; J7030 ×4; J0696 ×3; G0378

== ENCOUNTER 2023-06-19 05:59 | Emergency (ER) | payer OTHER ==
--- OUTSIDE RECORDS SUMMARY | 2023-06-19 06:04 | XMS REPORT | Continuity of Care Document ---
:1975 Author Organization [facility] t Address [address] [place] [address] Care Team Providers Name Role Phone No MD, Pcp [facility] Primary Care Physician Unavailable LUIS CEDENO Attending Clinician Unavailable MIRIAM ORDAZ Attending Clinician Unavailable LAB90 Attending Clinician Unavailable Oksana Bradshaw Attending Clinician [phone] OKSANA REYNA Attending Clinician Unavailable Doctor Unassigned, [place] Attending Clinician Unavailable Visit, Ang-Rmchomid Nurse Attending Clinician Unavailable GUILLERMINA DENNY Attending Clinician Unavailable Radiology Attending Clinician Unavailable RADIOLOGY Attending Clinician Unavailable ALIX FRANKLIN Attending Clinician Unavailable ANKIT HILL Attending Clinician Unavailable RICHARDSON LAO Attending Clinician Unavailable SUSANA TURPIN Attending Clinician Unavailable Payers Payer Name Policy Type Policy Number Effective Date Expiration Date S ource [facility]ETNA [facility] 9 [id number] 2023 00:00:00 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: 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 94 ON STAND Problems Condition Condition Condition Status Onset Resolution Last Treating Co mments Source Name Details Category Date Date Treatment Clinician Date Screening Screening Disease Active 2022-08 Domenico sey for lipid for lipid 0-06 Seyb old disorders disorders 00:00: - 00 Externa l 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 Seybold loss of loss of 00:00: - left ear left ear 00 Bagman/Woman a with with l unrestrict unrestrict ed hearing ed hearing of right of right ear ear GERD GERD Disease Active Nilda (gastroeso (gastroeso 04-04 Se ybold phageal phageal 00:00: - reflux reflux 00 Externa disease) disease) l Allergic Allergic Disease Active Kelse y rhinitis rhinitis 04-04 Seybol d 00:00: - 00 Externa l Iron Iron Disease Active Nilda deficiency deficiency 04-04 Se ybold anemia anemia 00:00: - 00 Externa l Situationa Situationa Disease Active U nivers l l 2-02 [place] Amenorrhea Amenorrhea Disease Active U nivers 1-27 ity of 00:00: [place] 00 Medical Branch Other Other Disease Active 2019-08 Univers general general 2-04 it[place] of counseling [place] and advice and advice 00 Pr dical for for Branch contracept contracept lenny lenny management management Over Over Disease Active 2019-08 Univers weight weight 2-04 ity of 00:00: [place] 00 Medical Branch History of History of Disease Active 2019-08 U nivers bilateral bilateral 2-04 ity of tubal tubal 00:00: [place] ligation ligation 00 Medica l Branch Warts, Warts, Disease Active 2019-08 Univers genital genital 2-04 ity of 00:00: [place] 00 Medical Branch Allergies, Adverse Reactions, Alerts Allergy Allergy Status Severity Reaction(s) Onset Inactive Treating Comm ents Source Name Type Date Date Clinician NO KNOWN Drug Active Univers ALLERGIE Class ity of [facility] Social History Social Habit Start Date Stop Date Quantity Comments Source History [facility] University o f Alcohol Frequency [facility] History [facility] University o f Alcohol Std Drinks [facility] History [facility] University o f Alcohol Binge [facility] Sexual orientation [facility] Gender identity Nilda packer - External History of tobacco Cigarette Smoker Nilda Jordan - use External Education - What is 2023-06-10 2023-06-10 10th grade Dick Jordan - the highest level 00:00:00 00:00:00 Externa l of school you have completed or the highest degree you have received? Alcohol Comment 2023-06-10 2023-06-10 rarely Nilda packer - 00:00:00 00:00:00 External Cigarettes smoked 2023-04-03 2023-04-03 Nilda Chaseteddy - current (pack per 00:00:00 00:00:00 Externa l day) - Reported Cigarette 2023-04-03 2023-04-03 Nilda Salvatoreteddy - pack-years 00:00:00 00:00:00 External Tobacco use and 2023-04-03 2023-04-03 Smokeless Nilda packer - exposure 00:00:00 00:00:00 tobacco non-user External Exposure to 2021-09-02 2021-10-02 Not sure [facility]-CoV-2 (event) 00:00:00 08:43:00 [facility] Tobacco Comment 2021-09-06 2021-09-06 Smokes 5 ciggs a Uni versity of 00:00:00 00:00:00 day [facility] History of Social 2021-09-06 2021-09-06 Univers ity of function 00:00:00 00:00:00 [facility] Alcohol intake 2019-09-17 2019-09-17 Current RACHEL Patel es 00:00:00 00:00:00 non-drinker of Medical Ce nter alcohol (finding) Sex Ass[birth year] At [birth year] RACHEL Gilberts 00:00:00 00:00:00 [facility] Smoking Status Start Date Stop Date Source Smokes tobacco daily 2023-04-03 00:00:00 Nilda Jordan - External Never smoked tobacco [facility] [place] [place] Medications Ordered Filled Start Stop Current Ordering Indication Dosage Frequency Signature Comments Components Source Medication Medication Date Date Medication? Clinician (SIG) Name Name Ibuprofen 2022-08 Yes [id number] 400mg Q.5D Take 1 Nilda (MOTRIN) 0-06 tablet Seybold 400 MG oral 00:00: (400 mg - Tablet 00 total) by Externa mouth 2 l times daily as needed for pain. Ibuprofen 2022-08- No [id number] 400mg Q.5D Take 1 Nilda (MOTRIN) 0-06 11-06 tablet Seybold 400 MG oral 00:00: 00:00 (400 mg - Tablet 00 :00 total) by Externa mouth 2 l times daily as needed for pain. Pantoprazol 2022- No 40mg Take 1 Domenico sey e Sodium 40 8-31 08-31 tablet (40 S eybold MG oral 09:33: 00:00 mg total) - Tablet 55 :00 by mouth Externa Delayed daily. l Response Cetirizine Yes [id number] 10mg Take 1 K elsey HCl (ZyrTEC 8-31 capsule Seybo ld Allergy) 10 00:00: (10 mg - MG oral 00 total) by Externa Capsule mouth l daily. Multiple Yes [id number] 1{tbl} Take 1 Nilda Vitamin 8-31 tablet by Seybold (Multivitam 00:00: mouth - in Adult) 00 daily. Externa oral Tablet l Pantoprazol 0 Yes [id number] 40mg Take 1 Nilda e Sodium 40 8-31 tablet (40 Se ybold MG oral 00:00: mg total) - Tablet 00 by mouth Externa Delayed daily. l Response Cetirizine 0 Yes [id number] 10mg Take 1 K elsey HCl (ZyrTEC 8-31 capsule Seybo ld Allergy) 10 00:00: (10 mg - MG oral 00 total) by Externa Capsule mouth l daily. Multiple 2022-0 Yes [id number] 1{tbl} Take 1 Nilda Vitamin 8-31 tablet by Seybold (Multivitam 00:00: mouth - in Adult) 00 daily. Externa oral Tablet l Pantoprazol 0 Yes [id number] 40mg Take 1 Nilda e Sodium 40 8-31 tablet (40 Se ybold MG oral 00:00: mg total) - Tablet 00 by mouth Externa Delayed daily. l Response Cetirizine 2023-0 Yes 10mg Take 1 Kelse y (ZYRTEC) 10 04-04 tablet (10 Se ybold MG oral 00:00: mg total) - Tablet 00 by mouth Externa daily. l Multiple Yes [id number] 1{tbl} Take 1 Nilda Vitamin 04-04 tablet by Seybold (Multivitam 00:00: mouth - in Adult) 00 daily. Externa oral Tablet l Cetirizine 2022- No [id number] 10mg Take 1 Nilda HCl (ZyrTEC 04-04 capsule Seyb old Allergy) 10 00:00: 00:00 (10 mg - MG oral 00 :00 total) by Externa Capsule mouth l daily. Pantoprazol 2022- No [id number] 40mg Take 1 Nilda e Sodium 40 04-04 tablet (40 S eybold MG oral 00:00: 00:00 mg total) - Tablet 00 :00 by mouth Externa Delayed daily. l Response Cetirizine 2022- No 10mg Take 1 Melida ey (ZYRTEC) 10 04-04 tablet (10 S eybold MG oral 00:00: 00:00 mg total) - Tablet 00 :00 by mouth Externa daily. l Promethazin 2022- No 25mg 1 tablet K elsey e HCl 03-31 (25 mg Seybold (PHENERGAN) 00:00: 00:00 total). - 25 MG oral 00 :00 Externa Tablet l No known 0 No Univers medications 2-28 ity of 09:34: [address] No known 2021-0 No Univers medications 2-28 ity of :34: [address] No known 2021-0 No No known Unive rs medications 2- medication it y of 09:34: s [address] ondansetron 0 Yes 4mg Take [address] (ZOFRAN-ODT [...] tablet every 8 (eight) hours as needed. Immunizations Ordered Immunization Filled Immunization Date Status Commen ts Source Name Name Tdap- (Boostrix, Unknown Completed Nilda beybold - Adacel) External Vital Signs Vital Name Observation Time Observation Value Comments Source Systolic blood 2023-06-10 21:20:00 130 mm[Hg] Nilda Carlisleybold - pressure External Diastolic blood 2023-06-10 21:20:00 83 mm[Hg] Dick rizzo Seybold - pressure External Heart rate 2023-06-10 21:20:00 63 /min Nilda Melendez eybold - External Body temperature 2023-06-10 21:20:00 37.06 Jeane Melida bey Seybold - External Respiratory rate 2023-06-10 21:20:00 15 /min Melida bey Seybold - External Body height 2023-06-10 21:20:00 149.9 cm Nilda beybold - External Body weight 2023-06-10 21:20:00 65.318 kg Nilda Melendez eybold - External BMI 2023-06-10 21:20:00 29.08 kg/m2 Nilda beybold - External Oxygen saturation in 2023-06-10 21:20:00 99 /min Nilda Julian - Arterial blood by External Pulse oximetry Systolic blood 2023-05-10 19:36:00 140 mm[Hg] Nilda Carlisleybold - pressure External Diastolic blood 2023-05-10 19:36:00 80 mm[Hg] Dick matthias Seybold - pressure External Heart rate 2023-05-10 19:21:00 69 /min Nilda Melendez eybold - External Body temperature 2023-05-10 19:21:00 37.39 Jeane Melida ey Seybold - External Respiratory rate 2023-05-10 19:21:00 15 /min Melida bey Seybold - External Body height 2023-05-10 19:21:00 149.9 cm Nilda beybold - External Oxygen saturation in 2023-05-10 19:21:00 99 /min Nilda Jordan - Arterial blood by External Pulse oximetry Systolic blood 2023-04-04 14:12:00 119 mm[Hg] Nilda Carlisleybold - pressure External Diastolic blood 2023-04-04 14:12:00 83 mm[Hg] Dick rizzo Seybold - pressure External Heart rate 2023-04-04 14:09:00 76 /min Nilda beybold - External Body temperature 2023-04-04 14:09:00 35.89 Jeane Melida bey Seybold - External Respiratory rate 2023-04-04 14:09:00 20 /min Melida bey Seybold - External Body height 2023-04-04 14:09:00 149.9 cm Nilda beybold - External Body weight 2023-04-04 14:09:00 58.968 kg Nilda beybold - External BMI 2023-04-04 14:09:00 26.26 kg/m2 Nilda beybold - External Oxygen saturation in 2023-04-04 14:09:00 99 /min Nilda Jordan - Arterial blood by External Pulse oximetry Systolic blood 2021-10-02 14:44:00 122 mm[Hg] Univer sity of pressure [facility] Diastolic blood 2021-10-02 14:44:00 75 mm[Hg] Unive rsity of [facility] Heart rate 2021-10-02 14:44:00 67 /min [facility] Body temperature 2021-10-02 14:44:00 35.83 Jeane [facility] 2021-10-02 14:44:00 20 /min [facility] Body height 2021-10-02 14:44:00 149.9 cm [facility] Body weight 2021-10-02 14:44:00 63.163 kg [facility] BMI 2021-10-02 14:44:00 28.13 kg/m2 [facility] Procedures This patient has no known procedures. Plan of Care Planned Activity Planned Date Details Comments Source Future Scheduled 2022-04-[address] [facility] Test 00:00:00 (#1) [code = [facility] INFLUENZA VACCINE (#1)] Future Scheduled 2022-04-[address] [facility] Test 00:00:00 (#1) [code = [facility] INFLUENZA VACCINE (#1)] Future Scheduled 2022-04-05 INFLUENZA [...] [facility]ica l Center cervix (procedure) [code = 686598865] Future Scheduled 2020-10-[address] [facility] [facility] 00:00:00 malignant neoplasm of [facility]ica [facility] Center cervix (procedure) [code = 606659636] Future Scheduled 2020-10-[address] [facility] Test 00:00:00 malignant neoplasm of [facility]ica [facility] Center cervix (procedure) [code = 937113716] Future Scheduled 2020-10-[address] [facility] Test 00:00:00 malignant neoplasm of Medica l Center cervix (procedure) [code = 859073426] Future Scheduled 2020-04-[address] [...] Date/Time Type Type Clinicians Facility Department ID 2023-09-11 2023-09-11 Outpatient NILDA CEDENO [id number] Nilda 08:30:00 08:30:00 LUIS Seybol d 2023-07-18 2023-07-18 Outpatient NIKNILDA MARCANO [id number] Nilda 11:00:00 11:00:00 AMIRHOSSEIN Se ybold 2023-06-18 2023-06-18 Outpatient NILDA CEDENO [id number] Nilda 00:00:00 00:00:00 LUIS Seybol d 2023-06-11 2023-06-11 Outpatient NILDA CEDENO [id number] Nilda 00:00:00 00:00:00 LUIS Seybol d 2023-06-10 2023-06-10 Outpatient LAB90 NILDA STYLES [id number] Nilda 15:55:00 15:55:00 Seybol d 2023-06-10 2023-06-10 Outpatient NILDA CEDENO [id number] Nilda 15:00:00 15:00:00 LUIS Seybol d 2023-06-10 2023-06-10 Outpatient NILDA STYLES [id number] Nilda 00:00:00 00:00:00 Seybol d 2023-06-09 2023-06-09 Outpatient PREZAS NILDA STYLES [id number] Nilda 00:00:00 00:00:00 LUIS Seybol d 2023-05-30 2023-05-30 Outpatient PREZAS NILDA STYLES [id number] Nilda 00:00:00 00:00:00 LUIS Seybol d 2023-05-29 2023-05-29 Outpatient LAB90 NILDA STYLES [id number] Nilda 08:10:00 08:10:00 Seybol d 2023-05-28 2023-05-28 Outpatient LAB90 NILDA STYLES [id number] Nilda 12:25:00 12:25:00 Seybol d 2023-05-20 2023-05-20 Outpatient PREZAS NILDA STYLES [id number] Nilda 00:00:00 00:00:00 LUIS Seybol d 2023-05-10 2023-05-10 Outpatient PREZAS NILDA STYLES [id number] Nilda 14:30:00 14:30:00 LUIS Seybol d 2023-04-15 2023-04-15 Outpatient PREZAS NILDA STYLES [id number] Nilda 00:00:00 00:00:00 LUIS Seybol d 2023-04-04 2023-04-04 Outpatient PREZAS NILDA STYLES [id number] Nilda 09:15:00 09:15:00 LUIS Seybol d 2023-04-04 2023-04-04 Outpatient NILDA STYLES [id number] Nilda 00:00:00 00:00:00 Seybol d 2023-04-04 2023-04-04 Outpatient NILDA STYLES [id number] Nilda 00:00:00 00:00:00 Seybol d 2023-03-28 2023-03-28 Patient Akinsipe, SDMB [id number] Univers 00:00:00 00:00:00 Secure Msg Oksana Calzada UNDERGRADUATE ADVISOR 350.1.13.10 ity of REGIONAL 4.2.7.2.686 Patrick as MATERNAL [id number] [facility] & CHILD [address] [place] [address] 2023-03-21 2023-03-21 Patient Ashley, [facility] [id number] Univers 00:00:00 00:00:00 Secure Msg Oksana C UNDERGRADUATE ADVISOR 350.1.13.10 ity of REGIONAL 4.2.7.2.686 Patrick as MATERNAL [id number] [facility] & CHILD [address] [place] [address] 2023-03-21 2023-03-21 Patient Ashley, [facility] [id number] Univers 00:00:00 00:00:00 Secure Msg Oksana C UNDERGRADUATE ADVISOR 350.1.13.10 ity of REGIONAL 4.2.7.2.686 Patrick as MATERNAL [id number] [facility] & [address] 2022-04-26 2022-04-26 Outpatient R AKINSIPE, [facility] [id number] Univers 13:45:00 13:45:00 OKSANA ity o [facility] 2022-04-18 2022-04-18 [facility] [id number] Univers 00:00:00 00:00:00 Oksana C UNDERGRADUATE ADVISOR 350.1.13.10 ity of REGIONAL 4.2.7.2.686 Patrick as MATERNAL [id number] [facility] & CHILD [address] [place] [address] 2021-10-10 2021-10-10 Outpatient R AKINSIPE, [facility] [id number] Univers 00:00:00 00:00:00 OKSANA ity o f [facility] 2021-10-10 2021-10-10 Outpatient R AKINSIPE, [facility] [id number] Univers 00:00:00 00:00:00 OKSANA ity o f [facility] 2021-10-10 2021-10-10 Outpatient R AKINSIPE, [facility] [id number] Univers 00:00:00 00:00:00 OKSANA ity o f [facility] 2021-10-02 2021-10-02 [facility] [id number] Univers 08:45:00 09:13:38 Visit Oksana Calzada UNDERGRADUATE ADVISOR 350.1.13.10 ity [facility] 4.2.7.2.686 Patrick as MATERNAL [id number] [facility] & [address] 2021-10-02 2021-10-02 Outpatient R AKINSIPE, [facility] [id number] Univers 08:45:00 09:13:38 OKSANA ity o [facility] 2021-10-02 2021-10-02 Outpatient R AKINSIPE, [facility] [id number] Univers 08:45:00 08:45:00 OKSANA alcantary o [facility] 2021-09-21 2021-09-21 Outpatient R AKINSIPE, [facility] [id number] Univers 08:30:00 08:30:00 OKSANA alcantary o [facility] 2021-09-18 2021-09-[address] [facility] [id number] Univers 00:00:00 00:00:00 Secure Msg Oksana Zheng UNDERGRADUATE ADVISOR 350.1.13.10 ity [facility] 4.2.7.2.686 Patrick as MATERNAL [id number] [address] 2021-09-14 2021-09-14 Outpatient R AKINSIPE, [facility] [id number] Univers 12:45:00 13:45:38 OKSANA alcantary o [facility] 2021-09-14 2021-09-14 [facility] [id number] Univers 12:45:00 13:45:38 Visit Oksana Zheng UNDERGRADUATE ADVISOR 350.1.13.10 ity [facility] 4.2.7.2.686 Patrick as MATERNAL [id number] [facility] & [address] 2021-09-14 2021-09-14 Sherri JIMÉNEZ 1.2.840.114 [id number] Univers 00:00:00 00:00:00 Only Unassigned, DAINA 350.1.13.10 ity of [place] [facility] 4.2.7.2.686 Patrick as [id number] [address] 2021-09-13 2021-09-13 Outpatient [facility] [id number] Univers 10:00:00 10:00:00 OKSANA [place] o [facility] 2021-09-06 2021-09-06 Outpatient R [facility] [id number] Univers 09:45:00 10:57:26 OKSANA [place] o [facility] 2021-09-06 2021-09-[address] [facility] [id number] Univers 09:45:00 10:57:26 Visit Oksana Calzada UNDERGRADUATE ADVISOR 350.1.13.10 ity of REGIONAL 4.2.7.2.686 Patrick as MATERNAL [id number] [facility] ical & CHILD [address] [place] [address] 2021-09-06 2021-09-06 Orders Doctor TINO 1.2.840.114 [id number] Univers 00:00:00 00:00:00 Only Unassigned, DAINA 350.1.13.10 ity of [place] [facility] 4.2.7.2.686 Patrick as [id number] [address] 2020-12-07 2020-12-07 Outpatient R [facility] [id number] Univers 09:30:00 09:30:00 OKSANA [place] o [facility] 2020-11-29 2020-11-29 Outpatient R [facility] [id number] Univers 09:30:00 09:30:00 OKSANA alcantary o [facility] 2020-10-04 2020-10-04 [facility] 1.2.840.114 [id number] Univers 13:39:10 23:59:00 Encounter Oksana Calzada SPECIALTY 350.1.13.10 ity of [place] [id number] Pr luc JUAREZ [address] [place] [address] 2020-10-04 2020-10-04 [facility] 1.2.840.114 [id number] 13:39:10 23:59:00 Encounter Oksana C SPECIALTY 350.1.13.10 CARE 4.2.7.2.686 CENTER AT [id number] [address] 2020-10-04 2020-10-04 [facility] [id number] Univers 13:37:38 13:38:00 Encounter Oksana C SPECIALTY 350.1.13.10 ity [place]2.[place] AT [id number] [address] 2020-10-04 2020-10-04 [facility] 1.2.840.114 [id number] 13:37:38 13:38:00 Encounter Oksana C SPECIALTY 350.1.13.10 CARE 4.2.7.2.686 CENTER AT [id number] [address] 2020-10-04 2020-10-04 Outpatient R [facility] [id number] Univers 00:00:00 00:00:00 OKSANA [place] o [facility] 2020-09-20 2020-09-20 Outpatient R [facility] [id number] Univers 00:00:00 00:00:00 OKSANA alcantary o f [facility] 2020-09-19 2020-09-19 Patient Doctor UN[facility]ERSIT [id number] Univers 00:00:00 00:00:00 Secure Msg Unassigned, [facility] 350.1.13.10 ity of [place] [facility] [place]2.7.[place] [id number] [facility] [address] [place] 2020-09-01 2020-09-[address] [facility] 1.2.840.114 [id number] Univers 00:00:00 00:00:00 Oksana C UNDERGRADUATE ADVISOR 350.1.13.10 ity of REGIONAL 4.2.7.2.686 Patrick as MATERNAL [id number] Med ical & CHILD [address] [place] [address] 2020-09-012020-09-01 Telephone [facility] 1.2.840.114 [id number] 00:00:00 00:00:00 Oksana Calzada UNDERGRADUATE ADVISOR 350.1.13.10 REGIONAL 4.2.7.2.686 MATERNAL [id number] & CHILD [address] [place] [address] 2020-08-31 2020-08-31 Office Ashley [facility] [id number] Univers 10:11:31 11:17:14 Visit Oksana Calzada UNDERGRADUATE ADVISOR 350.1.13.10 ity of [facility] 4.2.7.2.686 Patrick as MATERNAL [id number] Med [facility] & CHILD [address] [place] [address] 2020-08-31 2020-08-31 [facility] [id number] Univers 10:15:00 10:15:00 OKSANA low [facility] 2020-08-29 2020-08-29 [facility] 1.2 .840.114 [id number] Univers 09:44:02 10:27:17 Visit Jyotimonica Oksana Calzada UNDERGRADUATE ADVISOR 350.1.13. 10 ity of [facility] 4.2.7.2.686 Patrick as MATERNAL [id number] [address] 2020-08-29 2020-08-29 Outpatient R [facility] [id number] Univers 10:00:00 10:00:00 OKSANA low [facility] 2020-08-29 2020-08-29 [facility] [id number] Univers 09:00:00 09:00:00 OKSANA low [facility] 2020-08-29 2020-08-29 Orders Doctor JIMÉNEZ 1.2.840.114 [id number] Univers 00:00:00 00:00:00 Only Unassigned, DAINA 350.1.13.10 ity of [place] [facility] 4.2.7.2.686 Patrick as [id number] [address] 2020-07-11 2020-07-11 Outpatient R [facility] [id number] Univers 12:45:00 12:45:00 ity of [facility] 2020-07-08 2020-07-08 Office [facility] [id number] [id number] Univers 13:59:41 15:25:43 Visit Oksana Calzada UNDERGRADUATE ADVISOR 350.1.13.10 ity of [facility] 4.2.7.2.686 Patrick as MATERNAL [phone] Med ical & CHILD [address] [place] [address] 2020-07-08 2020-07-08 Outpatient R FERMÍNEYAD, [facility] [id number] Univers 13:30:00 13:30:00 OKSANA ity o f [facility] 2020-07-06 2020-07-06 Outpatient R EDUIN [facility] [id number] Univers 09:00:00 09:00:00 GUILLERMINA ity o f [facility] 2020-06-08 2020-06-08 Outpatient R [facility] [id number] Univers 09:15:00 09:15:00 ity of [facility] 2020-05-26 2020-05-26 Hospital Radiology [facility] 1.2.840.114 [id number] Univers 12:40:00 23:59:00 Encounter Navarro 350.1.13.10 ity of [place] [id number] [facility] [id number] [facility] [address] 2020-05-26 2020-05-26 Outpatient R RADIOLOGY [facility] [id number] Univers 00:00:00 00:00:00 ity of [facility] 2020-05-26 2020-05-26 Letter Doctor TINO 1.2.840.114 [id number] Univers 00:00:00 00:00:00 (Out) Unassigned, DAINA 350.1.13.10 ity of [place] [facility] 4.2.7.2.686 Patrick as [phone] [facility] [address] [place] Results Test Description Test Time Test Comments Results Result [facility] e Comments CT, ABDOMEN 2019-09-17 Reason for FINAL REPORT PATIENT 14:16:00 exam:->NAUSEARe ID: [id number] CT ason for ABDOMEN AND PELVIS exam:->EMESISRe [...] MDReport Verified Date/Time: 09/17/2019 14:16:48 Reading Location: [facility] Radiology Reading Room SE 2019-09-17 13:00:00 Test Item Value Reference Range Interpretation Comme nts LIPASE (BEAKER) (test code = 749) 4 U/L 6-51 L 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 ID - [id number] FUNCTION [id number] 12:56:00 Test Item Value Reference Range Interpretation [...] Specimen slightly (test code = 347) hemolyzed 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 ID - [id number] DRUG SCREEN, [id number] 12:54:00 Test Item Value Reference Range Interpretation [...] situations. Chain of custody not maintained. Some bzyx-kdr-mzaaiuv medications, as well as adulterants, may cause inaccurate results. Clinical correlation should be applied. A more comprehensive drug screen or confirmation of a detected drug may be performed upon request.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 ID - [id number] ID - [id number] ID - [id number] ID - [id number] ID - [id number] ID - [id number] ID - [id number] ID - [id number] METABOLIC [id number] 12:54:00 Test Item Value Reference Range Interpretation [...] S NOT APPLICABLE FOR DIALYSIS PATIEN TS. 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 ID - [id number] W/ [id number] 12:47:00 Test Item Value Reference Range Interpretation [...] code = 1663) SOURCE(BEAKER) (test code = 6155) SCREEN, [id number] 12:40:00 Test Item Value Reference Range Interpretation Comments TEST URINE (BEAKER) (test Negative code = 583) CBC W/PLT COUNT & AUTO [id number] 12:38:00 Test Item Value Reference Range Interpretation [...] PERCENT (BEAKER) (test code = 2801) POCT-GLUCOSE [id number] 12:28:00 Test Item Value Reference Range Interpretation Comments POC-GLUCOSE METER 117 mg/dL 70-110 H : TESTED A T SLSL 1317 (BEAKER) (test code [address], = 1538) [facility] [place] 77 [id number]: 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/Techni brayden ID = [id number] for Tolo , Chisa CT, [id number] 16:50:00Reason for exam:->EMESISIs the patient ?->NoWhat is [...] gastritis cannot be excluded. Signed: Troy Galarza MDRort Verified Date/Time: 08/16/2019 16:50:10 Reading Location: [facility] B1 C013X Ortho Consult Reading Room LIPASE 2019-08-16 14:40:00 Test Item Value Reference Range Interpretation Comments LIPASE (BEAKER) (test code = 749) 5 U/L 6-51 L 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 ID - KARINABASIC METABOLIC [id number] 14:38:00 Test Item Value Reference Range Interpretation [...] S NOT APPLICABLE FOR DIALYSIS PATIEN TS. 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 ID - KARINAHEPATIC FUNCTION [id number] 14:38:00 Test Item Value Reference Range Interpretation [...] Specimen slightly (test code = 347) hemolyzed 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 ID - JONATHANHCG, SERUM, [id number] 14:34:00 Test Item Value Reference Range Interpretation Comments TEST SERUM (BEAKER) (test Negative code = 584) RAPID INFLUENZA A&B [id number] 14:34:00 Test Item Value Reference Range Interpretation Comments RAPID INFLUENZA A AG (BEAKER) Negative Negative, Inconclusive (test code = 1622) RAPID INFLUENZA B AG (BEAKER) Negative Negative, Inconclusive (test code = 1623) CBC W/PLT COUNT & AUTO [id number] 14:20:00 Test Item Value Reference Range Interpretation [...] (BEAKER) (test code = 2801) COMPREHENSIVE METABOLIC [id number] 12:48:00 Test Item Value Reference Range Interpretation [...] S NOT APPLICABLE FOR DIALYSIS PATIEN TS. [id number] 12:48:00 Test Item Value Reference Range Interpretation Comments LIPASE (BEAKER) (test code = 749) 9 U/L 6-51 HCG, SERUM, [id number] 12:27:00 Test Item Value Reference Range Interpretation Comments TEST SERUM (BEAKER) (test Negative code = 584) CBC W/PLT COUNT & AUTO [id number] 12:21:00 Test Item Value Reference Range Interpretation [...] L 0.00-0.20 (test code = 417) CT, [id number] 11:01:00Reason for exam:->EMESISIs the patient ?->NoWhat is [...] Aragon MDReport Verified Date/Time: 07/07/2019 11:01:48Reading Location: [facility] B1 C013Y CT Body Reading Room COMPREHENSIVE METABOLIC [id number] 10:26:00 Test Item Value Reference Range Interpretation [...] S NOT APPLICABLE FOR DIALYSIS PATIEN TS. [id number] 10:26:00 Test Item Value Reference Range Interpretation Comments LIPASE (BEAKER) (test code = 749) 8 U/L 6-51 HCG, SERUM, [id number] 10:21:00 Test Item Value Reference Range Interpretation Comments TEST SERUM (BEAKER) (test Negative code = 584) CBC W/PLT COUNT & AUTO [id number] 10:08:00 Test Item Value Reference Range Interpretation [...]
[2023-06-19] MEDS ORDERED: METOCLOPRAMIDE 10 MG/2mL INJ ONE (06:37)
[2023-06-19] MEDS ORDERED: ONDANSETRON 4 MG/2 ML VIAL ONE (06:38)
[2023-06-19] MEDS ORDERED: NA CHLORIDE 0.9% 1,000 ML ONE ×2 (06:38→07:53)
[2023-06-19] MEDS ORDERED: DIAZEPAM 10 MG/2 ML INJ SYRINGE ONE (06:42)
[2023-06-19 06:51] LABS: Absolute Lymphocytes (CBC) 2.5 K/uL (0.7-4.9); Hematocrit 33.3 % (36.0-45.0); Lymphocytes % 17.4 % (15.3-44.8); MCV 84.7 fL (80-100); MPV 8.8 fL (7.6-11.3); Platelets 409 thou/uL (152-406); RBC Red Blood Cell Count 3.93 M/uL (3.86-4.86)
[2023-06-19 07:04] LABS: Albumin 4.2 g/dL (3.4-5.0); Bilirubin Total 0.4 mg/dL (0.2-1.0); Protein, Total 9.2 g/dL (6.4-8.2)
[2023-06-19 07:06] LABS: Potassium 3.4 mEq/L (3.5-5.1)
[2023-06-19] MEDS ORDERED: DIPHENHYDRAMINE 50 MG/ML VIAL ONE (08:01)
--- NOTE | 2023-06-19 09:48 | RAD REPORT ---
EXAM DESCRIPTION: CT - Abdomen Pelvis W Contrast - 06/19/2023 9:18 am CLINICAL HISTORY: ABD PAIN COMPARISON: Abdomen Pelvis W Contrast dated 03/30/2023; Abdomen Pelvis W Contrast dated 10/30/2022 ; Abdomen Pelvis W Contrast dated 03/30/2022; Abdomen Pelvis W Contrast dated 01/11/2022 TECHNIQUE: Thin cut axial CT imaging of the abdomen and pelvis was performed following intravenous a dministration of 100mL Isovue 300. Multiplanar reformats were generated and reviewed. All CT scans are performed using dose optimization technique as appropriate and may include automated exposure control or mA/KV adjustment according to patient size. FINDINGS: No suspicious findings in the lung bases. The liver again demonstrates small hypoattenuating lesions, largest in the left lobe measuring 1.4 cm . Adrenal glands, spleen, and pancreas show no suspicious findings. Gallbladder and biliary tree are also without suspicious finding. Symmetric renal function is seen with no hydronephrosis or suspicious renal mass. No dilated bowel loops or bowel wall thickening. No free air, free fluid or inflammatory stranding. N o hernia, mass or bulky lymphadenopathy. Multiple uterine fibroids, grossly stable, some demonstrating calcifications. The urinary bladder is without significant finding. No suspicious bony findings. IMPRESSION: No acute intra-abdominal process. Stable incidental findings including fibroid uterus and small hepatic cysts.
[2023-06-19 10:45] LABS: Urine Bacteria None Seen /HPF (<20); Urine Bilirubin NEGATIVE (Negative); Urine Blood 2+ (Negative); Urine Clarity Clear (Clear); Urine Color Light-Yellow (Yellow); Urine Glucose NEGATIVE (Negative); Urine Mucus Slight /HPF (None Seen); Urine Protein TRACE (Negative); Urine RBC <5 /HPF (None Seen); Urine Urobilinogen Normal (Normal); Urine pH 6.5 (5.0-7.0)
[2023-06-19 10:46] LABS: Specific Gravity > 1.030 (1.005-1.030)
--- NOTE | 2023-06-19 11:05 | ER ---
Nurse's Notes [facility] Name: Sangita Sorenson Age: 47 yrs Sex: Female : 1975 Arrival Date: 06/19/2023 Time: 05:59 Bed 5 Private MD: Diagnosis: Infectious gastroenteritis and colitis, unspecified Presentation: 06/19 06:08 Chief complaint: Patient states: I have been having nausea, vomiting, diarrhea, body ha1 chills, and fever since yesterday. 06:08 Coronavirus screen: Vaccine status:. Ebola Screen: No symptoms or risks identified at [facility] this time. Initial Sepsis Screen: Does the patient meet any 2 criteria? Yes Does the patient have a suspected source of infection? No. Patient's initial sepsis screen is negative. Risk Assessment: Do you want to hurt yourself or someone else? Patient reports no desire to harm self or others. Onset of symptoms was June 19, 2023. 06:08 Method Of Arrival: Wheelchair ha1 06:08 Acuity: IBRAHIMA 3 ha1 Triage Assessment: 06:08 General: Appears uncomfortable, Behavior is anxious. Pain: Complains of pain in abdomen ha1 Pain does not radiate. Pain currently is 10 out of 10 on a pain scale. Quality of pain is described as throbbing, Pain began 1 day ago. Neuro: Level of Consciousness is awake, alert, obeys commands, Oriented to person, place, time, situation. Cardiovascular: Capillary refill < 3 seconds. Respiratory: Airway is patent Respiratory effort is even, unlabored, Respiratory pattern is regular, symmetrical. GI: Abdomen is round non-distended, Bowel sounds present X 4 quads. Reports lower abdominal pain, upper abdominal pain, diarrhea, nausea, vomiting. : No signs and/or symptoms were reported regarding the genitourinary system. Derm: Skin is healthy with good turgor, Skin is diaphoretic, Skin is normal. Musculoskeletal: Circulation, motion, and sensation intact. Range of motion: intact in all extremities. 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 - Social history:: Smoking status: Patient reports the use of cigarette tobacco products, smokes one pack cigarettes per day. - Family history:: not pertinent. Screenin:08 [facility] ED Fall Risk Assessment (Adult) History of falling in the last 3 months, ha1 including since admission No falls in past 3 months (0 pts) Confusion or Disorientation No (0 pts) Intoxicated or Sedated No (0 pts) Impaired Gait No (0 pts) Mobility Assist Device Used No (0 pt) Altered Elimination No (0 pt) Score/Fall Risk Level 0 - 2 = Low Risk Oriented to surroundings, Maintained a safe environment, Educated pt \T\ family on fall prevention, incl call for assistance when getting out of bed, Hourly rounding (assess needs \T\ fall precautionary measures) done. Abuse screen: Denies threats or abuse. Denies injuries from another. Nutritional screening: No deficits noted. Tuberculosis screening: No symptoms or risk factors identified. Assessment: 06:08 Reassessment: see triage assessment. ha1 07:00 Reassessment: Patient and/or family updated on plan of care and expected duration. Pain ha1 level reassessed. Patient is alert, oriented x 3, equal unlabored respirations, skin warm/dry/pink. Patient states feeling better. Patient states symptoms have improved. 08:07 Reassessment: pt retching, crying, new orders given , administered per MAR, VSS, lights iw dimmed, warm blankets given. 08:46 Reassessment: pt appears comfortable, no longer retching, warm blankets given. iw 10:08 Reassessment: pt drank 4 oz water , no vomiting. iw 10:39 Reassessment: assisted pt to restroom via wheelchair, pt requested more ice water, iw given, placed back in bed. 11:01 Reassessment: Patient appears in no apparent distress at this time. Patient and/or iw family updated on plan of care and expected duration. Pain level reassessed. Vital Signs: 06:08 BP 153 / 98; Pulse 49; Resp 20 S; Pulse Ox 99% on R/A; Weight 74.84 kg; Height 5 ft. 0 ha1 in. ; 07:00 Temp 97.6(O); ha1 08:46 BP 154 / 90; Pulse 53; Resp 16; Pulse Ox 100% on 2 lpm NC; iw 06:08 Body Mass Index 32.22 (74.84 kg, 152.4 cm) ha1 ED Course: 06:04 Patient arrived in ED. gm2 06:08 Tanvir Pedro MD is Attending Physician. sp4 06:08 Arm band placed on right wrist. ha1 06:08 Patient has correct armband on for positive identification. Bed in low position. Call ha1 light in reach. Side rails up X 1. 06:15 Inserted saline lock: 22 gauge in right antecubital area, using aseptic technique. ha1 Blood collected. 06:35 Lactate w/ 2H reflex if indic. Sent. ha1 06:36 CRP Sent. ha1 06:36 Type And Screen Sent. ha1 06:36 COVID-19 SARS RT PCR Sent. ha1 06:36 Influenza Screen (a \T\ B) Sent. ha1 06:36 CBC with Diff Sent. ha1 06:36 CMP Sent. ha1 06:36 Lipase Sent. ha1 06:39 Triage completed. ha1 07:04 Notified ED physician of a critical lab result(s). lactate 2.6. ll1 07:17 Erica Gupta, RN is Primary Nurse. iw 07:19 Attending Physician role handed off by Tanvir Pedro MD ec2 07:19 Gilberto Diaz MD is Attending Physician. ec2 09:19 CT Abd/Pelvis - IV Contrast Only In Process Unspecified. EDMS 11:01 Provided Education on: dispo . iw 11:22 No provider procedures requiring assistance completed. IV discontinued, intact, iw bleeding controlled, No redness/swelling at site. Pressure dressing applied. Administered Medications: 11:23 Discontinued: ns 0.9% 1000 ml IV at 125 ml/hr continuous iw 06:54 Drug: NS 0.9% IV 1000 ml IV at 125 ml/hr continuous Route: IV; Rate: 125 ml/hr; Site: jw7 right antecubital; 06:54 Drug: Diazepam IVP 5 mg IVP once Route: IVP; Site: right antecubital; jw7 07:05 Follow up: Response: No adverse reaction iw 06:54 Drug: metoCLOPramide IVP 10 mg IVP once; over 1 to 2 minutes Route: IVP; Site: right jw7 antecubital; 09:07 Follow up: Response: No adverse reaction iw 06:55 Drug: NS 0.9% IV 1000 ml IV at 1 bolus Per protocol; 1000 mL bolus Route: IV; Rate: 1 jw7 bolus; Site: right antecubital; 09:00 Follow up: IV Status: Completed infusion iw 06:55 Drug: Famotidine IVP 20 mg IVP once; dilute with 10 mL 0.9% NaCl; give over 2 minutes jw7 Route: IVP; Site: right antecubital; 09:07 Follow up: Response: No adverse reaction iw 06:55 Drug: TORadol - Ketorolac IVP 30 mg IVP once Route: IVP; Site: right antecubital; jw7 09:07 Follow up: Response: No adverse reaction iw 06:55 Drug: Ondansetron IVP 8 mg IVP once; over 2 minutes Route: IVP; Site: right antecubital;jw7 09:08 Follow up: Response: No adverse reaction iw 07:54 Drug: Haloperidol IVP 5 mg IVP once Route: IVP; Site: right antecubital; iw 09:06 Follow up: Response: Marked relief of symptoms; Nausea is decreased iw 07:54 Drug: diphenhydrAMINE IVP 25 mg IVP once Route: IVP; Site: right antecubital; iw 09:07 Follow up: Response: No adverse reaction; Marked relief of symptoms iw 11:23 Not Given (Patient Refused): potassium [id number] meq PO once iw 19:29 Not Given (Physician Discretion): ns 0.9% 1000 ml IV at 1 bolus Per protocol; 1000 mL iw bolus Medication: 06:44 VIS not applicable for this client. ha1 Outcome: 11:04 Discharge ordered by . ec2 11:22 Discharged to home via wheelchair, with family, iw 11:22 Condition: good 11:22 Discharge instructions given to patient, Instructed on discharge instructions, follow up and referral plans. Demonstrated understanding of instructions, follow-up care, 11:22 Patient left the ED. iw Signatures: Dispatcher [employer] Erica Krishna RN RN iw James Reese RN RN ll1 Sachi Yarbrough RN RN jw7 Marium Tejeda RN RN ha1 Tanvir Pedro MD MD sp4 Gilberto Diaz MD MD ec2 Marianne Mercer gm2
--- NOTE | 2023-06-19 11:05 | EDPHYS ---
Physician Documentation [facility] Name: Sangita Sorenson Age: 47 yrs Sex: Female : 1975 Arrival Date: 06/19/2023 Time: 05:59 Bed 5 Private MD: ED Physician Gilberto Diaz HPI: 06/19 06:08 This 47 yrs old Black Female presents to ER via Unassigned with complaints of sp4 Nausea/Vomiting/Diarrhea, Fever. 06:14 47-year-old female presents with acute onset of nausea vomiting diaphoresis generalized sp4 weakness body aches and diarrhea. Patient is acutely anxious and agitated on arrival limiting HPI and ROS. Patient does report that her kids at home was sick with nausea vomiting.. On arrival patient is diaphoretic acutely distressed pale appearing but nontoxic. 06:16 PHI - Allergies: No Known Allergies Home Meds: None PMHx: gastritis; Cyclic vomiting sp4 PSHx: section; Ligation of fallopian tube; . 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 - Social history:: Smoking status: Patient reports the use of cigarette tobacco products, smokes one pack cigarettes per day. - Family history:: not pertinent. ROS: 06:14 Constitutional: Positive generalized weakness, positive nausea, positive diarrhea, sp4 positive vomiting, positive diaphoresis. 06:14 All other systems are negative, Exam: 06:14 Constitutional: This is a well developed, well nourished patient who is awake, alert, sp4 positive acute distress secondary to vomiting and diaphoresis also dry heaving on exam, pale appearing Head/Face: Normocephalic, atraumatic. Eyes: Pupils equal round and reactive to light, extra-ocular motions intact. Lids and lashes normal. Conjunctiva and sclera are not injected. Cornea within normal limits. Periorbital areas with no swelling, redness, or edema. ENT: Nares patent. No nasal discharge, no septal abnormalities noted. Tympanic membranes are normal and external auditory canals are clear. Oropharynx with no redness, swelling, or masses, exudates, or evidence of obstruction, uvula midline. Mucous membranes moist. Neck: Trachea midline, no thyromegaly or masses palpated, and no cervical lymphadenopathy. Supple, full range of motion without nuchal rigidity, or vertebral point tenderness. Chest/axilla: Normal chest wall appearance and motion. Nontender with no deformity. No lesions are appreciated. Cardiovascular: Regular rate and rhythm with a normal S1 and S2. No gallops, murmurs, or rubs. Normal PMI, no JVD. No pulse deficits. Respiratory: Lungs have equal breath sounds bilaterally, clear to auscultation and percussion. No rales, rhonchi or wheezes noted. No increased work of breathing, no retractions or nasal flaring. Abdomen/GI: Soft, non-tender, with normal bowel sounds. No distension or tympany. No guarding or rebound. No evidence of tenderness throughout. Back: No spinal tenderness. No costovertebral tenderness. Skin: Warm, dry with normal turgor. Normal color with no rashes, no lesions, and no evidence of cellulitis. MS/ Extremity: Pulses equal, no cyanosis. Neurovascular intact. Full, normal range of motion. Neuro: Awake and alert, GCS 15, oriented to person, place, time, and situation. Cranial nerves II-XII grossly intact. Motor strength 5/5 in all extremities. Sensory grossly intact. Psych: Awake, alert, with orientation to person, place and time. Acute emotional upset and anxious also mild agitation Vital Signs: 06:08 BP 153 / 98; Pulse 49; Resp 20 S; Pulse Ox 99% on R/A; Weight 74.84 kg; Height 5 ft. 0 ha1 in. ; 07:00 Temp 97.6(O); ha1 08:46 BP 154 / 90; Pulse 53; Resp 16; Pulse Ox 100% on 2 lpm NC; iw 06:08 Body Mass Index 32.22 (74.84 kg, 152.4 cm) ha1 MDM: 06:13 Patient medically screened. sp4 07:08 Differential diagnosis: Nonspecific abd pain, gastritis, diverticulitis, viral sp4 gastroenteritis, gastroenteritis. Data reviewed: vital signs, nurses notes. Consideration of Admission/Observation Escalation of care including admission/observation considered. Transition of care: After a detail discussion of the patient's case, care is transferred to Gilberto Diaz MD. ED course: Patient is awaiting on Flu and COVID tests , likely viral gastroenteritis associated with vomiting. 07:24 Transition of care: Care assumed from Tanvir Pedro MD. ED course: Patient signed ec2 out to me by previous physician, in brief patient arrives today due to concern for nausea, vomiting, diarrhea with suspected gastroenteritis. Plan is to follow-up lab work and reassess the patient's symptoms.. 07:25 ED course: Patient's flu and COVID testing are negative. CBC does show leukocytosis of ec2 14.5. Metabolic profile with slight hypokalemia 3.4. Lactic acid elevated at 2.6. Lipase within normal ranges. We will give the patient potassium. . 09:52 ED course: CT abdomen/Pelvis with no acute intra-abdominal process. . ec2 11:03 ED course: On reassessment patient is tolerating p.o. without issue. Will discharge ec2 home. Lactic is clear. Return precautions given. Suspect gastroenteritis causing the patient's symptoms.. 06/19 06:09 Order name: CBC with Diff; Complete Time: 07:08 sp4 06/19 06:09 Order name: CMP; Complete Time: 07:08 sp4 06/19 06:09 Order name: Lipase; Complete Time: 07:08 sp4 06/19 06:09 Order name: Test, Urine; Complete Time: 11:03 sp4 06/19 06:09 Order name: Urinalysis w/ reflexes; Complete Time: 11:03 sp4 06/19 06:09 Order name: Influenza Screen (a \T\ B); Complete Time: 07:25 sp4 06/19 06:09 Order name: COVID-19 SARS RT PCR; Complete Time: 07:25 sp4 06/19 06:12 Order name: Type And Screen; Complete Time: 08:28 sp4 06/19 06:13 Order name: Lactate w/ 2H reflex if indic.; Complete Time: 07:08 sp4 06/19 06:13 Order name: CRP; Complete Time: 07:08 sp4 06/19 10:49 Order name: Lactate Sepsis 2 HR Follow-up; Complete Time: 11:03 EDMS 06/19 08:53 Order name: CT Abd/Pelvis - IV Contrast Only; Complete Time: 09:52 ec2 06/19 06:09 Order name: IV Saline Lock; Complete Time: 06:36 sp4 06/19 06:09 Order name: Labs collected and sent; Complete Time: 06:36 sp4 06/19 07:08 Order name: PO challenge; Complete Time: 10:08 sp4 Administered Medications: 11:23 Discontinued: ns 0.9% 1000 ml IV at 125 ml/hr continuous iw 06:54 Drug: NS 0.9% IV 1000 ml IV at 125 ml/hr continuous Route: IV; Rate: 125 ml/hr; Site: [facility] right antecubital; 06:54 Drug: Diazepam IVP 5 mg IVP once Route: IVP; Site: right antecubital; jw7 07:05 Follow up: Response: No adverse reaction iw 06:54 Drug: metoCLOPramide IVP 10 mg IVP once; over 1 to 2 minutes Route: IVP; Site: right [facility] antecubital; 09:07 Follow up: Response: No adverse reaction iw 06:55 Drug: NS 0.9% IV 1000 ml IV at 1 bolus Per protocol; 1000 mL bolus Route: IV; Rate: 1 jw7 bolus; Site: right antecubital; 09:00 Follow up: IV Status: Completed infusion iw 06:55 Drug: Famotidine IVP 20 mg IVP once; dilute with 10 mL 0.9% NaCl; give over 2 minutes jw7 Route: IVP; Site: right antecubital; 09:07 Follow up: Response: No adverse reaction iw 06:55 Drug: TORadol - Ketorolac IVP 30 mg IVP once Route: IVP; Site: right antecubital; jw7 09:07 Follow up: Response: No adverse reaction iw 06:55 Drug: Ondansetron IVP 8 mg IVP once; over 2 minutes Route: IVP; Site: right antecubital;jw7 09:08 Follow up: Response: No adverse reaction iw 07:54 Drug: Haloperidol IVP 5 mg IVP once Route: IVP; Site: right antecubital; iw 09:06 Follow up: Response: Marked relief of symptoms; Nausea is decreased iw 07:54 Drug: diphenhydrAMINE IVP 25 mg IVP once Route: IVP; Site: right antecubital; iw 09:07 Follow up: Response: No adverse reaction; Marked relief of symptoms iw 11:23 Not Given (Patient Refused): potassium meq PO once iw 19:29 Not Given (Physician Discretion): ns 0.9% 1000 ml IV at 1 bolus Per protocol; 1000 mL iw bolus Disposition Summary: 06/19/23 11:04 Discharge Ordered Notes: Location: Home ec2 Condition: Stable ec2 Diagnosis - Infectious gastroenteritis and colitis, unspecified ec2 Followup: ec2 - With: Private Physician - When: - Reason: Continuance of care Discharge Instructions: - Discharge Summary Sheet ec2 - Viral Gastroenteritis, Adult ec2 Forms: - Medication Reconciliation Form ec2 - Thank You Letter ec2 - Antibiotic Education ec2 - Prescription Opioid Use ec2 - Patient Portal Instructions ec2 - Leadership Thank You Letter ec2 Signatures: Dispatcher [employer] Erica Krishna RN RN iw Sachi Yarbrough RN RN jw7 Marium Tejeda RN RN ha1 Tanvir Pedro MD MD sp4 Gilberto Diaz MD MD ec2
[2023-06-19 11:35] VITALS: TEMP 97.6
[2023-06-19 11:38] VITALS: BP 154/90; O2SAT 100
== END 2023-06-19 11:22 | disposition home or self-care (01) ==
LOC: ER 05:59
DX: A09 Infectious gastroenteritis and colitis, unspecified (principal); F17.210 Nicotine dependence, cigarettes, uncomplicated; Z11.52 Encounter for screening for COVID-19
CPT/HCPCS: 96361; 85025; 81001; 36415; 86900; 86850; 81025; 86901; 83605 ×2; 83690; 80053; 87635; 86140; 87804 ×2; 74177; 96375; 96374; 99284; Q9967; J2765; J1200; J3360; J2405; J7030 ×2

== ENCOUNTER 2023-06-20 12:24 | Emergency (ER) | payer OTHER ==
--- OUTSIDE RECORDS SUMMARY | 2023-06-20 12:29 | XMS REPORT | Continuity of Care Document ---
:1975 Author Organization [facility] t Address [address] [place] [address] Care Team Providers Name Role Phone No MD, Pcp [facility] Primary Care Physician Unavailable LUIS CEDENO Attending Clinician Unavailable MIRIAM ORDAZ Attending Clinician Unavailable LAB90 Attending Clinician Unavailable Oksana Bradshaw Attending Clinician [phone] OKSANA REYNA Attending Clinician Unavailable Doctor Unassigned, 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 94 ON STAND Problems Condition Condition Condition [...] 00:00: - left ear left ear 00 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 unrestrict ed [...] Univers weight weight 2-04 ity of 00:00: 00 Medical Branch History of History of Disease Active 2019-08 U nivers bilateral bilateral 2-04 ity of tubal tubal 00:00: [place] ligation ligation 00 Medica l Branch Warts, Warts, Disease Active 2019-08 Univers genital genital 2-04 ity of 00:00: [place] 00 Medical [place] Allergies, Adverse Reactions, Alerts Allergy Allergy Status Severity Reaction(s) Onset Inactive Treating Comm ents Source Name Type Date Date Clinician NO KNOWN Drug Active Univers ALLERGIE Class ity of S [facility] Social History Social Habit Start Date Stop Date Quantity Comments Source History SDLA University o f Alcohol Frequency [facility] edical Branch History [facility] University o f Alcohol Std Drinks [facility] History SDOH University o f Alcohol Binge Formerly [facility] Sexual orientation [facility] Gender identity Nildafabian packer - External History of tobacco Cigarette Smoker Nilda Jordan - use External Alcohol Comment 2023-06-10 2023-06-10 rarely Nilda packer - 00:00:00 00:00:00 External Education - What is 2023-06-10 2023-06-10 10th grade Dick Jordan - the highest level 00:00:00 00:00:00 Externa l of school you have completed or the highest degree you have received? Cigarettes smoked 2023-04-03 2023-04-03 Nilda Chaseteddy - current (pack per 00:00:00 00:00:00 Externa l day) - Reported Cigarette 2023-04-03 2023-04-03 Nilda Jordan - pack-years 00:00:00 00:00:00 External Tobacco use and 2023-04-03 2023-04-03 Smokeless Nilda packer - exposure 00:00:00 00:00:00 tobacco non-user External Exposure to 2021-09-02 2021-10-02 Not sure Formerly [facility]-CoV-2 (event) 00:00:00 08:43:00 [facility] Tobacco Comment 2021-09-06 2021-09-06 Smokes 5 ciggs a Uni versity of 00:00:00 00:00:00 day [facility] History of Social 2021-09-06 2021-09-06 Univers ity of function 00:00:00 00:00:00 [facility] Alcohol intake 2019-09-17 2019-09-17 Current RACHEL Patel es 00:00:00 00:00:00 non-drinker of Medical Ce nter alcohol (finding) Sex Assigned At [birth year] RACHEL Gilberts 00:00:00 00:00:00 [facility] Smoking Status Start Date Stop Date Source Smokes tobacco daily 2023-04-03 00:00:00 Nilda Jordan - External Never smoked tobacco [facility] Medications Ordered Filled Start Stop Current Ordering Indication Dosage Frequency Signature Comments Components Source Medication Medication Date Date Medication? Clinician (SIG) Name Name Ibuprofen 2022-08 Yes [id number] 400mg Q.5D Take 1 Nilda (MOTRIN) 0-06 tablet Seybold 400 MG oral 00:00: (400 mg - Tablet 00 total) by Externa mouth 2 l times daily as needed for pain. Ibuprofen 2022-08- No [id number] 400mg Q.5D Take 1 Nilda (MOTRIN) 0-06 [...] Externa Delayed daily. l Response Cetirizine Yes [id number] 10mg Take 1 K elsey HCl (ZyrTEC 8-31 capsule Seybo ld Allergy) 10 00:00: (10 mg - MG oral 00 total) by Externa Capsule mouth l daily. Multiple Yes [id number] 1{tbl} Take 1 Nilda Vitamin 8-31 tablet by Seybold (Multivitam 00:00: mouth - in Adult) 00 daily. Externa oral Tablet l Pantoprazol 0 Yes [id number] 40mg Take 1 Nilda e Sodium 40 8-31 tablet (40 Se ybold MG oral 00:00: mg total) - Tablet 00 by mouth Externa Delayed daily. l Response Cetirizine 0 Yes [id number] 10mg Take 1 K elsey HCl (ZyrTEC 8-31 capsule Seybo ld Allergy) 10 00:00: (10 mg - MG oral 00 total) by Externa Capsule mouth l daily. Multiple 2022-0 Yes [id number] 1{tbl} Take 1 Nilda Vitamin 8-31 tablet by Seybold (Multivitam 00:00: mouth - in Adult) 00 daily. Externa oral Tablet l Pantoprazol 2022-0 Yes [id number] 40mg Take 1 Nilda e Sodium 40 8-31 tablet (40 Se ybold MG oral 00:00: mg total) - Tablet 00 by mouth Externa Delayed daily. l Response Cetirizine 2023-0 Yes 10mg Take 1 Kelse y (ZYRTEC) 10 04-04 tablet (10 Se ybold MG oral 00:00: mg total) - Tablet 00 by mouth Externa daily. l Multiple Yes [id number] 1{tbl} Take 1 Nilda Vitamin 04-04 tablet by Seybold (Multivitam 00:00: mouth - in Adult) 00 daily. Externa oral Tablet l Cetirizine 2022- No [id number] 10mg Take 1 Nilda HCl (ZyrTEC 04-04 capsule Seyb old Allergy) 10 00:00: 00:00 (10 mg - MG oral 00 :00 total) by Externa Capsule mouth l daily. Pantoprazol 2022- No [id number] 40mg Take 1 Nilda e Sodium 40 [...] No Univers medications 2-28 ity of 09:34: [address] No known 2021-0 No Univers medications 2-28 ity of 09:34: [address] No known 2021-0 No No known Unive rs medications 2- medication it y of 09:34: s [address] ondansetron 2019-0 Yes 4mg Take 1 [facility] [...] Name Name Tdap- (Boostrix, Unknown Completed Nilda Leo ilya - Adacel) External Vital Signs Vital Name Observation Time Observation Value Comments Source Systolic blood 2023-06-10 21:20:00 130 mm[Hg] Nilda Carlisleybold - pressure External Diastolic blood 2023-06-10 21:20:00 83 mm[Hg] Dick rizzo Seybold - pressure External Heart rate 2023-06-10 21:20:00 63 /min Nilda Leo maidabohamilton - External Body temperature 2023-06-10 21:20:00 37.06 Jeane Melida maida Seybold - External Respiratory rate 2023-06-10 21:20:00 15 /min Melida Chaseold - External Body height 2023-06-10 21:20:00 149.9 cm Nilda Leo ilya - External Body weight 2023-06-10 21:20:00 65.318 kg Nilda Leo ilya - External BMI 2023-06-10 21:20:00 29.08 kg/m2 Nilda Leo ilya - External Oxygen saturation in 2023-06-10 21:20:00 99 /min Nilda Jordan - Arterial blood by External Pulse oximetry Systolic blood 2023-05-10 19:36:00 140 mm[Hg] Nilda Chaseold - pressure External Diastolic blood 2023-05-10 19:36:00 80 mm[Hg] Dick rizzo Seybold - pressure External Heart rate 2023-05-10 19:21:00 69 /min Nilda Leo maidabold - External Body temperature 2023-05-10 19:21:00 37.39 Jeane Melida ey Seybold - External Respiratory rate 2023-05-10 19:21:00 15 /min Melida ey Seybold - External Body height 2023-05-10 19:21:00 149.9 cm Nilda Melendez eybold - External Oxygen saturation in 2023-05-10 19:21:00 99 /min Nilda Jordan - Arterial blood by External Pulse oximetry Systolic blood 2023-04-04 14:12:00 119 mm[Hg] Nilda Seybold - pressure External Diastolic blood 2023-04-04 14:12:00 83 mm[Hg] Dick y Seybold - pressure External Heart rate 2023-04-04 14:09:00 76 /min Nilda S eybold - External Body temperature 2023-04-04 14:09:00 35.89 Jeane Melida ey Seybold - External Respiratory rate 2023-04-04 14:09:00 20 /min Melida bey Seybold - External Body height 2023-04-04 14:09:00 149.9 cm Nilda S eybold - External Body weight 2023-04-04 14:09:00 58.968 kg Nilda Melendez eybold - External BMI 2023-04-04 14:09:00 26.26 kg/m2 Nilda S eybold - External Oxygen saturation in 2023-04-04 14:09:00 99 /min Nilda Jordan - Arterial blood by External Pulse oximetry Systolic blood 2021-10-02 14:44:00 122 mm[Hg] Univer sity [facility] Diastolic blood 2021-10-02 14:44:00 75 mm[facility]Hg] [facility] rate 2021-10-02 14:44:00 67 /min [facility] Body temperature 2021-10-02 14:44:00 35.83 Jeane [facility] rate 2021-10-02 14:44:00 20 /min [facility] Body height 2021-10-02 14:44:00 149.9 cm [facility] Body weight 2021-10-02 14:44:00 63.163 kg [facility] BMI 2021-10-02 14:44:00 28.13 kg/m2 [facility] Procedures This patient has no [...] Medica l Center cervix (procedure) [code = 477090813] Future Scheduled 2020-10-[address] [facility] 00:00:00 malignant neoplasm of Medica l Center cervix (procedure) [code = 856418350] Future Scheduled 2020-10-[address] [facility] Test 00:00:00 malignant neoplasm of Medica l Center cervix (procedure) [code = 977985084] Future Scheduled 2020-10-[address] [facility] Test 00:00:00 malignant neoplasm of Medica l Center cervix (procedure) [code = 717683733] Future Scheduled 2020-04-[address] [...] Department ID 2023-09-11 2023-09-11 Outpatient NILDA CEDENO [id number] Nilda 08:30:00 08:30:00 LUIS Seybol d 2023-07-18 2023-07-18 Outpatient NILDA ORDAZ [id number] Nilda 11:00:00 11:00:00 AMIRHOSSEIN Se ybold 2023-06-18 2023-06-18 Outpatient NILDA CEDENO [id number] Nilda 00:00:00 00:00:00 LUIS Seybol d 2023-06-11 2023-06-11 Outpatient NILDA CEDENO [id number] Nilda 00:00:00 00:00:00 LUIS Seybol d 2023-06-10 2023-06-10 Outpatient LAB90 NILDA STYLES [id number] Nilda 15:55:00 15:55:00 Seybol d 2023-06-10 2023-06-10 Outpatient PREZAS NILDA STYLES [id number] Nilda 15:00:00 15:00:00 LUIS Seybol d 2023-06-10 2023-06-10 Outpatient NILDA STYLES [id number] Nilda 00:00:00 00:00:00 Seybol d 2023-06-09 2023-06-09 Outpatient PREZAS, NILDA STYLES [id number] Nilda 00:00:00 00:00:00 LUIS Seybol d 2023-05-30 2023-05-30 Outpatient PREZAS, NILDA STYLES [id number] Nilda 00:00:00 00:00:00 LUIS Seybol d 2023-05-29 2023-05-29 Outpatient LAB90 NILDA STYLES [id number] Nilda 08:10:00 08:10:00 Seybol d 2023-05-28 2023-05-28 Outpatient LAB90 NILDA STYLES [id number] Nilda 12:25:00 12:25:00 Seybol d 2023-05-20 2023-05-20 Outpatient PREZAS, NILDA STYLES [id number] Nilda 00:00:00 00:00:00 LUIS Seybol d 2023-05-10 2023-05-10 Outpatient PREZAS, NILDA STYLES [id number] Nilda 14:30:00 14:30:00 LUIS Seybol d 2023-04-15 2023-04-15 Outpatient PREZAS, NILDA STYLES [id number] Nilda 00:00:00 00:00:00 LUIS Seybol d 2023-04-04 2023-04-04 Outpatient PREZAS, NILDA STYLES [id number] Nilda 09:15:00 09:15:00 LUIS Seybol d 2023-04-04 2023-04-04 Outpatient NILDA STYLES [id number] Nilda 00:00:00 00:00:00 Seybol d 2023-04-04 2023-04-04 Outpatient NILDA STYLES [id number] Nilda 00:00:00 00:00:00 Seybol d 2023-03-28 2023-03-28 Patient Ashley, [facility] [id number] Univers 00:00:00 00:00:00 Secure Msg Oksana C RAILWAY PATROL OFFICER [id number] ity of REGIONAL [id number] Patrick as MATERNAL [id number] [facility] & [address] 2023-03-21 2023-03-21 Patient Ashley, [facility] [id number] Univers 00:00:00 00:00:00 Secure Msg Oksana C RAILWAY PATROL OFFICER [id number] ity of REGIONAL [id number] Patrick as MATERNAL [id number] [facility] & [address] 2023-03-21 2023-03-21 Patient Ashley, [facility] [id number] Univers 00:00:00 00:00:00 Secure Msg Oksana C RAILWAY PATROL OFFICER [id number] ity of REGIONAL [id number] Patrick as MATERNAL [id number] [facility] & [address] 2022-04-26 2022-04-26 Outpatient R ASHLEY, [facility] [id number] Univers 13:45:00 13:45:00 OKSANA hightower [facility] 2022-04-18 2022-04-18 [facility] [id number] Univers 00:00:00 00:00:00 Oksana C RAILWAY PATROL OFFICER [id number] ity of REGIONAL [id number] Patrick as MATERNAL [id number] [facility] & CHILD [address] [place] [address] 2021-10-10 2021-10-10 Outpatient R ASHLEY [facility] [id number] Univers 00:00:00 00:00:00 OKSANA hightower [facility] 2021-10-10 2021-10-10 Outpatient R ASHLEY [facility] [id number] Univers 00:00:00 00:00:00 OKSANA ity o [facility] 2021-10-10 2021-10-10 Outpatient R AKINSIPE, [facility] [id number] Univers 00:00:00 00:00:00 OKSANA low [facility] 2021-10-02 2021-10-02 Office Akinsipe, [facility] [id number] Univers 08:45:00 09:13:38 [facility] RAILWAY PATROL OFFICER [id number] ity [facility] [id number] Patrick as MATERNAL [id number] [facility] & CHILD [address] [place] [address] 2021-10-02 2021-10-02 Outpatient R AKINSIPE, [facility] [id number] Univers 08:45:00 09:13:38 OKSANAIHSAN groves [facility] 2021-10-02 2021-10-02 Outpatient R AKINSIPE, [facility] [id number] Univers 08:45:00 08:45:00 OKSANA groves [facility] 2021-09-21 2021-09-21 Outpatient R AKINSIPE, [facility] [id number] Univers 08:30:00 08:30:00 OKSANA matthias [facility] 2021-09-18 2021-09-18 Patient [facility], [facility] [id number] Univers 00:00:00 00:00:00 Secure Msg [facility] RAILWAY PATROL OFFICER [id number] ity [facility] [id number] Patrick as MATERNAL [id number] [facility] & [address] 2021-09-14 2021-09-14 Outpatient R AKINSIPE, [facility] [id number] Univers 12:45:00 13:45:38 OKSANAIHSAN groves [facility] 2021-09-14 2021-09-14 Office Akinsipe, [facility] [id number] Univers 12:45:00 13:45:38 Visit [facility] RAILWAY PATROL OFFICER [id number] ity [facility] 4.2.7.2.686 Patrick as MATERNAL [id number] [facility] ical & CHILD [address] [place] [address] 2021-09-14 2021-09-14 Orders Doctor TINO [id number] Univers 00:00:00 00:00:00 Only Unassigned, DAINA 350.1.13.[address] [facility] [place] [facility] 4.2.7.2.686 Patrick as [id number] [address] 2021-09-13 2021-09-13 [facility] [id number] Univers 10:00:00 10:00:00 OKSANA alcantary o f [facility] 2021-09-06 2021-09-06 [facility] [id number] Univers 09:45:00 10:57:26 OKSANA alcantary o f [facility] 2021-09-06 2021-09-06 Office [facility] [id number] Univers 09:45:00 10:57:26 Visit Oksana Calzada RAILWAY PATROL OFFICER [id number] ity of [facility] 4.2.7.2.686 Patrick as MATERNAL [id number] [facility] & CHILD [address] [place] [address] 2021-09-06 2021-09-06 Orders Doctor TINO [id number] Univers 00:00:00 00:00:00 Only Unassigned, DAINA [id number] [facility] 4.2.7.2.686 Patrick as [id number] [address] 2020-12-07 2020-12-07 Outpatient R AKINSI, [facility] [id number] Univers 09:30:00 09:30:00 OKSANA alcantary o f [facility] 2020-11-29 2020-11-29 [facility] [id number] Univers 09:30:00 09:30:00 OKSANA ity o f [facility] 2020-10-04 2020-10-04 [facility] [id number] Univers 13:39:10 23:59:00 Encounter Oksana C SPECIALTY 350.1.13.10 ity of [place]2.[place] [id number] [place] luc JUAREZ [address] [place] [address] 2020-10-04 2020-10-04 [facility] [id number] 13:39:10 23:59:00 Encounter Oksana C SPECIALTY [id number] CARE 4.2.7.2.686 CENTER AT [id number] [address] 2020-10-04 2020-10-04 [facility] [id number] Univers 13:37:38 13:38:00 Encounter Oksana C SPECIALTY 350.1.13.10 it[place]2.[place] AT [id number] Va keith[address] 2020-10-04 2020-10-04 [facility] [id number] 13:37:38 13:38:00 Encounter Oksana C SPECIALTY 350.1.13.10 CARE 4.2.7.2.686 CENTER AT [id number] [address] 2020-10-04 2020-10-04 Outpatient R [facility] [id number] Univers 00:00:00 00:00:00 OKSANA groves o f [facility] 2020-09-20 2020-09-20 Outpatient R [facility] [id number] Univers 00:00:00 00:00:00 OKSANA ity o f [facility] 2020-09-19 2020-09-19 Patient Doctor [facility] [id number] Univers 00:00:00 00:00:00 Secure Msg Unassigned, Y HEALTH 350.1.13.[address] [facility]ICS 4.2.7.2.[place] [id number] [facility] [address] [place] 2020-09-01 2020-09-01 Telephone [facility] 1.2.840.114 [id number] Univers 00:00:00 00:00:00 Oksana C RAILWAY PATROL OFFICER 350.1.13.10 ity of REGIONAL 4.2.7.2.686 Patrick as MATERNAL [id number] [facility] & CHILD [address] [place] [address] 2020-09-01 2020-09-01 [facility]phone [facility] 1.2.840.114 [id number] 00:00:00 00:00:00 Oksana C RAILWAY PATROL OFFICER 350.1.13.10 REGIONAL 4.2.7.2.686 MATERNAL [id number] & [address] 2020-08-31 2020-08-31 Office [facility] [id number] Univers 10:11:31 11:17:14 Visit Oksana C RAILWAY PATROL OFFICER 350.1.13.10 ity of REGIONAL 4.2.7.2.686 Patrick as MATERNAL [id number] [facility] & CHILD [address] [place] [address] 2020-08-31 2020-08-31 Outpatient R ASHLEY, [facility] [id number] Univers 10:15:00 10:15:00 OKSANA low [facility] 2020-08-29 2020-08-29 Nurse Visit, Cristy Nurse [facility] 1.2 .840.114 [id number] Univers 09:44:02 10:27:17 Visit Darrelemiliana Oksana Calzada RAILWAY PATROL OFFICER 350.1.13. 10 ity of REGIONAL 4.2.7.2.686 Patrick as MATERNAL [id number] [address] 2020-08-29 2020-08-29 Outpatient R ASHLEY, [facility] [id number] Univers 10:00:00 10:00:00 OKSANA hightower [facility] 2020-08-29 2020-08-29 Outpatient R ASHLEY, [facility] [id number] Univers 09:00:00 09:00:00 OKSANA hightower [facility] 2020-08-29 2020-08-29 Sherri JIMÉNEZ [id number] Univers 00:00:00 00:00:00 Only Unassigned, DAINA 350.1.13.[address] [place] [facility] 4.2.7.2.686 Patrick as [id number] [facility] [address] 2020-07-11 2020-07-11 Outpatient R [facility] [id number] Univers 12:45:00 12:45:00 ity of [facility] 2020-07-08 2020-07-08 Office [facility] [id number] Univers 13:59:41 15:25:43 Visit Oksana Calzada RAILWAY PATROL OFFICER 350.1.13.10 ity of [facility] 4.2.7.2.686 Patrick as MATERNAL [id number] Med ical & CHILD [address] [place] [address] 2020-07-08 2020-07-08 [facility] [id number] Univers 13:30:00 13:30:00 OKSANA groves o f [facility] 2020-07-06 2020-07-06 Outpatient R EDUIN [facility] [id number] Univers 09:00:00 09:00:00 JODEESIMEONNDA ity o f [facility] 2020-06-08 2020-06-08 Outpatient R [facility] [id number] Univers 09:15:00 09:15:00 ity of [facility] 2020-05-26 2020-05-26 [facility] Radiology [facility] 1.2.840.114 [id number] Univers 12:40:00 23:59:00 Encounter [place] 350.1.13.10 ity of [place] 4[place]2.7.2.686 [place] [facility] [id number] [facility] [address] 2020-05-26 2020-05-26 Outpatient R RADIOLOGY [facility] [id number] Univers 00:00:00 00:00:00 ity of [facility] 2020-05-26 2020-05-26 Letter Doctor JIMÉNEZ 1.2.840.114 [id number] Univers 00:00:00 00:00:00 (Out) Unassigned, DAINA 350.1.13.[address] [place] [facility] 4.2.7.2.686 Patrick as [id number] [address] Results Test Description Test Time Test Comments Results Result [facility] e Comments CT, ABDOMEN 2019-09-17 Reason for FINAL REPORT PATIENT 14:16:00 exam:->NAUSEARe ID: [id number] CT ason for ABDOMEN AND PELVIS exam:->EMESISRe [...] MDReport Verified Date/Time: 09/17/2019 14:16:48 Reading Location: [facility] Radiology Reading Room SE 2019-09-17 13:00:00 Test Item Value Reference Range Interpretation Comme nts LIPASE (BEAKER) (test code = 749) 4 U/L 6-51 L Nibbler Operator ID - [id number] FUNCTION [id number] 12:56:00 Test Item Value Reference Range Interpretation [...] Specimen slightly (test code = 347) hemolyzed Nibbler Operator ID - [id number] DRUG SCREEN, [id number] 12:54:00 Test Item Value Reference Range Interpretation [...] situations. Chain of custody not maintained. Some ubdo-pcj-gkoknuk medications, as well as adulterants, may cause inaccurate results. Clinical correlation should be applied. A more comprehensive drug screen or confirmation of a detected drug may be performed upon request.Nibbler Operator ID - [id number] ID - [id number] ID - [id number] ID - [id number] ID - [id number] ID - [id number] ID - [id number] ID - [id number] METABOLIC [id number] 12:54:00 Test Item Value Reference Range Interpretation [...] S NOT APPLICABLE FOR DIALYSIS PATIEN TS. Nibbler Operator ID - [id number] W/ [id number] 12:47:00 Test Item Value Reference Range Interpretation [...] 1663) SOURCE(BEAKER) (test code = 2795) SCREEN, [id number] 12:40:00 Test Item Value Reference Range Interpretation Comments TEST URINE (BEAKER) (test Negative code = 583) CBC W/PLT COUNT & AUTO [id number] 12:38:00 Test Item Value Reference Range Interpretation [...] PERCENT (BEAKER) (test code = 2801) POCT-GLUCOSE [id number] 12:28:00 Test Item Value Reference Range Interpretation Comments POC-GLUCOSE METER 117 mg/dL 70-110 H : TESTED A T SLSL 1317 (BEAKER) (test code [address], = 1538) [facility] 77 478: Nibbler Operator/Techni brayden ID = [id number] for Tolo , Chisa CT, [id number] 16:50:00Reason for exam:->EMESISIs the patient ?->NoWhat is [...] Galarzaeport Verified Date/Time: 08/16/2019 16:50:10 Reading Location: [facility] [id number] Ortho Consult Reading Room LIPASE 2019-08-16 14:40:00 Test Item Value Reference Range Interpretation Comments LIPASE (BEAKER) (test code = 749) 5 U/L 6-51 L Nibbler Operator ID - KARINABASIC METABOLIC [id number] 14:38:00 Test Item Value Reference Range Interpretation [...] S NOT APPLICABLE FOR DIALYSIS PATIEN TS. Nibbler Operator ID - KARINAHEPATIC FUNCTION [id number] 14:38:00 Test Item Value Reference Range Interpretation [...] Specimen slightly (test code = 347) hemolyzed Nibbler Operator ID - KARINAHCG, SERUM, [id number] 14:34:00 Test Item Value Reference Range Interpretation Comments TEST SERUM (BEAKER) (test Negative code = 584) RAPID INFLUENZA A&B [id number] 14:34:00 Test Item Value Reference Range Interpretation Comments RAPID INFLUENZA A AG (BEAKER) Negative Negative, Inconclusive (test code = 1622) RAPID INFLUENZA B AG (BEAKER) Negative Negative, Inconclusive (test code = 1623) CBC W/PLT COUNT & AUTO [id number] 14:20:00 Test Item Value Reference Range Interpretation [...] (BEAKER) (test code = 2801) COMPREHENSIVE METABOLIC [id number] 12:48:00 Test Item Value Reference Range Interpretation [...] S NOT APPLICABLE FOR DIALYSIS PATIEN TS. [id number] 12:48:00 Test Item Value Reference Range Interpretation Comments LIPASE (BEAKER) (test code = 749) 9 U/L 6-51 HCG, SERUM, [id number] 12:27:00 Test Item Value Reference Range Interpretation Comments TEST SERUM (BEAKER) (test Negative code = 584) CBC W/PLT COUNT & AUTO [id number] 12:21:00 Test Item Value Reference Range Interpretation [...] L 0.00-0.20 (test code = 417) CT, [id number] 11:01:00Reason for exam:->EMESISIs the patient ?->NoWhat is [...] Aragon MDReport Verified Date/Time: 07/07/2019 11:01:48Reading Location: [facility] B1 C013Y CT Body Reading Room COMPREHENSIVE METABOLIC [id number] 10:26:00 Test Item Value Reference Range Interpretation [...] S NOT APPLICABLE FOR DIALYSIS PATIEN TS. [id number] 10:26:00 Test Item Value Reference Range Interpretation Comments LIPASE (BEAKER) (test code = 749) 8 U/L 6-51 HCG, SERUM, [id number] 10:21:00 Test Item Value Reference Range Interpretation Comments TEST SERUM (BEAKER) (test Negative code = 584) CBC W/PLT COUNT & AUTO [id number] 10:08:00 Test Item Value Reference Range Interpretation [...]
[2023-06-20] MEDS ORDERED: ONDANSETRON 4 MG/2 ML VIAL ONE (13:14)
[2023-06-20] MEDS ORDERED: FAMOTIDINE 20 MG/2 ML VIAL IV ONE (13:14)
[2023-06-20 13:39] LABS: Absolute Lymphocytes (CBC) 1.2 K/uL (0.7-4.9); Hematocrit 32.8 % (36.0-45.0); Lymphocytes % 8.7 % (15.3-44.8); MCV 83.5 fL (80-100); MPV 8.7 fL (7.6-11.3); Platelets 392 thou/uL (152-406); RBC Red Blood Cell Count 3.93 M/uL (3.86-4.86)
[2023-06-20 13:55] LABS: Albumin 4.3 g/dL (3.4-5.0); Bilirubin Total 0.5 mg/dL (0.2-1.0); Protein, Total 9.1 g/dL (6.4-8.2)
[2023-06-20] MEDS ORDERED: NA CHLORIDE 0.9% 1,000 ML ONE (14:13)
[2023-06-20] MEDS ORDERED: LORazepam 2 MG/ML VIAL ONE (16:28)
--- NOTE | 2023-06-20 16:35 | ER ---
Nurse's Notes [facility] Name: Sangita Sorenson Age: 47 yrs Sex: Female : 1975 Arrival Date: 06/20/2023 Time: 12:24 Bed 19 Private MD: Diagnosis: Vomiting Presentation: 06/20 12:33 Chief complaint: Patient states: Still N/V since her visit here yesterday. Coronavirus ll1 screen: Client denies travel out of the [place] in the last 14 days. fatigue, nausea, vomiting. Client presents with at least one sign or symptom that may indicate coronavirus-19. Standard/surgical mask placed on the client. Ebola Screen: Patient denies travel to an Ebola-affected area in the 21 days before illness onset. Initial Sepsis Screen: Does the patient meet any 2 criteria? No. Patient's initial sepsis screen is negative. Does the patient have a suspected source of infection? No. Patient's initial sepsis screen is negative. Risk Assessment: Do you want to hurt yourself or someone else? Patient reports no desire to harm self or others. Onset of symptoms was June 18, 2023. 12:33 Method Of Arrival: Ambulatory 1 12:33 Acuity: IBRAHIMA 3 ll1 Triage Assessment: 12:34 General: Appears uncomfortable, ill, Behavior is calm, cooperative, appropriate for ll1 age. Pain: Complains of pain in abdomen Pain currently is 10 out of 10 on a pain scale. GI: Reports lower abdominal pain, upper abdominal pain, cramping, nausea, vomiting. Historical: - Allergies: 12:33 No Known Allergies; ll1 - PMHx: 12:33 Cyclic vomiting; gastritis; ll1 - PSHx: 12:33 section; Ligation of fallopian tube; ll1 - Immunization history:: Adult Immunizations up to date. - Social history:: Smoking status: Patient reports the use of cigarette tobacco products, smokes one-half pack cigarettes per day. Screenin:35 [facility] ED Fall Risk Assessment (Adult) Score/Fall Risk Level 0 - 2 = Low Risk. Abuse eh3 screen: Denies threats or abuse. Denies injuries from another. Nutritional screening: No deficits noted. Tuberculosis screening: No symptoms or risk factors identified. Assessment: 12:35 General: Appears distressed, uncomfortable, Behavior is cooperative, crying, restless. eh3 Pain: Complains of pain in epigastric area, right upper quadrant and left upper quadrant. Neuro: Level of Consciousness is awake, alert, obeys commands, Oriented to person, place, time, situation. Cardiovascular: Capillary refill < 3 seconds Patient's skin is warm and dry. Respiratory: Airway is patent Respiratory effort is even, unlabored, Respiratory pattern is regular, symmetrical. GI: Abdomen is round non-distended. Derm: Skin is pink, warm \T\ dry. Musculoskeletal: Circulation, motion, and sensation intact. 13:30 Reassessment: Patient appears in no apparent distress at this time. Patient and/or eh3 family updated on plan of care and expected duration. Pain level reassessed. Patient is alert, oriented x 3, equal unlabored respirations, skin warm/dry/pink. 14:30 Reassessment: Patient appears in no apparent distress at this time. Patient and/or eh3 family updated on plan of care and expected duration. Pain level reassessed. Patient is alert, oriented x 3, equal unlabored respirations, skin warm/dry/pink. 15:30 Reassessment: Patient appears in no apparent distress at this time. Patient and/or eh3 family updated on plan of care and expected duration. Pain level reassessed. Patient is alert, oriented x 3, equal unlabored respirations, skin warm/dry/pink. 16:30 Reassessment: Patient appears in no apparent distress at this time. Patient and/or eh3 family updated on plan of care and expected duration. Pain level reassessed. Patient is alert, oriented x 3, equal unlabored respirations, skin warm/dry/pink. 16:35 Reassessment: Pt discharged, daughter is coming from [place] to pick her up. Pt eh3 drowsy and wants to finish NS bolus; approx 300mL remains to be infused. Vital Signs: 12:33 BP 136 / 97; Pulse 53; Resp 18; Temp 97.8; Pulse Ox 95% ; Weight 65.77 kg; Height 5 ft. ll1 11 in. ; Pain 10/10; 13:30 BP 134 / 74; Pulse 60; Resp 18; Pulse Ox 100% on R/A; eh3 14:30 BP 151 / 81; Pulse 58; Resp 16; Pulse Ox 98% on R/A; eh3 15:30 BP 153 / 99; Pulse 51; Resp 16; Pulse Ox 100% on R/A; eh3 16:30 BP 150 / 93; Pulse 56; Resp 16; Pulse Ox 100% on R/A; eh3 17:30 BP 151 / 90; Pulse 52; Resp 18; Pulse Ox 99% on R/A; eh3 18:30 BP 101 / 68; Pulse 75; Resp 18; Pulse Ox 99% on R/A; eh3 12:33 Body Mass Index 20.22 (65.77 kg, 180.34 cm) ll1 12:33 Pain Scale: Adult ll1 ED Course: 12:27 Patient arrived in ED. mg5 12:33 Krzysztof Boo MD is Attending Physician. kdr 12:33 Arm band placed on Patient placed in an exam room, on a stretcher. ll1 12:34 Triage completed. ll1 12:35 Genoveva Beavers RN is Primary Nurse. eh3 12:35 Patient has correct armband on for positive identification. Bed in low position. Call eh3 light in reach. Side rails up X2. Provided Education on: use of call choi. Pulse ox on. NIBP on. 12:55 Missed attempt(s): 20 gauge in left antecubital area. Bleeding controlled, band aid eh3 applied, catheter tip intact. 13:10 Missed attempt(s): 22 gauge in right antecubital area. Bleeding controlled, band aid eh3 applied, catheter tip intact. 13:30 Inserted saline lock: 24 gauge in right hand, using aseptic technique. Blood collected. eh3 Administered Medications: 13:15 Drug: Famotidine IVP 20 mg IVP once; dilute with 10 mL 0.9% NaCl; give over 2 minutes eh3 Route: IVP; Site: right hand; 14:00 Follow up: Response: No adverse reaction eh3 13:15 Drug: Ondansetron IVP 4 mg IVP once; over 2 minutes Route: IVP; Site: right hand; 3 14:00 Follow up: Response: No adverse reaction; Nausea is decreased eh3 13:59 Drug: NS 0.9% IV 1000 ml IV at 1 bolus Per protocol; 1000 mL bolus Route: IV; Rate: 1 eh3 bolus; Site: right hand; 15:00 Follow up: IV Status: Completed infusion; IV Intake: 1000ml 3 16:30 Drug: Ativan IVP 1 mg IVP once Route: IVP; Site: right hand; 3 17:30 Follow up: Response: No adverse reaction; Anxiety decreased 3 16:50 Drug: Potassium Chloride PO Liquid 40 mEq PO once Route: PO; 3 17:30 Follow up: Response: No adverse reaction 3 Intake: 15:00 IV: 1000ml; Total: 1000ml. 3 Outcome: 16:35 Discharge ordered by . kdr 19:09 Patient left the ED. 3 Signatures: Krzysztof Boo MD MD kdr aJmes Reese RN RN ll1 Genoveva Beavers RN RN 3 Paulnie Burrell mg5 Corrections: (The following items were deleted from the chart) 15:34 12:58 Genoveva Beavers RN is Primary Nurse. 3 [facility] 17:03 15:26 BP 151 / 81; Pulse 58bpm; Resp 16bpm; Pulse Ox 98% RA; 3 3
--- NOTE | 2023-06-20 16:35 | EDPHYS ---
Physician Documentation [facility] Name: Sangita Sorenson Age: 47 yrs Sex: Female : 1975 Arrival Date: 06/20/2023 Time: 12:24 Bed 19 Private MD: ED Physician Krzysztof Boo HPI: 06/20 16:30 This 47 yrs old Black Female presents to ER via Ambulatory with complaints of Vomiting. kdr 16:31 Patient was seen here yesterday for nausea and vomiting. She was discharged with an kdr uncomplicated stay. Since then she has continued to have some nausea and vomiting. Patient also appears to be very anxious. The patient is otherwise not in any acute distress. Onset: The symptoms/episode began/occurred gradually, 2 day(s) ago. Severity of symptoms: At their worst the symptoms were mild in the emergency department the symptoms are unchanged. The patient has experienced similar episodes in the past, multiple times. The patient has been recently seen at the [facility] Emergency Department, yesterday. Historical: - Allergies: 12:33 No Known Allergies; ll1 - PMHx: 12:33 Cyclic vomiting; gastritis; ll1 - PSHx: 12:33 section; Ligation of fallopian tube; ll1 - Immunization history:: Adult Immunizations up to date. - Social history:: Smoking status: Patient reports the use of cigarette tobacco products, smokes one-half pack cigarettes per day. ROS: 16:31 Constitutional: Negative for fever, chills, and weight loss, Eyes: Negative for injury, kdr pain, redness, and discharge, ENT: Negative for injury, pain, and discharge, Neck: Negative for injury, pain, and swelling, Cardiovascular: Negative for chest pain, palpitations, and edema, Respiratory: Negative for shortness of breath, cough, wheezing, and pleuritic chest pain, Back: Negative for injury and pain, : Negative for injury, bleeding, discharge, and swelling, MS/Extremity: Negative for injury and deformity, Skin: Negative for injury, rash, and discoloration, Neuro: Negative for headache, weakness, numbness, tingling, and seizure activity. Psych: Negative for depression, anxiety, suicide ideation, homicidal ideation, and hallucinations, Allergy/Immunology: Negative for hives, rash, and allergies, Endocrine: Negative for neck swelling, polydipsia, polyuria, polyphagia, and marked weight changes, Hematologic/Lymphatic: Negative for swollen nodes, abnormal bleeding, and unusual bruising, 16:31 Abdomen/GI: Positive for nausea and vomiting, nausea, Exam: 16:31 Constitutional: This is a well developed, well nourished patient who is awake, alert, kdr and in no acute distress. Head/Face: Normocephalic, atraumatic. Eyes: Pupils equal round and reactive to light, extra-ocular motions intact. Lids and lashes normal. Conjunctiva and sclera are non-icteric and not injected. Cornea within normal limits. Periorbital areas with no swelling, redness, or edema. Neck: Trachea midline, no thyromegaly or masses palpated, and no cervical lymphadenopathy. Supple, full range of motion without nuchal rigidity, or vertebral point tenderness. No Meningismus. Chest/axilla: Normal chest wall appearance and motion. Nontender with no deformity. No lesions are appreciated. Cardiovascular: Regular rate and rhythm with a normal S1 and S2. No gallops, murmurs, or rubs. Normal PMI, no JVD. No pulse deficits. Respiratory: Lungs have equal breath sounds bilaterally, clear to auscultation and percussion. No rales, rhonchi or wheezes noted. No increased work of breathing, no retractions or nasal flaring. Abdomen/GI: Soft, non-tender, with normal bowel sounds. No distension or tympany. No guarding or rebound. No evidence of tenderness throughout. Back: No spinal tenderness. No costovertebral tenderness. Full range of motion. Skin: Warm, dry with normal turgor. Normal color with no rashes, no lesions, and no evidence of cellulitis. MS/ Extremity: Pulses equal, no cyanosis. Neurovascular intact. Full, normal range of motion. Neuro: Awake and alert, GCS 15, oriented to person, place, time, and situation. Cranial nerves II-XII grossly intact. Motor strength 5/5 in all extremities. Sensory grossly intact. Cerebellar exam normal. Normal gait. 16:31 Psych: Behavior/mood is pleasant, cooperative, anxious, Affect is flat, Oriented to person, place, time, Vital Signs: 12:33 BP 136 / 97; Pulse 53; Resp 18; Temp 97.8; Pulse Ox 95% ; Weight 65.77 kg; Height 5 ft. ll1 11 in. ; Pain 10/10; 13:30 BP 134 / 74; Pulse 60; Resp 18; Pulse Ox 100% on R/A; eh3 14:30 BP 151 / 81; Pulse 58; Resp 16; Pulse Ox 98% on R/A; eh3 15:30 BP 153 / 99; Pulse 51; Resp 16; Pulse Ox 100% on R/A; eh3 16:30 BP 150 / 93; Pulse 56; Resp 16; Pulse Ox 100% on R/A; eh3 17:30 BP 151 / 90; Pulse 52; Resp 18; Pulse Ox 99% on R/A; eh3 18:30 BP 101 / 68; Pulse 75; Resp 18; Pulse Ox 99% on R/A; eh3 12:33 Body Mass Index 20.22 (65.77 kg, 180.34 cm) ll1 12:33 Pain Scale: Adult ll1 MDM: 16:31 Data reviewed: vital signs, nurses notes, lab test result(s), radiologic studies. kdr 16:35 Patient medically screened. kdr 06/20 12:45 Order name: CBC with Diff kdr 06/20 12:45 Order name: CMP; Complete Time: 16:29 kdr 06/20 12:45 Order name: Lipase; Complete Time: 16:29 kdr 06/20 18:56 Order name: CBC Smear Scan EDMS 06/20 12:45 Order name: IV Saline Lock; Complete Time: 13:59 kdr 06/20 12:45 Order name: Labs collected and sent; Complete Time: 13:59 kdr Administered Medications: 13:15 Drug: Famotidine IVP 20 mg IVP once; dilute with 10 mL 0.9% NaCl; give over 2 minutes eh3 Route: IVP; Site: right hand; 14:00 Follow up: Response: No adverse reaction eh3 13:15 Drug: Ondansetron IVP 4 mg IVP once; over 2 minutes Route: IVP; Site: right hand; eh3 14:00 Follow up: Response: No adverse reaction; Nausea is decreased eh3 13:59 Drug: NS 0.9% IV 1000 ml IV at 1 bolus Per protocol; 1000 mL bolus Route: IV; Rate: 1 eh3 bolus; Site: right hand; 15:00 Follow up: IV Status: Completed infusion; IV Intake: 1000ml eh3 16:30 Drug: Ativan IVP 1 mg IVP once Route: IVP; Site: right hand; eh3 17:30 Follow up: Response: No adverse reaction; Anxiety decreased eh3 16:50 Drug: Potassium Chloride PO Liquid 40 mEq PO once Route: PO; eh3 17:30 Follow up: Response: No adverse reaction eh3 Disposition Summary: 06/20/23 16:35 Discharge Ordered Notes: Location: Home kdr Problem: an ongoing problem kdr Symptoms: have improved kdr Condition: Stable kdr Diagnosis - Vomiting kdr Followup: kdr - With: Private Physician - When: 2 - 3 days - Reason: If symptoms return, Further diagnostic work-up, Recheck today's complaints, Continuance of care, Re-evaluation by your physician Discharge Instructions: - Discharge Summary Sheet kdr - Nausea and Vomiting, Adult, [id number] kdr Forms: - Medication Reconciliation Form kdr - Thank You Letter kdr - Patient Portal Instructions kdr - Leadership Thank You Letter kdr Prescriptions: - Reglan 10 mg Oral Tablet - take 1 tablet ORAL route every 6 hours take 30 minutes before meals and at kdr bedtime; 20 tablet; Refills: 0, Product Selection Permitted - Pepcid 20 mg Oral Tablet - take 1 tablet ORAL route once daily; 20 tablet; Refills: 0, Product Selection kdr Permitted Signatures: Dispatcher [employer] Krzysztof Casas MD MD kdr James Reese RN RN ll1 Genoveva Beavers RN RN eh3
[2023-06-20] MEDS ORDERED: POTASSIUM 25 MEQ EFFERV TAB ONE (17:01)
[2023-06-20 18:55] LABS: Blood Morphology Comment NOT SEEN (NOT SEEN); Platelet Estimate ADEQ; White Blood Cell Scan OK (OK)
[2023-06-20 19:38] VITALS: TEMP 97.8
[2023-06-20 19:58] VITALS: O2SAT 99
[2023-06-20 19:59] VITALS: BP 101/68
== END 2023-06-20 19:09 | disposition home or self-care (01) ==
LOC: ER 12:24
DX: R11.10 Vomiting, unspecified (principal); F17.210 Nicotine dependence, cigarettes, uncomplicated
CPT/HCPCS: 96361; 85025; 36415; 83690; 80053; 96375; 96374; 99284; J2405; J7030

== ENCOUNTER 2024-11-24 13:46 | Emergency (ER) | payer OTHER, SELFPAY ==
[2024-11-24] MEDS ORDERED: droPERidol 5 MG/2 ML VIAL ONE ×2 (14:11→16:42)
[2024-11-24] MEDS ORDERED: FAMOTIDINE 20 MG/2 ML VIAL IV ONE (14:11)
[2024-11-24] MEDS ORDERED: ONDANSETRON 4 MG/2 ML VIAL ONE (14:11)
[2024-11-24 14:49] LABS: Albumin 3.9 g/dL (3.4-5.0); Anion Gap 12.3 mEq/L (5.0-15.0); Bilirubin Total 0.2 mg/dL (0.2-1.0); Globulin 3.8 g/dL (2.3-3.5); Potassium 3.3 mEq/L (3.5-5.1); Protein, Total 7.7 g/dL (6.4-8.2)
[2024-11-24 14:53] LABS: Absolute Lymphocytes (CBC) 0.9 K/uL (0.7-4.9); Absolute Monocytes 0.3 K/uL (0.1-1.3); Absolute Neutrophil 11.6 K/uL (1.8-8.0); Basophils % 0.2 % (0-1.3); Hematocrit 33.5 % (36.0-45.0); Hemoglobin 11.1 g/dL (12.0-15.0); MCH 29.6 pg (27.0-35.0); MCHC 33.2 g/dL (32.0-36.0); MCV 89.3 fL (80-100); MPV 8.9 fL (7.6-11.3); Monocytes % 2.7 % (3.3-12.3); Neutrophils % 90.1 % (41.7-73.7); Platelets 329 thou/uL (152-406); RBC Red Blood Cell Count 3.75 M/uL (3.86-4.86); Red Cell Distribution Width 14.4 % (12.1-15.2)
--- NOTE | 2024-11-24 15:36 | RAD REPORT ---
EXAMINATION: CT ABDOMEN AND PELVIS WITH CONTRAST CLINICAL INDICATION: ABD PAIN TECHNIQUE: CT abdomen and pelvis was performed, after the administration of IV contrast, [facility]. Axial, sagittal and coronal reconstructions were obtained. One or more of the following dose reduction techniques were used: Automated exposure control, adjustment of the mA and k V according to patient size, and iterative reconstruction. Unless otherwise specified, incidental findings do not require dedicated imaging follow-up. COMPARISON: 06/19/2023 FINDINGS: LOWER CHEST: The visualized lung bases are clear. Small to moderate hiatal hernia. LIVER: Several low-density hepatic lesions are present, unchanged. No worrisome liver lesions seen. G rossly unremarkable gallbladder. SPLEEN: Normal size. No focal lesion. PANCREAS: No mass, ductal dilation, or daniel-pancreatic fluid. ADRENALS: Normal; no mass. KIDNEYS: Normal size and contour. No hydronephrosis. GASTROINTESTINAL TRACT: No evidence of free air, significant intra-abdominal free fluid, bowel obstru ction or abscess. Small fat-containing umbilical hernia. APPENDIX: Normal appendix. LYMPH NODES: No lymphadenopathy. MUSCULOSKELETAL: No acute or suspicious osseous abnormality. ADDITIONAL FINDINGS: The uterus appears significantly enlarged with multiple masses compatible with m ultiple fibroids. IMPRESSION: No acute or concerning abnormalities seen in the abdomen or pelvis. Significant leiomyomatous uterus.
[2024-11-24 16:49] LABS: Specific Gravity > 1.030 (1.005-1.030); Sqamous Epithelial None Seen /HPF (None Seen); Urine Bacteria <20 /HPF (<20); Urine Bilirubin NEGATIVE (Negative); Urine Blood 1+ (Negative); Urine Clarity Clear (Clear); Urine Color Colorless (Yellow); Urine Culture Reflex Order NOT NEEDED; Urine Glucose NEGATIVE (Negative); Urine Ketones NEGATIVE (Negative); Urine Microscopic Reflex YN ORDER UMIC; Urine Mucus Slight /HPF (None Seen); Urine Nitrite NEGATIVE (Negative); Urine Protein NEGATIVE (Negative); Urine RBC <5 /HPF (None Seen); Urine Urobilinogen Normal (Normal); Urine WBC <5 /HPF (<5)
[2024-11-24 16:50] LABS: Specific Gravity > 1.030 (1.005-1.030)
--- NOTE | 2024-11-24 17:33 | ER ---
Nurse's Notes [facility] Name: Sangita Sorenson Age: 49 yrs Sex: Female : 1975 Arrival Date: 11/24/2024 Time: 13:46 Bed 14 Private MD: Diagnosis: Abdominal pain, Generalized;Vomiting Presentation: 11/24 14:06 Chief complaint: EMS states: Called to patient's home for lower abdominal pain and cm10 vomiting onset this morning at 0300. Pt actively vomiting during triage complaining that she is cold. Coronavirus screen: Client denies travel out of the [place] in the last 14 days. Ebola Screen: Patient denies travel to an Ebola-affected area in the 21 days before illness onset. Initial Sepsis Screen: Does the patient meet any 2 criteria? No. Patient's initial sepsis screen is negative. Does the patient have a suspected source of infection? No. Patient's initial sepsis screen is negative. Risk Assessment: Do you want to hurt yourself or someone else? Patient reports no desire to harm self or others. Onset of symptoms was November 24, 2024. Care prior to arrival: Medication(s) given: Normal saline infusion, 300mL zofran 4 mg, Fentanyl 50mcg IV initiated. 22 GA, in the right antecubital area, Glucose check: 114 Oxygen administered. via nasal cannula. 14:06 Method Of Arrival: EMS: [facility] cm10 14:06 Acuity: IBRAHIMA 3 cm10 Triage Assessment: 14:09 General: Appears uncomfortable, ill, Behavior is anxious, restless. Pain: Complains of cm10 pain in left lower quadrant and right lower quadrant Pain currently is 8 out of 10 on a pain scale. Neuro: No deficits noted. Level of Consciousness is awake, alert, obeys commands, Oriented to person, place, time, situation, Appropriate for age. GI: Reports lower abdominal pain, cramping, nausea. 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 - Infectious Disease History:: Denies. - Social history:: Smoking status: Patient denies any tobacco usage or history of. Screenin:10 [facility] ED Fall Risk Assessment (Adult) History of falling in the last 3 months, me1 including since admission No falls in past 3 months (0 pts) Confusion or Disorientation No (0 pts) Intoxicated or Sedated No (0 pts) Impaired Gait No (0 pts) Mobility Assist Device Used No (0 pt) Altered Elimination No (0 pt) Score/Fall Risk Level 0 - 2 = Low Risk Maintained a safe environment, Provided non-skid footwear, Hourly rounding (assess needs \T\ fall precautionary measures) done. Abuse screen: Denies threats or abuse. Nutritional screening: No deficits noted. Tuberculosis screening: No symptoms or risk factors identified. Assessment: 14:10 General: Appears uncomfortable, well groomed, well developed, well nourished, Behavior me1 is cooperative, appropriate for age, anxious, restless, Reports lower abdominal pain and vomiting onset this morning at 0300. Pt actively vomiting during triage complaining that she is cold. 15:09 Pain: Complains of pain in left lower quadrant and right lower quadrant Pain does not me1 radiate. Pain currently is 8 out of 10 on a pain scale. Quality of pain is described as crampy, Pain began gradually, Is continuous. 15:10 Neuro: Level of Consciousness is awake, alert, obeys commands, Oriented to person, me1 place, time, situation, Appropriate for age. Cardiovascular: Patient's skin is warm and dry. Respiratory: Airway is patent Respiratory effort is even, unlabored, Respiratory pattern is regular, symmetrical. GI: Reports lower abdominal pain, nausea, vomiting, since 03:00. : No signs and/or symptoms were reported regarding the genitourinary system. EENT: No signs and/or symptoms were reported regarding the EENT system. Derm: Skin is intact, is healthy with good turgor, Skin is pink, warm \T\ dry. Musculoskeletal: No signs and/or symptoms reported regarding the musculoskeletal system. Vital Signs: 14:06 BP 150 / 118; Pulse 65; Resp 18; Temp 98.2; Pulse Ox 100% on R/A; Weight 65.77 kg; cm10 Height 4 ft. 11 in. ; Pain 8/10; 14:35 BP 146 / 85; Pulse 58; Resp 18; Pulse Ox 99% on R/A; ld1 15:00 BP 145 / 82; Pulse 65; Resp 16; Pulse Ox 99% ; me1 16:00 BP 124 / 73; Pulse 65; Resp 16; Pulse Ox 100% ; me1 17:00 BP 140 / 83; Pulse 69; Resp 16; Pulse Ox 100% ; me1 18:00 BP 149 / 86; Pulse 69; Resp 16; Temp 98.2; Pulse Ox 100% ; me1 14:06 Body Mass Index 29.29 (65.77 kg, 149.86 cm) cm10 14:06 Pain Scale: Adult cm10 ED Course: 13:56 Patient arrived in ED. me1 13:58 Ezra Han DO is Attending Physician. ms3 14:09 Triage completed. cm10 14:09 Acacia Anna, RN is Primary Nurse. me1 14:09 Arm band placed on right wrist. Patient placed in an exam room, on a stretcher, on cm10 pulse oximetry. 15:10 Patient has correct armband on for positive identification. Bed in low position. Call me1 light in reach. Side rails up X 1. Provided Education on: POC. Verbalized understanding.. Client placed on continuous cardiac and pulse oximetry monitoring. NIBP monitoring applied. Pulse ox on. NIBP on. 15:10 No provider procedures requiring assistance completed. Initial lab(s) drawn, by ED me1 staff, sent to lab. Maintain EMS IV. Dressing intact. Good blood return noted. Site clean \T\ dry. Gauge \T\ site: 22g LAC. Flushed with 10 mL NS. 15:26 CT Abd/Pelvis - IV Contrast Only In Process Unspecified. EDMS 16:40 Urine collected: clean catch specimen, clear. me1 17:32 Elvis Lake DO is Referral Physician. ms3 18:16 IV discontinued, intact, bleeding controlled, No redness/swelling at site. Pressure me1 dressing applied. Administered Medications: 14:15 Drug: Famotidine IVP 20 mg IVP once; dilute with 10 mL 0.9% NaCl; give over 2 minutes me1 Route: IVP; Site: right antecubital; 14:50 Follow up: Response: No adverse reaction me1 14:15 Drug: Ondansetron IVP 4 mg IVP once; over 2 minutes Route: IVP; Site: right antecubital;me1 14:50 Follow up: Response: No adverse reaction; Nausea is decreased me1 14:15 Drug: Droperidol IVP 1.25 mg IVP once Route: IVP; Site: right antecubital; me1 14:50 Follow up: Response: No adverse reaction; Nausea is decreased me1 16:45 Drug: Droperidol IVP 1.25 mg IVP once Route: IVP; Site: right antecubital; me1 18:15 Follow up: Response: No adverse reaction; Marked relief of symptoms me1 Medication: 15:10 VIS not applicable for this client. me1 Outcome: 17:32 Discharge ordered by MD. ms3 18:16 Discharged to home via wheelchair, with family, me1 18:16 Condition: stable 18:16 Discharge instructions given to patient, family, Instructed on discharge instructions, follow up and referral plans. Demonstrated understanding of instructions, follow-up care, 18:17 Patient left the ED. me1 Signatures: Dispatcher [employer] EDMS Ezra Han, DO ms3 Natalie Han RN RN ld1 Monica Cid RN RN cm10 Acacia Anna RN RN me1 Corrections: (The following items were deleted from the chart) 15:03 14:06 Chief complaint: EMS states: Called to patient's home for lower abdominal pain me1 and vomiting onset this morning at 0300. Pt actively vomiting during triage complaining that she is cold. cm10 15:09 14:06 Chief complaint: EMS states: Called to patient's home for lower abdominal pain me1 and vomiting onset this morning at 0300. Pt actively vomiting during triage complaining that she is cold. me1 15:10 14:10 General: Appears uncomfortable, well groomed, well developed, well nourished, me1 Behavior is calm, cooperative, appropriate for age, me1 15:11 15:09 Pain: Complains of pain in left lower quadrant and right lower quadrant Pain does me1 not radiate. Pain me1
--- NOTE | 2024-11-24 17:33 | EDPHYS ---
Physician Documentation [facility] Name: Sangita Sorenson Age: 49 yrs Sex: Female : 1975 Arrival Date: 11/24/2024 Time: 13:46 Bed 14 Private MD: ED Physician Ezra Han HPI: 11/24 14:07 This 49 yrs old Black Female presents to ER via Unassigned with complaints of Abdominal ms3 pain. 14:07 49-year-old female with past medical history of cyclic vomiting syndrome, gastritis ms3 presents to the emergency department via [facility] for lower abdominal pain that began this morning. Patient states she has had nausea and vomiting. Patient states her discomfort is a 10/10. She denies any alleviating or inciting factors.. 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 - Infectious Disease History:: Denies. - Social history:: Smoking status: Patient denies any tobacco usage or history of. ROS: 14:07 Constitutional: Negative for fever, and chills. Cardiovascular: Negative for chest ms3 pain, and palpitations. Respiratory: Negative for shortness of breath, cough, wheezing, and pleuritic chest pain, 14:07 MS/Extremity: Negative for injury and deformity, Skin: Negative for injury, rash, and discoloration, 14:07 Abdomen/GI: Positive for abdominal pain, nausea and vomiting, Exam: 14:07 Constitutional: This is a well developed, well nourished patient who is awake, alert, ms3 and in no acute distress. Cardiovascular: Regular rate and rhythm with a normal S1 and S2. No gallops, murmurs, or rubs. Normal PMI, no JVD. No pulse deficits. Respiratory: Lungs have equal breath sounds bilaterally, clear to auscultation and percussion. No rales, rhonchi or wheezes noted. No increased work of breathing, no retractions or nasal flaring. 14:07 Skin: Warm, dry with normal turgor. Normal color with no rashes, no lesions, and no evidence of cellulitis. 14:07 Abdomen/GI: Inspection: abdomen appears normal, Bowel sounds: normal, Palpation: severe abdominal tenderness, in the right lower quadrant and left lower quadrant, Vital Signs: 14:06 BP 150 / 118; Pulse 65; Resp 18; Temp 98.2; Pulse Ox 100% on R/A; Weight 65.77 kg; cm10 Height 4 ft. 11 in. ; Pain 8/10; 14:35 BP 146 / 85; Pulse 58; Resp 18; Pulse Ox 99% on R/A; ld1 15:00 BP 145 / 82; Pulse 65; Resp 16; Pulse Ox 99% ; me1 16:00 BP 124 / 73; Pulse 65; Resp 16; Pulse Ox 100% ; me1 17:00 BP 140 / 83; Pulse 69; Resp 16; Pulse Ox 100% ; me1 18:00 BP 149 / 86; Pulse 69; Resp 16; Temp 98.2; Pulse Ox 100% ; me1 14:06 Body Mass Index 29.29 (65.77 kg, 149.86 cm) cm10 14:06 Pain Scale: Adult cm10 MDM: 13:58 Medical Screening Exam initiated ms3 14:07 Differential diagnosis: diverticulitis, non-specific abd pain, urinary tract infection, ms3 Cyclic vomiting syndrome. 18:02 Data reviewed: vital signs, nurses notes, lab test result(s), radiologic studies, and ms3 as a result, I will discharge patient. I considered the following discharge prescriptions or medication management in the emergency department Medications were administered in the Emergency Department. See MAR. Historians other than the Patient: EMS: . Counseling: I had a detailed discussion with the patient and/or guardian regarding the historical points, exam findings, and any diagnostic results supporting the discharge/admit diagnosis, lab results, radiology results, the need for outpatient follow up, to return to the emergency department if symptoms worsen or persist or if there are any questions or concerns that arise at home. Special discussion: Based on the patient's Hx, exam, and Dx evaluation, there is no indication for emergent surgery or inpatient Tx. It is understood by the patient/guardian that if the Sx's persist or worsen they need to return immediately for re-evaluation. ED course: On reevaluation patient improved, emesis resolved, abdominal pain improved, abdomen benign, patient alert and oriented x 4, no apparent distress, nontoxic-appearing, speaking full sentences. Patient to follow-up with primary care physician in 2 to 3 days. Patient understands and agrees with plan. All questions were answered. Return precautions discussed include worsening symptoms, or any other concerns. 11/24 13:59 Order name: CBC with Diff ms3 11/24 13:59 Order name: CMP; Complete Time: 14:50 ms3 11/24 13:59 Order name: Lipase; Complete Time: 14:50 ms3 11/24 13:59 Order name: Test, Urine; Complete Time: 17:01 ms3 11/24 13:59 Order name: Urinalysis w/ reflexes; Complete Time: 17:01 ms3 11/24 13:59 Order name: CT Abd/Pelvis - IV Contrast Only; Complete Time: 15:37 ms3 11/24 13:59 Order name: IV Saline Lock; Complete Time: 14:15 ms3 11/24 13:59 Order name: Labs collected and sent; Complete Time: 14:24 ms3 Administered Medications: 14:15 Drug: Famotidine IVP 20 mg IVP once; dilute with 10 mL 0.9% NaCl; give over 2 minutes me1 Route: IVP; Site: right antecubital; 14:50 Follow up: Response: No adverse reaction me1 14:15 Drug: Ondansetron IVP 4 mg IVP once; over 2 minutes Route: IVP; Site: right antecubital;me1 14:50 Follow up: Response: No adverse reaction; Nausea is decreased me1 14:15 Drug: Droperidol IVP 1.25 mg IVP once Route: IVP; Site: right antecubital; me1 14:50 Follow up: Response: No adverse reaction; Nausea is decreased me1 16:45 Drug: Droperidol IVP 1.25 mg IVP once Route: IVP; Site: right antecubital; me1 18:15 Follow up: Response: No adverse reaction; Marked relief of symptoms me1 Disposition Summary: 11/24/24 17:32 Discharge Ordered Notes: Location: Home ms3 Condition: Stable ms3 Diagnosis - Abdominal pain, Generalized ms3 - Vomiting ms3 Followup: ms3 - With: Elvis Lake, DO - When: 2 - 3 days - Reason: Recheck today's complaints Discharge Instructions: - Discharge Summary Sheet ms3 - Abdominal Pain, Adult ms3 - Nausea and Vomiting, Adult ms3 Forms: - Medication Reconciliation Form ms3 - Antibiotic Education ms3 - Prescription Opioid Use ms3 - Patient Portal Instructions ms3 - Leadership Thank You Letter ms3 Signatures: Dispatcher [employer] EDEzra Winn DO DO ms3 Monica Cid RN RN cm10 Acacia Anna RN RN me1
[2024-11-24 18:31] VITALS: TEMP 98.2
[2024-11-24 18:36] VITALS: O2SAT 100
[2024-11-24 18:39] VITALS: BP 149/86
[2024-11-24 20:31] LABS: Platelet Estimate ADEQ; White Blood Cell Scan OK (OK)
[2024-11-24 20:32] LABS: Blood Morphology Comment NOT SEEN (NOT SEEN)
== END 2024-11-24 18:17 | disposition home or self-care (01) ==
LOC: ER 13:46
DX: R10.84 Generalized abdominal pain (principal); R11.10 Vomiting, unspecified
CPT/HCPCS: 36415; 74177; 80053; 81001; 81025; 83690; 85025; 96374; 96375; 99284; J1790; J2405; Q9967

== ENCOUNTER 2025-05-03 15:42 | Emergency (ER) | payer SELFPAY ==
[2025-05-03] MEDS ORDERED: NA CHLORIDE 0.9% 1,000 ML ONE (16:18)
[2025-05-03] MEDS ORDERED: ONDANSETRON 4 MG/2 ML VIAL ONE (16:18)
[2025-05-03] MEDS ORDERED: FAMOTIDINE 20 MG/2 ML VIAL IV ONE (16:18)
[2025-05-03 16:38] LABS: Absolute Lymphocytes (CBC) 1.6 K/uL (0.7-4.9); Hematocrit 38.6 % (36.0-45.0); Hemoglobin 13.3 g/dL (12.0-15.0); MCH 29.9 pg (27.0-35.0); MCHC 34.5 g/dL (32.0-36.0); MCV 86.6 fL (80-100); MPV 9.0 fL (7.6-11.3); Nucleated RBC Absolute Count 0.0 (0-0); Nucleated Red Blood Cells % 0.1 % (0-0); RBC Red Blood Cell Count 4.45 M/uL (3.86-4.86); White Blood Count 11.50 thou/uL (4.3-10.9)
[2025-05-03 16:42] LABS: ALT/SGPT 25.0 U/L (13-56); AST/SGOT 19.0 U/L (15-37); Albumin 4.4 g/dL (3.4-5.0); Albumin/Globulin Ratio 1.0 (1.1-1.8); Alkaline Phosphatase 91.0 U/L (45-117); Anion Gap 15.2 mEq/L (5.0-15.0); BUN Blood Urea Nitrogen 10.0 mg/dL (7-18); Globulin 4.4 g/dL (2.3-3.5); Glucose Level 127.0 mg/dL (74-106); Lipase 15.0 U/L (13-75); Potassium 3.2 mEq/L (3.5-5.1)
[2025-05-03] MEDS ORDERED: DICYCLOMINE HCL 10 MG CAP ONE (18:05)
[2025-05-03] MEDS ORDERED: POTASSIUM CL SA 10 MEQ TAB PO ONE (18:06)
--- NOTE | 2025-05-03 19:01 | ER ---
Nurse's Notes [facility] Name: Sangita Sorenson Age: 49 yrs Sex: Female : 1975 Arrival Date: 05/03/2025 Time: 15:42 Bed 17 Private MD: Diagnosis: Nausea with vomiting, unspecified Presentation: 05/03 15:50 Chief complaint: Patient states: N/V that began this morning at 3 am. Pt reports dd2 diarrhea that started 2 days ago and stomach pain. Coronavirus screen: At this time, the client does not indicate any symptoms associated with coronavirus-19. Ebola Screen: No symptoms or risks identified at this time. Risk Assessment: Do you want to hurt yourself or someone else? Patient reports no desire to harm self or others. Onset of symptoms was April 30, 2025. 15:50 Method Of Arrival: Ambulatory dd2 15:50 Acuity: IBRAHIMA 3 dd2 15:53 Initial Sepsis Screen: Does the patient meet any 2 criteria? No. Patient's initial dd2 sepsis screen is negative. Does the patient have a suspected source of infection? No. Patient's initial sepsis screen is negative. Triage Assessment: 15:53 General: Appears in no apparent distress. uncomfortable, Behavior is cooperative, dd2 appropriate for age, anxious. Pain: Complains of pain in abdomen. GI: Reports lower abdominal pain, upper abdominal pain, nausea, vomiting. SVP: 19:14 LMP N/A - Post-menopause, Not me1 Historical: - Allergies: 15:52 No Known Allergies; dd2 - PMHx: 15:52 trigeminal neuralgia; dd2 - PSHx: 15:52 section; dd2 - Immunization history:: Adult Immunizations up to date. - Infectious Disease History:: Denies. - Social history:: Smoking status: Patient reports the use of cigarette tobacco products, smokes one-half pack cigarettes per day. Screenin:10 [facility] ED Fall Risk Assessment (Adult) History of falling in the last 3 months, me1 including since admission No falls in past 3 months (0 pts) Confusion or Disorientation No (0 pts) Intoxicated or Sedated No (0 pts) Impaired Gait No (0 pts) Mobility Assist Device Used No (0 pt) Altered Elimination No (0 pt) Score/Fall Risk Level 0 - 2 = Low Risk Maintained a safe environment, Provided non-skid footwear, Hourly rounding (assess needs \T\ fall precautionary measures) done. Abuse screen: Denies threats or abuse. Nutritional screening: No deficits noted. Tuberculosis screening: No symptoms or risk factors identified. Assessment: 16:10 General: Appears uncomfortable, ill, well groomed, well developed, well nourished, me1 Behavior is calm, cooperative, appropriate for age, Reports N/V that began this morning at 3 am. Pt reports diarrhea that started 2 days ago and stomach pain. Pain: Complains of pain in abdomen Pain does not radiate. Pain currently is 10 out of 10 on a pain scale. Quality of pain is described as crampy, Pain began 2-3 days ago. Is continuous. Neuro: Level of Consciousness is awake, alert, obeys commands, Oriented to person, place, time, situation, Appropriate for age. Cardiovascular: Patient's skin is warm and dry. Respiratory: Airway is patent Respiratory effort is even, unlabored, Respiratory pattern is regular, symmetrical. GI: Abdomen is round non-distended, Reports lower abdominal pain, upper abdominal pain, cramping, diarrhea, nausea, vomiting. : No signs and/or symptoms were reported regarding the genitourinary system. EENT: No signs and/or symptoms were reported regarding the EENT system. Derm: Skin is intact, is healthy with good turgor, Skin is normal. Musculoskeletal: Circulation, motion, and sensation intact. Range of motion: intact in all extremities. Vital Signs: 15:53 BP 148 / 92; Pulse 61; Resp 18; Temp 98; Pulse Ox 100% on R/A; Weight 68.04 kg; Pain dd2 10/10; 17:00 BP 169 / 89; Pulse 49; Resp 16; Pulse Ox 100% ; me1 18:00 BP 150 / 85; Pulse 49; Resp 16; Pulse Ox 100% ; me1 19:00 BP 168 / 99; Pulse 52; Resp 15; Temp 98.3; Pulse Ox 100% ; me1 15:53 Pain Scale: Adult dd2 ED Course: 15:48 Patient arrived in ED. im 15:48 Jessica Vaughn FNP-C [facility]. kb 15:48 Traci Lake MD is Attending Physician. kb 15:52 Triage completed. dd2 15:53 Arm band placed on right wrist. dd2 16:07 Acacia Anna, RN is Primary Nurse. me1 16:10 Patient has correct armband on for positive identification. Bed in low position. Call me1 light in reach. Side rails up X2. Provided Education on: POC. Verbalized understanding. Client placed on continuous cardiac and pulse oximetry monitoring. NIBP monitoring applied. Pulse ox on. NIBP on. Warm blanket given. 16:10 No provider procedures requiring assistance completed. me1 16:16 CBC with Diff Sent. me1 16:16 CMP Sent. me1 16:16 Lipase Sent. me1 16:16 Initial lab(s) drawn, by me, sent to lab. Inserted saline lock: 22 gauge in right me1 antecubital area, using aseptic technique. 19:15 IV discontinued, intact, bleeding controlled, No redness/swelling at site. Pressure me1 dressing applied. Administered Medications: 16:25 Drug: Famotidine IVP 20 mg IVP once; dilute with 10 mL 0.9% NaCl; give over 2 minutes me1 Route: IVP; Site: right antecubital; 17:29 Follow up: Response: No adverse reaction me1 16:25 Drug: Ondansetron IVP 4 mg IVP once; over 2 minutes Route: IVP; Site: right antecubital;me1 17:29 Follow up: Response: No adverse reaction; Nausea is decreased me1 16:25 Drug: NS 0.9% IV 1000 ml IV at 1 bolus Per protocol; to be given as a bolus over 60 me1 minutes Route: IV; Rate: 1 bolus; Site: right antecubital; 18:03 Follow up: Response: No adverse reaction; IV Status: Completed infusion me1 18:14 Drug: Dicyclomine PO 20 mg PO once Route: PO; me1 19:03 Follow up: Response: No adverse reaction me1 19:03 Follow up: Response: Pain is decreased me1 18:15 Drug: Potassium Chloride PO 40 mEq PO once Route: PO; me1 19:03 Follow up: Response: No adverse reaction me1 Medication: 16:10 VIS not applicable for this client. me1 Outcome: 19:00 Discharge ordered by . kvng 19:15 Discharged to home ambulatory, me1 19:15 Discharged to home via wheelchair, with family, 19:15 Condition: stable 19:15 Discharge instructions given to patient, Instructed on discharge instructions, follow up and referral plans. medication usage, Demonstrated understanding of instructions, follow-up care, medications, Prescriptions given X 2, 19:15 Patient left the ED. me1 Signatures: Jessica Vaughn, EXPLOSIVES HANDLER-C EXPLOSIVES HANDLER-Lydia Ellis Michelle, RN RN me1 MATT WHEELER RN RN dd2 Corrections: (The following items were deleted from the chart) 17:27 15:50 Chief complaint: Patient states: N/V that began this morning at 3 am. Pt reports me1 diarrhea that started 2 days ago and stomach pain. dd2 19:03 19:03 Response: No adverse reaction; Pain is decreased me1 me1
--- NOTE | 2025-05-03 19:01 | EDPHYS ---
Physician Documentation [facility] Name: Sangita Sorenson Age: 49 yrs Sex: Female : 1975 Arrival Date: 05/03/2025 Time: 15:42 Bed 17 Private MD: ED Physician Traci Lake HPI: 05/03 16:29 This 49 yrs old Black Female presents to ER via Ambulatory with complaints of Vomiting. kb 16:29 Patient is a 49-year-old female who presents for nausea and vomiting that started at 3 kb at this morning. Reports she has a history of cyclic vomiting and has had this multiple times in the past. Reports epigastric pain which is normal whenever she has the vomiting. Denies fever. Reports diarrhea for the last 2 days.. 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 - Infectious Disease History:: Denies. - Social history:: Smoking status: Patient reports the use of cigarette tobacco products, smokes one-half pack cigarettes per day. ROS: 16:29 Constitutional: As per HPI kb Exam: 16:29 Constitutional: This is a well developed, well nourished patient who is awake, alert, kb and in no acute distress. Head/Face: Normocephalic, atraumatic. ENT: Moist Mucous membranes Cardiovascular: Regular rate Respiratory: Respirations even and unlabored. No increased work of breathing. Talking in full sentences Abdomen/GI: Soft, non-tender. No distention Skin: Warm, dry with normal turgor. Normal color. MS/ Extremity: Pulses equal, no cyanosis. Neurovascular intact. Full, normal range of motion. Neuro: Awake and alert, GCS 15, oriented to person, place, time, and situation. Vital Signs: 15:53 BP 148 / 92; Pulse 61; Resp 18; Temp 98; Pulse Ox 100% on R/A; Weight 68.04 kg; Pain dd2 10/10; 17:00 BP 169 / 89; Pulse 49; Resp 16; Pulse Ox 100% ; me1 18:00 BP 150 / 85; Pulse 49; Resp 16; Pulse Ox 100% ; me1 19:00 BP 168 / 99; Pulse 52; Resp 15; Temp 98.3; Pulse Ox 100% ; me1 15:53 Pain Scale: Adult dd2 MDM: 15:48 Medical Screening Exam initiated kb 18:58 Differential diagnosis: Nonspecific abd pain, gastritis, viral gastroenteritis, kb gastritis, GERD, dehdyration. Data reviewed: vital signs, nurses notes. Test considered but Not performed: CT: ct abd considered but pt has had these symptoms multiple times in the past, no abd tenderness. Counseling: I had a detailed discussion with the patient and/or guardian regarding the historical points, exam findings, and any diagnostic results supporting the discharge/admit diagnosis, lab results, the need for outpatient follow up, a family practitioner, to return to the emergency department if symptoms worsen or persist or if there are any questions or concerns that arise at home. 05/03 15:49 Order name: CBC with Diff; Complete Time: 16:43 kb 05/03 15:49 Order name: CMP; Complete Time: 16:43 kb 05/03 15:49 Order name: Lipase; Complete Time: 16:43 kb 05/03 15:49 Order name: IV Saline Lock; Complete Time: 16:16 kb 05/03 15:49 Order name: Labs collected and sent; Complete Time: 16:16 kb 05/03 17:46 Order name: PO challenge; Complete Time: 18:15 kb Administered Medications: 16:25 Drug: Famotidine IVP 20 mg IVP once; dilute with 10 mL 0.9% NaCl; give over 2 minutes me1 Route: IVP; Site: right antecubital; 17:29 Follow up: Response: No adverse reaction me1 16:25 Drug: Ondansetron IVP 4 mg IVP once; over 2 minutes Route: IVP; Site: right antecubital;me1 17:29 Follow up: Response: No adverse reaction; Nausea is decreased me1 16:25 Drug: NS 0.9% IV 1000 ml IV at 1 bolus Per protocol; to be given as a bolus over 60 me1 minutes Route: IV; Rate: 1 bolus; Site: right antecubital; 18:03 Follow up: Response: No adverse reaction; IV Status: Completed infusion me1 18:14 Drug: Dicyclomine PO 20 mg PO once Route: PO; me1 19:03 Follow up: Response: No adverse reaction me1 19:03 Follow up: Response: Pain is decreased me1 18:15 Drug: Potassium Chloride PO 40 mEq PO once Route: PO; me1 19:03 Follow up: Response: No adverse reaction me1 Disposition Summary: 05/03/25 19:00 Discharge Ordered Notes: Location: Home kb Condition: Stable kb Diagnosis - Nausea with vomiting, unspecified kb Followup: kb - With: Private Physician - When: 2 - 3 days - Reason: Recheck today's complaints, Continuance of care, Re-evaluation by your physician Followup: kb - With: Emergency Department - When: As needed - Reason: Worsening of condition Discharge Instructions: - Discharge Summary Sheet kb - Nausea and Vomiting, Adult, [id number] kb Forms: - Medication Reconciliation Form kb - Antibiotic Education kb - Prescription Opioid Use kb - Patient Portal Instructions kb - Leadership Thank You Letter kb - Work release form km Prescriptions: - ondansetron 4 mg Oral Tablet,disintegrating - take 1 tablet ORAL route every 6 hours As needed as needed for nausea and kb vomiting; 12 tablet; Refills: 0, Product Selection Permitted - dicyclomine 20 mg Oral tablet - take 1 tablet ORAL route 4 times per day As needed; 20 tablet; Refills: 0, kb Product Selection Permitted Signatures: Dispatcher [employer] Jessica Nuñez, ASSURANCE ASSISTANT-C IRENE-Acacia Castro, RN RN me1 MATT WHEELER RN RN dd2
[2025-05-03 20:01] VITALS: O2SAT 100
[2025-05-03 20:04] VITALS: BP 168/99; TEMP 98.3
== END 2025-05-03 19:15 | disposition home or self-care (01) ==
LOC: ER 15:42
DX: R11.2 Nausea with vomiting, unspecified (principal)
CPT/HCPCS: 36415; 80053; 83690; 85025; 96361; 96374; 96375; 99284; J2405; J7030

== ENCOUNTER 2025-05-04 07:54 | Emergency (ER) | payer SELFPAY ==
[2025-05-04] MEDS ORDERED: FAMOTIDINE 20 MG/2 ML VIAL IV ONE (08:31)
[2025-05-04] MEDS ORDERED: NA CHLORIDE 0.9% 1,000 ML ONE (08:31)
[2025-05-04] MEDS ORDERED: ONDANSETRON 4 MG/2 ML VIAL ONE (08:31)
[2025-05-04 08:35] LABS: Absolute Lymphocytes (CBC) 2.3 K/uL (0.7-4.9); Hematocrit 37.7 % (36.0-45.0); Hemoglobin 12.8 g/dL (12.0-15.0); MCH 30.1 pg (27.0-35.0); MCHC 34.1 g/dL (32.0-36.0); MCV 88.2 fL (80-100); MPV 9.2 fL (7.6-11.3); Nucleated RBC Absolute Count 0.0 (0-0); Nucleated Red Blood Cells % 0.0 % (0-0); RBC Red Blood Cell Count 4.27 M/uL (3.86-4.86); White Blood Count 12.30 thou/uL (4.3-10.9)
[2025-05-04 09:02] LABS: ALT/SGPT 21.0 U/L (13-56); AST/SGOT 12.0 U/L (15-37); Albumin 4.1 g/dL (3.4-5.0); Albumin/Globulin Ratio 1.0 (1.1-1.8); Alkaline Phosphatase 84.0 U/L (45-117); Anion Gap 11.4 mEq/L (5.0-15.0); BUN Blood Urea Nitrogen 9.0 mg/dL (7-18); Globulin 4.3 g/dL (2.3-3.5); Glucose Level 118.0 mg/dL (74-106); Lipase 23.0 U/L (13-75); Potassium 3.4 mEq/L (3.5-5.1)
[2025-05-04] MEDS ORDERED: MORPHINE 4 MG/ML SYR ONE (09:53)
--- NOTE | 2025-05-04 09:55 | RAD REPORT ---
EXAMINATION: CT ABDOMEN AND PELVIS WITH CONTRAST CLINICAL INDICATION: Abdominal pain TECHNIQUE: CT abdomen and pelvis was performed, after the administration of 100 cc Isovue-300.. Sagit bahman and coronal reconstructions were obtained. One or more of the following dose reduction techniques were used: Automated exposure control, adjustment of the mA and kV according to patient si ze, and iterative reconstruction. Unless otherwise specified, incidental findings do not require dedicated imaging follow-up. [id number]. Oral contrast was not given which limits evaluation of bowel and appendix. COMPARISON: .February 2025 FINDINGS: Small hepatic cysts. Spleen pancreas, adrenals and kidneys unremarkable Small umbilical hernia. Diastases rectus abdominis muscles 3.7 cm Normal appendix. Multiple uterine fibroids again demonstrated No evidence of diverticulitis. : IMPRESSION: No acute abnormality displayed
--- NOTE | 2025-05-04 10:20 | ER ---
Nurse's Notes [facility] Name: Sangita Sorenson Age: 49 yrs Sex: Female : 1975 Arrival Date: 05/04/2025 Time: 07:54 Bed 6 Private MD: Diagnosis: Abdominal pain, Generalized;Vomiting;Elevated blood-pressure reading, without diagnosis of hypertension Presentation: 05/04 08:05 Chief complaint: Patient states: N/V, SEEN FOR SAME YD. Coronavirus screen: At this bp time, the client does not indicate any symptoms associated with coronavirus-19. Ebola Screen: No symptoms or risks identified at this time. Initial Sepsis Screen: Does the patient meet any 2 criteria? No. Patient's initial sepsis screen is negative. Does the patient have a suspected source of infection? No. Patient's initial sepsis screen is negative. Risk Assessment: Do you want to hurt yourself or someone else? Patient reports no desire to harm self or others. Onset of symptoms is unknown. 08:05 Method Of Arrival: Ambulatory bp 08:05 Acuity: IBRAHIMA 3 bp Triage Assessment: 08:07 General: Appears distressed, Behavior is cooperative, appropriate for age, anxious. bp Pain: Denies pain. EENT: No deficits noted. Neuro: No deficits noted. Cardiovascular: No deficits noted. Respiratory: No deficits noted. GI: Reports nausea, vomiting. : No signs and/or symptoms were reported regarding the genitourinary system. Derm: No deficits noted. Musculoskeletal: No deficits noted. Historical: - Allergies: 08:07 No Known Allergies; bp - PMHx: 08:07 trigeminal neuralgia; bp - PSHx: 08:07 section; bp - Immunization history:: Adult Immunizations unknown. - Infectious Disease History:: Denies. - Social history:: Smoking status: unknown. Screenin:07 [facility] ED Fall Risk Assessment (Adult) History of falling in the last 3 months, bp including since admission No falls in past 3 months (0 pts) Confusion or Disorientation No (0 pts). [facility] ED Fall Risk Assessment (Adult) Intoxicated or Sedated No (0 pts) Impaired Gait No (0 pts) Mobility Assist Device Used No (0 pt) Altered Elimination No (0 pt) Score/Fall Risk Level 0 - 2 = Low Risk Oriented to surroundings. Abuse screen: Denies threats or abuse. Denies injuries from another. Nutritional screening: No deficits noted. Tuberculosis screening: No symptoms or risk factors identified. Assessment: 08:07 General: SEE TRIAGE NOTE. bp Vital Signs: 08:05 BP 159 / 102; Pulse 53; Resp 20; Temp 98; Pulse Ox 94% ; Weight 68.04 kg; Height 4 ft. bp 11 in. ; 11:23 BP 118 / 78; Pulse 67; Resp 16; Pulse Ox 95% ; bp 08:05 Body Mass Index 30.30 (68.04 kg, 149.86 cm) bp ED Course: 07:56 Patient arrived in ED. cj3 07:59 Ezra Han DO is Attending Physician. ms3 08:03 Jules Holley, RN is Primary Nurse. bp 08:07 Triage completed. bp 08:07 Arm band placed on. bp 08:07 Patient has correct armband on for positive identification. bp 08:22 Initial lab(s) drawn, by me, sent to lab. Inserted saline lock: 20 gauge in right bp antecubital area, using aseptic technique. Blood collected. Flushed with 10 mL NS. 09:18 CT Abd/Pelvis - IV Contrast Only In Process Unspecified. EDMS 10:20 Abhilash Melvin MD is Referral Physician. ms3 11:24 No provider procedures requiring assistance completed. IV discontinued, intact, bp bleeding controlled, No redness/swelling at site. Pressure dressing applied. Administered Medications: 08:35 Drug: Famotidine IVP 20 mg IVP once; dilute with 10 mL 0.9% NaCl; give over 2 minutes bp Route: IVP; Site: right antecubital; 10:06 Follow up: Response: No adverse reaction bp 08:35 Drug: Ondansetron IVP 4 mg IVP once; over 2 minutes Route: IVP; Site: right antecubital;bp 10:06 Follow up: Response: No adverse reaction bp 08:35 Drug: NS 0.9% IV 1000 ml IV at 1 bolus Per protocol; to be given as a bolus over 60 bp minutes Route: IV; Rate: 1 bolus; Site: right antecubital; 11:24 Follow up: IV Status: Completed infusion bp 10:00 Drug: morphine IVP or IV 4 mg IVP once over 4 mins Route: IVP; Infused Over: 4 mins; bp Site: right antecubital; 10:06 Follow up: Response: No adverse reaction bp Medication: 08:07 VIS not applicable for this client. bp Outcome: 10:20 Discharge ordered by ms3 11:24 Discharged to home ambulatory, bp 11:24 Condition: stable 11:24 Discharge instructions given to patient, Instructed on discharge instructions, follow up and referral plans. Demonstrated understanding of instructions, follow-up care, 11:25 Patient left the ED. bp Signatures: Dispatcher [employer] Jules Hernandez, LOGAN RN bp Ezra Han DO DO ms3 Janae Hays cj3
--- NOTE | 2025-05-04 10:20 | EDPHYS ---
Physician Documentation [facility] Name: Sangita Sorenson Age: 49 yrs Sex: Female : 1975 Arrival Date: 05/04/2025 Time: 07:54 Bed 6 Private MD: ED Physician Ezra Han HPI: 05/04 10:21 This 49 yrs old Black Female presents to ER via Ambulatory with complaints of Abdominal ms3 Pain, Nausea/Vomiting. 10:21 49-year-old female with past medical history of presents to the emergency department ms3 for nausea vomiting abdominal pain that began yesterday. Patient states she was seen in the emergency department last night and labs were obtained. Patient states her pain is currently an 8/10 and located in the epigastric region. Patient denies diarrhea, endorses fevers and chills. She denies any alleviating or inciting factors.. Historical: - Allergies: 08:07 No Known Allergies; bp - PMHx: 08:07 trigeminal neuralgia; bp - PSHx: 08:07 section; bp - Immunization history:: Adult Immunizations unknown. - Infectious Disease History:: Denies. - Social history:: Smoking status: unknown. ROS: 10:21 Constitutional: Negative for fever, and chills. Cardiovascular: Negative for chest ms3 pain, and palpitations. Respiratory: Negative for shortness of breath, cough, wheezing, and pleuritic chest pain, 10:21 MS/Extremity: Negative for injury and deformity, 10:21 Abdomen/GI: Positive for abdominal pain, nausea and vomiting, Exam: 10:21 Constitutional: This is a well developed, well nourished patient who is awake, alert, ms3 and in no acute distress. Cardiovascular: Regular rate and rhythm with a normal S1 and S2. No gallops, murmurs, or rubs. Normal PMI, no JVD. No pulse deficits. Respiratory: Lungs have equal breath sounds bilaterally, clear to auscultation and percussion. No rales, rhonchi or wheezes noted. No increased work of breathing, no retractions or nasal flaring. 10:21 Skin: Warm, dry with normal turgor. Normal color with no rashes, no lesions, and no evidence of cellulitis. MS/ Extremity: Pulses equal, no cyanosis. Neurovascular intact. Full, normal range of motion. 10:21 Abdomen/GI: Inspection: abdomen appears normal, Bowel sounds: normal, Palpation: mild abdominal tenderness, in all quadrants, Vital Signs: 08:05 BP 159 / 102; Pulse 53; Resp 20; Temp 98; Pulse Ox 94% ; Weight 68.04 kg; Height 4 ft. bp 11 in. ; 11:23 BP 118 / 78; Pulse 67; Resp 16; Pulse Ox 95% ; bp 08:05 Body Mass Index 30.30 (68.04 kg, 149.86 cm) bp MDM: 08:18 Medical Screening Exam initiated ms3 10:21 Differential diagnosis: Nonspecific abd pain, gastritis, pancreatitis, viral ms3 gastroenteritis, gastroenteritis. Data reviewed: vital signs, nurses notes, lab test result(s), radiologic studies, and as a result, I will discharge patient. I considered the following discharge prescriptions or medication management in the emergency department Medications were administered in the Emergency Department. See MAR. Independent interpretation of the following test(s) in the Emergency Department CT Scan: My interpretation is CT abdomen/pelvis images reviewed by me do not reveal free air. Counseling: I had a detailed discussion with the patient and/or guardian regarding the historical points, exam findings, and any diagnostic results supporting the discharge/admit diagnosis, lab results, radiology results, the need for outpatient follow up, to return to the emergency department if symptoms worsen or persist or if there are any questions or concerns that arise at home. Special discussion: Based on the patient's Hx, exam, and Dx evaluation, there is no indication for emergent surgery or inpatient Tx. It is understood by the patient/guardian that if the Sx's persist or worsen they need to return immediately for re-evaluation. ED course: Discussed labs and CT results with patient. Patient to follow-up with Dr. Melvin in 2 to 3 days. Patient understands agrees with plan. All questions were answered. Return precautions were discussed include worsening symptoms, fevers, inability tolerate p.o., or any other concerns. On reevaluation patient is alert, no apparent distress, nontoxic-appearing, speaking full sentences.. 05/04 08:14 Order name: CBC with Diff; Complete Time: 09:48 ms3 05/04 08:14 Order name: CMP; Complete Time: :48 ms3 05/04 08:14 Order name: Lipase; Complete Time: 09:48 ms3 05/04 08:20 Order name: Test, Serum; Complete Time: 09:48 bp 05/04 08:14 Order name: CT Abd/Pelvis - IV Contrast Only; Complete Time: 10:13 ms3 05/04 08:14 Order name: IV Saline Lock; Complete Time: 08:20 ms3 05/04 08:14 Order name: Labs collected and sent; Complete Time: 08:20 ms3 Administered Medications: 08:35 Drug: Famotidine IVP 20 mg IVP once; dilute with 10 mL 0.9% NaCl; give over 2 minutes bp Route: IVP; Site: right antecubital; 10:06 Follow up: Response: No adverse reaction bp 08:35 Drug: Ondansetron IVP 4 mg IVP once; over 2 minutes Route: IVP; Site: right antecubital;bp 10:06 Follow up: Response: No adverse reaction bp 08:35 Drug: NS 0.9% IV 1000 ml IV at 1 bolus Per protocol; to be given as a bolus over 60 bp minutes Route: IV; Rate: 1 bolus; Site: right antecubital; 11:24 Follow up: IV Status: Completed infusion bp 10:00 Drug: morphine IVP or IV 4 mg IVP once over 4 mins Route: IVP; Infused Over: 4 mins; bp Site: right antecubital; 10:06 Follow up: Response: No adverse reaction bp Disposition Summary: 05/04/25 10:20 Discharge Ordered Notes: Location: Home ms3 Condition: Stable ms3 Diagnosis - Abdominal pain, Generalized ms3 - Vomiting ms3 - Elevated blood-pressure reading, without diagnosis of hypertension ms3 Followup: ms3 - With: Abhilash Melvin MD - When: 2 - 3 days - Reason: Recheck today's complaints Discharge Instructions: - Discharge Summary Sheet ms3 - Abdominal Pain, Adult ms3 - Nausea and Vomiting, Adult ms3 - DASH Eating Plan ms3 Forms: - Medication Reconciliation Form ms3 - Antibiotic Education ms3 - Prescription Opioid Use ms3 - Patient Portal Instructions ms3 - Leadership Thank You Letter ms3 Signatures: Dispatcher [employer] Jules Hernandez RN RN Ezra Beavers DO DO ms3
[2025-05-04 11:28] VITALS: TEMP 98
[2025-05-04 11:30] VITALS: BP 118/78; O2SAT 95
== END 2025-05-04 11:25 | disposition home or self-care (01) ==
LOC: ER 07:54
DX: R10.84 Generalized abdominal pain (principal); R11.10 Vomiting, unspecified; R03.0 Elevated blood-pressure reading, without diagnosis of hypertension
CPT/HCPCS: 36415; 74177; 80053; 83690; 84703; 85025; 96361; 96374; 96375; 99284; J2405; J7030; Q9967